=== PATIENT | male | born 1945 | race Caucasian/White ===

== ENCOUNTER 2016-10-22 21:17 | Inpatient (IN) ==
[2016-10-22 22:22] LABS: Hematocrit 29.3 % (37.5-50.1); Hemoglobin 9.3 g/dL (12.9-16.9); Mean Corpuscular HGB Conc 31.7 g/dL (31.6-35.5); Mean Corpuscular Hemoglobin 27.4 pg (28.0-33.3); Mean Corpuscular Volume 86.4 fL (83.0-100.0); Platelet Count 190 K/mcL (140-400); Red Blood Count 3.39 M/mcL (4.19-5.50); Red Cell Distribution Width 14.5 % (11.5-14.5)
[2016-10-22] MEDS: 0.9 % Sodium Chloride 1,000 ML IVC SCH ×2 (22:23→22:38)
[2016-10-22 22:37] LABS: Acetaminophen < 1.0 mcg/mL (10-30); Alanine Aminotransferase 8 Units/L (0-55); Albumin 3.4 g/dL (3.5-5.0); Albumin/Globulin Ratio 1.1 (1.1-2.2); Alkaline Phosphatase 59 Units/L (38-126); Aspartate Amino Transferase 17 Units/L (5-34); BUN/Creatinine Ratio 9 (6-26); Bilirubin,Direct 0.2 mg/dL (0.0-0.5); Bilirubin,Indirect 0.3 mg/dL (0.0-1.2); Bilirubin,Total 0.5 mg/dL (0.2-1.2); Blood Urea Nitrogen 45 mg/dL (8-26); Calcium 10.9 mg/dL (8.6-10.8); Carbon Dioxide 22 mEq/L (19-29); Chloride 103 mEq/L (98-109); Globulin 3.2 g/dL (2.4-3.5); Glucose 92 mg/dL (70-99); Osmolality,Calculated 289 (280-300); Potassium 4.2 mEq/L (3.5-4.5); Sodium 134 mEq/L (136-145); Total Protein 6.6 g/dL (6.0-8.3); eGFR For African Americans 14 (> 60); eGFR For Non-African Americans 11 (> 60)
[2016-10-22] MEDS ORDERED: Azithromycin 500 MG in D5% in Water 250 ML IVPB ONE (23:23)
[2016-10-22 23:24] LABS: Bilirubin,Urine Negative (Negative); Blood,Urine Small (Negative); Clarity,Urine Clear (Clear); Color,Urine Yellow (Yellow); Glucose,Urine (UA) Normal (Normal); Ketones,Urine Negative (Negative); Leukocyte Esterase,Urine Negative (Negative); Nitrite,Urine Negative (Negative); Protein,Urine >=300 mg/dL (Neg-Trace); Specific Gravity,Urine 1.017 (1.010-1.025); Urobilinogen,Urine Normal (Normal)
--- NOTE | 2016-10-22 23:26 | Emergency Department Note ---
Disposition Clinical Impression: Community acquired pneumonia Renal failure (ARF), acute on chronic Qualifiers: Acute renal failure type: unspecified Chronic kidney disease stage: unspecified stage Qualified Code(s): N17.9 - Acute kidney failure, unspecified Anemia Qualifiers: Anemia type: unspecified type Qualified Code(s): D64.9 - Anemia, unspecified Disposition: Admitted As Inpatient Condition: Fair Referrals: Fern Colon MD [Primary Care Provider] - Forms: Work/School Release, ED Satisfaction Letter General Adult HPI - General Chief complaint: ED General Medical Stated complaint: temp 101.6// N/V Time Seen by Provider: 10/22/16 21:27 Source: patient Limitations: no limitations Nursing Notes Reviewed: Yes Vital Signs Reviewed: Yes - History of Present Illness HPI Narrative: Presents with 1 week of cough which is intermittently productive of yellow sputum and he has had a fever which started today and was 101.6 degrees orally when measured at home shortly prior to arrival. Denies shortness of breath. No abdominal pain. No dysuria or urinary frequency, blood in the urine or stool. Patient does have chronic renal failure and is on immunosuppressive therapy. I did review the previous records. Social history: No smoking, occasional alcohol Pain Scale: 0 - Related Data Home Medications Medication Instructions Recorded Confirmed Allopurinol [Zyloprim 300 MG] 300 mg PO DAILY 08/31/16 10/22/16 Aspirin 81 mg PO DAILY 08/31/16 10/22/16 Diltiazem HCl [Cardizem LA] 120 mg PO DAILY 08/31/16 10/22/16 Glimepiride [Amaryl] 4 mg PO DAILY 08/31/16 10/22/16 Levothyroxine [Synthroid] 175 mcg PO DAILY 08/31/16 10/22/16 Losartan Potassium [Cozaar] 50 mg PO DAILY 08/31/16 10/22/16 Mycophenolate Mofetil [Cellcept] 500 mg PO BID 08/31/16 10/22/16 Ramipril [Altace] 10 mg PO BID 08/31/16 10/22/16 Rosuvastatin [Crestor] 40 mg PO HS 08/31/16 10/22/16 SitaGLIPtin [Januvia] 25 mg PO DAILY 08/31/16 10/22/16 Tamsulosin [Flomax] 0.4 mg PO DAILY 08/31/16 10/22/16 Tramadol HCl [Ultram] 100 mg PO BID PRN 08/31/16 10/22/16 Triamterene/HCTZ 37.5/25mg 0.5 tab PO DAILY 08/31/16 10/22/16 [Dyazide] Clotrimazole 1% CRM [Lotrimin 1%] 1 appl TP BID PRN 10/22/16 10/22/16 Omeprazole [PriLOSEC] 40 mg PO DAILY 10/22/16 10/22/16 Sulfamethoxazole/Trimeth DS 1 each PO MOWEFR 10/22/16 10/22/16 [Bactrim DS] Allergies Allergy/AdvReac Type Severity Reaction Status Date / Time prednisone AdvReac See Verified 09/09/16 08:00 Comments Review of Systems: Constitutional: No fever Vision: No new blurred vision ENT: No rhinorrhea Respiratory: + cough Allergic: No allergies : No blood in urine GI: No blood in stool Hematologic: No bruising Dermatologic: No skin rash Musculoskeletal: No pain in the extremities Neuro: No numbness of the extremities Past Medical History - Past Medical History Medical history: Reports: diabetes, hypertension, renal disease, thyroid disease Psychiatric history: Reports: no psych history - Social History Smoking Status: Never smoker Smokeless Tobacco Status: No Alcohol use: Reports: none Drug use: Reports: none Physical Exam CONSTITUTIONAL: Alert and oriented X3, well-nourished, well appearing, in no apparent distress but does have frequent dry cough HEAD: Normocephalic; atraumatic. EYES: PERRL, no scleral icterus. NOSE: The nose is normal in appearance without rhinorrhea RESP: Normal chest excursion with respiration; breath sounds with some mild crackles left lower lung field , no wheezing CARD: Regular rhythm, without murmurs, rub or gallop ABD: Non-distended; mild tenderness with deep palpation right lower quadrant and nontender elsewhere. The entire abdomen is normal in appearance and soft, without rigidity, rebound or guarding SKIN: Normal for age and race; warm and dry; no apparent lesions - General Limitations: no limitations General appearance: alert, in no apparent distress Course Vital Signs Temperature 100 F H 10/22/16 21:18 Pulse Rate 171 10/22/16 21:18 Respiratory Rate 18 10/22/16 21:18 Blood Pressure 102/62 10/22/16 21:18 O2 Sat by Pulse Oximetry 96 10/22/16 21:18 Temperature 100 F H 10/22/16 21:18 Pulse Rate 89 10/22/16 22:29 Respiratory Rate 16 10/22/16 22:29 Blood Pressure 118/75 10/22/16 22:29 O2 Sat by Pulse Oximetry 98 10/22/16 22:29 Oxygen Delivery Oxygen Delivery Room Air Medical Decision Making - MDM Narrative Medical decision making narrative: Patient clinically does have pneumonia with elevated fever, coughing and without other alternative explanation. Urine testing is pending. Abdominal CT does not show evidence of appendicitis or other surgical etiology. The patient will be admitted. He has not recently been hospitalized and I did start him on Rocephin 2 g and Zithromax 500 mg IV. Patient and family are comfortable with the admission physician. 2327 I did review the patient's EKG showing normal sinus rhythm with rate of 92 without acute ischemic change. 2339 I did review the previous EKG was does appear similar to the appearance of today 's EKG 2340 I did speak with the hospitalist who accepts for admission 2359 - Lab Data Result diagrams: 10/22/16 22:14 10/22/16 22:14 Lab Results 10/22/16 10/22/16 10/22/16 Range/Units 22:14 22:14 22:14 WBC 8.7 (4.3-11.1) K/mcL RBC 3.39 L (4.19-5.50) M/mcL Hgb 9.3 L (12.9-16.9) g/dL Hct 29.3 L (37.5-50.1) % MCV 86.4 (83.0-100.0) fL MCH 27.4 L (28.0-33.3) pg MCHC 31.7 (31.6-35.5) g/dL RDW 14.5 (11.5-14.5) % Plt Count 190 (140-400) K/mcL MPV 9.0 L (9.4-12.4) fL Sodium 134 L (136-145) mEq/L Potassium 4.2 (3.5-4.5) mEq/L Chloride 103 (98-109) mEq/L Carbon Dioxide 22 (19-29) mEq/L BUN 45 H (8-26) mg/dL Creatinine 5.06 H (0.72-1.25) mg/dL Est GFR ( Amer) 14 L (> 60) Est GFR (Non-Af Amer) 11 L (> 60) BUN/Creatinine Ratio 9 (6-26) Glucose 92 (70-99) mg/dL Calculated Osmolality 289 (280-300) Lactic Acid 0.8 (0.5-2.2) mmol/L Calcium 10.9 H (8.6-10.8) mg/dL Total Bilirubin 0.5 (0.2-1.2) mg/dL Direct Bilirubin 0.2 (0.0-0.5) mg/dL Indirect Bilirubin 0.3 (0.0-1.2) mg/dL AST 17 (5-34) Units/L ALT 8 (0-55) Units/L Alkaline Phosphatase 59 (38-126) Units/L Serum Total Protein 6.6 (6.0-8.3) g/dL Albumin 3.4 L (3.5-5.0) g/dL Globulin 3.2 (2.4-3.5) g/dL Albumin/Globulin Ratio 1.1 (1.1-2.2) Lipase (8-78) Units/L Urine Color (Yellow) Urine Clarity (Clear) Urine pH (5.0-8.0) pH Units Ur Specific Edison (1.010-1.025) Urine Protein (Neg-Trace) mg/dL Urine Glucose (UA) (Normal) mg/dL Urine Ketones (Negative) mg/dL Urine Blood (Negative) Urine Nitrite (Negative) Urine Bilirubin (Negative) Urine Urobilinogen (Normal) mg/dL Ur Leukocyte Esterase (Negative) Urine Microscopic RBC (0-3) per hpf Urine Microscopic WBC (0-3) per hpf Ur Squamous Epith Cells (None-Few) per lpf Urine Bacteria (None-Few) per hpf Hyaline Casts (None-Few) per lpf Acetaminophen < 1.0 L (10-30) mcg/mL 10/22/16 10/22/16 Range/Units 22:15 23:15 WBC (4.3-11.1) K/mcL RBC (4.19-5.50) M/mcL Hgb (12.9-16.9) g/dL Hct (37.5-50.1) % MCV (83.0-100.0) fL MCH (28.0-33.3) pg MCHC (31.6-35.5) g/dL RDW (11.5-14.5) % Plt Count (140-400) K/mcL MPV (9.4-12.4) fL Sodium (136-145) mEq/L Potassium (3.5-4.5) mEq/L Chloride (98-109) mEq/L Carbon Dioxide (19-29) mEq/L BUN (8-26) mg/dL Creatinine (0.72-1.25) mg/dL Est GFR ( Amer) (> 60) Est GFR (Non-Af Amer) (> 60) BUN/Creatinine Ratio (6-26) Glucose (70-99) mg/dL Calculated Osmolality (280-300) Lactic Acid (0.5-2.2) mmol/L Calcium (8.6-10.8) mg/dL Total Bilirubin (0.2-1.2) mg/dL Direct Bilirubin (0.0-0.5) mg/dL Indirect Bilirubin (0.0-1.2) mg/dL AST (5-34) Units/L ALT (0-55) Units/L Alkaline Phosphatase (38-126) Units/L Serum Total Protein (6.0-8.3) g/dL Albumin (3.5-5.0) g/dL Globulin (2.4-3.5) g/dL Albumin/Globulin Ratio (1.1-2.2) Lipase 23 (8-78) Units/L Urine Color Yellow (Yellow) Urine Clarity Clear (Clear) Urine pH 6.0 (5.0-8.0) pH Units Ur Specific Edison 1.017 (1.010-1.025) Urine Protein >=300 H (Neg-Trace) mg/dL Urine Glucose (UA) Normal (Normal) mg/dL Urine Ketones Negative (Negative) mg/dL Urine Blood Small H (Negative) Urine Nitrite Negative (Negative) Urine Bilirubin Negative (Negative) Urine Urobilinogen Normal (Normal) mg/dL Ur Leukocyte Esterase Negative (Negative) Urine Microscopic RBC 0-3 (0-3) per hpf Urine Microscopic WBC 0-3 (0-3) per hpf Ur Squamous Epith Cells Moderate H (None-Few) per lpf Urine Bacteria None Seen (None-Few) per hpf Hyaline Casts None Seen (None-Few) per lpf Acetaminophen (10-30) mcg/mL
[2016-10-22 23:28] LABS: Bacteria,Urine None Seen per hpf (None-Few); Hyaline Casts,Urine None Seen per lpf (None-Few); RBC,Urine 0-3 per hpf (0-3); Squamous Epithelial Cell,Urine Moderate per lpf (None-Few); WBC,Urine 0-3 per hpf (0-3)
--- NOTE | 2016-10-23 01:43 | Internal Med History&Physical ---
Date of Encounter: 10/23/16 Time of Encounter: 01:40 Assessment and Plan (1) Acute tracheobronchitis Current visit: Yes Status: Acute One week of productive cough of yellow sputum without shortness of breath or consolidation on CXR However cannot rule out community acquired pneumonia as he is immunocompromised and also dehydrated, which inhibits formation of consolidation Continue with Rocephin and Zithromax; await cultures prior to de-escalation Obtain CRP, sputum gram stain/culture to assist in diagnosis Support with breathing treatments and cough suppressants as needed (2) Acute worsening of stage 4 chronic kidney disease Current visit: Yes Status: Acute Likely pre-renal etiology in setting of dehydration from nausea/vomiting Will start maintenance IVF with NS @ 125 ml/hr Trend Cr and closely monitor electrolytes; avoid nephrotoxic agents (3) Nausea and vomiting Current visit: Yes Status: Acute Multifactorial at this point: cannot rule out infectious vs. medication side effect vs gastroparesis secondary to uncontrolled diabetes Support with IVF as above and anti-emetics Start with full liquids and advance as tolerated Qualifiers: Qualified Code(s): R11.2 - Nausea with vomiting, unspecified (4) Diabetes mellitus Current visit: Yes Status: Chronic Holding home anti-diabetic medications while on low dose SSI ACHS Accuchecks Last A1c checked was 6.6% in August Qualifiers: Qualified Code(s): E11.9 - Type 2 diabetes mellitus without complications (5) Hypertension Current visit: Yes Status: Chronic Blood pressure stable since admission Will hold ACEi and ARB in setting of KINZA on CKD; consider stopping one prior to D/C Add PRN Hydralazine if SBP > 170 Qualifiers: Qualified Code(s): I10 - Essential (primary) hypertension (6) Hypothyroidism Current visit: Yes Status: Chronic Continue home dose of Synthroid TSH checked 2 days ago was WNL Qualifiers: Qualified Code(s): E03.9 - Hypothyroidism, unspecified (7) DVT prophylaxis Current visit: Yes Status: Acute Heparin 5000 units BID Internal Medicine - H&P: HPI Chief complaint: cough, fever Admitted From: Home Plans for Post Hospital Care: Home History of present illness: Mr. Mckay is a 71 year old male who presented to the ED with cough of one-week duration. He states the cough has been productive and he has had yellow sputum during this time. He also had a fever and recorded his temperature at 101 earlier today. He also recently has some nausea and vomiting, claiming to have 5 episodes earlier today. He describes as nonbloody and occurred 24 hours after eating. He admits to being dehydrated and has had little oral intake due to nausea and vomiting over the past day. He also complains of dizziness which has been intermittent over the past 6 months and has caused him to have falls while at home. 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 Hayden. Patient denies any chest pain, shortness of breath, lightheadedness. He lives at home with his and his family is nearby and helps him often. Although he has been falling, he does not use a walker. Past Med Surg Social Fam HX - Past Medical History Medical history: arthritis, diabetes, hypertension, renal disease, thyroid disease Psychiatric history: no psych history - Social History Smoking Status: Never smoker Smokeless Tobacco Status: No Alcohol use: none Drug use: none - Family History Mother Hx Family Cardiac Disorders: Yes (valve replacement) Internal Medicine - H&P: Meds Allopurinol [Zyloprim 300 MG] 300 mg PO DAILY 08/31/16 [History] Aspirin 81 mg PO DAILY 08/31/16 [History] Diltiazem HCl [Cardizem LA] 120 mg PO DAILY 08/31/16 [History] Glimepiride [Amaryl] 4 mg PO DAILY 08/31/16 [History] Levothyroxine [Synthroid] 175 mcg PO DAILY 08/31/16 [History] Losartan Potassium [Cozaar] 50 mg PO DAILY 08/31/16 [History] Mycophenolate Mofetil [Cellcept] 500 mg PO BID 08/31/16 [History] Ramipril [Altace] 10 mg PO BID 08/31/16 [History] Rosuvastatin [Crestor] 40 mg PO HS 08/31/16 [History] SitaGLIPtin [Januvia] 25 mg PO DAILY 08/31/16 [History] Tamsulosin [Flomax] 0.4 mg PO DAILY 08/31/16 [History] Tramadol HCl [Ultram] 100 mg PO BID PRN 08/31/16 [History] Triamterene/HCTZ 37.5/25mg [Dyazide] 0.5 tab PO DAILY 08/31/16 [History] Clotrimazole 1% CRM [Lotrimin 1%] 1 appl TP BID PRN 10/22/16 [History] Omeprazole [PriLOSEC] 40 mg PO DAILY 10/22/16 [History] Sulfamethoxazole/Trimeth DS [Bactrim DS] 1 each PO MOWEFR 10/22/16 [History] Allergies prednisone Adverse Reaction (Verified 09/09/16 08:00) See Comments All Systems PM: A 10-system review of systems was performed and is negative for pertinent findings except as documented above in the HPI. - Constitutional Constitutional: fever(s), weakness, no chills, no night sweats - EENT Eyes: blurry vision (left), no discharge, no pain, no photophobia Ears: no ear discharge, no ear pain, no tinnitus Nose, mouth and throat: no dysphagia, no nasal discharge, no neck pain, no sore throat - Cardiovascular Cardiovascular ROS IM: no chest pain, no diaphoresis, no dyspnea, no lightheadedness, no palpitations, no syncope - Respiratory Respiratory: cough, excessive phlegm production, change in phlegm color, no dyspnea, no wheezing - Gastrointestinal Gastrointestinal: constipation, nausea, vomiting, no abdominal pain, no diarrhea , no hematemesis, no hematochezia, no melena - Musculoskeletal Musculoskeletal ROS IM: no numbness, no tingling - Integumentary Integumentary IM: no rash, no unusual bruising - Neurological Neurological ROS: no confusion, no convulsions, no focal weakness, no numbness, no tingling, no tremor(s) - Constitutional Vitals: Temp Pulse Resp BP Pulse Ox 99.6 F 91 18 142/74 96 10/23/16 01:01 10/23/16 01:01 10/23/16 01:01 10/23/16 01:01 10/23/16 01:01 General appearance: Present: cooperative, pleasant, no acute distress, answers questions appropriately - Head Head exam: Present: atraumatic, normocephalic - Eye Eye exam: Present: PERRL, conjuntiva pink, sclera anicteric - Neck Neck exam general surgery: Present: supple, trachea midline. Absent: lymphadenopathy - Respiratory Respiratory exam: Present: rales (right > left). Absent: accessory muscle use, rhonchi, wheezes - Cardiovascular Cardiovascular exam: Present: RRR, +S1, +S2. Absent: diastolic murmur, gallop, rubs, systolic murmur - GI/Abdominal GI/Abdominal exam: Present: normal bowel sounds, soft, no peritoneal signs. Absent: distended, tenderness - Extremities Exam Extremities exam: Present: warm, radial pulses palpable and symetrical. Absent : calf tenderness, cyanotic, pedal edema - Neurological Exam Neurological exam: Present: alert, oriented X3, no focal deficits. Absent: facial droop, speech deficit - Skin Skin exam: Present: dry, intact Internal Med - H&P Results - Labs CBC & Chem 7: 10/22/16 22:14 10/22/16 22:14
[2016-10-23] MEDS ORDERED: Dextrose Gel 15 GM PO PRN ×2 (02:40)
[2016-10-23] MEDS ORDERED: D5% in Water 1,000 ML IVC PRN (02:40)
[2016-10-23] MEDS ORDERED: *HR* Promethazine 25 MG/ML VIAL IVP PRN (02:40)
[2016-10-23] MEDS ORDERED: *HR* Dextrose 50 % in Water (Syg) 50 ML SYRINGE IVP PRN (02:40)
[2016-10-23] MEDS ORDERED: Naloxone 0.4 MG/ML INJ IVP PRN (02:40)
[2016-10-23] MEDS ORDERED: Ondansetron ODT 4 MG TAB.RAPDIS SL PRN (02:40)
[2016-10-23] MEDS ORDERED: Acetaminophen 325 MG TABLET PO PRN ×2 (02:40→20:02)
[2016-10-23] MEDS ORDERED: traMADol 50 MG TABLET PO PRN ×2 (02:45→08:06)
[2016-10-23] MEDS: 0.9 % Sodium Chloride 1,000 ML IVC SCH ×3 (03:31→21:55)
[2016-10-23] MEDS: Ipratropium/Albuterol Neb 3 ML IH SCH ×6 (04:26→23:00)
[2016-10-23] MEDS: *HR* Heparin 5,000 UNIT/ML VIAL SQ SCH ×2 (05:57→17:47)
[2016-10-23] MEDS ORDERED: Pantoprazole 40 MG VIAL IVP SCH (06:30)
[2016-10-23 06:47] LABS: Calcium 9.8 mg/dL (8.6-10.8); Potassium 3.7 mEq/L (3.5-4.5)
[2016-10-23 06:49] LABS: Basophils % 0.3 %; Eosinophils # 0.1 K/mcL (0.0-0.6); Eosinophils % 1.3 %; Hematocrit 26.2 % (37.5-50.1); Hemoglobin 8.3 g/dL (12.9-16.9); Immature Granulocytes % 0.2 % (0-4); Lymphocytes # 1.4 K/mcL (0.6-4.6); Mean Corpuscular HGB Conc 31.7 g/dL (31.6-35.5); Mean Corpuscular Hemoglobin 27.6 pg (28.0-33.3); Mean Platelet Volume 10.1 fL (9.4-12.4); Monocytes # 0.7 K/mcL (0.0-1.3); Monocytes % 11.9 %; Neutrophils # 3.8 K/mcL (1.6-8.9); Platelet Count 175 K/mcL (140-400); Red Blood Count 3.01 M/mcL (4.19-5.50); Red Cell Distribution Width 14.5 % (11.5-14.5); Segmented Neutrophils % 63.3 %
--- NOTE | 2016-10-23 07:10 | Nephrology Consult Note ---
Date of Encounter: 10/23/16 Time of Encounter: 08:55 Assessment and Plan (1) Acute worsening of stage 4 chronic kidney disease Current Visit: Yes Status: Acute 71-year-old male with stage IV chronic kidney disease, membranous glomerulonephritis on CellCept Worsening of renal function most likely prerenal as patient has multiple bouts of vomiting and decreased oral intake. He has received over 2 L of normal saline so far with improvement in his serum creatinine. History of diabetes with past hemoglobin A1c of 6.6. Significant proteinuria that is chronic. Plan: Continue IV fluids. Strict I's and O's. Renal protective/conservative therapy Avoid nephrotoxins including NSAIDs and contrast Continue Phenergan to control nausea plus vomiting symptoms. Low salt diet continue ramipril. Patient initially treated with jose roberto and arb to control protienuria but last march has worsening renal function and was started on steroid therapy and thereafter cellcept. Will d/c cellcept due to poor tolerance and start cyclosporine. (2) Membranous glomerulonephritis Current Visit: Yes Status: Acute (3) Diabetes mellitus Current Visit: Yes Status: Chronic Qualifiers: Diabetes mellitus type: type 2 Diabetes mellitus complication status: with kidney complications Diabetes mellitus complication detail: with microalbuminuria Diabetes mellitus buttermaker insulin use: without buttermaker use Qualified Code(s): E11.29 - Type 2 diabetes mellitus with other diabetic kidney complication; R80.9 - Proteinuria, unspecified History of Present Illness - Reason for Consult Consult date: 10/22/16 Acute Kidney Injury, Chronic Kidney Disease, glomerulonephritis - Chief Complaint Nausea vomiting - History of Present Illness [id number] male with history of diabetes mellitus, hypertension, BPH, CK 84 and membranous glomerulonephritis, on cellcept presents with chief complaint of coughing ellow sputum. He stated he had a temperature 101. Furthermore, complains of nausea vomiting that has been going on for over 3 months. Patient was unable to keep down fluids or food. He has noticed a decrease in his urine. Denies dysuria, hematuria, hemoptysis, melena, hematemesis. Patient says since she has been started on CellCept his nausea and vomiting have become unbearable. He stopped salsa for 3 days and noticed improvement in his nausea vomiting and thereafter restarted and noticed nausea vomiting become worse. Patient is worried that he is becoming dehydrated and presented to the emergency room. Patient's baseline serum creatinine is 3.5. On presentation serum creatinine 5.06 with the EGFR 11. Urinalysis shows significant proteinuria which has been seen previously. Nephrology was consulted due to worsening renal function. Patient was also diagnosed acute tracheobronchitis and started on Rocephin and Zithromax. CT of the sinuses shows acute sinusitis. Past Med Surg Social Fam HX - Past Medical History Medical history: arthritis, diabetes, hypertension, renal disease, thyroid disease Psychiatric history: no psych history - Social History Smoking Status: Never smoker Smokeless Tobacco Status: No Alcohol use: none Drug use: none - Family History Mother Hx Family Cardiac Disorders: Yes (valve replacement) Medications and Allergies Allopurinol [Zyloprim 300 MG] 300 mg PO DAILY 08/31/16 [History] Aspirin 81 mg PO DAILY 08/31/16 [History] Diltiazem HCl [Cardizem LA] 120 mg PO DAILY 08/31/16 [History] Glimepiride [Amaryl] 4 mg PO DAILY 08/31/16 [History] Levothyroxine [Synthroid] 175 mcg PO DAILY 08/31/16 [History] Losartan Potassium [Cozaar] 50 mg PO DAILY 08/31/16 [History] Mycophenolate Mofetil [Cellcept] 500 mg PO BID 08/31/16 [History] Ramipril [Altace] 10 mg PO BID 08/31/16 [History] Rosuvastatin [Crestor] 40 mg PO HS 08/31/16 [History] SitaGLIPtin [Januvia] 25 mg PO DAILY 08/31/16 [History] Tamsulosin [Flomax] 0.4 mg PO DAILY 08/31/16 [History] Tramadol HCl [Ultram] 100 mg PO BID PRN 08/31/16 [History] Triamterene/HCTZ 37.5/25mg [Dyazide] 0.5 tab PO DAILY 08/31/16 [History] Clotrimazole 1% CRM [Lotrimin 1%] 1 appl TP BID PRN 10/22/16 [History] Omeprazole [PriLOSEC] 40 mg PO DAILY 10/22/16 [History] Sulfamethoxazole/Trimeth DS [Bactrim DS] 1 each PO MOWEFR 10/22/16 [History] Allergies prednisone Adverse Reaction (Verified 09/09/16 08:00) See Comments Review of Systems All Systems review (narrative): Constitutional: Denies fever, chills HEENT: Denies headache, vision changes, neck pain, sore throat, rhinorrhea Heart: Denies chest pain palpitations Lungs: Denies shortness of breath cough Abdomen: Reports abdominal pain, nausea, vomiting. Denies diarrhea Back: Denies back pain Kidney: Denies dysuria, hematuria. Reports decreased in urine production Extremities: Denies swelling, pain Neuro: Denies numbness, and tingling Exam - Vital Signs Vital signs: Initial Vital Signs Temp Pulse Resp BP Pulse Ox 100 F H 171 18 102/62 96 10/22/16 21:18 10/22/16 21:18 10/22/16 21:18 10/22/16 21:18 10/22/16 21:18 Intake and Output 10/22/16 10/22/16 10/23/16 15:59 23:59 07:59 Output Total 300 / 400 Balance -300 / -50 Output: Urine 300 / 400 - General Appearance General appearance: appears started age, frail EENT: PERRL, mucous membranes dry Neck: no JVD Respiratory: clear Cardiology: rapid rhythm (Sinus tachycardia), normal S1, normal S2 Gastrointestinal: normoactive bowel sounds, no tenderness, no guarding Integumentary: no rash, warm and dry Neurologic: no focal deficit, no asterixis, alert and oriented x3 Musculoskeletal: no deformities, no erythema, no cyanosis, no clubbing Psychiatric: mood/affect appropriate, cooperative Results - Lab Results 10/23/16 06:15 10/23/16 06:15 Most recent lab results Calcium 9.8 mg/dL (8.6-10.8) 10/23/16 06:15 Consult Discharge Plan - Plan Referrals: Fern Colon MD [Primary Care Provider] -
[2016-10-23] MEDS ORDERED: NON-FORMULARY MEDICATION 1 EACH EACH (Losartan Potassium [Cozaar] 50 MG) PO SCH (09:00)
[2016-10-23] MEDS ORDERED: RAMIPRIL 10 MG PO SCH (09:00)
[2016-10-23] MEDS: Insulin LISPRO 300 UNITS/3 ML VIAL SQ SCH ×4 (10:12→21:04)
[2016-10-23] MEDS: Aspirin 81 MG TAB.CHEW PO SCH (10:19)
[2016-10-23] MEDS: Diltiazem CD (24hr) 120 MG CAPSULE PO SCH (10:19)
--- NOTE | 2016-10-23 15:11 | Internal Med Progress Note ---
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 - Nephrology has been consulted and is following, appreciate recommendations - Patient was also evaluated by OT/PT and is recommended home health upon discharge (2) Acute tracheobronchitis Current Visit: Yes Status: Acute Assessment and plan: - Chest x-ray in emergency department revealed no acute disease, however pneumonia cannot be ruled out due to patient's dehydration status - Patient was placed on Rocephin and azithromycin for treatment of tracheobronchitis - Sinus CT also revealed acute sinusitis, physical exam confirmed sinus palpation tenderness. Patient will be continued on Rocephin and azithromycin for treatment -We will repeat chest x-ray tomorrow to rule out pneumonia given increased fluid status (3) Nausea and vomiting Current Visit: Yes Status: Acute Assessment and plan: - Patient states that last vomiting was yesterday. With no episodes this morning - Etiologies include medication intolerance, infectious causes, gastroparesis from poorly controlled diabetes - Does admit to one episode of dry heaving this morning after consuming ice chips - Patient states that he is clinically improving and was able to tolerate a small amount of breakfast and more lunch - Patient is currently receiving Zofran and omeprazole, we will continue to treat as needed for nausea and vomiting Qualifiers: Qualified Code(s): R11.2 - Nausea with vomiting, unspecified (4) Diabetes mellitus Current Visit: Yes Status: Chronic Assessment and plan: - Most recent A1c was 6.6 in August 2016 - Most recent blood glucose was 105 - Currently well controlled, will continue sliding scale insulin Qualifiers: Diabetes mellitus type: type 2 Diabetes mellitus complication status: with kidney complications Diabetes mellitus complication detail: with microalbuminuria Diabetes mellitus superintendent terminal insulin use: without senior living use Qualified Code(s): E11.29 - Type 2 diabetes mellitus with other diabetic kidney complication; R80.9 - Proteinuria, unspecified (5) Hypertension Current Visit: Yes Status: Chronic Assessment and plan: - Blood pressure this morning was 106/56 - Patient's diuretics were held [place] department secondary to acute kidney injury - Nephrology is following, restarted lisinopril 10 mg - Hydralazine and diltiazem have been discontinued. - Patient's home medication of triamterene/HCTZ is not available at Hospital pharmacy, patient was requested that home medication be brought from home if the patient becomes hypertensive Qualifiers: Qualified Code(s): I10 - Essential (primary) hypertension (6) DVT prophylaxis Current Visit: Yes Status: Acute Assessment and plan: - Heparin 5000 units subcutaneously daily. - Time Spent With Patient 25 - 35 minutes - Subjective Interval history: This note is not for billing purposes. Patient was seen and examined morning at bedside. He states he is currently feeling much better than when he was admitted. He did have one episode of dry heaving early in the morning after trying to consume ice chips, however at breakfast he states that he was able to eat small amounts without nausea. He still does complain of a cough with productive yellow sputum, however he states that it is improved. He remains febrile on however denies any symptoms of chest pain, shortness of breath, dizziness, lightheadedness, vomiting. - Constitutional Vitals: Temp Pulse Resp BP Pulse Ox 99.5 F 99 16 101/59 98 10/23/16 11:07 10/23/16 11:07 10/23/16 11:10 10/23/16 11:07 10/23/16 11:10 General appearance: Present: cooperative, pleasant, no acute distress, answers questions appropriately Exam: Gen.: Vitals noted. No acute distress. AAOx3 HEENT: Mildly dry mucous membranes, PERRL/EOMI, oropharynx clear, Normocephalic , atraumatic Neck: Supple. No adenopathy. Cardiac: RRR, no murmur, +S1/S2 Pulmonary: Diffuse wheezing, with mild rails in the middle laterally. equal chest expansion Abdomen: soft, nontender, BS noted, no guarding Back: Nontender throughout. MSK: ROM intact, no joint swelling noted Extremities: no BLE edema, nontender calf, no cyanosis or clubbing Neuro: A&Ox3, moves all extremities, no focal deficits Psych: Appropriate mood and behavior Internal Medicine: Result - Labs CBC & Chem 7: 10/23/16 06:15 10/23/16 06:15 Labs: Short CBC 10/23/16 Range/Units 06:15 WBC 6.0 (4.3-11.1) K/mcL Hgb 8.3 L (12.9-16.9) g/dL Hct 26.2 L (37.5-50.1) % Plt Count 175 (140-400) K/mcL Neutrophils # 3.8 (1.6-8.9) K/mcL BMP 10/23/16 06:15 Sodium 137 Potassium 3.7 Chloride 108 Carbon Dioxide 19 BUN 43 H Creatinine 4.65 H Glucose 105 H Calcium 9.8 Consult Discharge Plan - Plan Referrals: Fern Colon MD [Primary Care Provider] - 10/29/16 1:30 pm (Please follow up as schedule...) <Micah Dutton T - Last Filed: 10/23/16 17:36> Date of Encounter: 10/23/16 - Constitutional Vitals: Temp Pulse Resp BP Pulse Ox 98.8 F 88 16 120/63 98 10/23/16 17:15 10/23/16 17:15 10/23/16 17:15 10/23/16 17:15 10/23/16 17:15 Internal Medicine: Result - Labs CBC & Chem 7: 10/23/16 06:15 10/23/16 06:15 Labs: Short CBC 10/23/16 Range/Units 06:15 WBC 6.0 (4.3-11.1) K/mcL Hgb 8.3 L (12.9-16.9) g/dL Hct 26.2 L (37.5-50.1) % Plt Count 175 (140-400) K/mcL Neutrophils # 3.8 (1.6-8.9) K/mcL BMP 10/23/16 06:15 Sodium 137 Potassium 3.7 Chloride 108 Carbon Dioxide 19 BUN 43 H Creatinine 4.65 H Glucose 105 H Calcium 9.8 - Attending Attestation I examined this patient and my medical decision-making was reviewed with the Resident Physician on 7/14/17. I agree with the documented findings, disposition and treatment plan as described except to the extent set forth below. 71 M with CKD IV , membranous GN on cellcept, HTN, admitted for management of acute sinusitis, bronchitis , suspected pneumonia, KINZA on CKD secondary to dehydration from recurrent nausea and vomiting. Seen and evaluated at bedside, reports he was able to take a few spoons of diet this a.m., nausea and vomiting, improving, no neurologic symptoms at time of review Physical exam: VSS, not in distress, chronically ill-looking, speaks full sentences, neck is supple, no meningeal signs , chest exam with R transmitted sounds, abdomen is benign, extremities no edema Lab and imaging reviewed: KINZA on CKD, Chronic Iron deficiency anemia, HB at baseline, LFT, amylase, lipase unremarkable, CXR is clear, Abd CT with diverticulosis and cholelithiasis, no active inflammation or infection KINZA on CKD secondary to dehydration, continue IVF hydration, avoid nephrotoxins , hold home diuretics and BP medications, renal input appreciated. Sinusitis/ bronchitis/Suspected pneumonia, continue antibiotics, repeat CXR tmrw a.m., no clinical evidence of meningitis, low threshold for LP should patient develop any signs. Continue antiemetics, monitor Chem Rest of details as in resident physicians documentation
[2016-10-24] MEDS ORDERED: Azithromycin 500 MG in D5% in Water 250 ML IVPB SCH
[2016-10-24] MEDS: Ipratropium/Albuterol Neb 3 ML IH SCH ×6 (03:17→23:23)
[2016-10-24] MEDS: *HR* Heparin 5,000 UNIT/ML VIAL SQ SCH ×2 (05:32→17:08)
[2016-10-24] MEDS: Benzonatate 100 MG CAPSULE PO PRN ×2 (05:32→21:03)
[2016-10-24 07:00] LABS: Hematocrit 24.7 % (37.5-50.1); Hemoglobin 7.8 g/dL (12.9-16.9); Mean Corpuscular HGB Conc 31.6 g/dL (31.6-35.5); Mean Corpuscular Hemoglobin 27.5 pg (28.0-33.3); Mean Platelet Volume 9.8 fL (9.4-12.4); Platelet Count 168 K/mcL (140-400); Red Blood Count 2.84 M/mcL (4.19-5.50); Red Cell Distribution Width 14.6 % (11.5-14.5)
[2016-10-24 07:04] LABS: Calcium 9.3 mg/dL (8.6-10.8); Potassium 3.6 mEq/L (3.5-4.5)
--- NOTE | 2016-10-24 07:08 | Electrocardiograph Report ---
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
[2016-10-24] MEDS: Diltiazem CD (24hr) 120 MG CAPSULE PO SCH (08:25)
[2016-10-24] MEDS: Aspirin 81 MG TAB.CHEW PO SCH (08:25)
[2016-10-24] MEDS: Insulin LISPRO 300 UNITS/3 ML VIAL SQ SCH ×4 (08:26→21:09)
[2016-10-24] MEDS: 0.9 % Sodium Chloride 1,000 ML IVC SCH (08:29)
--- NOTE | 2016-10-24 09:56 | Nephrology Progress Note ---
Date of Encounter: 10/24/16 Time of Encounter: 09:54 - Assessment and Plan (1) Acute tracheobronchitis Current Visit: Yes Status: Acute On antibiotics. Improving. (2) Anemia Current Visit: Yes Status: Acute Monitor hemoglobin. Transfuse as needed. Qualifiers: Anemia type: unspecified type Qualified Code(s): D64.9 - Anemia, unspecified (3) Membranous glomerulonephritis Current Visit: Yes Status: Acute Holding cellcept. Will decide if other treatment is needed once acute symptoms resolve. (4) Nausea and vomiting Current Visit: Yes Status: Acute Likely secondary to mycophenolate which has been discontinued. Symptoms are improving. Ok to advance diet. Qualifiers: Qualified Code(s): R11.2 - Nausea with vomiting, unspecified (5) Renal failure (ARF), acute on chronic Current Visit: Yes Status: Acute Improving with hydration. If he tolerates his diet can discontinue MIV later today. Qualifiers: Acute renal failure type: unspecified Chronic kidney disease stage: unspecified stage Qualified Code(s): N17.9 - Acute kidney failure, unspecified ; N18.9 - Chronic kidney disease, unspecified (6) Diabetes mellitus Current Visit: Yes Status: Chronic Per primary team. Qualifiers: Diabetes mellitus type: type 2 Diabetes mellitus complication status: with kidney complications Diabetes mellitus complication detail: with microalbuminuria Diabetes mellitus correction insulin use: without buttermilk drier operator use Qualified Code(s): E11.29 - Type 2 diabetes mellitus with other diabetic kidney complication; R80.9 - Proteinuria, unspecified (7) Hypertension Current Visit: Yes Status: Chronic Controlled. Qualifiers: Qualified Code(s): I10 - Essential (primary) hypertension Subjective Principal diagnosis: KINZA/CKD Interval history: Patient seen and evaluated. Patient feels better with less nausea. ROS otherwise stable. Objective - Vital Signs Vital signs: Vital Signs Temp Pulse Resp BP Pulse Ox 10/24/16 07:52 98.6 F 85 17 135/71 96 10/24/16 03:31 99.5 F 91 20 120/68 96 10/23/16 23:00 16 93 10/23/16 22:53 99.6 F 99 18 105/49 94 10/23/16 19:42 17 94 10/23/16 19:41 100.2 F H 88 18 114/53 98 10/23/16 17:15 98.8 F 88 16 120/63 98 10/23/16 15:48 18 96 10/23/16 11:10 16 98 10/23/16 11:07 99.5 F 99 16 101/59 95 Intake and Output 10/23/16 10/24/16 10/24/16 23:59 07:59 15:59 Intake Total 1979 / 1979 1000 / 1000 60 / 60 Output Total 300 / 300 1295 / 1295 Balance 1680 / 1680 -295 / -295 60 / 60 Intake: IV Fluids 1000 / 1000 1000 / 1000 0.9 % Sodium Chloride 1, 1000 / 1000 1000 / 1000 000 ML @ 125 mls/hr IVC . Q8H JONNIE Rx#:[id number] Oral 980 / 980 0 / 0 60 / 60 Output: Urine 300 / 300 1295 / 1295 Other: Weight 103.873 kg Blood Glucose* 138 110 Patient Weight 10/24/16 23:59 Weight 103.873 kg - General Appearance General appearance: Present: well-developed, well-nourished EENT: Present: ATNC Neck: Present: supple Additional Comments: respirations are unlabored. Cardiology: Present: regular rate Neurologic: Present: alert and oriented x3 Psychiatric: Present: mood/affect appropriate - Lab 10/24/16 06:12 10/24/16 06:12 Most recent lab results Calcium 9.3 mg/dL (8.6-10.8) 10/24/16 06:12 Consult Discharge Plan - Plan Referrals: Fern Colon MD [Primary Care Provider] - 10/29/16 1:30 pm (Please follow up as schedule...)
--- NOTE | 2016-10-24 10:02 | Internal Med Progress Note ---
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, diabetes, hypertension - Acute worsening likely secondary to dehydration, vomiting, decreased fluid intake - BUNs/creatinine upon admission was 45/5.06, today has improved to 43/4.65 with IV hydration, continue fluids at 125 mL per hour - Per chart review, baseline creatinine is somewhere in the 3-4 range - Nephrology has been consulted and is following, appreciate recommendations - Patient was also evaluated by OT/PT and is recommended home health upon discharge (2) Acute tracheobronchitis Current Visit: Yes Status: Acute Assessment and plan: - Chest x-ray in emergency department revealed no acute disease, repeat chest x- ray this morning after hydration continued to show no evidence of consolidation , pneumonia. Likely diagnosis of COPD and bronchitis - Sinus CT also revealed acute sinusitis, physical exam confirmed sinus palpation tenderness. - Continue treatment with azithromycin, and transition to oral. We will discontinue Rocephin and replaced with Augmentin by mouth. (3) Nausea and vomiting Current Visit: Yes Status: Acute Assessment and plan: - Patient states that last vomiting was morning after admission. With no episodes this morning - Etiologies include medication intolerance, infectious causes, gastroparesis from poorly controlled diabetes - Patient tolerated breakfast well without complaints of nausea - Patient is currently receiving Zofran and omeprazole, we will continue to treat as needed for nausea and vomiting Qualifiers: Vomiting type: unspecified Vomiting Intractability: unspecified Qualified Code(s): R11.2 - Nausea with vomiting, unspecified (4) Diabetes mellitus Current Visit: Yes Status: Chronic Assessment and plan: - Most recent A1c was 6.6 in August 2016 - Most recent blood glucose was 105 - Currently well controlled, will continue sliding scale insulin Qualifiers: Diabetes mellitus type: type 2 Diabetes mellitus complication status: with kidney complications Diabetes mellitus complication detail: with microalbuminuria Diabetes mellitus residential insulin use: without residential use Qualified Code(s): E11.29 - Type 2 diabetes mellitus with other diabetic kidney complication; R80.9 - Proteinuria, unspecified (5) Hypertension Current Visit: Yes Status: Chronic Assessment and plan: - Blood pressure this morning was 120/68 - Patient's diuretics were held [place] department secondary to acute kidney injury - Nephrology is following, restarted lisinopril 10 mg - Patient's home medication of triamterene/HCTZ is not available at Hospital pharmacy, patient was requested that home medication be brought from home if the patient becomes hypertensive. Patient's has not yet arrived today, as such we have not received this medication as of yet Qualifiers: Hypertension type: essential hypertension Qualified Code(s): I10 - Essential (primary) hypertension (6) DVT prophylaxis Current Visit: Yes Status: Acute Assessment and plan: - Heparin 5000 units subcutaneously daily. - Time Spent With Patient 25 - 35 minutes - Subjective Interval history: Patient was seen and examined at bedside this morning. States that is his cough continues to improve each day. He does admit to some chest tenderness she believes is due to coughing. He also states that last evening, he experienced a temperature of 100.2. He has a complaint this morning of dysuria and frequency, but denies hematuria. He does state that he has been told he has prostate problems in the past and takes a home medication of Flomax. He also states that his nausea and vomiting has not returned since being admitted, and he was able to tolerate breakfast this morning without complaints. - Constitutional Vitals: Temp Pulse Resp BP Pulse Ox 98.6 F 85 17 135/71 96 10/24/16 07:52 10/24/16 07:52 10/24/16 07:52 10/24/16 07:52 10/24/16 07:52 General appearance: Present: cooperative, pleasant, no acute distress, answers questions appropriately Exam: Gen.: Vitals noted. No acute distress. AAOx3, moderately warm to touch HEENT: PERRL/EOMI, oropharynx clear, Normocephalic, atraumatic Neck: Supple. No adenopathy. Cardiac: RRR, no murmur, +S1/S2 Pulmonary: Mild bilateral wheezing .no rales or rhonchi, equal chest expansion Abdomen: soft, nontender, BS noted, no guarding Back: Nontender throughout. MSK: ROM intact, no joint swelling noted Extremities: no BLE edema, nontender calf, no cyanosis or clubbing Neuro: A&Ox3, moves all extremities, no focal deficits Psych: Appropriate mood and behavior Internal Medicine: Result - Labs CBC & Chem 7: 10/24/16 06:12 10/24/16 06:12 Labs: Short CBC 10/24/16 Range/Units 06:12 WBC 5.1 (4.3-11.1) K/mcL Hgb 7.8 L (12.9-16.9) g/dL Hct 24.7 L (37.5-50.1) % Plt Count 168 (140-400) K/mcL BMP 10/24/16 06:12 Sodium 134 L Potassium 3.6 Chloride 107 Carbon Dioxide 20 BUN 35 H Creatinine 3.85 H Glucose 113 H Calcium 9.3 - Impressions Impressions Chest X-Ray 10/24/16 07:01 IMPRESSION: Stable examination without acute focal process. Findings suggesting COPD. D/ / Óscar Nguyen MD / Óscar Nguyen MD Interpreting Provider: Óscar Nguyen MD Consult Discharge Plan - Plan Referrals: Fern Colon MD [Primary Care Provider] - 10/29/16 1:30 pm (Please follow up as schedule...) <Micah Dutton T - Last Filed: 10/24/16 13:41> Date of Encounter: 10/24/16 - Constitutional Vitals: Temp Pulse Resp BP Pulse Ox 98 F 72 17 144/70 97 10/24/16 11:29 10/24/16 11:29 10/24/16 11:29 10/24/16 11:29 10/24/16 11:29 Internal Medicine: Result - Labs CBC & Chem 7: 10/24/16 06:12 10/24/16 06:12 Labs: Short CBC 10/24/16 Range/Units 06:12 WBC 5.1 (4.3-11.1) K/mcL Hgb 7.8 L (12.9-16.9) g/dL Hct 24.7 L (37.5-50.1) % Plt Count 168 (140-400) K/mcL BMP 10/24/16 06:12 Sodium 134 L Potassium 3.6 Chloride 107 Carbon Dioxide 20 BUN 35 H Creatinine 3.85 H Glucose 113 H Calcium 9.3 - Impressions Impressions Chest X-Ray 10/24/16 07:01 IMPRESSION: Stable examination without acute focal process. Findings suggesting COPD. D/ / Óscar Nguyen MD / Óscar Nguyen MD Interpreting Provider: Óscar Nguyen MD - Attending Attestation I examined this patient and my medical decision-making was reviewed with the Resident Physician on 10/24/16. I agree with the documented findings, disposition and treatment plan as described except to the extent set forth below. 71 M with CKD IV , membranous GN on cellcept, HTN, admitted for management of acute sinusitis, bronchitis , suspected pneumonia, KINZA on CKD secondary to dehydration from recurrent nausea and vomiting. Seen and evaluated at bedside, his n/v/headache has resolved he feels much more improved he had a low grade fever of 100.2 last night, no tachycardia, no leukocytosis Physical exam: VSS, not in distress, chronically ill-looking, speaks full sentences, neck is supple, no meningeal signs , chest exam with R transmitted sounds, abdomen is benign, extremities no edema Lab and imaging reviewed: renal function improved with Cr back to baseline, Chronic Iron deficiency anemia, HB slighlty decreased, possibly dilutional. A/P- -KINZA on CKD secondary to dehydration, Improved. D/C IVF, encourage libral fluid intake. avoid nephrotoxins, hold home diuretics. renal input appreciated. -Sinusitis/bronchitis/=: Repeat CXR with no infltirates, D/C ceftraixone, change to augmentin for sinusitis renal doses, continue Azithromycin po for bronchitis -Anemia: Dilutional, no source of bleeding, continue to monitor -HTN: Blood pressure improved now, resume and continue home meds-Diltiazem and Lisinopril, may titrate up prn -Membranous GN: Per renal Rest of details as in resident physicians documentation
[2016-10-24] MEDS: Azithromycin 250 MG TABLET PO SCH (10:34)
[2016-10-24] MEDS: Amoxicillin/Clavulanate 500 MG TABLET PO SCH (17:08)
[2016-10-25] MEDS: Ipratropium/Albuterol Neb 3 ML IH SCH ×2 (03:44→07:51)
[2016-10-25] MEDS: Benzonatate 100 MG CAPSULE PO PRN (04:33)
[2016-10-25 04:43] LABS: Hematocrit 26.5 % (37.5-50.1); Hemoglobin 8.6 g/dL (12.9-16.9); Mean Corpuscular HGB Conc 32.5 g/dL (31.6-35.5); Mean Corpuscular Volume 86.3 fL (83.0-100.0); Mean Platelet Volume 10.2 fL (9.4-12.4); Platelet Count 188 K/mcL (140-400); Red Blood Count 3.07 M/mcL (4.19-5.50); Red Cell Distribution Width 14.5 % (11.5-14.5)
[2016-10-25 04:59] LABS: Calcium 10.3 mg/dL (8.6-10.8); Potassium 3.5 mEq/L (3.5-4.5)
[2016-10-25] MEDS: *HR* Heparin 5,000 UNIT/ML VIAL SQ SCH (06:08)
[2016-10-25] MEDS: Insulin LISPRO 300 UNITS/3 ML VIAL SQ SCH (07:42)
[2016-10-25 07:54] VITALS: BP 138/76
[2016-10-25] MEDS: Amoxicillin/Clavulanate 500 MG TABLET PO SCH (08:33)
[2016-10-25] MEDS: Diltiazem CD (24hr) 120 MG CAPSULE PO SCH (08:33)
[2016-10-25] MEDS: Aspirin 81 MG TAB.CHEW PO SCH (08:33)
[2016-10-25] MEDS: Azithromycin 250 MG TABLET PO SCH (08:33)
--- NOTE | 2016-10-25 09:13 | Discharge Summary ---
<Jose J Kennedy - Last Filed: 10/25/16 10:55> Date of Encounter: 10/25/16 Time of Encounter: 09:03 - Discharge Diagnosis (1) Acute worsening of stage 4 chronic kidney disease Priority: Primary Status: Acute (2) Acute tracheobronchitis Priority: Primary Status: Acute (3) Diabetes mellitus Priority: Primary Status: Chronic Qualifiers: Diabetes mellitus type: type 2 Diabetes mellitus complication status: with kidney complications Diabetes mellitus complication detail: with microalbuminuria Diabetes mellitus jail insulin use: without jail use Qualified Code(s): E11.29 - Type 2 diabetes mellitus with other diabetic kidney complication; R80.9 - Proteinuria, unspecified (4) Hypertension Priority: Secondary Status: Chronic Qualifiers: Hypertension type: essential hypertension Qualified Code(s): I10 - Essential (primary) hypertension (5) DVT prophylaxis Priority: Primary Status: Acute (6) Sinusitis Priority: Primary Status: Acute Qualifiers: Sinusitis location: unspecified location Chronicity: acute Recurrence: not specified as recurrent Qualified Code(s): J01.90 - Acute sinusitis, unspecified - Discharge Medications Prescriptions: Amoxicillin/Clavulanate [Augmentin] 500 mg PO BIDWM #8 tab Azithromycin [Zithromax] 500 mg PO DAILY #3 tab Home Medications: Allopurinol [Zyloprim 300 MG] 300 mg PO DAILY 08/31/16 [History] Aspirin 81 mg PO DAILY 08/31/16 [History] Diltiazem HCl [Cardizem LA] 120 mg PO DAILY 08/31/16 [History] Glimepiride [Amaryl] 4 mg PO DAILY 08/31/16 [History] Levothyroxine [Synthroid] 175 mcg PO DAILY 08/31/16 [History] Losartan Potassium [Cozaar] 50 mg PO DAILY 08/31/16 [History] Ramipril [Altace] 10 mg PO BID 08/31/16 [History] Rosuvastatin [Crestor] 40 mg PO HS 08/31/16 [History] SitaGLIPtin [Januvia] 25 mg PO DAILY 08/31/16 [History] Tamsulosin [Flomax] 0.4 mg PO DAILY 08/31/16 [History] Tramadol HCl [Ultram] 100 mg PO BID PRN 08/31/16 [History] Triamterene/HCTZ 37.5/25mg [Dyazide] 0.5 tab PO DAILY 08/31/16 [History] Clotrimazole 1% CRM [Lotrimin 1%] 1 appl TP BID PRN 10/22/16 [History] Omeprazole [PriLOSEC] 40 mg PO DAILY 10/22/16 [History] Sulfamethoxazole/Trimeth DS [Bactrim Ds] 1 each PO MOWEFR 10/22/16 [History] Amoxicillin/Clavulanate [Augmentin] 500 mg PO BIDWM #8 tab 10/25/16 [Rx] Azithromycin [Zithromax] 500 mg PO DAILY #3 tab 10/25/16 [Rx] Allergies/Adverse Reactions: Allergies prednisone Adverse Reaction (Verified 09/09/16 08:00) See Comments Procedures/tests Complete & Pending: Procedures Performed prior 72 hours Category Date Time Status ECG 12 lead ECG [ECG] Routine Y 10/22/16 21:30 Completed Date of admission: 10/23/16 05:19 Primary care physician: Fern Colon, Consults: 10/23/16 06:28 Consult to Nephrology [CONS] Routine Consulting Provider: Jaky Aden/PRAVEEN/REYNA Reason for Consult: Acute on chronic renal failure Call Completed: No Discharging clinician: Jose J Kennedy Anticipated date of discharge: 10/25/16 - Patient Status Disposition: Home, Self-Care Condition: Good Functional capacity at discharge: independent ambulation Overall status at discharge: patient is progressing back to baseline - Discharge Instructions Instructions: Diabetes Mellitus Type 2 in Adults (DC) Follow Up With: Jaky Aden/RUPESH [Provider Group] (Please call wednesday morning and make a follow up appointment with Dr. Goyal in 1-2 weeks) Fern Colon MD [Primary Care Provider] - 10/29/16 1:30 pm (Please follow up as schedule...) Additional Instructions: Please follow up with her senior java web application developer, primary care physician regarding future treatment goals for glomerulonephritis, hypertension. Complete five-day course of antibiotics per prescription. - Diet and Activity Activity: increase activity as tolerated, resume usual activities as tolerated Diet: advance to your usual diet Hospital course: Mr. Mckay is a 71 year old male presented to [facility] emerged primarily with cough of one week duration. He also states that the cough has been productive with yellow sputum and a recorded temperature of 100 degrees earlier that evening. He also admits to nausea and vomiting with 5 episodes of emesis earlier that day. He also states that he has been dizzy for the past 6 months which have caused him to fall while at home. 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 She denies symptoms chest pain, shortness of breath, lightheadedness, diarrhea. Emerged Wright, vital signs were noted and were within normal limits. Lab results were significant for anemia with H/H of 9.3/ 29.3, hyponatremia of 134, BUN/creatinine of 45/5.06, which is elevated from his baseline of CKD stage IV. She was noted to have rails of the right greater than left side. Remainder physical exam was within normal limits. Chest x-ray reported no acute disease, CT abdomen reported no acute process. UA was negative for UTI. EKG revealed normal sinus rhythm with IVCD, ST depression/T- wave inversion in leads 1 and aVL. She was admitted to medicine service with acute on chronic renal failure possibly secondary to volume depletion and suspected bronchitis. Patient was started on IV fluids, Zithromax and ceftriaxone. During hospital stay, his renal function gradually improved to baseline status chronic kidney disease stage IV. During the stay his CellCept was held and will be discontinued until he follows up with his senior java web application developer. His losartan and lisinopril will be continued upon discharge, per nephrology consultation. Repeat chest x-ray after rehydration remained negative for pneumonia, fluid consolidation indicating likely diagnosis of COPD and bronchitis. Sinus CT was also ordered and revealed acute sinusitis. Patient's antibiotic regimen was changed to azithromycin and Augmentin and he will be discharged home to complete a 5 day course. Patient's nausea and vomiting resolved after first day of admission. Patient was able to tolerate meals. Patient was instructed to follow-up with his permanent care physician, senior java web application developer for follow-up of his chronic medical conditions and to complete his 5 day course of antibiotics. - Time Spent with Patient Total time spent providing and/or coordinating discharge services: - Constitutional Vitals: Temp Pulse Resp BP Pulse Ox 98.5 F 82 16 138/76 97 10/25/16 07:52 10/25/16 07:52 10/25/16 07:52 10/25/16 07:52 10/25/16 07:52 General appearance: Present: cooperative, pleasant, no acute distress, answers questions appropriately Exam: Gen.: Vitals noted. No acute distress. AAOx3. Sitting comfortably in bed, empty breakfast tray at bedside. HEENT: PERRL/EOMI, oropharynx clear, Normocephalic, atraumatic. Improved sinus tenderness from previous Neck: Supple. No adenopathy. Cardiac: RRR, mild systolic murmur, +S1/S2 Pulmonary: CTA bilaterally, no wheezes, rales or rhonchi, equal chest expansion Abdomen: soft, nontender, BS noted, no guarding Back: Nontender throughout. MSK: ROM intact, no joint swelling noted Extremities: no BLE edema, nontender calf, no cyanosis or clubbing Neuro: A&Ox3, moves all extremities, no focal deficits Psych: Appropriate mood and behavior <Micah Dutton - Last Filed: 10/25/16 12:37> Date of Encounter: 10/25/16 Procedures/tests Complete & Pending: Procedures Performed prior 72 hours Category Date Time Status ECG 12 lead ECG [ECG] Routine Y 10/22/16 21:30 Completed Date of admission: 10/23/16 05:19 Primary care physician: Fern Colon, Consults: 10/23/16 06:28 Consult to Nephrology [CONS] Routine Consulting Provider: [facility] Keiko/MAYI/RANDAL/REYNA Reason for Consult: Acute on chronic renal failure Call Completed: No Hospital course: Mr. Mckay is a 71 year old male - Time Spent with Patient Total time spent providing and/or coordinating discharge services: - Constitutional Vitals: Temp Pulse Resp BP Pulse Ox 98.5 F 82 16 138/76 97 10/25/16 07:52 10/25/16 07:52 10/25/16 07:52 10/25/16 07:52 10/25/16 07:52 - Attending Attestation I examined this patient and my medical decision-making was reviewed with the Resident Physician on 10/25/16. I agree with the documented findings, disposition and treatment plan as described except to the extent set forth below. 71 M with CKD IV , membranous GN on cellcept, HTN, admitted for management of acute sinusitis, bronchitis , suspected pneumonia, KINZA on CKD secondary to dehydration from recurrent nausea and vomiting. He is seen sitting out of bed and reading he has made significant improvement His systemic exam is unremarkable and his vital signs are stable Lab and imaging reviewed: Hb and Cr back to baseline A/P- Agree with discharge , to complete 5 day of azithromycin/augmentin. Continue other home meds Follow up with renal as out-patient Rest of details as in resident physicians documentation
--- NOTE | 2016-10-25 10:12 | Nephrology Progress Note ---
Date of Encounter: 10/25/16 Time of Encounter: 10:08 - Assessment and Plan (1) Acute tracheobronchitis Current Visit: Yes Status: Acute On antibiotics. Improving. (2) Anemia Current Visit: Yes Status: Acute Monitor hemoglobin. Transfuse as needed. Qualifiers: Anemia type: unspecified type Qualified Code(s): D64.9 - Anemia, unspecified (3) Membranous glomerulonephritis Current Visit: Yes Status: Acute Holding cellcept. Will decide if other treatment is needed once acute symptoms resolve on an outpatient basis. Ok to resume home YANE-I/ARB with labs drawn on . Spoke with primary team. (4) Nausea and vomiting Current Visit: Yes Status: Resolved Likely secondary to mycophenolate which has been discontinued. Resolved off cellcept. Qualifiers: Vomiting type: unspecified Vomiting Intractability: unspecified Qualified Code(s): R11.2 - Nausea with vomiting, unspecified (5) Renal failure (ARF), acute on chronic Current Visit: Yes Status: Acute Improved with hydration and resolution of his N/V. Qualifiers: Acute renal failure type: unspecified Chronic kidney disease stage: unspecified stage Qualified Code(s): N17.9 - Acute kidney failure, unspecified ; N18.9 - Chronic kidney disease, unspecified (6) Diabetes mellitus Current Visit: Yes Status: Chronic Per primary team. Qualifiers: Diabetes mellitus type: type 2 Diabetes mellitus complication status: with kidney complications Diabetes mellitus complication detail: with microalbuminuria Diabetes mellitus retirement insulin use: without retirement use Qualified Code(s): E11.29 - Type 2 diabetes mellitus with other diabetic kidney complication; R80.9 - Proteinuria, unspecified (7) Hypertension Current Visit: Yes Status: Chronic Controlled. Ok to resume home YANE-I/ARB. Qualifiers: Hypertension type: essential hypertension Qualified Code(s): I10 - Essential (primary) hypertension Subjective Principal diagnosis: KINZA/CKD Interval history: Patient seen and evaluated. Patient feels much better. He is tolerating his diet. ROS otherwise stable. Objective - Vital Signs Vital signs: Vital Signs Temp Pulse Resp BP Pulse Ox 10/25/16 07:52 98.5 F 82 16 138/76 97 10/25/16 07:51 18 99 10/25/16 04:27 98.2 F 79 18 138/80 97 10/24/16 23:30 98.7 F 86 20 143/69 93 10/24/16 20:07 17 98 10/24/16 19:38 98.2 F 83 18 154/78 95 10/24/16 15:56 20 97 10/24/16 15:16 98.4 F 70 14 129/74 98 10/24/16 11:29 98 F 72 17 144/70 97 Intake and Output 10/24/16 10/25/16 10/25/16 23:59 07:59 15:59 Intake Total 800 / 800 770 / 770 420 / 420 Output Total 1650 / 1650 Balance 800 / 800 -880 / -880 420 / 420 Intake: Oral 800 / 800 770 / 770 420 / 420 Output: Urine 1650 / 1650 Other: Meal Breakfast Percent of Meal Consumed 100% Weight 104.2 kg Blood Glucose* 128 94 Patient Weight 10/25/16 23:59 Weight 104.2 kg - General Appearance General appearance: Present: well-developed, well-nourished Neck: Present: supple Additional Comments: respirations are unlabored. Cardiology: Present: regular rate Neurologic: Present: alert and oriented x3 Psychiatric: Present: mood/affect appropriate - Lab 10/25/16 04:18 10/25/16 04:18 Most recent lab results Calcium 10.3 mg/dL (8.6-10.8) 10/25/16 04:18 Consult Discharge Plan - Plan Instructions: Diabetes Mellitus Type 2 in Adults (DC) Referrals: [facility]/MAYI/RANDAL/REYNA [Provider Group] (Please call wednesday morning and make a follow up appointment with Dr. Goyal in 1-2 weeks) Fern Colon MD [Primary Care Provider] - 10/29/16 1:30 pm (Please follow up as schedule...) Prescriptions: Amoxicillin/Clavulanate [Augmentin] 500 mg PO BIDWM #8 tab Azithromycin [Zithromax] 500 mg PO DAILY #3 tab
[2016-10-26] MEDS ORDERED: Lisinopril 20 MG TABLET PO SCH (09:00)
== END 2016-10-25 10:29 | disposition home or self-care (01) | DRG 683 ==
LOC: 2ANU 21:17 → EMEROO 21:17 → 2ANU 10-23 00:24
PROVIDERS: ADMIT Pediatrics; ATTEND Internal Medicine

== ENCOUNTER 2016-11-05 06:47 | Inpatient (IN) ==
[2016-11-05] MEDS ORDERED: *HR* Morphine 2 MG/ML SYRINGE IVP ONE ×5 (07:18→11:29)
[2016-11-05] MEDS ORDERED: Ondansetron 4 MG/2 ML VIAL IVP ONE ×2 (07:18→12:07)
--- NOTE | 2016-11-05 07:45 | Emergency Department Note ---
Disposition Clinical Impression: Atypical chest pain, Acute worsening of stage 4 chronic kidney disease Chest pain Qualifiers: Chest pain type: unspecified Qualified Code(s): R07.9 - Chest pain, unspecified Disposition: Admitted As Inpatient Condition: Fair General Adult HPI - General Chief complaint: ED Chest Pain Stated complaint: CP/SOB Time Seen by Provider: 11/05/16 07:31 Source: patient Nursing Notes Reviewed: Yes Vital Signs Reviewed: Yes - History of Present Illness Pain Scale: 10 - Related Data Home Medications Medication Instructions Recorded Confirmed Allopurinol [Zyloprim 300 MG] 300 mg PO DAILY 08/31/16 11/05/16 Diltiazem HCl [Cardizem LA] 120 mg PO DAILY 08/31/16 11/05/16 Glimepiride [Amaryl] 4 mg PO DAILY 08/31/16 11/05/16 Levothyroxine [Synthroid] 175 mcg PO DAILY 08/31/16 11/05/16 Ramipril [Altace] 10 mg PO BID 08/31/16 11/05/16 Rosuvastatin [Crestor] 40 mg PO HS 08/31/16 11/05/16 SitaGLIPtin [Januvia] 25 mg PO DAILY 08/31/16 11/05/16 Tamsulosin [Flomax] 0.4 mg PO DAILY 08/31/16 11/05/16 Tramadol HCl [Ultram] 100 mg PO BID PRN 08/31/16 11/05/16 Triamterene/HCTZ 37.5/25mg 0.5 tab PO DAILY 08/31/16 11/05/16 [Dyazide] Omeprazole [PriLOSEC] 40 mg PO DAILY 10/22/16 11/05/16 Amoxicillin/Clavulanate [Augmentin] 875 mg PO BIDWM 11/05/16 11/05/16 Allergies Allergy/AdvReac Type Severity Reaction Status Date / Time prednisone AdvReac See Verified 11/05/16 07:00 Comments Past Medical History - Past Medical History Medical history: Reports: arthritis, diabetes, hypertension, renal disease, thyroid disease Psychiatric history: Reports: no psych history - Social History Smoking Status: Never smoker Smokeless Tobacco Status: No Alcohol use: Reports: none Drug use: Reports: none Physical Exam - General General appearance: alert Course Vital Signs Temperature 98.4 F 11/05/16 06:53 Pulse Rate 87 07/27/17 06:53 Respiratory Rate 22 11/05/16 06:53 Blood Pressure 144/77 11/05/16 06:53 O2 Sat by Pulse Oximetry 100 11/05/16 06:53 Temperature 98.4 F 11/05/16 06:53 Pulse Rate 76 11/05/16 12:00 Respiratory Rate 16 11/05/16 12:00 Blood Pressure 123/65 11/05/16 12:00 O2 Sat by Pulse Oximetry 95 11/05/16 12:00 Oxygen Delivery Oxygen Delivery Room Air Medical Decision Making - MDM Narrative Medical decision making narrative: I examined this patient and my medical decision-making was reviewed with the Resident Physician. I agree with the documented findings, disposition and treatment plan as described except to the extent set forth below. Patient was seen and evaluated on arrival by Dr. Siu and myself, I agree with his evaluation and management plan, supervise care the patient's stay. Patient's been getting reproducible chest pain across the anterior wall of his chest for the last couple days this seems to be after being hospitalized for BRONCHITIS and states it was not pneumonia. He thinks this is more musculoskeletal next to her chest wall and deep inside. He denies any jaw pain or arm pain abdominal pain and leg pain. No history DVT or PE in the past. Return to try to make him more comfortable doing chest x-ray lab work and EKG and reassess. He is in agreement this plan. Chest X-Ray 11/05/16 07:39 IMPRESSION: Question of small left pleural effusion. Otherwise no acute cardiopulmonary disease. D/ / Christopher Fong MD / Christopher Fong MD Interpreting Provider: Christopher Fong MD Chest X-Ray 11/05/16 07:39 IMPRESSION: Question of small left pleural effusion. Otherwise no acute cardiopulmonary disease. D/ / Christopher Fong MD / Christopher Fong MD Interpreting Provider: Christopher Fong MD Chest CT 11/05/16 09:06 IMPRESSION: 1. New right lower lobe noncalcified lung nodule measuring 1.6 x 3 cm with central cavitation. Follow-up imaging and management per criteria listed below is recommended. 2. Small bilateral pleural effusions and bibasilar atelectasis. 3. Mild atherosclerotic disease and coronary artery disease. The findings were sent to the Radiology Results Communication [facility] at 9:56 am on 11/05/2016to be communicated to a licensed caregiver. RECOMMENDATIONS: Fleischner Society guidelines for follow-up and management of incidentally detected pulmonary nodules: Single Solid Nodule: Nodule size greater than 8 mm In a low-risk patient, consider CT, PET/CT, or tissue sampling at 3 months. In a high-risk patient, consider CT, PET/CT, or tissue sampling at 3 months. - Low risk patients include individuals with minimal or absent history of smoking and other known risk factors. - High risk patients include individuals with a history or smoking or known risk factors. Radiology 2017 http://pubs.[facility]na.org/doi/full/10.1148/radiol.[email or web address] D/ / 11/05/2016 10:05:46 Jossy Mariano MD / Rina Knott Interpreting Provider: Jossy Mariano MD 1012 hrs.: Patient has on a CTA nodule with some cavitation. I am not certain if this is causing his pain or not. 1 dose of nitroglycerin to see if that changes anything I do not suspect it well. His EKG shows no ischemic changes his troponins negative. He is in agreement with this plan. 1030 hrs: Patient's Wells criteria was negative for PE. Were getting in touch with his primary care physician also for follow-up. I have discussed bringing him into the hospital as I am still not certain I have a good reason for his pain. He really does not want to do that. We thought about a CTA though his risk of PE is low. She has renal insufficiency so we cannot do a CTA, his chest x-ray is abnormal sign not sure VQ will be optimal study. Were done and do a d-dimer which may be elevated due to his renal insufficiency and see with the results of that and then determine better dispositions once we have that back. He is in agreement with that plan. 1307 hrs.: Spoke with the hospitalist agreed to admit him we are going to do the V/Q they will follow up with that, internal medicine Dr. Givens has come down to see the patient and admit him to the hospital. Patient's critical care time x-ray separate billable procedures is 45 minutes. - Lab Data Result diagrams: 11/05/16 07:37 11/05/16 07:37 Lab Results 11/05/16 11/05/16 11/05/16 Range/Units 07:37 07:37 07:37 WBC 16.1 H (4.3-11.1) K/mcL RBC 3.17 L (4.19-5.50) M/mcL Hgb 8.5 L (12.9-16.9) g/dL Hct 27.4 L (37.5-50.1) % MCV 86.4 (83.0-100.0) fL MCH 26.8 L (28.0-33.3) pg MCHC 31.0 L (31.6-35.5) g/dL RDW 14.5 (11.5-14.5) % Plt Count 294 (140-400) K/mcL MPV 9.1 L (9.4-12.4) fL Immature Gran % 0.3 (0-4) % Seg Neutrophils % 80.1 % Lymphocytes % 10.4 % Monocytes % 7.6 % Eosinophils % 1.2 % Basophils % 0.4 % Neutrophils # 12.9 H (1.6-8.9) K/mcL Lymphocytes # 1.7 (0.6-4.6) K/mcL Monocytes # 1.2 (0.0-1.3) K/mcL Eosinophils # 0.2 (0.0-0.6) K/mcL Basophils # 0.1 (0.0-0.2) K/mcL D-Dimer (0-500) ng/mLFEU Sodium 138 (136-145) mEq/L Potassium 3.7 (3.5-4.5) mEq/L Chloride 107 (98-109) mEq/L Carbon Dioxide 20 (19-29) mEq/L BUN 27 H (8-26) mg/dL Creatinine 3.10 H (0.72-1.25) mg/dL Est GFR ( Amer) 24 L (> 60) Est GFR (Non-Af Amer) 20 L (> 60) BUN/Creatinine Ratio 9 (6-26) Glucose 100 H (70-99) mg/dL Calculated Osmolality 291 (280-300) Calcium 10.4 (8.6-10.8) mg/dL Troponin I 0.00 (0-0.03) ng/mL 11/05/16 Range/Units 11:39 WBC (4.3-11.1) K/mcL RBC (4.19-5.50) M/mcL Hgb (12.9-16.9) g/dL Hct (37.5-50.1) % MCV (83.0-100.0) fL MCH (28.0-33.3) pg MCHC (31.6-35.5) g/dL RDW (11.5-14.5) % Plt Count (140-400) K/mcL MPV (9.4-12.4) fL Immature Gran % (0-4) % Seg Neutrophils % % Lymphocytes % % Monocytes % % Eosinophils % % Basophils % % Neutrophils # (1.6-8.9) K/mcL Lymphocytes # (0.6-4.6) K/mcL Monocytes # (0.0-1.3) K/mcL Eosinophils # (0.0-0.6) K/mcL Basophils # (0.0-0.2) K/mcL D-Dimer 2704 H (0-500) ng/mLFEU Sodium (136-145) mEq/L Potassium (3.5-4.5) mEq/L Chloride (98-109) mEq/L Carbon Dioxide (19-29) mEq/L BUN (8-26) mg/dL Creatinine (0.72-1.25) mg/dL Est GFR ( Amer) (> 60) Est GFR (Non-Af Amer) (> 60) BUN/Creatinine Ratio (6-26) Glucose (70-99) mg/dL Calculated Osmolality (280-300) Calcium (8.6-10.8) mg/dL Troponin I (0-0.03) ng/mL
--- NOTE | 2016-11-05 07:46 | Emergency Department Note ---
Disposition Clinical Impression: Atypical chest pain, Acute worsening of stage 4 chronic kidney disease Chest pain Qualifiers: Chest pain type: chest pain on breathing Qualified Code(s): R07.1 - Chest pain on breathing Disposition: Admitted As Inpatient Condition: Fair Time of Disposition: 11:00 General Adult HPI - General Chief complaint: ED Chest Pain Stated complaint: CP/SOB Time Seen by Provider: 11/05/16 07:31 Source: patient Nursing Notes Reviewed: Yes Vital Signs Reviewed: Yes - History of Present Illness HPI Narrative: This is a 71-year-old male with a past medical history of diabetes, hypertension , hyperlipidemia, anemia, and a recent hospitalization 2 weeks ago for bronchitis and sinusitis. He presents to the emergency department with sharp pleuritic chest pain. He states that over the last couple weeks he has been coughing nonstop. He denies pain anywhere else. Pain Scale: 10 - Related Data Home Medications Medication Instructions Recorded Confirmed Allopurinol [Zyloprim 300 MG] 300 mg PO DAILY 08/31/16 11/05/16 Diltiazem HCl [Cardizem LA] 120 mg PO DAILY 08/31/16 11/05/16 Glimepiride [Amaryl] 4 mg PO DAILY 08/31/16 11/05/16 Levothyroxine [Synthroid] 175 mcg PO DAILY 08/31/16 11/05/16 Ramipril [Altace] 10 mg PO BID 08/31/16 11/05/16 Rosuvastatin [Crestor] 40 mg PO HS 08/31/16 11/05/16 SitaGLIPtin [Januvia] 25 mg PO DAILY 08/31/16 11/05/16 Tamsulosin [Flomax] 0.4 mg PO DAILY 08/31/16 11/05/16 Tramadol HCl [Ultram] 100 mg PO BID PRN 08/31/16 11/05/16 Triamterene/HCTZ 37.5/25mg 0.5 tab PO DAILY 08/31/16 11/05/16 [Dyazide] Omeprazole [PriLOSEC] 40 mg PO DAILY 10/22/16 11/05/16 Amoxicillin/Clavulanate [Augmentin] 875 mg PO BIDWM 11/05/16 11/05/16 Allergies Allergy/AdvReac Type Severity Reaction Status Date / Time prednisone AdvReac See Verified 11/05/16 07:00 Comments All systems ED: reviewed and negative except as stated. Constitutional: Denies: fever, chills Eyes: Denies: eye pain, eye discharge ENT ED: Denies: ear pain, throat pain Cardiovascular: Reports: chest pain. Denies: palpitations, dyspnea on exertion , edema, syncope Respiratory: Reports: cough, sputum production (Unchanged from his hospitalization.). Denies: hemoptysis Gastrointestinal: Reports: abdominal pain. Denies: nausea, vomiting Genitourinary: Denies: urgency, dysuria, frequency Endocrine: Denies: fatigue, heat or cold intolerance Past Medical History - Past Medical History Medical history: Reports: arthritis, diabetes, hypertension, renal disease, thyroid disease Psychiatric history: Reports: no psych history - Social History Smoking Status: Never smoker Smokeless Tobacco Status: No Alcohol use: Reports: none Drug use: Reports: none Physical Exam This is a pleasant 71-year-old male who appears as if he is in a lot of pain and uncomfortable in the bed. Every time he coughs or takes a deep breath he winces. - General General appearance: alert - Head Head exam: atraumatic, normocephalic - Eye Eye exam: Present: EOMI. Absent: scleral icterus, conjunctival injection, periorbital swelling - ENT ENT exam: normal oropharynx, mucous membranes moist - Neck Neck exam: Present: trachea midline. Absent: tenderness, meningismus - Chest Chest inspection: Present: symmetric chest wall rise. Absent: tenderness (None on palpation) - Respiratory Respiratory exam: Present: normal lung sounds bilaterally. Absent: respiratory distress, wheezes, stridor, accessory muscle use - Cardiovascular Cardiovascular exam: Present: regular rate, normal rhythm, normal heart sounds - Abdominal Exam Abdominal exam: Present: tenderness. Absent: guarding, rebound, rigidity Abdominal tenderness: Present: epigastrium - Extremities Exam Extremities exam: Absent: pedal edema, calf tenderness - Neurological Exam Neurological exam: Present: alert, oriented X3 - Psychiatric Psychiatric exam: Present: normal affect, normal mood - Skin Skin exam: Present: warm, dry, intact Course Course Narrative: This is a 71-year-old male who presents to the emergency department with sharp, pleuritic chest pain after a two-week history of bronchitis and sinusitis. My main concern with this gentleman is ACS, pulmonary embolism, pneumothorax. He is hemodynamically stable, not diaphoretic or nauseous. His chest pain is atypical. We will perform an EKG, 2 view chest x-ray, and provide him with morphine for pain. His Wells criteria are negative so pulmonary embolism is highly unlikely. - Reevaluation(s) Reevaluation #1: After receiving 8 mg of morphine, this patient stated that his chest pain went down from a 10 out of 10 to a 5 out of 10. Chest x-ray showed a new small, left pleural effusion. I am going to perform a CT scan at this time for further investigation of a possible acute process within his chest. Time: 10:05 Reevaluation #2: CT of the chest showed a new nodule with cavitation. I contacted the generating plant superintendent staff command and control officer and spoke with him on the phone. He states that he does not feel like this patient should be admitted for this. He said he would allow him to follow-up in his office regarding this new nodule. CBC showed a mild increase in his previous leukocytosis. His electrolytes were fine, and his renal function has not decreased from his baseline. History of pollen came back negative, and his EKG did not show any acute changes. He was given nitroglycerin, and this did not help out his symptoms. I did reorder him another 8 mg of morphine as this helped out with this pain before. Time: 11:26 - Consultations Consultation #1: I contacted the generating plant superintendent staff command and control officer. He states that he is to follow-up outpatient for his new pulmonary nodule. Time: 10:38 Consultation #2: I contacted his primary care provider. He has an appointment scheduled with his primary care provider on Wednesday at 8:00 AM. Vital Signs Temperature 98.4 F 11/05/16 06:53 Pulse Rate 87 11/05/16 06:53 Respiratory Rate 22 11/05/16 06:53 Blood Pressure 144/77 11/05/16 06:53 O2 Sat by Pulse Oximetry 100 11/05/16 06:53 Temperature 99.0 F 11/07/16 06:59 Pulse Rate 70 11/07/16 06:59 Respiratory Rate 16 11/07/16 06:59 Blood Pressure 124/54 11/07/16 06:59 O2 Sat by Pulse Oximetry 95 11/07/16 06:59 Oxygen Delivery Oxygen Delivery Nasal Cannula Medical Decision Making - [facility] Narrative Medical decision making narrative: Chest X-Ray 11/05/16 07:39 IMPRESSION: Question of small left pleural effusion. Otherwise no acute cardiopulmonary disease. D/ / Christopher Fong MD / Christopher Fong MD Interpreting Provider: Christopher Fong MD Chest CT 11/05/16 09:06 IMPRESSION: 1. New right lower lobe noncalcified lung nodule measuring 1.6 x 3 cm with central cavitation. Follow-up imaging and management per criteria listed below is recommended. 2. Small bilateral pleural effusions and bibasilar atelectasis. 3. Mild atherosclerotic disease and coronary artery disease. The findings were sent to the Radiology Results Communication Center at 9:56 am on 11/05/2016to be communicated to a licensed caregiver. RECOMMENDATIONS: Fleischner Society guidelines for follow-up and management of incidentally detected pulmonary nodules: Single Solid Nodule: Nodule size greater than 8 mm In a low-risk patient, consider CT, PET/CT, or tissue sampling at 3 months. In a high-risk patient, consider CT, PET/CT, or tissue sampling at 3 months. - Low risk patients include individuals with minimal or absent history of smoking and other known risk factors. - High risk patients include individuals with a history or smoking or known risk factors. Radiology 2017 http://pubs.rsna.org/doi/full/10.1148/radiol.3092851223 D/ / 11/05/2016 10:05:46 Jossy Mariano MD / Rina Knott Interpreting Provider: Jossy Mariano MD Vital Signs Temperature 98.4 F 11/05/16 06:53 Pulse Rate 87 11/05/16 06:53 Respiratory Rate 22 11/05/16 06:53 Blood Pressure 144/77 11/05/16 06:53 O2 Sat by Pulse Oximetry 100 11/05/16 06:53 Temperature 98.4 F 11/05/16 06:53 Pulse Rate 84 11/05/16 10:30 Respiratory Rate 18 11/05/16 10:30 Blood Pressure 167/96 11/05/16 10:30 O2 Sat by Pulse Oximetry 95 11/05/16 10:30 Oxygen Delivery Oxygen Delivery Room Air - Lab Data Result diagrams: 11/07/16 04:46 11/07/16 04:46 Lab Results 11/05/16 11/05/16 11/05/16 Range/Units 07:37 07:37 07:37 WBC 16.1 H (4.3-11.1) K/mcL RBC 3.17 L (4.19-5.50) M/mcL Hgb 8.5 L (12.9-16.9) g/dL Hct 27.4 L (37.5-50.1) % MCV 86.4 (83.0-100.0) fL MCH 26.8 L (28.0-33.3) pg MCHC 31.0 L (31.6-35.5) g/dL RDW 14.5 (11.5-14.5) % Plt Count 294 (140-400) K/mcL MPV 9.1 L (9.4-12.4) fL Immature Gran % 0.3 (0-4) % Seg Neutrophils % 80.1 % Lymphocytes % 10.4 % Monocytes % 7.6 % Eosinophils % 1.2 % Basophils % 0.4 % Neutrophils # 12.9 H (1.6-8.9) K/mcL Lymphocytes # 1.7 (0.6-4.6) K/mcL Monocytes # 1.2 (0.0-1.3) K/mcL Eosinophils # 0.2 (0.0-0.6) K/mcL Basophils # 0.1 (0.0-0.2) K/mcL D-Dimer (0-500) ng/mLFEU Sodium 138 (136-145) mEq/L Potassium 3.7 (3.5-4.5) mEq/L Chloride 107 (98-109) mEq/L Carbon Dioxide 20 (19-29) mEq/L BUN 27 H (8-26) mg/dL Creatinine 3.10 H (0.72-1.25) mg/dL Est GFR ( Amer) 24 L (> 60) Est GFR (Non-Af Amer) 20 L (> 60) BUN/Creatinine Ratio 9 (6-26) Glucose 100 H (70-99) mg/dL POC Glucose (58-89) Calculated Osmolality 291 (280-300) Calcium 10.4 (8.6-10.8) mg/dL Troponin I 0.00 (0-0.03) ng/mL 11/05/16 11/05/16 Range/Units 11:39 11:49 WBC (4.3-11.1) K/mcL RBC (4.19-5.50) M/mcL Hgb (12.9-16.9) g/dL Hct (37.5-50.1) % MCV (83.0-100.0) fL MCH (28.0-33.3) pg MCHC (31.6-35.5) g/dL RDW (11.5-14.5) % Plt Count (140-400) K/mcL MPV (9.4-12.4) fL Immature Gran % (0-4) % Seg Neutrophils % % Lymphocytes % % Monocytes % % Eosinophils % % Basophils % % Neutrophils # (1.6-8.9) K/mcL Lymphocytes # (0.6-4.6) K/mcL Monocytes # (0.0-1.3) K/mcL Eosinophils # (0.0-0.6) K/mcL Basophils # (0.0-0.2) K/mcL D-Dimer 2704 H (0-500) ng/mLFEU Sodium (136-145) mEq/L Potassium (3.5-4.5) mEq/L Chloride (98-109) mEq/L Carbon Dioxide (19-29) mEq/L BUN (8-26) mg/dL Creatinine (0.72-1.25) mg/dL Est GFR ( Amer) (> 60) Est GFR (Non-Af Amer) (> 60) BUN/Creatinine Ratio (6-26) Glucose (70-99) mg/dL POC Glucose 92 H (58-89) Calculated Osmolality (280-300) Calcium (8.6-10.8) mg/dL Troponin I (0-0.03) ng/mL - Radiology Data Radiology results reviewed: Yes I reviewed the patient's radiology results. - EKG Data EKG #1 EKG attestation: Yes I reviewed and interpreted this EKG. EKG results narrative: 11/05/2016 06:57 Ventricular rate 77 beats per minute, HI interval 144 ms, QRS duration 134 ms, QT 410, QTc 442 ms, left axis deviation. Sinus rhythm with a widened QRS of 134 ms. There are no new ST elevations or depressions. This EKG is very similar to the one taken on October 222016 at 21 :30 EKG #2 EKG attestation: Yes I reviewed and interpreted this EKG. EKG results narrative: 11/05/2016 T12: 01 Ventricular rate 97 bpm, HI interval 147 ms, QRS duration 120 ms, QT 365 ms, QTC 420 ms, left axis deviation. Normal sinus rhythm with a ventricular rate of 97 bpm this is unchanged from his EKG performed on November 05 at 06:57.
[2016-11-05 07:52] LABS: Basophils # 0.1 K/mcL (0.0-0.2); Basophils % 0.4 %; Eosinophils # 0.2 K/mcL (0.0-0.6); Eosinophils % 1.2 %; Hematocrit 27.4 % (37.5-50.1); Hemoglobin 8.5 g/dL (12.9-16.9); Immature Granulocytes % 0.3 % (0-4); Lymphocytes # 1.7 K/mcL (0.6-4.6); Lymphocytes % 10.4 %; Mean Corpuscular Hemoglobin 26.8 pg (28.0-33.3); Mean Corpuscular Volume 86.4 fL (83.0-100.0); Mean Platelet Volume 9.1 fL (9.4-12.4); Monocytes # 1.2 K/mcL (0.0-1.3); Monocytes % 7.6 %; Neutrophils # 12.9 K/mcL (1.6-8.9); Platelet Count 294 K/mcL (140-400); Red Blood Count 3.17 M/mcL (4.19-5.50); Red Cell Distribution Width 14.5 % (11.5-14.5); Segmented Neutrophils % 80.1 %
[2016-11-05 07:59] LABS: Calcium 10.4 mg/dL (8.6-10.8); Potassium 3.7 mEq/L (3.5-4.5)
[2016-11-05] MEDS ORDERED: Nitroglycerin 0.4 MG TAB.SUBL SL ONE (10:12)
[2016-11-05] MEDS ORDERED: *HR* OxyCODONE/APAP 10/325 TABLET PO ONE (11:24)
[2016-11-05] MEDS ORDERED: Naloxone 0.4 MG/ML INJ IVP PRN (15:19)
[2016-11-05] MEDS ORDERED: Ondansetron 4 MG/2 ML VIAL IVP PRN (15:19)
[2016-11-05] MEDS ORDERED: D5% in Water 1,000 ML IVC PRN (15:24)
[2016-11-05] MEDS ORDERED: Dextrose Gel 15 GM PO PRN ×2 (15:24)
[2016-11-05] MEDS ORDERED: *HR* Dextrose 50 % in Water (Syg) 50 ML SYRINGE IVP PRN (15:24)
[2016-11-05] MEDS ORDERED: Sennosides/Docusate Sodium TABLET PO PRN (15:27)
[2016-11-05] MEDS ORDERED: GuaiFENesin/Codeine Oral Soln 5 ML UDC PO PRN (15:28)
--- NOTE | 2016-11-05 15:48 | Internal Med History&Physical ---
<Cortes Cortes - Last Filed: 11/05/16 17:52> Date of Encounter: 11/05/16 Time of Encounter: 14:00 Assessment and Plan (1) Chest pain Current visit: Yes Status: Acute Patient presents with severe substernal chest pain, described as sharp, worsened with breathing and movement, improved with not moving, no radiation of pain, denies shortness of breath or associated symptoms. Reports minor fever recently, though states is resolved 1 week ago. Reports continued cough, though improving from bronchitis one week ago. Initial troponin is negative, EKG and concerning for ischemic findings, no improvement with nitroglycerin. ANAYELI = 2 Patient reports chest pain worsened with breathing, sharp in character. VQ scan performed showed low probability of PE. PESI = 81 Cavitary pulmonary lesion identified on CT examination patient chest. According to the ED note the manager wound care spoken to who feels this can be followed as outpatient. Possible causes include posttussive chest pain, infection, esophagitis (jai or otherwise), herpetic neuralgia, anshul-tran, GERD. Pain control with acetaminophen, norco, and dilaudid prn Cough suppression with guafinescin/codeine and tessalon No antibiotics currently, leukocytosis likely a result of current stress and pain will obtain CBC in AM Qualifiers: Chest pain type: chest pain on breathing Qualified Code(s): R07.1 - Chest pain on breathing (2) Diabetes mellitus Current visit: No Status: Chronic Patient has history of diabetes mellitus, blood sugar currently controlled on glimepiride. Though Januvia is listed as home medications, this was to be stopped by his livestock agent on 10/27/69. 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 Current GFR is 20 and kidneys appear improved from recent hospitalization. Kidney function currently at baseline. 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 He saw his livestock agent, Dr. Hayden, after his last hospitalization one week ago and had try to change his CellCept to Myfortic after he had full resolution of his GI symptoms. I spoke with Dr. Hayden who did not feel that she had anything to add to his care at this time, but would be more than happy to see him if the need arose. We will continue current antihypertensive agents Avoid potentially nephrotoxic agents Continue to monitor renal function with daily chemistry (4) Anemia Current visit: No Status: Chronic Patient anemia likely due to chronic kidney disease and iron deficiency. He does require periodic blood transfusions. He states his last blood transfusion was 2 days ago. Currently hemoglobin is at 8.5, this appears relatively stable looking at his plastron of recent hemoglobins. We will continue to monitor with daily CBC We will obtain iron profile We will obtain type and cross Transfuse if hemoglobin drops below 7 Qualifiers: Anemia type: due to chronic kidney disease Chronic kidney disease stage: stage 4 (severe) Qualified Code(s): N18.4 - Chronic kidney disease, stage 4 ( severe); D63.1 - Anemia in chronic kidney disease (5) Hypothyroidism Current visit: No Status: Chronic Continue home dose levothyroxine Qualifiers: Hypothyroidism type: unspecified Qualified Code(s): E03.9 - Hypothyroidism , unspecified (6) Hypertension Current visit: No Status: Chronic Currently stable. We will continue patient's home blood pressure medications Continue triamterene/HCTZ, Ramilpril and diltiazem Qualifiers: Hypertension type: essential hypertension Qualified Code(s): I10 - Essential (primary) hypertension (7) DVT prophylaxis Current visit: No Status: Acute Heparin subcutaneous twice a day Internal Medicine - H&P: HPI Chief complaint: Chest Pain Admitted From: Home Plans for Post Hospital Care: Home History of present illness: PCP: Dr. Colon Flat Screen Worker: Dr. Hayden Mr. Mckay is a 71 year old male with prior medical history of diabetes, arthritis, hypertension, CKG stage IV, hypothyroidism, chronic anemia, and membranous glomerulonephritis who presented to [facility] today after worsening of chest pain. He reports the chest pain is located in the center of his chest, and some his shoulders, he describes it as sharp in character and worsened with movement and breathing. It does not radiate anywhere nor does he report any shortness of breath. He reports the pain is made better with not moving, he had received nitroglycerin in the emergency department from which she felt no benefit. He had been hospitalized one week ago and treated for bronchitis for which she feels improved in general. He does state that he has had continuation of his cough, though is improving, and that it is productive of yellow sputum but otherwise unchanged from prior. He denies hemoptysis. He has been under treatment for membranous glomerulonephritis for the past 6 months, originally starting on prednisone but was having difficulty tolerating this medication due to nausea and vomiting. His livestock agent, Dr. Hayden, start him on CellCept about 2-3 months ago but is having difficulty tolerating this medication as well, and was causing him significant nausea/vomiting. He said that the nausea and vomiting persisted up until about 3 weeks ago when the medication was stopped and has been improving slowly since. He denies having any recent nausea or vomiting currently. Past Med Surg Social Fam HX - Past Medical History Medical history: arthritis, diabetes, hypertension, renal disease, thyroid disease Psychiatric history: no psych history - Social History Smoking Status: Never smoker Smokeless Tobacco Status: No Alcohol use: none Drug use: none - Family History Mother Hx Family Cardiac Disorders: Yes (valve replacement) Internal Medicine - H&P: Meds Allopurinol [Zyloprim 300 MG] 300 mg PO DAILY 08/31/16 [History] Diltiazem HCl [Cardizem LA] 120 mg PO DAILY 08/31/16 [History] Glimepiride [Amaryl] 4 mg PO DAILY 08/31/16 [History] Levothyroxine [Synthroid] 175 mcg PO DAILY 08/31/16 [History] Ramipril [Altace] 10 mg PO BID 08/31/16 [History] Rosuvastatin [Crestor] 40 mg PO HS 08/31/16 [History] SitaGLIPtin [Januvia] 25 mg PO DAILY 08/31/16 [History] Tamsulosin [Flomax] 0.4 mg PO DAILY 08/31/16 [History] Tramadol HCl [Ultram] 100 mg PO BID PRN 08/31/16 [History] Triamterene/HCTZ 37.5/25mg [Dyazide] 0.5 tab PO DAILY 08/31/16 [History] Omeprazole [PriLOSEC] 40 mg PO DAILY 10/22/16 [History] Amoxicillin/Clavulanate [Augmentin] 875 mg PO BIDWM 11/05/16 [History] Allergies prednisone Adverse Reaction (Verified 11/05/16 07:00) See Comments All Systems PM: A 10-system review of systems was performed and is negative for pertinent findings except as documented above in the HPI. - Constitutional Constitutional: chills, no fever(s) - EENT Nose, mouth and throat: no sore throat - Cardiovascular Cardiovascular ROS IM: as per HPI, chest pain, no diaphoresis, no dyspnea, no dyspnea on exertion, no edema, no lightheadedness, no orthopnea, no palpitations - Respiratory Respiratory: cough, pain on inspiration, pain with cough, no dyspnea, no hemoptysis, no chest congestion, no change in phlegm color (Same since recent treatment for bronchitis) - Gastrointestinal Gastrointestinal: as per HPI, diarrhea, nausea, vomiting (After pain meds this morning), no abdominal pain, no coffee ground emesis, no constipation - Genitourinary Genitourinary ROS male: dysuria (Minor), no hematuria - Neurological Neurological ROS: no confusion, no convulsions, no focal weakness, no numbness, no tingling, no tremor(s) - Constitutional Vitals: Temp Pulse Resp BP Pulse Ox 99.1 F 76 17 137/80 100 11/05/16 14:53 11/05/16 14:53 11/05/16 14:53 11/05/16 14:53 11/05/16 14:53 Exam: General: Cooperative, pleasant, patient sitting upright, appears in slight distress, alert and oriented 3, answers questions appropriately HEENT: Normocephalic, atraumatic, neck supple, trachea midline, Conjunctiva pink , oral mucosa moist, no orophargeal erythema or exudates Respiratory: No accessory muscle usage, Rales auscultated a left lower lobe Cardiovascular: Regular rate and rhythm, S1 and S2 present, no murmurs/rubs/ gallops/clicks appreciated GI/abdominal: Nondistended, nontender, soft, normal bowel sounds, no peritoneal signs Extremities: No calf tenderness, no pedal edema appreciated, warm, lower extremity pulses palpable and symmetrical Neurological: Alert and oriented 3, no facial droop, no focal deficits Skin: Dry, intact, normal color Internal Med - H&P Results - Labs CBC & Chem 7: 11/05/16 07:37 11/05/16 07:37 <Filipe Leonard P - Last Filed: 11/05/16 19:24> Date of Encounter: 11/05/16 Internal Medicine - H&P: HPI History of present illness: Mr. Mckay is a 71 year old male All Systems PM: A 10-system review of systems was performed and is negative for pertinent findings except as documented above in the HPI. - Constitutional Vitals: Temp Pulse Resp BP Pulse Ox 99.3 F 89 16 148/80 95 11/05/16 19:16 11/05/16 19:16 11/05/16 19:16 11/05/16 19:16 11/05/16 19:16 Internal Med - H&P Results - Labs CBC & Chem 7: 11/05/16 07:37 11/05/16 07:37 - Attending Attestation I examined this patient and my medical decision-making was reviewed with the Resident Physician. I agree with the documented findings, disposition and treatment plan as described except to the extent set forth below.
[2016-11-05] MEDS: *HR* HYDROmorphone (PF) 1 MG/ML SYRINGE IVP PRN ×3 (16:00→20:11)
[2016-11-05] MEDS: Insulin LISPRO 300 UNITS/3 ML VIAL SQ SCH (16:36)
[2016-11-05] MEDS: *HR* HYDROcodone/Acet 5/325 mg TABLET PO PRN (17:19)
[2016-11-05] MEDS: *HR* Heparin 5,000 UNIT/ML VIAL SQ SCH (17:20)
[2016-11-05 19:40] LABS: Bilirubin,Urine Negative (Negative); Blood,Urine Small (Negative); Clarity,Urine Clear (Clear); Color,Urine Yellow (Yellow); Glucose,Urine (UA) Normal (Normal); Ketones,Urine Negative (Negative); Leukocyte Esterase,Urine Negative (Negative); Nitrite,Urine Negative (Negative); Protein,Urine >=300 mg/dL (Neg-Trace); Specific Gravity,Urine 1.018 (1.010-1.025); Urobilinogen,Urine Normal (Normal)
[2016-11-05 19:41] LABS: Bacteria,Urine None Seen per hpf (None-Few); Hyaline Casts,Urine None Seen per lpf (None-Few); RBC,Urine 0-3 per hpf (0-3); Squamous Epithelial Cell,Urine Many per lpf (None-Few); WBC,Urine 0-3 per hpf (0-3)
[2016-11-06] MEDS: *HR* HYDROmorphone (PF) 1 MG/ML SYRINGE IVP PRN ×4 (00:13→13:55)
[2016-11-06] MEDS: Insulin LISPRO 300 UNITS/3 ML VIAL SQ SCH ×5 (00:13→21:34)
[2016-11-06 04:36] LABS: Basophils # 0.1 K/mcL (0.0-0.2); Basophils % 0.4 %; Eosinophils # 0.1 K/mcL (0.0-0.6); Eosinophils % 0.9 %; Hematocrit 23.9 % (37.5-50.1); Hemoglobin 7.4 g/dL (12.9-16.9); Immature Granulocytes % 0.4 % (0-4); Lymphocytes # 2.5 K/mcL (0.6-4.6); Lymphocytes % 17.8 %; Mean Corpuscular Hemoglobin 27.6 pg (28.0-33.3); Mean Corpuscular Volume 89.2 fL (83.0-100.0); Mean Platelet Volume 9.9 fL (9.4-12.4); Monocytes # 1.4 K/mcL (0.0-1.3); Neutrophils # 9.8 K/mcL (1.6-8.9); Platelet Count 292 K/mcL (140-400); Red Blood Count 2.68 M/mcL (4.19-5.50); Red Cell Distribution Width 14.7 % (11.5-14.5); Segmented Neutrophils % 70.5 %
[2016-11-06 04:50] LABS: Calcium 9.8 mg/dL (8.6-10.8); Potassium 4.1 mEq/L (3.5-4.5)
[2016-11-06 04:59] LABS: % Iron Saturation 6 % (20-55); Iron 9 mcg/dL (65-175); Transferrin 108 mg/dL (174-364)
[2016-11-06] MEDS: *HR* Heparin 5,000 UNIT/ML VIAL SQ SCH ×2 (05:52→18:19)
--- NOTE | 2016-11-06 06:12 | Electrocardiograph Report ---
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
--- NOTE | 2016-11-06 06:18 | Electrocardiograph Report ---
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
[2016-11-06 08:28] LABS: INR 1.2; Prothrombin Time 12.9 Seconds (9.4-12.1)
[2016-11-06] MEDS: Diltiazem CD (24hr) 120 MG CAPSULE PO SCH (08:54)
[2016-11-06] MEDS: Acetaminophen 325 MG TABLET PO PRN (13:55)
--- NOTE | 2016-11-06 15:32 | Internal Med Progress Note ---
<Ghada Kaminski - Last Filed: 11/06/16 15:29> Date of Encounter: 11/06/16 Time of Encounter: 15:30 - Assessment and plan (1) Atypical chest pain Current Visit: Yes Status: Acute Assessment and plan: -Patient states that he is retro sternal chest pain that is not radiating. He states that is sharp. Is worse with deep breathing and movement. It is non- reproducible by palpation. -He states that pain medication helps to relieve the pain -currently has leukocytosis 13.9 but has decreased from admission -Chest CT demonstrated Cavitary pulmonary lesion -VQ scan performed showed low probability of PE -chest CT- small pleural effusion, no acute cardiopulmonary process -Consider lung cancer, posttussive of chest pain Plan Biopsy by IR on Wednesday pain control with acetaminophen, [place], delighted PRN cough suppressant continue to monitor for acute changes in chest pain (2) Diabetes mellitus Current Visit: No Status: Chronic Assessment and plan: Patient has a history of diabetes mellitus glucose is currently 93 plan we will continue to monitor his glucose we will continue medium dose insulin sliding scale hold oral diabetic medications diabetic diet Qualifiers: Diabetes mellitus type: type 2 Diabetes mellitus complication status: with kidney complications Diabetes mellitus complication detail: with microalbuminuria Diabetes mellitus senior care insulin use: without registered vascular technologist (rvt) use Qualified Code(s): E11.29 - Type 2 diabetes mellitus with other diabetic kidney complication; R80.9 - Proteinuria, unspecified (3) Membranous glomerulonephritis Current Visit: No Status: Chronic Assessment and plan: 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 Hayden Plan we will continue to monitor his creatinine and GFR will avoid nephrotoxic agents (4) Anemia Current Visit: No Status: Chronic Assessment and plan: Patient has chronic anemia is likely due to chronic kidney disease stage IV and iron deficiency. Current hemoglobin is 7.4. He requires periodic blood transfusions and his last was 2 days ago there is no active bleeding plan We will continue to monitor H&H transfusions of hemoglobin drops below 7 we will give ferrous sulfate supplements Qualifiers: Anemia type: due to chronic kidney disease Chronic kidney disease stage: stage 4 (severe) Qualified Code(s): N18.4 - Chronic kidney disease, stage 4 ( severe); D63.1 - Anemia in chronic kidney disease (5) Hypothyroidism Current Visit: No Status: Chronic Assessment and plan: Hypothyroidism continue home medications of levothyroxine Qualifiers: Hypothyroidism type: unspecified Qualified Code(s): E03.9 - Hypothyroidism , unspecified (6) Hypertension Current Visit: No Status: Chronic Assessment and plan: Chronic hypertension, currently stable will continue home medications diltiazem, triamterene, ramipril Qualifiers: Hypertension type: essential hypertension Qualified Code(s): I10 - Essential (primary) hypertension (7) DVT prophylaxis Current Visit: No Status: Acute Assessment and plan: Subcutaneous heparin - Subjective Interval history: Laying in bed comfortably talking with his and watching television he states his chest still has a little bit discomfort but is improved from admission he states the pain medication helps he denies dyspnea, headache, nausea, vomiting, abdominal pain, edema - Constitutional Vitals: Temp Pulse Resp BP Pulse Ox 99.9 F H 77 16 129/63 94 11/06/16 11:24 11/06/16 11:24 11/06/16 11:24 11/06/16 11:24 11/06/16 11:24 Exam: Gen.: Vitals noted. No acute distress. AAOx3 HEENT: PERRL oropharynx clear, Normocephalic, atraumatic Neck: Supple. Trachea midline Cardiac: RRR, no murmur, +S1/S2 Pulmonary: CTA bilaterally, no wheezes, rales or rhonchi, equal chest expansion Abdomen: soft, nontender, Bowel sounds noted, no guarding MSK: ROM intact, no joint swelling noted Extremities: no BLE edema, nontender calf, no cyanosis or clubbing Neuro: A&Ox3, moves all extremities, no focal deficits Psych: Appropriate mood and behavior Internal Medicine: Result - Labs CBC & Chem 7: 11/06/16 03:33 11/06/16 03:33 Labs: Short CBC 11/06/16 Range/Units 03:33 WBC 13.9 H (4.3-11.1) K/mcL Hgb 7.4 L (12.9-16.9) g/dL Hct 23.9 L (37.5-50.1) % Plt Count 292 (140-400) K/mcL Neutrophils # 9.8 H (1.6-8.9) K/mcL BMP 11/06/16 03:33 Sodium 136 Potassium 4.1 Chloride 103 Carbon Dioxide 25 BUN 27 H Creatinine 3.12 H Glucose 93 Calcium 9.8 Urine 11/05/16 Range/Units 19:28 Urine Color Yellow (Yellow) Urine Clarity Clear (Clear) Urine pH 6.0 (5.0-8.0) pH Units Ur Specific [place] 1.018 (1.010-1.025) Urine Protein >=300 H (Neg-Trace) mg/dL Urine Glucose (UA) Normal (Normal) mg/dL - ABG Interpretation ABG results: PT/INR, D-dimer PT 12.9 Seconds (9.4-12.1) H 11/06/16 08:10 D-Dimer 2704 ng/mLFEU (0-500) H 11/05/16 11:39 Consult Discharge Plan - Plan Referrals: Suha Zamora MD [Partnered Physician] - 11/09/16 8:00 am <Filipe Leonard - Last Filed: 11/06/16 17:54> Date of Encounter: 11/06/16 - Constitutional Vitals: Temp Pulse Resp BP Pulse Ox 99.6 F 63 18 116/51 92 11/06/16 15:30 11/06/16 15:30 11/06/16 15:30 11/06/16 15:30 11/06/16 15:30 Internal Medicine: Result - Labs CBC & Chem 7: 11/06/16 03:33 11/06/16 03:33 Labs: Short CBC 11/06/16 Range/Units 03:33 WBC 13.9 H (4.3-11.1) K/mcL Hgb 7.4 L (12.9-16.9) g/dL Hct 23.9 L (37.5-50.1) % Plt Count 292 (140-400) K/mcL Neutrophils # 9.8 H (1.6-8.9) K/mcL BMP 11/06/16 03:33 Sodium 136 Potassium 4.1 Chloride 103 Carbon Dioxide 25 BUN 27 H Creatinine 3.12 H Glucose 93 Calcium 9.8 Urine 11/05/16 Range/Units 19:28 Urine Color Yellow (Yellow) Urine Clarity Clear (Clear) Urine pH 6.0 (5.0-8.0) pH Units Ur Specific [place] 1.018 (1.010-1.025) Urine Protein >=300 H (Neg-Trace) mg/dL Urine Glucose (UA) Normal (Normal) mg/dL - ABG Interpretation ABG results: PT/INR, D-dimer PT 12.9 Seconds (9.4-12.1) H 11/06/16 08:10 D-Dimer 2704 ng/mLFEU (0-500) H 11/05/16 11:39 - Attending Attestation I examined this patient and my medical decision-making was reviewed with the Resident Physician. I agree with the documented findings, disposition and treatment plan as described except to the extent set forth below.
[2016-11-06] MEDS: *HR* HYDROcodone/Acet 5/325 mg TABLET PO PRN (18:19)
[2016-11-06] MEDS: Benzonatate 100 MG CAPSULE PO PRN (18:25)
[2016-11-07] MEDS: Benzonatate 100 MG CAPSULE PO PRN ×2 (02:16→19:59)
[2016-11-07] MEDS: *HR* HYDROcodone/Acet 5/325 mg TABLET PO PRN ×3 (02:16→19:59)
[2016-11-07] MEDS: *HR* HYDROmorphone (PF) 1 MG/ML SYRINGE IVP PRN ×2 (04:32→12:31)
[2016-11-07 05:20] LABS: Basophils # 0.1 K/mcL (0.0-0.2); Basophils % 0.6 %; Eosinophils # 0.4 K/mcL (0.0-0.6); Eosinophils % 4.3 %; Hematocrit 23.3 % (37.5-50.1); Hemoglobin 7.2 g/dL (12.9-16.9); Immature Granulocytes % 0.3 % (0-4); Lymphocytes # 2.1 K/mcL (0.6-4.6); Lymphocytes % 23.6 %; Mean Corpuscular HGB Conc 30.9 g/dL (31.6-35.5); Mean Corpuscular Hemoglobin 27.4 pg (28.0-33.3); Mean Corpuscular Volume 88.6 fL (83.0-100.0); Mean Platelet Volume 9.7 fL (9.4-12.4); Monocytes # 0.8 K/mcL (0.0-1.3); Monocytes % 8.6 %; Neutrophils # 5.6 K/mcL (1.6-8.9); Platelet Count 289 K/mcL (140-400); Red Blood Count 2.63 M/mcL (4.19-5.50); Red Cell Distribution Width 14.6 % (11.5-14.5); Segmented Neutrophils % 62.6 %
[2016-11-07 05:39] LABS: Calcium 9.9 mg/dL (8.6-10.8)
[2016-11-07] MEDS: *HR* Heparin 5,000 UNIT/ML VIAL SQ SCH ×2 (06:21→17:56)
[2016-11-07] MEDS: Insulin LISPRO 300 UNITS/3 ML VIAL SQ SCH ×4 (08:27→21:35)
[2016-11-07] MEDS: Diltiazem CD (24hr) 120 MG CAPSULE PO SCH (08:42)
--- NOTE | 2016-11-07 14:43 | Internal Med Progress Note ---
Date of Encounter: 11/08/16 Time of Encounter: 14:42 - Assessment and plan (1) Atypical chest pain Current Visit: Yes Status: Acute Assessment and plan: -Patient states that he is retro sternal chest pain that is not radiating. He states that is sharp. Is worse with deep breathing and movement. It is non- reproducible by palpation. -He states that pain medication helps to relieve the pain -currently has leukocytosis 13.9 but has decreased from admission -Chest CT demonstrated Cavitary pulmonary lesion -VQ scan performed showed low probability of PE -chest CT- small pleural effusion, no acute cardiopulmonary process -Consider lung cancer, posttussive of chest pain Plan Biopsy by IR on Wednesday pain control with acetaminophen, [place], delighted PRN cough suppressant continue to monitor for acute changes in chest pain 11/07/2016. Patient denies any chest pain. Patient comfortably lying in the bed. Patient is aware of the plan regarding biopsy. We will continue to monitor him closely. (2) Diabetes mellitus Current Visit: No Status: Chronic Assessment and plan: Patient has a history of diabetes mellitus glucose is currently 93 plan we will continue to monitor his glucose we will continue medium dose insulin sliding scale hold oral diabetic medications diabetic diet Qualifiers: Diabetes mellitus type: type 2 Diabetes mellitus complication status: with kidney complications Diabetes mellitus complication detail: with microalbuminuria Diabetes mellitus senior living insulin use: without technician terminal and repeater use Qualified Code(s): E11.29 - Type 2 diabetes mellitus with other diabetic kidney complication; R80.9 - Proteinuria, unspecified (3) Hypertension Current Visit: No Status: Chronic Assessment and plan: Chronic hypertension, currently stable will continue home medications diltiazem, triamterene, ramipril Qualifiers: Hypertension type: essential hypertension Qualified Code(s): I10 - Essential (primary) hypertension (4) Membranous glomerulonephritis Current Visit: No Status: Chronic Assessment and plan: 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 Hayden Plan we will continue to monitor his creatinine and GFR will avoid nephrotoxic agents (5) Hypothyroidism Current Visit: No Status: Chronic Assessment and plan: Hypothyroidism continue home medications of levothyroxine Qualifiers: Hypothyroidism type: unspecified Qualified Code(s): E03.9 - Hypothyroidism , unspecified - Subjective Interval history: Patient seen and examined. Next well-child visit. Patient is comfortably lying in the bed. Patient denies chest pain, shortness of breath, abdominal pain, nausea, vomiting , diarrhea and dizziness - Constitutional Vitals: Temp Pulse Resp BP Pulse Ox 98.7 F 78 16 138/70 95 11/07/16 11:23 11/07/16 11:23 11/07/16 11:23 11/07/16 11:23 11/07/16 11:23 General appearance: Present: A&O X 3, pleasant, no acute distress, answers questions appropriately - Head Head exam: Present: atraumatic, normocephalic - Eye Eye exam: Present: PERRL, conjuntiva pink, sclera anicteric Pupils: Present: PERRL - Neck Neck exam general surgery: Present: supple, trachea midline. Absent: lymphadenopathy - Respiratory Respiratory exam: Present: CTAB. Absent: accessory muscle use, rales, rhonchi, wheezes - Cardiovascular Cardiovascular exam: Present: RRR, +S1, +S2. Absent: diastolic murmur, gallop, rubs, systolic murmur - GI/Abdominal GI/Abdominal exam: Present: normal bowel sounds, soft, no peritoneal signs. Absent: distended, tenderness - Extremities Exam Extremities exam: Present: warm, radial pulses palpable and symetrical. Absent : calf tenderness, cyanotic, pedal edema - Neurological Exam Neurological exam: Present: CN II-XII intact, oriented X3, no focal deficits. Absent: pronater drift, facial droop, speech deficit - Skin Skin exam: Present: dry, intact Internal Medicine: Result - Labs CBC & Chem 7: 11/07/16 04:46 11/07/16 04:46 Labs: Short CBC 11/07/16 Range/Units 04:46 WBC 9.0 (4.3-11.1) K/mcL Hgb 7.2 L (12.9-16.9) g/dL Hct 23.3 L (37.5-50.1) % Plt Count 289 (140-400) K/mcL Neutrophils # 5.6 (1.6-8.9) K/mcL BMP 11/07/16 04:46 Sodium 134 L Potassium 4.0 Chloride 103 Carbon Dioxide 24 BUN 33 H Creatinine 3.41 H Glucose 105 H Calcium 9.9 - ABG Interpretation ABG results: PT/INR, D-dimer PT 12.9 Seconds (9.4-12.1) H 11/06/16 08:10 D-Dimer 2704 ng/mLFEU (0-500) H 11/05/16 11:39 Consult Discharge Plan - Plan Referrals: Suha Zamora MD [Partnered Physician] - 11/09/16 8:00 am
[2016-11-08] MEDS: *HR* HYDROcodone/Acet 5/325 mg TABLET PO PRN ×2 (03:51→12:03)
[2016-11-08] MEDS: *HR* Heparin 5,000 UNIT/ML VIAL SQ SCH ×2 (06:09→17:15)
[2016-11-08] MEDS: Insulin LISPRO 300 UNITS/3 ML VIAL SQ SCH ×4 (08:20→19:50)
[2016-11-08] MEDS: Diltiazem CD (24hr) 120 MG CAPSULE PO SCH (10:07)
[2016-11-08] MEDS ORDERED: Furosemide 20 MG/2 ML VIAL IVP ONE (15:15)
[2016-11-08] MEDS: Pantoprazole 40 MG VIAL IVP SCH (17:15)
[2016-11-08] MEDS ORDERED: 0.9 % Sodium Chloride 250 ML ONE ×2 (17:26→20:41)
--- NOTE | 2016-11-08 17:36 | Internal Med Progress Note ---
Date of Encounter: 11/08/16 Time of Encounter: 17:34 - Assessment and plan (1) Anemia Current Visit: No Status: Chronic Assessment and plan: Patient has chronic anemia is likely due to chronic kidney disease stage IV and iron deficiency. Current hemoglobin is 7.4. He requires periodic blood transfusions and his last was 2 days ago there is no active bleeding plan We will continue to monitor H&H transfusions of hemoglobin drops below 7 we will give ferrous sulfate supplements 11/08/2016. Noted that there is a gradual drop of hemoglobin and hematocrit. Patient does not have any active or occult bleeding. Plan: We will get stool for occult blood. We will start intravenous PPI every 12 hourly. We will transfuse 2 units of blood. Stool occult blood is positive then probably tomorrow patient will go for a EGD / colonoscopy. Qualifiers: Anemia type: due to chronic kidney disease Chronic kidney disease stage: stage 4 (severe) Qualified Code(s): N18.4 - Chronic kidney disease, stage 4 ( severe); D63.1 - Anemia in chronic kidney disease (2) Atypical chest pain Current Visit: Yes Status: Acute Assessment and plan: -Patient states that he is retro sternal chest pain that is not radiating. He states that is sharp. Is worse with deep breathing and movement. It is non- reproducible by palpation. -He states that pain medication helps to relieve the pain -currently has leukocytosis 13.9 but has decreased from admission -Chest CT demonstrated Cavitary pulmonary lesion -VQ scan performed showed low probability of PE -chest CT- small pleural effusion, no acute cardiopulmonary process -Consider lung cancer, posttussive of chest pain Plan Biopsy by IR on Wednesday pain control with acetaminophen, [place], delighted PRN cough suppressant continue to monitor for acute changes in chest pain 11/07/2016. Patient denies any chest pain. Patient comfortably lying in the bed. Patient is aware of the plan regarding biopsy. We will continue to monitor him closely. (3) Diabetes mellitus Current Visit: No Status: Chronic Assessment and plan: Patient has a history of diabetes mellitus glucose is currently 93 plan we will continue to monitor his glucose we will continue medium dose insulin sliding scale hold oral diabetic medications diabetic diet Qualifiers: Diabetes mellitus type: type 2 Diabetes mellitus complication status: with kidney complications Diabetes mellitus complication detail: with microalbuminuria Diabetes mellitus exterminator termite insulin use: without [facility] use Qualified Code(s): E11.29 - Type 2 diabetes mellitus with other diabetic kidney complication; R80.9 - Proteinuria, unspecified (4) Hypertension Current Visit: No Status: Chronic Assessment and plan: Chronic hypertension, currently stable will continue home medications diltiazem, triamterene, ramipril Qualifiers: Hypertension type: essential hypertension Qualified Code(s): I10 - Essential (primary) hypertension (5) Membranous glomerulonephritis Current Visit: No Status: Chronic Assessment and plan: 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 Jackelyn Medrano we will continue to monitor his creatinine and GFR will avoid nephrotoxic agents (6) Hypothyroidism Current Visit: No Status: Chronic Assessment and plan: Hypothyroidism continue home medications of levothyroxine Qualifiers: Hypothyroidism type: unspecified Qualified Code(s): E03.9 - Hypothyroidism , unspecified - Subjective Interval history: Patient seen and examined. Patient is comfortably lying in the bed. Patient denies chest pain, shortness of breath, abdominal pain, nausea, vomiting , diarrhea and dizziness 11/08/2016. Seen and examined. Chart reviewed. Patient is comfortably lying in the bed. Patient denies chest pain, shortness of breath, nausea, vomiting, diarrhea and dizziness - Constitutional Vitals: Temp Pulse Resp BP Pulse Ox 97.4 F L 57 20 138/68 96 11/08/16 15:23 11/08/16 15:23 11/08/16 15:23 11/08/16 15:23 11/08/16 15:23 General appearance: Present: A&O X 3, pleasant, no acute distress, answers questions appropriately - Head Head exam: Present: atraumatic, normocephalic - Eye Eye exam: Present: PERRL, conjuntiva pink, sclera anicteric Pupils: Present: PERRL - Neck Neck exam general surgery: Present: supple, trachea midline. Absent: lymphadenopathy - Respiratory Respiratory exam: Present: CTAB. Absent: accessory muscle use, rales, rhonchi, wheezes - Cardiovascular Cardiovascular exam: Present: RRR, +S1, +S2. Absent: diastolic murmur, gallop, rubs, systolic murmur - GI/Abdominal GI/Abdominal exam: Present: normal bowel sounds, soft, no peritoneal signs. Absent: distended, tenderness - Extremities Exam Extremities exam: Present: warm, radial pulses palpable and symetrical. Absent : calf tenderness, cyanotic, pedal edema - Neurological Exam Neurological exam: Present: CN II-XII intact, oriented X3, no focal deficits. Absent: pronater drift, facial droop, speech deficit - Skin Skin exam: Present: dry, intact Internal Medicine: Result - Labs CBC & Chem 7: 11/07/16 04:46 11/07/16 04:46 - ABG Interpretation ABG results: PT/INR, D-dimer PT 12.9 Seconds (9.4-12.1) H 11/06/16 08:10 D-Dimer 2704 ng/mLFEU (0-500) H 11/05/16 11:39 Consult Discharge Plan - Plan Referrals: Suha Zamora MD [Partnered Physician] - 11/09/16 8:00 am
[2016-11-09 04:57] LABS: Basophils # 0.1 K/mcL (0.0-0.2); Basophils % 0.8 %; Eosinophils # 0.4 K/mcL (0.0-0.6); Hematocrit 27.5 % (37.5-50.1); Hemoglobin 8.7 g/dL (12.9-16.9); Immature Granulocytes % 0.6 % (0-4); Lymphocytes # 2.6 K/mcL (0.6-4.6); Lymphocytes % 32.2 %; Mean Corpuscular HGB Conc 31.6 g/dL (31.6-35.5); Mean Corpuscular Hemoglobin 27.1 pg (28.0-33.3); Mean Corpuscular Volume 85.7 fL (83.0-100.0); Mean Platelet Volume 8.9 fL (9.4-12.4); Monocytes # 0.7 K/mcL (0.0-1.3); Monocytes % 8.1 %; Neutrophils # 4.3 K/mcL (1.6-8.9); Platelet Count 340 K/mcL (140-400); Red Blood Count 3.21 M/mcL (4.19-5.50); Red Cell Distribution Width 14.6 % (11.5-14.5); Segmented Neutrophils % 53.3 %
[2016-11-09 04:58] LABS: INR 1.1
[2016-11-09 05:10] LABS: Albumin 2.7 g/dL (3.5-5.0); Albumin/Globulin Ratio 0.7 (1.1-2.2); Bilirubin,Total 0.4 mg/dL (0.2-1.2); Calcium 10.6 mg/dL (8.6-10.8); Globulin 3.8 g/dL (2.4-3.5); Potassium 3.7 mEq/L (3.5-4.5); Total Protein 6.5 g/dL (6.0-8.3)
[2016-11-09] MEDS: *HR* Heparin 5,000 UNIT/ML VIAL SQ SCH ×2 (05:46→16:54)
[2016-11-09] MEDS: Pantoprazole 40 MG VIAL IVP SCH ×2 (05:46→16:54)
[2016-11-09] MEDS: Insulin LISPRO 300 UNITS/3 ML VIAL SQ SCH ×4 (08:23→21:49)
[2016-11-09] MEDS: Diltiazem CD (24hr) 120 MG CAPSULE PO SCH (08:47)
[2016-11-09] MEDS ORDERED: 0.9 % Sodium Chloride 500 ML ONE (11:21)
--- NOTE | 2016-11-09 15:36 | Internal Med Progress Note ---
Date of Encounter: 11/09/16 Time of Encounter: 15:35 - Assessment and plan (1) Anemia Current Visit: No Status: Chronic Assessment and plan: Patient has chronic anemia is likely due to chronic kidney disease stage IV and iron deficiency. Current hemoglobin is 7.4. He requires periodic blood transfusions and his last was 2 days ago there is no active bleeding plan We will continue to monitor H&H transfusions of hemoglobin drops below 7 we will give ferrous sulfate supplements 11/08/2016. Noted that there is a gradual drop of hemoglobin and hematocrit. Patient does not have any active or occult bleeding. Plan: We will get stool for occult blood. We will start intravenous PPI every 12 hourly. We will transfuse 2 units of blood. Stool occult blood is positive then probably tomorrow patient will go for a EGD / colonoscopy. 11/09/2016 no dark stool, diarrhea or constipation. received 2 PRBC Hb 8.7 stool OB negative plan will continue to observe if Hb drop tomorrow then will consider GI evaluation. patient is scheduled for CT guided lung biopsy I updated patient's manager medicare marketing and updated development. Qualifiers: Anemia type: due to chronic kidney disease Chronic kidney disease stage: stage 4 (severe) Qualified Code(s): N18.4 - Chronic kidney disease, stage 4 ( severe); D63.1 - Anemia in chronic kidney disease (2) Atypical chest pain Current Visit: Yes Status: Acute Assessment and plan: -Patient states that he is retro sternal chest pain that is not radiating. He states that is sharp. Is worse with deep breathing and movement. It is non- reproducible by palpation. -He states that pain medication helps to relieve the pain -currently has leukocytosis 13.9 but has decreased from admission -Chest CT demonstrated Cavitary pulmonary lesion -VQ scan performed showed low probability of PE -chest CT- small pleural effusion, no acute cardiopulmonary process -Consider lung cancer, posttussive of chest pain Plan Biopsy by IR on Wednesday pain control with acetaminophen, [place], delighted PRN cough suppressant continue to monitor for acute changes in chest pain 11/07/2016. Patient denies any chest pain. Patient comfortably lying in the bed. Patient is aware of the plan regarding biopsy. We will continue to monitor him closely. (3) Diabetes mellitus Current Visit: No Status: Chronic Assessment and plan: Patient has a history of diabetes mellitus glucose is currently 93 plan we will continue to monitor his glucose we will continue medium dose insulin sliding scale hold oral diabetic medications diabetic diet Qualifiers: Diabetes mellitus type: type 2 Diabetes mellitus complication status: with kidney complications Diabetes mellitus complication detail: with microalbuminuria Diabetes mellitus mcfp insulin use: without mcfp use Qualified Code(s): E11.29 - Type 2 diabetes mellitus with other diabetic kidney complication; R80.9 - Proteinuria, unspecified (4) Hypertension Current Visit: No Status: Chronic Assessment and plan: Chronic hypertension, currently stable will continue home medications diltiazem, triamterene, ramipril Qualifiers: Hypertension type: essential hypertension Qualified Code(s): I10 - Essential (primary) hypertension (5) Membranous glomerulonephritis Current Visit: No Status: Chronic Assessment and plan: 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 Hayden Plan we will continue to monitor his creatinine and GFR will avoid nephrotoxic agents (6) Hypothyroidism Current Visit: No Status: Chronic Assessment and plan: Hypothyroidism continue home medications of levothyroxine Qualifiers: Hypothyroidism type: unspecified Qualified Code(s): E03.9 - Hypothyroidism , unspecified - Subjective Interval history: Patient seen and examined. Patient is comfortably lying in the bed. Patient denies chest pain, shortness of breath, abdominal pain, nausea, vomiting , diarrhea and dizziness 11/08/2016. Seen and examined. Chart reviewed. Patient is comfortably lying in the bed. Patient denies chest pain, shortness of breath, nausea, vomiting, diarrhea and dizziness 11/09/2016 seen and examined. patient is comfortably lying in bed. no dark stool or diarrhea. scheduled for biopsy today. - Constitutional Vitals: Temp Pulse Resp BP Pulse Ox 98.3 F 58 16 146/70 96 11/09/16 12:30 11/09/16 14:11 11/09/16 14:11 11/09/16 14:11 11/09/16 14:11 General appearance: Present: A&O X 3, pleasant, no acute distress, answers questions appropriately - Head Head exam: Present: atraumatic, normocephalic - Eye Eye exam: Present: PERRL, conjuntiva pink, sclera anicteric Pupils: Present: PERRL - Neck Neck exam general surgery: Present: supple, trachea midline. Absent: lymphadenopathy - Respiratory Respiratory exam: Present: CTAB. Absent: accessory muscle use, rales, rhonchi, wheezes - Cardiovascular Cardiovascular exam: Present: RRR, +S1, +S2. Absent: diastolic murmur, gallop, rubs, systolic murmur - GI/Abdominal GI/Abdominal exam: Present: normal bowel sounds, soft, no peritoneal signs. Absent: distended, tenderness - Extremities Exam Extremities exam: Present: warm, radial pulses palpable and symetrical. Absent : calf tenderness, cyanotic, pedal edema - Neurological Exam Neurological exam: Present: CN II-XII intact, oriented X3, no focal deficits. Absent: pronater drift, facial droop, speech deficit - Skin Skin exam: Present: dry, intact Internal Medicine: Result - Labs CBC & Chem 7: 11/09/16 04:42 11/09/16 04:42 Labs: Short CBC 11/09/16 Range/Units 04:42 WBC 8.0 (4.3-11.1) K/mcL Hgb 8.7 L D (12.9-16.9) g/dL Hct 27.5 L (37.5-50.1) % Plt Count 340 (140-400) K/mcL Neutrophils # 4.3 (1.6-8.9) K/mcL BMP 11/09/16 04:42 Sodium 139 Potassium 3.7 Chloride 107 Carbon Dioxide 26 BUN 38 H Creatinine 3.60 H Glucose 106 H Calcium 10.6 Liver Function 11/09/16 Range/Units 04:42 Total Bilirubin 0.4 (0.2-1.2) mg/dL AST 18 (5-34) Units/L ALT 10 (0-55) Units/L Alkaline Phosphatase 46 (38-126) Units/L Albumin 2.7 L (3.5-5.0) g/dL - ABG Interpretation ABG results: PT/INR, D-dimer PT 12.0 Seconds (9.4-12.1) 11/09/16 04:42 D-Dimer 2704 ng/mLFEU (0-500) H 11/05/16 11:39 - Impressions Impressions Lung Biopsy CT 11/09/16 00:00 IMPRESSION: Successful CT guided core biopsy right lung mass. D/ / Vlad Wang MD / Vlad Wang MD Interpreting Provider: Vlad Wang MD Chest X-Ray 11/09/16 12:04 IMPRESSION: No pneumothorax D/ / Matthew Disla MD / Matthew Disla MD Interpreting Provider: Matthew Disla MD Consult Discharge Plan - Plan Referrals: Suha Zamora MD [Partnered Physician] - 11/09/16 8:00 am
[2016-11-10 04:26] LABS: Basophils # 0.1 K/mcL (0.0-0.2); Basophils % 0.9 %; Eosinophils # 0.4 K/mcL (0.0-0.6); Eosinophils % 4.1 %; Hematocrit 29.2 % (37.5-50.1); Hemoglobin 9.1 g/dL (12.9-16.9); Immature Granulocytes % 1.3 % (0-4); Lymphocytes # 2.6 K/mcL (0.6-4.6); Lymphocytes % 29.3 %; Mean Corpuscular HGB Conc 31.2 g/dL (31.6-35.5); Mean Corpuscular Hemoglobin 26.8 pg (28.0-33.3); Mean Corpuscular Volume 85.9 fL (83.0-100.0); Mean Platelet Volume 8.8 fL (9.4-12.4); Monocytes # 0.8 K/mcL (0.0-1.3); Monocytes % 8.6 %; Neutrophils # 4.9 K/mcL (1.6-8.9); Nucleated Red Blood Cells 0.2 /100 WBC (0); Platelet Count 397 K/mcL (140-400); Red Cell Distribution Width 14.8 % (11.5-14.5); Segmented Neutrophils % 55.8 %
[2016-11-10] MEDS: *HR* Heparin 5,000 UNIT/ML VIAL SQ SCH ×2 (06:24→18:12)
[2016-11-10] MEDS: Pantoprazole 40 MG VIAL IVP SCH ×2 (06:24→18:12)
[2016-11-10] MEDS: Insulin LISPRO 300 UNITS/3 ML VIAL SQ SCH ×4 (07:57→21:19)
[2016-11-10] MEDS: Diltiazem CD (24hr) 120 MG CAPSULE PO SCH (09:46)
--- NOTE | 2016-11-10 14:29 | Internal Med Progress Note ---
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 Hayden will avoid nephrotoxic agents d/c HCTZ / Triamterene since his Cr trending up (3) Anemia Current Visit: No Status: Chronic Assessment and plan: Patient has chronic anemia is likely due to chronic kidney disease stage IV and iron deficiency. Severe Iron def noticed inc FeSo4 to BID s/p 2 U PRBC - Hb improved to 9.1 Qualifiers: Qualified Code(s): N18.4 - Chronic kidney disease, stage 4 (severe); D63.1 - Anemia in chronic kidney disease (4) Diabetes mellitus Current Visit: No Status: Chronic Assessment and plan: we will continue medium dose insulin sliding scale resume home PO diabetic medications too diabetic diet Qualifiers: Qualified Code(s): E11.29 - Type 2 diabetes mellitus with other diabetic kidney complication; R80.9 - Proteinuria, unspecified (5) Hypertension Current Visit: No Status: Chronic Assessment and plan: Chronic hypertension, currently stable continue home medications diltiazem, ramipril d/c Triamterene / HCTZ due to worsening Cr Qualifiers: Qualified Code(s): I10 - Essential (primary) hypertension (6) Hypothyroidism Current Visit: No Status: Chronic Assessment and plan: Hypothyroidism continue home medications of levothyroxine Qualifiers: Qualified Code(s): E03.9 - Hypothyroidism, unspecified (7) DVT prophylaxis Current Visit: No Status: Acute Assessment and plan: Subcutaneous heparin - Subjective Interval history: Mr. Mckay is a 71 year old male with prior medical history of diabetes, arthritis, hypertension, CKG stage IV, hypothyroidism, chronic anemia, and membranous glomerulonephritis who presented to [place] on 11/05/16 with worsening chest pain. He reported the chest pain is located in the center of his chest, and some his shoulders, he describes it as sharp in character and worsened with movement and breathing. Pt had 1.6 x 2 CM size Rt LL cavitary lesion for with he went for CT guided biopsy y/d. Today he states he is feeling better, no more CP , still has some SOB and TATE. - Constitutional Vitals: Temp Pulse Resp BP Pulse Ox 98.6 F 63 16 138/82 93 11/10/16 11:22 11/10/16 11:22 11/10/16 11:22 11/10/16 11:22 11/10/16 11:22 General appearance: Present: A&O X 3, pleasant, no acute distress, answers questions appropriately - Head Head exam: Present: atraumatic, normal inspection - Neck Neck exam general surgery: Present: supple. Absent: lymphadenopathy, tenderness - Respiratory Respiratory exam: Present: decreased breath sounds, wheezes. Absent: rales, respiratory distress, rhonchi - Cardiovascular Cardiovascular exam: Present: RRR, +S1, +S2. Absent: diastolic murmur, gallop, rubs, systolic murmur - GI/Abdominal GI/Abdominal exam: Present: soft. Absent: rebound, rigid, tenderness - Extremities Exam Extremities exam: Absent: calf tenderness, pedal edema, tenderness - Neurological Exam Neurological exam: Present: alert, oriented X3 Internal Medicine: Result - Labs CBC & Chem 7: 11/10/16 03:41 11/09/16 04:42 Labs: Short CBC 11/10/16 Range/Units 03:41 WBC 8.7 (4.3-11.1) K/mcL Hgb 9.1 L (12.9-16.9) g/dL Hct 29.2 L (37.5-50.1) % Plt Count 397 (140-400) K/mcL Neutrophils # 4.9 (1.6-8.9) K/mcL - ABG Interpretation ABG results: PT/INR, D-dimer PT 12.0 Seconds (9.4-12.1) 11/09/16 04:42 D-Dimer 2704 ng/mLFEU (0-500) H 11/05/16 11:39 - Impressions Impressions Chest X-Ray 11/10/16 09:57 IMPRESSION: Stable exam without evidence for acute cardiopulmonary process. D/ / Juan F Lopez MD / Juan F Lopez MD Interpreting Provider: Juan F Lopez MD Consult Discharge Plan - Plan Referrals: Suha Zamora MD [Partnered Physician] - 11/09/16 8:00 am
--- NOTE | 2016-11-10 16:38 | Infectious Disease Consult ---
Date of Encounter: 11/10/16 Time of Encounter: 16:36 Assessment and Plan (1) Sepsis Status: Acute Assessment and plan: The patient had leukocytosis and tachypnea on admission. Likely secondary to cavitary lung lesion. Improved. Leukocytosis and tachypnea have resolved. No blood cultures were drawn on admission. Qualifiers: Sepsis type: sepsis due to unspecified organism Qualified Code(s): A41.9 - Sepsis, unspecified organism (2) Cavitary lesion of lung Status: Acute Assessment and plan: Etiology unclear: infection vs.autoimmune vs. other. CT showed new right lower lobe non-calcified lung nodule with central cavitation. Status post CT-guided biopsy per IR. Gram stain negative. Culture pending. AFB negative. Consult pulmonology. The patient would likely benefit from bronchoscopy. Send BAL for aerobic and anaerobic culture, gram stain, GMS, and AFB. Check fungal serologies: Histo, Blasto, Crypto, Asperigillus, Fungitell, and Histo Urine antigen. Check Quantiferon. Place PPD. Check HIV status. Continue to hold antibiotics at this time. (3) Membranous glomerulonephritis Status: Chronic Assessment and plan: Treated previously with CellCept 500mg PO BID, but was unable to tolerate medication. Further treatment currently on hold per nephrology's recommendations. Etiology of the membranouse glomerulonephritis unclear. Attempted to discuss with Dr. Hayden, but she is not real estate operations manager and Dr. Goyal is not familiar with the patient so we will discuss with Dr. Hayden tomorrow. (4) Atypical chest pain Status: Acute Assessment and plan: Etiology unclear, but improved. Troponin negative. Low likelihood ACS. CT scan negative for PE. Pain management per the primary team. (5) Hypothyroidism Status: Chronic Qualifiers: Hypothyroidism type: unspecified Qualified Code(s): E03.9 - Hypothyroidism , unspecified Infectious Disease HPI - Data of Consult Patient: new to practice Consult date: 11/10/16 Requesting Physician: Diana Meza Primary Care Provider: Fern Colon, - Consult Narrative Reason for consult: Cavitary lung lesion History of present illness: Mr. Mckay is a 71 year old male with a past medical history of diabetes, hypertension, CAD, membranous glomerulonephritis previously on CellCept, and hypothyroidism. The patient was admitted to the hospital November 05 for chest pain and cavitary lung lesion. We are consulted November 10 for further evaluation and treatment recommendations regarding cavitary lung lesion. 31-year-old male with past medical history as stated above. The patient was previously hospitalized about 2 weeks ago for bronchitis and sinusitis. Prior to that hospitalization, the patient had developed a dry cough, and intermittent fevers, chills, and rigors ongoing for the past couple of months. Additionally, the patient was having nausea and vomiting and dehydration secondary to the CellCept medication that he had been placed on for his membranous glomerulonephritis. The patient's status improved and he was discharged home. He continued to have a dry cough. On the day of admission, he developed reproducible chest pain and presented to the emergency department. Upon arrival, the patient was tachypneic and had leukocytosis. Chest x-ray showed a small left pleural effusion. A CT of the chest was completed that showed a right lower lobe noncalcified lung nodule with cavitation as well as a small bilateral pleural effusions. In order to completely rule out a pulmonary embolism, VQ scan was completed that showed low probability of pulmonary embolism. The patient was subsequently admitted to the hospital for further evaluation. He has not been on any antibiotics since admission. We have been asked to evaluate and make further recommendations. Since admission, the patient's white blood cell count has normalized. He is no longer tachypneic. He has had a couple episodes of low-grade fevers. Patient underwent a CT-guided biopsy of the lung lesion. Preliminary culture and AFB stains are negative. During my exam today, the patient states that overall he feels well. He states he feels better than when he came in. He does endorse history of intermittent fevers and chills and rigors that occur about 2 times a week and has been like that for the past couple of months. He also reports that he lost about 25 pounds in the past 30 days. He reports the cough is mostly dry with occasional clear sputum, but denies any hemoptysis except for yesterday after he had the biopsy which has resolved. He states his chest pain was nonradiating and was in the middle of his chest and was reproducible and worse with cough or deep inspiration. He states the chest pain is currently resolved. He denies any shortness of breath. He denies any nausea, vomiting, diarrhea, or constipation. He denies any abdominal pain and states his appetite is okay. He denies any pain in any of his extremities or joints or back. He denies any oral thrush or any skin lesions. The patient lives at home with his . He is retired. He was previously in the [employer] and in the [employer] [place]. He denies ever being incarcerated. He denies any tobacco, illicit drug, or alcohol use. CC: Diana Meza Past Med Surg Social Fam HX - Past Medical History Attestation: Yes The following information was validated with the patient. Source: patient, old records reviewed, nursing notes reviewed Medical history: arthritis, diabetes, hypertension, renal disease, thyroid disease, other (membranous glomerulonephritis) Psychiatric history: no psych history - Past Surgical History Surgical History: orthopedic, other (right total knee replacement.) - Social History Smoking Status: Never smoker Smokeless Tobacco Status: No Alcohol use: none Drug use: none Occupational status: retired Current living situation: Home - Independent Activity Level: Independent ambulation Recent Out of Country Travel Within the Last 8 Weeks: No Exposure or Possible Exposure to Illness During Travel: No - Family History Mother Living Status: Hx Family Cardiac Disorders: Yes (valve replacement) Infectious Disease-CN:Meds Allopurinol [Zyloprim 300 MG] 300 mg PO DAILY 08/31/16 [History] Diltiazem HCl [Cardizem LA] 120 mg PO DAILY 08/31/16 [History] Glimepiride [Amaryl] 4 mg PO DAILY 08/31/16 [History] Levothyroxine [Synthroid] 175 mcg PO DAILY 08/31/16 [History] Ramipril [Altace] 10 mg PO BID 08/31/16 [History] Rosuvastatin [Crestor] 40 mg PO HS 08/31/16 [History] SitaGLIPtin [Januvia] 25 mg PO DAILY 08/31/16 [History] Tamsulosin [Flomax] 0.4 mg PO DAILY 08/31/16 [History] Tramadol HCl [Ultram] 100 mg PO BID PRN 08/31/16 [History] Triamterene/HCTZ 37.5/25mg [Dyazide] 0.5 tab PO DAILY 08/31/16 [History] Omeprazole [PriLOSEC] 40 mg PO DAILY 10/22/16 [History] Amoxicillin/Clavulanate [Augmentin] 875 mg PO BIDWM 11/05/16 [History] Allergies prednisone Adverse Reaction (Verified 11/05/16 07:00) See Comments All systems: reviewed and no additional remarkable complaints except as stated Exam - Constitutional Vitals: Temp Pulse Resp BP Pulse Ox 98.4 F 57 16 145/79 97 11/10/16 15:49 11/10/16 15:49 11/10/16 15:49 11/10/16 15:49 11/10/16 15:49 General appearance: average body habitus, cooperative, no acute distress - Head Head exam: Present: atraumatic, normal inspection, normocephalic - Eye Eye exam: Present: EOMI, normal appearance, PERRL Pupils: Present: normal accommodation - ENT ENT exam: Present: mucous membranes moist - Neck Neck exam: Present: normal inspection. Absent: lymphadenopathy - Respiratory Respiratory exam: Present: CTAB. Absent: rales, respiratory distress, rhonchi, wheezes - Cardiovascular Cardiovascular exam: Present: RRR, +S1, +S2 - GI/Abdominal GI/Abdominal exam: Present: normal bowel sounds, soft. Absent: distended, tenderness - Extremities Exam Extremities exam: Present: normal inspection. Absent: joint swelling, pedal edema, tenderness - Back Exam Back exam: Present: normal inspection. Absent: paraspinal tenderness, vertebral tenderness - Neurological Exam Neurological exam: Present: alert, oriented X3, no focal deficits - Psychiatric Psychiatric exam: Present: normal affect, normal mood - Skin Skin exam: Present: dry, intact, normal color, warm Infectious Disease CN: Results - Labs CBC & Chem 7: 11/10/16 03:41 11/09/16 04:42 Cultures: Cultures 11/09/16 11:45 Acid Fast Stain - Final Lung - Right 11/09/16 11:45 Surgical Biopsy Culture - Preliminary Lung - Right 11/09/16 11:45 Body Fluid Culture - Preliminary Pleural Fluid Serology: Serology 11/08/16 11/05/16 Range/Units 07:55 19:28 Urine Color Yellow (Yellow) Urine Clarity Clear (Clear) Urine pH 6.0 (5.0-8.0) pH Units Ur Specific [place] 1.018 (1.010-1.025) Urine Protein >=300 H (Neg-Trace) mg/dL Urine Glucose (UA) Normal (Normal) mg/dL Urine Ketones Negative (Negative) mg/dL Urine Blood Small H (Negative) Urine Nitrite Negative (Negative) Urine Bilirubin Negative (Negative) Urine Urobilinogen Normal (Normal) mg/dL Ur Leukocyte Esterase Negative (Negative) Urine Microscopic RBC 0-3 (0-3) per hpf Urine Microscopic WBC 0-3 (0-3) per hpf Ur Squamous Epith Cells Many H (None-Few) per lpf Urine Bacteria None Seen (None-Few) per hpf Hyaline Casts None Seen (None-Few) per lpf Ur Culture Indicated? NO (NO) Stool Occult Blood Negative (Negative) Consult Discharge Plan - Plan Referrals: Suha Zamora MD [Partnered Physician] - 11/09/16 8:00 am - Attending Attestation I examined this patient and my medical decision-making was reviewed with the Resident Physician. I agree with the documented findings, disposition and treatment plan as described except to the extent set forth below. This is an addendum to original report dictated by Lorena Raymond CNP. Please refer to Lorena's note for full details Patient is a very interesting 71-year-old gentleman with extensive past medical history mentioned below who also has membranous glomerulonephritis on CellCept 500 twice a day was stopped by nephrology because the patient was not tolerating it well. I'm not quite sure what the etiology of the membranous glomerular nephritis is. I contacted nephrology after reviewing the chart to get some more information about Dr. Evangelina Onofre was on-call and he is not very familiar with the patient. We will attempt to contact Dr. Hayden tomorrow. Patient also had pleuritic chest pain when he came in and imaging shows a small lesion in the lung that is cavitary. I reviewed the CAT scan myself and the cavitation is minimal. Patient denies any thick sputum production or hemoptysis. On further questioning patient tells me that he was being tested for TB yearly until 2004 2005. Hasn't been tested since then but patient denies any travel outside of the [place] since then either other than one trip to [place]. Patient denies any fevers or chills or night sweats. Patient denies any weight loss. At this point I recommend pulmonary evaluation and possible bronchoscopy. We'll also get fungal serologies for histoplasma, Blastomyces, cryptococcal, and aspergillosis. Patient has not traveled to [place] so I will not check coccidiomycosis. Patient might need Anka and anti-basement membrane antibody if it hasn't been done. My index of suspicion for TB is very low so I will not put the patient and negative pressure room. We will check HIV and QuantiFERON just for completion purposes.
[2016-11-10] MEDS ORDERED: Tuberculin Skin Test (PPD) 5 TUB/0.1 ML VIAL ID ONE (17:22)
[2016-11-11] MEDS: Acetaminophen 325 MG TABLET PO PRN (05:56)
[2016-11-11] MEDS: *HR* Heparin 5,000 UNIT/ML VIAL SQ SCH (05:57)
[2016-11-11] MEDS: Pantoprazole 40 MG VIAL IVP SCH (05:57)
[2016-11-11] MEDS: Insulin LISPRO 300 UNITS/3 ML VIAL SQ SCH ×2 (07:50→11:51)
[2016-11-11] MEDS: Diltiazem CD (24hr) 120 MG CAPSULE PO SCH (07:51)
--- NOTE | 2016-11-11 11:24 | Infectious Disease Progress No ---
Date of Encounter: 11/11/16 Time of Encounter: 11:22 - Assessment and Plan (1) Sepsis Status: Acute The patient had leukocytosis and tachypnea on admission. Likely secondary to cavitary lung lesion. Improved. Leukocytosis and tachypnea have resolved. No blood cultures were drawn on admission. Qualifiers: Sepsis type: sepsis due to unspecified organism Qualified Code(s): A41.9 - Sepsis, unspecified organism (2) Cavitary lesion of lung Status: Acute Etiology not clear, but likely fungal. CT showed new right lower lobe non-calcified lung nodule with central cavitation. Status post CT-guided biopsy per IR. Gram stain negative. Culture pending. AFB negative. Pleural fluid culture showed fungal elements and was sent to reference lab. Pathology pending. Consult pulmonology. The patient would likely benefit from bronchoscopy. Send BAL for aerobic and anaerobic culture, gram stain, GMS, and AFB. Check fungal serologies: Histo, Blasto, Crypto, Asperigillus, Fungitell, and Histo Urine antigen.--> pending. Check Quantiferon. --> pending. Place PPD.--> completed 11/10/16 at 1820. Read 11/12/16 at 1820. Low index of suspicion for TB. Check HIV status.--> pending. Continue to hold antibiotics at this time. Have patient come to the ID office Wednesday morning for nurse visit to have PPD read. Will call the patient to schedule a time for him to come in. Patient should follow up with ID in two weeks to discuss additional testing and further treatment regarding the cavitary lung lesion. Patient should also be seen by pulmonology for bronchoscopy. (3) Membranous glomerulonephritis Status: Chronic Treated previously with CellCept 500mg PO BID, but was unable to tolerate medication. Further treatment currently on hold per nephrology's recommendations. Etiology of the membranouse glomerulonephritis unclear. Will discuss with Dr. Hayden. (4) Atypical chest pain Status: Resolved Etiology unclear, but improved. Troponin negative. Low likelihood ACS. CT scan negative for PE. Pain management per the primary team. (5) Hypothyroidism Status: Chronic Qualifiers: Hypothyroidism type: unspecified Qualified Code(s): E03.9 - Hypothyroidism , unspecified - Subjective Interval history: Patient seen and examined. No acute events noted overnight. Patient sitting up on the side of the bed with his at the bedside. States that overall he feels well. States his cough is better, but he is still coughing up a small a mount of white sputum. Denies chest pain or shortness of breath. Denies fevers or chills, but states he did have some night sweats last night. Denies nausea, vomiting, diarrhea, or constipation. Denies abdominal pain and states his appetite is okay. Denies urinary complaints. Denies oral thrush or new skin lesions. Infect Dis PN-Objective Data - Labs CBC & Chem 7: 11/10/16 03:41 11/09/16 04:42 Labs: Laboratory Results - last 24 hr 11/10/16 11/10/16 11/10/16 07:17 11:25 15:47 POC Glucose 99 H 139 H 108 H 11/10/16 20:54 POC Glucose 142 H Cultures: Cultures 11/09/16 11:45 Body Fluid Culture - Preliminary Pleural Fluid Fungal Elements 11/09/16 11:45 Surgical Biopsy Culture - Preliminary Lung - Right 11/09/16 11:45 Acid Fast Stain - Final Lung - Right Serology 11/08/16 11/05/16 Range/Units 07:55 19:28 Urine Color Yellow (Yellow) Urine Clarity Clear (Clear) Urine pH 6.0 (5.0-8.0) pH Units Ur Specific [place] 1.018 (1.010-1.025) Urine Protein >=300 H (Neg-Trace) mg/dL Urine Glucose (UA) Normal (Normal) mg/dL Urine Ketones Negative (Negative) mg/dL Urine Blood Small H (Negative) Urine Nitrite Negative (Negative) Urine Bilirubin Negative (Negative) Urine Urobilinogen Normal (Normal) mg/dL Ur Leukocyte Esterase Negative (Negative) Urine Microscopic RBC 0-3 (0-3) per hpf Urine Microscopic WBC 0-3 (0-3) per hpf Ur Squamous Epith Cells Many H (None-Few) per lpf Urine Bacteria None Seen (None-Few) per hpf Hyaline Casts None Seen (None-Few) per lpf Ur Culture Indicated? NO (NO) Stool Occult Blood Negative (Negative) - Impressions Impressions Chest X-Ray 11/10/16 09:57 IMPRESSION: Stable exam without evidence for acute cardiopulmonary process. D/ / 11/10/2016 14:55:22 Juan F Lopez MD / mery Interpreting Provider: Juan F Lopez MD Exam - Constitutional Vitals: Temp Pulse Resp BP Pulse Ox 98.2 F 59 14 154/80 96 11/11/16 07:48 11/11/16 07:48 11/11/16 07:48 11/11/16 07:48 11/11/16 07:52 General appearance: average body habitus, cooperative, no acute distress - Head Head exam: Present: atraumatic, normal inspection, normocephalic - Eye Eye exam: Present: EOMI, normal appearance, PERRL Pupils: Present: normal accommodation - ENT ENT exam: Present: mucous membranes moist - Neck Neck exam: Present: normal inspection - Respiratory Respiratory exam: Present: CTAB. Absent: rales, respiratory distress, rhonchi, wheezes - Cardiovascular Cardiovascular exam: Present: RRR, +S1, +S2 - GI/Abdominal GI/Abdominal exam: Present: normal bowel sounds, soft. Absent: distended, tenderness - Extremities Exam Extremities exam: Present: normal inspection. Absent: joint swelling, pedal edema, tenderness - Back Exam Additional comments: Lung biopsy site to the right upper back noted with superficial scratches surrounding the puncture site secondary to the patient scratching the area with a butter knife. No bleeding or drainage noted. - Neurological Exam Neurological exam: Present: alert, oriented X3, no focal deficits - Psychiatric Psychiatric exam: Present: normal affect, normal mood - Skin Skin exam: Present: dry, intact, normal color, warm Consult Discharge Plan - Plan Instructions: Chest Pain (DC), Chronic Kidney Disease (DC) Additional Instructions: need to f/u with Delivery Room Clerk in 1 week Follow-up appointments: If there is not an appointment listed below, please call your physician and schedule a follow-up appointment. If you have congestive heart failure and your symptoms return, make an appointment with your physician. Medication List: Carry an up to date list of medications you are taking at all time. We have given you an updated medication list including any new medications that you have been prescribed. Please provide that list to your primary provider Symptoms: If your condition changes or you experience any of the following symptoms, notify your physician immediately: Unusual or worsening pain, fever, persistent nausea and vomiting, bleeding, increase in swelling (especially in your legs), sudden weight gain, extreme dizziness, chest pain, increased drainage or redness from a wound or incision. Go to the emergency department if you experience a problem with breathing. Weights: If you have a history of swelling or shortness of breath, weigh yourself daily and notify your physician if you have a weight gain of two or more pounds in one day or 5 or more pounds in a week. If you experience any of the warning signs for stroke: Sudden numbness or weakness of the face, arm or leg; especially on one side of the body, sudden confusion, trouble speaking or understanding, sudden trouble seeing in one or both eyes, sudden trouble walking, dizziness, loss of balance or coordination, sudden sever headache with no cause; Call 911 or go to the emergency room. Stroke is a medical emergency. Some risk factors for stroke: Age, cigarette smoking, diabetes, excessive alcohol consumption, family history , high blood pressure, overweight, physical inactivity, prior stroke, heart attack, diagnosis of carotid artery stenosis or other artery disease. If you smoke, STOP: Smoking or tobacco use significantly increases your risk of heart and lung disease. Your chance of disease greatly increases if you continue to smoke. For more information, call the [place] tobacco quit line for smoking cessation 0-424 QUIT-NOW ( ) Referrals: Froilan Vicente MD [Partnered Physician] - (We have requested a follow up appointment with Dr Vicente. The office will call you at home with an appointment date and time.) Lorena Raymond CNP [Advanced Practice Nurse] - 11/13/16 10:00 am (This appointment is with the nurse to check your PPD test) Sylvia Roberto CNP [Advanced Practice Nurse] - 11/16/16 9:00 am Julianne Mendoza MD [Partnered Physician] - 11/26/16 2:00 pm Prescriptions: Ferrous Sulfate 325 mg PO BID #60 tab - Attending Attestation I examined this patient and my medical decision-making was reviewed with the Resident Physician. I agree with the documented findings, disposition and treatment plan as described except to the extent set forth below.
[2016-11-11 15:29] VITALS: BP 157/82
--- NOTE | 2016-11-11 15:58 | Discharge Summary ---
Date of Encounter: 11/11/16 Time of Encounter: 15:52 - Discharge Diagnosis (1) Cavitary lesion of lung Priority: Primary Status: Acute (2) Atypical chest pain Priority: Primary Status: Resolved (3) Membranous glomerulonephritis Priority: Secondary Status: Chronic (4) Anemia Priority: Secondary Status: Chronic Qualifiers: Anemia type: due to chronic kidney disease Chronic kidney disease stage: stage 4 (severe) Qualified Code(s): N18.4 - Chronic kidney disease, stage 4 ( severe); D63.1 - Anemia in chronic kidney disease (5) Diabetes mellitus Priority: Secondary Status: Chronic Qualifiers: Diabetes mellitus type: type 2 Diabetes mellitus complication status: with kidney complications Diabetes mellitus complication detail: with microalbuminuria Diabetes mellitus school of nursing director insulin use: without penitentiary use Qualified Code(s): E11.29 - Type 2 diabetes mellitus with other diabetic kidney complication; R80.9 - Proteinuria, unspecified (6) Hypertension Priority: Secondary Status: Chronic Qualifiers: Hypertension type: essential hypertension Qualified Code(s): I10 - Essential (primary) hypertension (7) Hypothyroidism Priority: Secondary Status: Chronic Qualifiers: Hypothyroidism type: unspecified Qualified Code(s): E03.9 - Hypothyroidism , unspecified - Discharge Medications Prescriptions: Ferrous Sulfate 325 mg PO BID #60 tab Home Medications: Allopurinol [Zyloprim 300 MG] 300 mg PO DAILY 08/31/16 [History] Diltiazem HCl [Cardizem LA] 120 mg PO DAILY 08/31/16 [History] Glimepiride [Amaryl] 4 mg PO DAILY 08/31/16 [History] Levothyroxine [Synthroid] 175 mcg PO DAILY 08/31/16 [History] Ramipril [Altace] 10 mg PO BID 08/31/16 [History] Rosuvastatin [Crestor] 40 mg PO HS 08/31/16 [History] SitaGLIPtin [Januvia] 25 mg PO DAILY 08/31/16 [History] Tamsulosin [Flomax] 0.4 mg PO DAILY 08/31/16 [History] Tramadol HCl [Ultram] 100 mg PO BID PRN 08/31/16 [History] Omeprazole [PriLOSEC] 40 mg PO DAILY 10/22/16 [History] Ferrous Sulfate 325 mg PO BID #60 tab 11/11/16 [Rx] Allergies/Adverse Reactions: Allergies prednisone Adverse Reaction (Verified 11/05/16 07:00) See Comments Date of admission: 11/11/16 13:42 Primary care physician: Fern Colon, Consults: Infectious disease - Patient Status Disposition: Home, Self-Care Condition: Good Overall status at discharge: patient is back to baseline - Discharge Instructions Follow Up With: Lorena Raymond CNP [Advanced Practice Nurse] - 11/13/16 10:00 am (This appointment is with the nurse to check your PPD test) Fern Colon MD [Primary Care Provider] - Julianne Mendoza MD [Partnered Physician] - 11/26/16 2:00 pm Additional Instructions: need to f/u with Cork Insulator Helper in 1 week Hospital course: Mr. Mckay is a 71 year old male with prior medical history of diabetes, arthritis, hypertension, CKG stage IV, hypothyroidism, chronic anemia, and membranous glomerulonephritis who presented to [facility] on 11/05/16 with worsening chest pain. He reported the chest pain is located in the center of his chest, and his shoulders, he describes it as sharp in character and worsened with movement and breathing. Pt had 1.6 x 2 CM size Rt LL cavitary lesion for with he went for CT guided biopsy on 11/09/2016. His pathology report came back fungal cavitary lesion. So I consulted ID for further management. ID started an extensive workup -fungal serologies: Histo, Blasto, Crypto, Asperigillus, Fungitell, and Histo Urine antigen. Quantiferon and Skin PPD-completed 11/10/16 at 1820. Low index of suspicion for TB. HIV status ordered - P. Recommend do not start any anti fungal treatment empirically since his symptoms improved now and also pt's work up is still pending. Recommend to hold antibiotics at this time. Today he states he is feeling better, no more CP , still has some SOB and TATE. Will d/c him home in stable condition today. Recommend to f/u with ID on Wednesday morning to read his skin PPD and to discuss about further care plan. Also ID requested to f/u with Pulmonary for possible bronchoscopic evaluation of cavitary lesion. He does have CKD stage 4 and his Cr slightly elevated than baseline @ 3.60, so d /c his Triamterene / HCTZ, I do not think he is getting any effect through that medication. He also had acute anemia due to CKD / Chronic disease as well severe Iron deficiency anemia. He received 2 U of PRBC here and placed him on FeSo4 325 mg BID - Time Spent with Patient Total time spent providing and/or coordinating discharge services: - Constitutional Vitals: Temp Pulse Resp BP Pulse Ox 98.2 F 56 17 157/82 98 11/11/16 15:28 11/11/16 15:28 11/11/16 15:28 11/11/16 15:28 11/11/16 15:28 General appearance: Present: A&O X 3, pleasant, no acute distress, answers questions appropriately - Head Head exam: Present: atraumatic, normal inspection - Respiratory Respiratory exam: Present: decreased breath sounds. Absent: respiratory distress, rhonchi, wheezes, tachypnea - Cardiovascular Cardiovascular exam: Present: RRR, +S1, +S2. Absent: diastolic murmur, gallop, rubs, systolic murmur - GI/Abdominal GI/Abdominal exam: Present: soft, no peritoneal signs. Absent: distended, tenderness - Neurological Exam Neurological exam: Present: alert, oriented X3 - Psychiatric Psychiatric exam: Present: normal affect, normal mood
[2016-11-13 01:48] LABS: A.galactomannan Ag Index 0.03
[2016-11-14 02:29] LABS: QuantiFERON Mitogen minus NIL >10.00 IU/mL; QuantiFERON-TB minus NIL 0.01 IU/mL (0.00-0.34)
[2016-11-14 11:12] LABS: QuantiFERON NIL 0.04 IU/mL; QuantiFERON-TB Gold In-Tube NEGATIVE (Negative)
== END 2016-11-11 16:50 | disposition home or self-care (01) | DRG 872 ==
LOC: EMEROO 06:47 → 3BNU 06:47
PROVIDERS: ADMIT Internal Medicine; ATTEND Nurse Practitioner Family

== ENCOUNTER 2017-08-10 09:55 | Inpatient (IN) ==
--- NOTE | 2017-08-10 10:21 | Emergency Department Note ---
Disposition Clinical Impression: Acute renal insufficiency Anemia Qualifiers: Anemia type: unspecified type Qualified Code(s): D64.9 - Anemia, unspecified Disposition: Admitted As Inpatient Condition: Fair Referrals: Fern Colon MD [Primary Care Provider] - Forms: ED Satisfaction Letter, Work/School Release Time of Disposition: 12:02 General Adult HPI - General Chief complaint: ED Abdominal Pain Stated complaint: Kidney Failure Time Seen by Provider: 08/10/17 10:08 Source: patient Mode of arrival: ambulatory Limitations: no limitations Nursing Notes Reviewed: Yes Vital Signs Reviewed: Yes - History of Present Illness HPI Narrative: 72-year-old male who comes in stating that he had blood work done a week ago and he was sent here due to worsening renal failure. Patient has some mild right flank into the right lower abdominal pain he says it is more of an annoyance than pain. 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 Location: abdomen Radiation: flank Pain Scale: 3 Quality: aching Consistency: constant Improves with: nothing Worsens with: nothing Associated symptoms: Denies: fever/chills Treatments Prior to Arrival: none - Related Data Home Medications Medication Instructions Recorded Confirmed Allopurinol [Zyloprim 300 MG] 300 mg PO DAILY 08/31/16 11/05/16 Diltiazem HCl [Cardizem LA] 120 mg PO DAILY 08/31/16 11/05/16 Glimepiride [Amaryl] 4 mg PO DAILY 08/31/16 11/05/16 Levothyroxine [Synthroid] 175 mcg PO DAILY 08/31/16 11/05/16 Ramipril [Altace] 10 mg PO BID 08/31/16 11/05/16 Rosuvastatin [Crestor] 40 mg PO HS 08/31/16 11/05/16 SitaGLIPtin [Januvia] 25 mg PO DAILY 08/31/16 11/05/16 Tamsulosin [Flomax] 0.4 mg PO DAILY 08/31/16 11/05/16 Tramadol HCl [Ultram] 100 mg PO BID PRN 08/31/16 11/05/16 Omeprazole [PriLOSEC] 40 mg PO DAILY 10/22/16 11/05/16 Previous Rx's Medication Instructions Recorded Ferrous Sulfate 325 mg PO BID #60 tab 11/11/16 Amoxicillin/Clavulanate [Augmentin] 875 mg PO BIDWM #20 tablet 07/11/17 Ondansetron ODT [Zofran ODT] 4 mg SL Q6HR PRN #30 tab.rapdis 07/11/17 Ondansetron ODT [Zofran ODT] 4 mg SL Q4HR PRN #6 tab.rapdis 07/20/17 Allergies Allergy/AdvReac Type Severity Reaction Status Date / Time mycophenolate mofetil Allergy Nausea Verified 08/10/17 09:57 [From CellCept] prednisone AdvReac See Verified 08/10/17 09:57 Comments Constitutional: Denies: fever, chills, weakness, weight change Eyes: Denies: eye pain, eye discharge, vision change ENT ED: Denies: ear pain, throat pain, dental pain, hearing loss, epistaxis, congestion, dysphagia Cardiovascular: Denies: chest pain, palpitations, dyspnea on exertion, edema, syncope Respiratory: Denies: cough, dyspnea, wheezes, hemoptysis, stridor Gastrointestinal: Reports: abdominal pain. Denies: nausea, vomiting, diarrhea, constipation, hematemesis, melena, hematochezia Genitourinary: Denies: urgency, dysuria, frequency, hematuria Musculoskeletal: Denies: back pain, neck pain, arthralgia, myalgia Integumentary: Denies: rash, abrasion, lesions Neurological: Denies: headache, weakness, numbness, paresthesias, confusion, abnormal gait, vertigo Psychiatric: Denies: anxiety, depression, suicidal thoughts, homicidal thoughts , auditory hallucinations, visual hallucinations Endocrine: Denies: fatigue Hematological/Lymphatic: Denies: easy bleeding, easy bruising Allergic/Immunologic: Denies: facial swelling, urticaria Past Medical History - Past Medical History Medical history: Reports: arthritis, diabetes, hypertension, renal disease, thyroid disease, other Surgical history: Reports: orthopedic, other Psychiatric history: Reports: no psych history - Social History Smoking Status: Never smoker Smokeless Tobacco Status: No Alcohol use: Reports: none Drug use: Reports: none Physical Exam - General Limitations: no limitations General appearance: alert - Head Head exam: atraumatic, normocephalic, normal inspection - Eye Eye exam: Present: normal appearance, PERRL, EOMI - ENT ENT exam: normal exam, normal oropharynx, mucous membranes moist - Neck Neck exam: Present: normal inspection, full ROM, trachea midline - Chest Chest inspection: Present: normal inspection, symmetric chest wall rise - Respiratory Respiratory exam: Present: normal lung sounds bilaterally - Cardiovascular Cardiovascular exam: Present: regular rate, normal rhythm, normal heart sounds - Abdominal Exam Abdominal exam: Present: soft, Non-Tender. Absent: tenderness, distention, guarding, rebound, rigidity - Extremities Exam Extremities exam: Present: normal inspection, full ROM. Absent: tenderness, pedal edema - Expanded Lower Extremity Exam Neurovascular/Tendon exam: Absent: motor deficit, sensory deficit, tendon deficit Gait: observed and normal - Back Exam Back exam: Present: normal inspection, full ROM. Absent: tenderness - Neurological Exam Neurological exam: Present: alert, oriented X3 - Psychiatric Psychiatric exam: Present: normal affect, normal mood - Skin Skin exam: Present: warm, dry, intact, normal color Course - Reevaluation(s) Reevaluation #1: 72-year-old gentleman who comes in complaining of worsening renal failure. Saw nephrology wants him admitted he may have to have dialysis. The patient's hemoglobin was 8.5 but it appears to be a chronic problem for him. This is likely related to his chronic renal failure. Time: 12:02 - Consultations Consultation #1: Discussed with Dr. Bains, will see the patient in consultation. Time: 12:01 Consultation #2: Discussed with , he will admit the patient Time: 12:01 Vital Signs Temperature 98.5 F 08/10/17 09:57 Pulse Rate 77 08/10/17 09:57 Respiratory Rate 20 08/10/17 09:57 Blood Pressure 199/98 08/10/17 09:57 O2 Sat by Pulse Oximetry 99 08/10/17 09:57 Temperature 98.5 F 08/10/17 09:57 Pulse Rate 77 08/10/17 09:57 Respiratory Rate 20 08/10/17 09:57 Blood Pressure 199/98 08/10/17 09:57 O2 Sat by Pulse Oximetry 99 08/10/17 09:57 Oxygen Delivery Oxygen Delivery Room Air Medical Decision Making - Lab Data Lab results reviewed: Yes I reviewed the patient's lab results. Result diagrams: 08/10/17 10:20 08/10/17 10:20 Lab Results 08/10/17 08/10/1708/10/18 Range/Units 10:20 10:20 11:25 WBC 11.3 H (4.3-11.1) K/mcL RBC 2.71 L (4.19-5.50) M/mcL Hgb 8.5 L (12.9-16.9) g/dL Hct 26.5 L (37.5-50.1) % MCV 97.8 (83.0-100.0) fL MCH 31.4 (28.0-33.3) pg MCHC 32.1 (31.6-35.5) g/dL RDW 16.6 H (11.5-14.5) % Plt Count 210 (140-400) K/mcL MPV 9.1 L (9.4-12.4) fL Immature Gran % 1.1 (0-4) % Seg Neutrophils % 66.3 % Lymphocytes % 22.6 % Monocytes % 7.2 % Eosinophils % 2.4 % Basophils % 0.4 % Neutrophils # 7.5 (1.6-8.9) K/mcL Lymphocytes # 2.6 (0.6-4.6) K/mcL Monocytes # 0.8 (0.0-1.3) K/mcL Eosinophils # 0.3 (0.0-0.6) K/mcL Basophils # 0.1 (0.0-0.2) K/mcL Sodium 137 (136-145) mEq/L Potassium 4.2 (3.5-5.1) mEq/L Chloride 105 (98-107) mEq/L Carbon Dioxide 20 L (23-29) mEq/L BUN 84 H (8-23) mg/dL Creatinine 6.02 H (0.70-1.30) mg/dL Est GFR ( Amer) 11 L (> 60) Est GFR (Non-Af Amer) 9 L (> 60) BUN/Creatinine Ratio 14 (6-26) Glucose 162 H (70-105) mg/dL Calculated Osmolality 313 H (280-300) Calcium 9.2 (8.6-10.3) mg/dL Total Bilirubin 0.3 (0.3-1.0) mg/dL Direct Bilirubin 0.1 (0.0-0.2) mg/dL Indirect Bilirubin 0.2 (0.0-1.2) mg/dL AST 18 (13-39) Units/L ALT 11 (7-52) Units/L Alkaline Phosphatase 51 (34-104) Units/L Serum Total Protein 6.3 L (6.4-8.9) g/dL Albumin 3.5 (3.5-5.7) g/dL Globulin 2.8 (2.4-3.5) g/dL Albumin/Globulin Ratio 1.3 (1.1-2.2) Amylase 29 (29-103) Units/L Lipase 27 (11-82) Units/L Urine Color Yellow (Yellow) Urine Clarity Clear (Clear) Urine pH 6.5 (5.0-8.0) pH Units Ur Specific [place] 1.016 (1.010-1.025) Urine Protein >=300 H (Neg-Trace) mg/dL Urine Glucose (UA) 250 H (Normal) mg/dL Urine Ketones Negative (Negative) mg/dL Urine Blood Small H (Negative) Urine Nitrite Negative (Negative) Urine Bilirubin Negative (Negative) Urine Urobilinogen Normal (Normal) mg/dL Ur Leukocyte Esterase Negative (Negative) Urine Microscopic RBC 0-3 (0-3) per hpf Urine Microscopic WBC 0-3 (0-3) per hpf Ur Squamous Epith Cells Many H (None-Few) per lpf Urine Bacteria None Seen (None-Few) per hpf Hyaline Casts None Seen (None-Few) per lpf Ur Culture Indicated? NO (NO)
[2017-08-10 10:35] LABS: Basophils # 0.1 K/mcL (0.0-0.2); Basophils % 0.4 %; Eosinophils # 0.3 K/mcL (0.0-0.6); Eosinophils % 2.4 %; Hematocrit 26.5 % (37.5-50.1); Hemoglobin 8.5 g/dL (12.9-16.9); Immature Granulocytes % 1.1 % (0-4); Lymphocytes # 2.6 K/mcL (0.6-4.6); Lymphocytes % 22.6 %; Mean Corpuscular HGB Conc 32.1 g/dL (31.6-35.5); Mean Corpuscular Hemoglobin 31.4 pg (28.0-33.3); Mean Corpuscular Volume 97.8 fL (83.0-100.0); Mean Platelet Volume 9.1 fL (9.4-12.4); Monocytes # 0.8 K/mcL (0.0-1.3); Monocytes % 7.2 %; Neutrophils # 7.5 K/mcL (1.6-8.9); Platelet Count 210 K/mcL (140-400); Red Blood Count 2.71 M/mcL (4.19-5.50); Red Cell Distribution Width 16.6 % (11.5-14.5); Segmented Neutrophils % 66.3 %
[2017-08-10 10:59] LABS: Albumin 3.5 g/dL (3.5-5.7); Albumin/Globulin Ratio 1.3 (1.1-2.2); Bilirubin,Direct 0.1 mg/dL (0.0-0.2); Bilirubin,Indirect 0.2 mg/dL (0.0-1.2); Bilirubin,Total 0.3 mg/dL (0.3-1.0); Calcium 9.2 mg/dL (8.6-10.3); Globulin 2.8 g/dL (2.4-3.5); Potassium 4.2 mEq/L (3.5-5.1); Total Protein 6.3 g/dL (6.4-8.9)
[2017-08-10 11:45] LABS: Bilirubin,Urine Negative (Negative); Blood,Urine Small (Negative); Clarity,Urine Clear (Clear); Color,Urine Yellow (Yellow); Glucose,Urine (UA) 250 mg/dL (Normal); Ketones,Urine Negative (Negative); Leukocyte Esterase,Urine Negative (Negative); Nitrite,Urine Negative (Negative); PH,Urine 6.5 pH Units (5.0-8.0); Protein,Urine >=300 mg/dL (Neg-Trace); Specific Gravity,Urine 1.016 (1.010-1.025); Urobilinogen,Urine Normal (Normal)
[2017-08-10 11:49] LABS: Bacteria,Urine None Seen per hpf (None-Few); Hyaline Casts,Urine None Seen per lpf (None-Few); RBC,Urine 0-3 per hpf (0-3); Squamous Epithelial Cell,Urine Many per lpf (None-Few); WBC,Urine 0-3 per hpf (0-3)
[2017-08-10] MEDS ORDERED: Naloxone 0.4 MG/ML INJ IVP PRN (12:42)
--- NOTE | 2017-08-10 12:52 | Internal Med History&Physical ---
Date of Encounter: 08/10/17 Time of Encounter: 12:47 Internal Medicine - H&P: HPI Chief complaint: Progressive CKD History of present illness: Mr. Mckay is a 72 year old male who presents work evaluation and work up of progressive KINZA on CKD. Patient was seen by Dr. 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 He has a history of hypothyroidism on Synthroid, diabetes2 not on any medicines since his weight loss of 60 pounds when he was ill from October to December of last year. He also has hypertension. Given these , it is suspected that his CKD is related to diabetes and hypertension. He reports that he has been putting out urine. Denies shortness of breath or significant peripheral edema to suggest volume overload Of note he was recently treated with a course of Augmentin for infection in early July - suspect viral but was covered by antibiotics EKG personally reviewed with rate 99, normal sinus rhythm Past Med Surg Social Fam HX - Past Medical History Medical history: arthritis, diabetes, hypertension, renal disease, thyroid disease, other Psychiatric history: no psych history - Past Surgical History Surgical History: orthopedic, other - Social History Smoking Status: Never smoker Smokeless Tobacco Status: No Alcohol use: none Drug use: none - Family History Mother Living Status: Hx Family Cardiac Disorders: Yes (valve replacement) Internal Medicine - H&P: Meds Allopurinol [Zyloprim 300 MG] 300 mg PO DAILY 08/31/16 [History] Diltiazem HCl [Cardizem LA] 120 mg PO DAILY 08/31/16 [History] Levothyroxine [Synthroid] 175 mcg PO DAILY 08/31/16 [History] Ramipril [Altace] 10 mg PO BID 08/31/16 [History] Rosuvastatin [Crestor] 40 mg PO HS 08/31/16 [History] Tamsulosin [Flomax] 0.4 mg PO DAILY 08/31/16 [History] Tramadol HCl [Ultram] 100 mg PO BID PRN 08/31/16 [History] Omeprazole [PriLOSEC] 40 mg PO DAILY 10/22/16 [History] Ferrous Sulfate 325 mg PO BID #60 tab 11/11/16 [Rx] predniSONE [PredniSONE] 7 mg PO DAILY 08/10/17 [History] 3 Allergy/AdvReac Type Severity Reaction Status Date / Time mycophenolate mofetil Allergy Nausea Verified 08/10/17 09:57 [From CellCept] prednisone AdvReac See Verified 08/10/17 09:57 Comments All Systems PM: A 10-system review of systems was performed and is negative for pertinent findings except as documented above in the HPI. Review of systems: ROS 14 point review of systems reviewed as best as possible given presentation. Pertinent positive or negative as per HPI or otherwise reviewed as negative - Constitutional Vitals: Temp Pulse Resp BP Pulse Ox 98.5 F 77 20 199/98 99 08/10/17 09:57 08/10/17 09:57 08/10/17 09:57 08/10/17 09:57 08/10/17 09:57 Exam: General - AAO x 3 Psych - Appropriate affect/speech. No agitation Eyes - KASEY. Eye lids intact. No scleral icterus Heart - Sinus. RRR. S1 and S2 present. No added HS/murmurs appreciated. No elevated JVD appreciated. Lung - Adequate air entry b/l, No crackles/wheezes appreciated GI - Soft, non-tender. No hepatosplenomegaly/ascites. BS+ - No CVA/suprapubic tenderness or palpable bladder distension Skin - Intact. No rash/petechiae/ecchymosis. Warm extremities. Trace edema MSK - Joints with normal ROM. No joint swellings Internal Med - H&P Results - Labs CBC & Chem 7: 08/10/17 10:20 08/10/17 10:20 Labs: Short CBC 08/10/17 Range/Units 10:20 WBC 11.3 H (4.3-11.1) K/mcL Hgb 8.5 L (12.9-16.9) g/dL Hct 26.5 L (37.5-50.1) % Plt Count 210 (140-400) K/mcL Neutrophils # 7.5 (1.6-8.9) K/mcL BMP 08/10/17 10:20 Sodium 137 Potassium 4.2 Chloride 105 Carbon Dioxide 20 L BUN 84 H Creatinine 6.02 H Glucose 162 H Calcium 9.2 Liver Function 08/10/17 Range/Units 10:20 Total Bilirubin 0.3 (0.3-1.0) mg/dL Direct Bilirubin 0.1 (0.0-0.2) mg/dL AST 18 (13-39) Units/L ALT 11 (7-52) Units/L Alkaline Phosphatase 51 (34-104) Units/L Albumin 3.5 (3.5-5.7) g/dL Urine 08/10/17 Range/Units 11:25 Urine Color Yellow (Yellow) Urine Clarity Clear (Clear) Urine pH 6.5 (5.0-8.0) pH Units Ur Specific [place] 1.016 (1.010-1.025) Urine Protein >=300 H (Neg-Trace) mg/dL Urine Glucose (UA) 250 H (Normal) mg/dL - Assessment and plan (1) Renal failure (ARF), acute on chronic Current Visit: No Status: Acute Assessment and plan: seen by Dr Hayden who is following - 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 I&Os further management pending renal assistance of membranous GN High risk for progressive renal failure needing intervention to prevent further organ failure hold ACEI trend lab Qualifiers: Qualified Code(s): N17.9 - Acute kidney failure, unspecified; N18.9 - Chronic kidney disease, unspecified; N18.9 - Chronic kidney disease, unspecified (2) Diabetes mellitus Current Visit: No Status: Chronic Assessment and plan: now diet controlled and off oral agents per patient check A1c Qualifiers: Qualified Code(s): E11.29 - Type 2 diabetes mellitus with other diabetic kidney complication; R80.9 - Proteinuria, unspecified; R80.9 - Proteinuria, unspecified (3) Hypertension Current Visit: No Status: Chronic Assessment and plan: continue med Hold ACEI Qualifiers: Qualified Code(s): I10 - Essential (primary) hypertension (4) Hypothyroidism Current Visit: No Status: Chronic Assessment and plan: continue med Qualifiers: Qualified Code(s): E03.9 - Hypothyroidism, unspecified - Time Spent With Patient Total time spent is greater than 50% in coordination of care (as documented) at patient's floor/unit and/or counseling patient:
--- NOTE | 2017-08-10 12:59 | Nephrology Consult Note ---
Date of Encounter: 08/10/17 Time of Encounter: 12:56 Assessment and Plan (1) Acute worsening of stage 4 chronic kidney disease Current Visit: No Status: Acute Is a well known patient of Dr. Perdomo. This could be worsening vs. progression of CKD. Seen and examined in ED 31. Did discuss possible need for PD or HD, patient hopes it does not come to that. Urine studies and ultrasound ordered. Avoid nephrotoxins and continue to renal dose all medications. (2) Anemia Current Visit: Yes Status: Chronic Hgb 8.5. Will do anemia workup if not already completed. Qualifiers: Anemia type: unspecified type Qualified Code(s): D64.9 - Anemia, unspecified (3) Nausea Current Visit: Yes Status: Acute Nausea comes and goes with "urination". UA ordered to r/o UTI. (4) Hypertension Current Visit: No Status: Chronic Stable. Qualifiers: Hypertension type: essential hypertension Qualified Code(s): I10 - Essential (primary) hypertension History of Present Illness - Reason for Consult Consult date: 08/10/17 Acute Kidney Injury, Chronic Kidney Disease - Chief Complaint abdominal pain - History of Present Illness Mr. Mckay is a 72 year old male who presents today for KINZA/CKD work up. Is a well known patient of Dr. Pierson. He was seen yesterday and has had worsening labs, she recommended he go to ED for workup. Admits to nausea without emesis and right flank pain when urinating. Denies frequency, urgency, or hesitancy. PMH: Hypothyrodism, DM2. 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 No current chronic use of NSAIDS. Past Med Surg Social Fam HX - Past Medical History Medical history: arthritis, diabetes, hypertension, renal disease, thyroid disease, other Psychiatric history: no psych history - Past Surgical History Surgical History: orthopedic, other - Social History Smoking Status: Never smoker Smokeless Tobacco Status: No Alcohol use: none Drug use: none - Family History Mother Living Status: Hx Family Cardiac Disorders: Yes (valve replacement) Medications and Allergies Allopurinol [Zyloprim 300 MG] 300 mg PO DAILY 08/31/16 [History] Diltiazem HCl [Cardizem LA] 120 mg PO DAILY 08/31/16 [History] Levothyroxine [Synthroid] 175 mcg PO DAILY 08/31/16 [History] Ramipril [Altace] 10 mg PO BID 08/31/16 [History] Rosuvastatin [Crestor] 40 mg PO HS 08/31/16 [History] Tamsulosin [Flomax] 0.4 mg PO DAILY 08/31/16 [History] Tramadol HCl [Ultram] 100 mg PO BID PRN 08/31/16 [History] Omeprazole [PriLOSEC] 40 mg PO DAILY 10/22/16 [History] Ferrous Sulfate 325 mg PO BID #60 tab 11/11/16 [Rx] predniSONE [PredniSONE] 7 mg PO DAILY 08/10/17 [History] 3 Allergy/AdvReac Type Severity Reaction Status Date / Time mycophenolate mofetil Allergy Nausea Verified 08/10/17 09:57 [From CellCept] prednisone AdvReac See Verified 08/10/17 09:57 Comments Review of Systems Constitutional: no anorexia, no fever(s) Cardiovascular: no chest pain, no edema, no irregular heart rhythm, no orthopnea , no palpitations Respiratory: no cough Gastrointestinal: abdominal pain, no change in bowel habits, no constipation Genitourinary Male: as per HPI Neurological: no focal weakness, no frequent falls Exam - Vital Signs Vital signs: Initial Vital Signs Temp Pulse Resp BP Pulse Ox 98.5 F 77 20 199/98 99 08/10/17 09:57 08/10/17 09:57 08/10/17 09:57 08/10/17 09:57 08/10/17 09:57 Vital Signs - Last 8 Hours Temp Pulse Resp BP Pulse Ox 08/10/17 09:57 98.5 F 77 20 199/98 99 Intake and Output 08/09/17 08/10/17 08/10/17 23:59 07:59 15:59 Other: Stool Characteristics Normal for Patient Stool Color Brown Weight 102.058 kg Patient Weight 08/10/17 23:59 Weight 102.058 kg - General Appearance General appearance: well-developed, well-nourished EENT: ATNC, hearing intact, vision intact Neck: supple Respiratory: clear Cardiology: no murmurs, no edema, normal S1, normal S2 Gastrointestinal: normoactive bowel sounds, no tenderness, no guarding Additional Comments: No tenderness with light palpation. Integumentary: no rash, warm and dry Neurologic: alert and oriented x3 Psychiatric: mood/affect appropriate, cooperative Results - Lab Results 08/10/17 10:20 08/10/17 10:20 Most recent lab results Calcium 9.2 mg/dL (8.6-10.3) 08/10/17 10:20 Consult Discharge Plan - Plan Referrals: Fern Colon MD [Primary Care Provider] -
[2017-08-10] MEDS ORDERED: Dextrose Gel 15 GM/37.5 ML TUBE PO PRN ×2 (13:05)
[2017-08-10] MEDS ORDERED: *HR* Dextrose 50 % in Water (Syg) 50 ML SYRINGE IVP PRN (13:05)
[2017-08-10] MEDS ORDERED: D5% in Water 1,000 ML IVC PRN (13:05)
[2017-08-10] MEDS ORDERED: cloNIDine HCl 0.1 MG TABLET PO ONE (13:06)
[2017-08-10] MEDS ORDERED: hydrALAZINE 25 MG TABLET PO PRN (13:07)
[2017-08-10 14:21] LABS: Vitamin B12 564 pg/mL (250-1100)
[2017-08-10 14:22] LABS: Folate > 22.3 ng/mL (3.0-16.0)
[2017-08-10] MEDS: *HR* Heparin 5,000 UNIT/ML VIAL SQ SCH (16:34)
[2017-08-10] MEDS: Insulin LISPRO 300 UNITS/3 ML VIAL SQ SCH ×2 (16:35→22:13)
[2017-08-10] MEDS: 0.9 % Sodium Chloride 1,000 ML IVC SCH (16:38)
[2017-08-11 00:39] LABS: Bilirubin,Urine Negative (Negative); Blood,Urine Small (Negative); Clarity,Urine Clear (Clear); Color,Urine Yellow (Yellow); Glucose,Urine (UA) 100 mg/dL (Normal); Ketones,Urine Negative (Negative); Leukocyte Esterase,Urine Negative (Negative); Nitrite,Urine Negative (Negative); PH,Urine 6.5 pH Units (5.0-8.0); Protein,Urine >=300 mg/dL (Neg-Trace); Specific Gravity,Urine 1.015 (1.010-1.025); Urobilinogen,Urine Normal (Normal)
[2017-08-11 00:40] LABS: Bacteria,Urine None Seen per hpf (None-Few); Hyaline Casts,Urine None Seen per lpf (None-Few); RBC,Urine 0-3 per hpf (0-3); Squamous Epithelial Cell,Urine Moderate per lpf (None-Few); WBC,Urine 0-3 per hpf (0-3)
[2017-08-11] MEDS: traMADol 50 MG TABLET PO PRN ×3 (00:55→21:33)
[2017-08-11 01:16] LABS: Protein/Creatinine Ratio,Urine 7.55 mg/mg (0.00-0.20); Sodium, Urine 69.7 mEq/L
[2017-08-11] MEDS: *HR* Heparin 5,000 UNIT/ML VIAL SQ SCH (05:45)
[2017-08-11] MEDS: 0.9 % Sodium Chloride 1,000 ML IVC SCH (05:45)
[2017-08-11 05:56] LABS: Basophils # 0.1 K/mcL (0.0-0.2); Basophils % 0.4 %; Eosinophils # 0.3 K/mcL (0.0-0.6); Eosinophils % 2.4 %; Hematocrit 22.2 % (37.5-50.1); Hemoglobin 7.2 g/dL (12.9-16.9); Immature Granulocytes % 0.9 % (0-4); Lymphocytes # 3.5 K/mcL (0.6-4.6); Lymphocytes % 30.1 %; Mean Corpuscular HGB Conc 32.4 g/dL (31.6-35.5); Mean Corpuscular Volume 95.7 fL (83.0-100.0); Mean Platelet Volume 9.4 fL (9.4-12.4); Monocytes % 8.8 %; Neutrophils # 6.6 K/mcL (1.6-8.9); Platelet Count 173 K/mcL (140-400); Red Blood Count 2.32 M/mcL (4.19-5.50); Red Cell Distribution Width 16.3 % (11.5-14.5); Segmented Neutrophils % 57.4 %
[2017-08-11 06:19] LABS: Albumin/Globulin Ratio 1.3 (1.1-2.2); Bilirubin,Total 0.3 mg/dL (0.3-1.0); Calcium 8.7 mg/dL (8.6-10.3); Globulin 2.4 g/dL (2.4-3.5); Magnesium 1.7 mg/dL (1.6-2.6); Phosphorous 6.7 mg/dL (2.7-4.5); Potassium 4.1 mEq/L (3.5-5.1); Total Protein 5.4 g/dL (6.4-8.9)
[2017-08-11] MEDS: Insulin LISPRO 300 UNITS/3 ML VIAL SQ SCH ×4 (07:24→21:36)
[2017-08-11] MEDS: Diltiazem CD (24hr) 120 MG CAPSULE PO SCH (07:58)
[2017-08-11 08:04] LABS: Estimated Average Glucose 157 mg/dl; Hemoglobin A1C 7.1 %
--- NOTE | 2017-08-11 10:58 | Nephrology Progress Note ---
Date of Encounter: 08/11/17 Time of Encounter: 10:58 - Assessment and Plan (1) Acute worsening of stage 4 chronic kidney disease Current Visit: No Status: Acute Baseline of CKD 4/5 GFR was 21 in March of 2017 and 17 in April of 2017. 2nd Liter NS infusing now. Good urine output 1974. Continue to avoid nephrotoxins and renal dose all medications. Scr is 6 and GFR 9 today. Will continue to monitor and determine if HD is needed. Unclear if this is progression of CKD or KINZA. (2) Anemia Current Visit: Yes Status: Chronic Anemia workup results. Iron 78 Tsat 35 Transferrin 161 Ferritin 906 B12 564 Folate > 22.3 Qualifiers: Anemia type: unspecified type Qualified Code(s): D64.9 - Anemia, unspecified (3) Nausea Current Visit: Yes Status: Acute Still nauseous when he urinates, no emesis. Does go away after he does urinate. (4) Hypertension Current Visit: No Status: Chronic 168/100 and 164/92 after PO Hydralazine and Cardizem. Will recommend another antihypertensive. Qualifiers: Hypertension type: essential hypertension Qualified Code(s): I10 - Essential (primary) hypertension Subjective Principal diagnosis: Renal Failure Interval history: Pt seen and examined. Objective - Vital Signs Vital signs: Vital Signs Temp Pulse Resp BP Pulse Ox 08/11/17 07:21 98.9 F 87 17 168/100 96 08/11/17 04:26 98.6 F 79 17 153/84 96 08/11/17 00:03 98.8 F 83 18 175/94 96 08/10/17 22:09 99.4 F 76 17 161/87 97 08/10/17 16:12 98.6 F 77 18 151/84 97 08/10/17 15:44 98 F 18 145/81 Intake and Output 08/10/17 08/11/17 08/11/17 23:59 07:59 15:59 Intake Total 360 / 360 1000 / 1000 480 / 480 Output Total 1500 / 1500 225 / 225 Balance 360 / 360 -500 / -500 255 / 255 Intake: IV Fluids 1000 / 1000 0.9 % Sodium Chloride 1,000 ML 1000 / 1000 @ 75 mls/hr IVC .[id number] JONNIE Rx #:[id number] Oral 360 / 360 480 / 480 Output: Urine 1500 / 1500 225 / 225 Other: Meal Dinner Breakfast Percent of Meal Consumed 100% 100% # Voids 1 Weight 97.125 kg 96.3 kg Blood Glucose* 106 98 Patient Weight 08/11/17 23:59 Weight 96.3 kg - General Appearance General appearance: Present: well-developed, well-nourished, appears started age EENT: Present: ATNC, mucous membranes moist, hearing intact, vision intact Neck: Present: supple Cardiology: Present: no edema, normal S1, normal S2 Gastrointestinal: Present: normoactive bowel sounds, no tenderness, no guarding Integumentary: Present: no rash, warm and dry Neurologic: Present: alert and oriented x3 Psychiatric: Present: mood/affect appropriate, cooperative - Lab 08/11/17 05:30 08/11/17 05:30 Most recent lab results Calcium 8.7 mg/dL (8.6-10.3) 08/11/17 05:30 Phosphorus 6.7 mg/dL (2.7-4.5) H 08/11/17 05:30 Magnesium 1.7 mg/dL (1.6-2.6) 08/11/17 05:30 Urine Creatinine 38 mg/dL 08/11/17 00:02 Urine Sodium 69.7 mEq/L 08/11/17 00:02 Urine Total Protein 287 mg/dL (1-14) H 08/11/17 00:02 Consult Discharge Plan - Plan Referrals: Fern Colon MD [Primary Care Provider] -
[2017-08-11] MEDS ORDERED: hydrALAZINE 25 MG TABLET PO ONE (11:56)
--- NOTE | 2017-08-11 12:22 | Electrocardiograph Report ---
[place] [id number] Test Date: 2017-08-10 Pat Name: Micheal Mckay Department: 104 Room: 2A42 Gender: M Director Of Marketing And Promotions: ADAN : 1945 Requested By: Sabi See Order Number: [id number] Reading MD: Diogo Chow Measurements Intervals [place] Rate: 99 P: 67 ND: 188 QRS: -24 QRSD: 129 T: 110 QT: 380 QTc: 436 Interpretive Statements SINUS RHYTHM WITH FREQUENT SUPRAVENTRICULAR PREMATURE COMPLEXES LEFT VENTRICULAR HYPERTROPHY AND ST-T CHANGE LEFTWARD AXIS Electronically Signed On 08-11-2017 12:20:28 EDT by Diogo Chow
[2017-08-11 12:36] LABS: Prothrombin Time 11.1 Seconds (9.4-12.1)
[2017-08-11 13:16] LABS: Activated Partial Thrombo Time 25.4 Seconds (26.0-36.0)
[2017-08-11] MEDS: Acetaminophen 325 MG TABLET PO PRN ×2 (16:42→23:40)
[2017-08-11] MEDS: hydrALAZINE 25 MG TABLET PO SCH ×2 (16:43→21:34)
--- NOTE | 2017-08-11 16:57 | Internal Med Progress Note ---
Date of Encounter: 08/11/17 Time of Encounter: 13:00 - Assessment and plan (1) Renal failure (ARF), acute on chronic Current Visit: No Status: Acute Assessment and plan: Held ACEI Cont IV hydration Nephro consulted scheduled for renal biopsy in AM for further eval trend lab Qualifiers: Acute renal failure type: unspecified Chronic kidney disease stage: unspecified stage Qualified Code(s): N17.9 - Acute kidney failure, unspecified ; N18.9 - Chronic kidney disease, unspecified (2) Diabetes mellitus Current Visit: No Status: Chronic Assessment and plan: His HbA1C 7.1 cont diet modifications also placed him on ISS Qualifiers: Diabetes mellitus type: type 2 Diabetes mellitus beverage server insulin use: without beverage server use Diabetes mellitus complication status: with kidney complications Diabetes mellitus complication detail: with microalbuminuria Qualified Code(s): E11.29 - Type 2 diabetes mellitus with other diabetic kidney complication; R80.9 - Proteinuria, unspecified (3) Anemia Current Visit: Yes Status: Acute Assessment and plan: Mostly due to CKD-4 cont monitor no need of PRBC now will check Iron profile in AM Talk to Nephro about erythropoitien inj Qualifiers: Anemia type: due to chronic kidney disease Chronic kidney disease stage: stage 4 (severe) Qualified Code(s): N18.4 - Chronic kidney disease, stage 4 ( severe); D63.1 - Anemia in chronic kidney disease; D63.1 - Anemia in chronic kidney disease (4) Hypertension Current Visit: No Status: Chronic Assessment and plan: fairly controlled held his ACEI started him on Hydralazine will also add Norvasc if his BP wont control Qualifiers: Hypertension type: essential hypertension Qualified Code(s): I10 - Essential (primary) hypertension (5) Hypothyroidism Current Visit: No Status: Chronic Assessment and plan: continue med Qualifiers: Hypothyroidism type: unspecified Qualified Code(s): E03.9 - Hypothyroidism , unspecified - Time Spent With Patient Total time spent is greater than 50% in coordination of care (as documented) at patient's floor/unit and/or counseling patient: - Subjective Interval history: Mr. Mckay is a 72 year old male with known DM2, HTN, Hypothyroidism and CKD-4 pt who follows with Nephro Dr. Hayden as an out pt, pt was sent our hospitl for further eval regarding his worsening KINZA with CKD-4. Pt denied any CP / SOB. Tolerating PO intake well. Denied any complaints. - Constitutional Vitals: Temp Pulse Resp BP Pulse Ox 99.5 F 78 18 169/87 98 08/11/17 16:20 08/11/17 16:20 08/11/17 16:20 08/11/17 16:20 08/11/17 16:20 General appearance: Present: A&O X 3, no acute distress, answers questions appropriately - Head Head exam: Present: atraumatic, normal inspection - Neck Neck exam general surgery: Present: supple - Respiratory Respiratory exam: Present: decreased breath sounds. Absent: rales, respiratory distress, rhonchi, wheezes - Cardiovascular Cardiovascular exam: Present: RRR, +S1, +S2. Absent: tachycardia - GI/Abdominal GI/Abdominal exam: Present: normal bowel sounds, soft. Absent: rebound, rigid, tenderness - Extremities Exam Extremities exam: Absent: calf tenderness, pedal edema, tenderness - Back Exam Back exam: Absent: CVA tenderness (L), CVA tenderness (R) - Neurological Exam Neurological exam: Present: alert, oriented X3 - Psychiatric Psychiatric exam: Present: normal affect, normal mood Internal Medicine: Result - Labs CBC & Chem 7: 08/11/17 05:30 08/11/17 05:30 Labs: Short CBC 08/11/17 Range/Units 05:30 WBC 11.6 H (4.3-11.1) K/mcL Hgb 7.2 L (12.9-16.9) g/dL Hct 22.2 L (37.5-50.1) % Plt Count 173 (140-400) K/mcL Neutrophils # 6.6 (1.6-8.9) K/mcL BMP 08/11/17 05:30 Sodium 138 Potassium 4.1 Chloride 108 H Carbon Dioxide 20 L BUN 81 H Creatinine 6.00 H Glucose 97 Calcium 8.7 Liver Function 08/11/17 Range/Units 05:30 Total Bilirubin 0.3 (0.3-1.0) mg/dL AST 15 (13-39) Units/L ALT 10 (7-52) Units/L Alkaline Phosphatase 42 (34-104) Units/L Albumin 3.0 L (3.5-5.7) g/dL Urine 08/11/17 Range/Units 00:02 Urine Color Yellow (Yellow) Urine Clarity Clear (Clear) Urine pH 6.5 (5.0-8.0) pH Units Ur Specific [place] 1.015 (1.010-1.025) Urine Protein >=300 H (Neg-Trace) mg/dL Urine Glucose (UA) 100 H (Normal) mg/dL - ABG Interpretation ABG results: PT/INR, D-dimer PT 11.1 Seconds (9.4-12.1) 08/11/17 12:01 - Impressions Impressions Retroperitoneum Ultrasound 08/10/17 20:30 IMPRESSION: No hydronephrosis D/ / Valerio Disla MD / Valerio Disla MD Interpreting Provider: Valerio Disla MD Consult Discharge Plan - Plan Referrals: Fern Colon MD [Primary Care Provider] -
[2017-08-11] MEDS ORDERED: Ondansetron 4 MG/2 ML VIAL IVP PRN (23:25)
[2017-08-12 04:27] LABS: Basophils # 0.1 K/mcL (0.0-0.2); Basophils % 0.4 %; Eosinophils # 0.3 K/mcL (0.0-0.6); Eosinophils % 2.2 %; Hematocrit 24.1 % (37.5-50.1); Hemoglobin 7.8 g/dL (12.9-16.9); Immature Granulocytes % 1.2 % (0-4); Lymphocytes # 2.9 K/mcL (0.6-4.6); Lymphocytes % 23.2 %; Mean Corpuscular HGB Conc 32.4 g/dL (31.6-35.5); Mean Corpuscular Hemoglobin 31.2 pg (28.0-33.3); Mean Corpuscular Volume 96.4 fL (83.0-100.0); Mean Platelet Volume 9.4 fL (9.4-12.4); Monocytes # 1.2 K/mcL (0.0-1.3); Monocytes % 9.1 %; Nucleated Red Blood Cells 0.2 /100 WBC (0); Platelet Count 186 K/mcL (140-400); Red Cell Distribution Width 16.3 % (11.5-14.5); Segmented Neutrophils % 63.9 %
[2017-08-12 04:53] LABS: Calcium 8.8 mg/dL (8.6-10.3); Magnesium 1.6 mg/dL (1.6-2.6); Potassium 3.7 mEq/L (3.5-5.1)
[2017-08-12] MEDS: Insulin LISPRO 300 UNITS/3 ML VIAL SQ SCH ×4 (09:49→22:16)
[2017-08-12] MEDS: Diltiazem CD (24hr) 120 MG CAPSULE PO SCH (09:51)
[2017-08-12] MEDS: hydrALAZINE 25 MG TABLET PO SCH ×3 (09:52→21:17)
--- NOTE | 2017-08-12 10:35 | Nephrology Progress Note ---
Date of Encounter: 08/12/17 Time of Encounter: 10:32 - Assessment and Plan (1) Acute worsening of stage 4 chronic kidney disease Current Visit: No Status: Acute Baseline of CKD 4/5 GFR was 21 in March of 2017 and 17 in April of 2017. Fluids d/niya. Good urine output 3250 Continue to avoid nephrotoxins and renal dose all medications. Scr 5.96 is and GFR 9 today. Will continue to monitor and determine if HD is needed. Unclear if this is progression of CKD or KINZA. Renal Biopsy ordered for today. (2) Anemia Current Visit: Yes Status: Acute Repeat CBC and other labs. Substantial change in today and yesterday without intervention. Will transfuse if pt becomes symptomatic, not symptomatic at this time. Qualifiers: Anemia type: due to chronic kidney disease Chronic kidney disease stage: stage 4 (severe) Qualified Code(s): N18.4 - Chronic kidney disease, stage 4 ( severe); D63.1 - Anemia in chronic kidney disease; D63.1 - Anemia in chronic kidney disease (3) Nausea Current Visit: Yes Status: Acute Still nauseous when he urinates, no emesis. UA negative. Does go away after he does urinate. Defer to primary team. (4) Hypertension Current Visit: No Status: Chronic Per primary team. Qualifiers: Hypertension type: essential hypertension Qualified Code(s): I10 - Essential (primary) hypertension Subjective Principal diagnosis: Renal Failure Interval history: Pt seen and examined. Is anxious to get biopsy completed. Objective - Vital Signs Vital signs: Vital Signs Temp Pulse Resp BP Pulse Ox 08/12/17 09:07 99.2 F 81 17 159/66 08/12/17 07:06 99.9 F H 93 17 163/96 94 08/12/17 02:35 98.7 F 87 17 132/74 96 08/12/17 00:00 99.4 F 93 17 174/95 96 08/11/17 20:52 100.2 F H 82 17 164/88 99 08/11/17 16:20 99.5 F 78 18 169/87 98 08/11/17 12:50 124/81 08/11/17 10:56 98.4 F 85 17 164/92 97 Intake and Output 08/11/17 08/12/17 08/12/17 23:59 07:59 15:59 Intake Total 1000 / 1000 Output Total 725 / 725 1050 / 1050 Balance 275 / 275 -1050 / -1050 Intake: IV Fluids 1000 / 1000 0.9 % Sodium Chloride 1,000 ML 1000 / 1000 @ 75 mls/hr IVC .[id number] JONNIE Rx #:[id number] Output: Urine 725 / 725 1050 / 1050 Other: # Voids 1 # Bowel Movements 1 Weight 75 kg 75 kg Blood Glucose* 200 118 Patient Weight 08/12/17 23:59 Weight 75 kg - General Appearance General appearance: Present: well-developed, well-nourished EENT: Present: ATNC, hearing intact, vision intact Neck: Present: supple Respiratory: Present: clear Cardiology: Present: no edema, normal S1, normal S2 Gastrointestinal: Present: normoactive bowel sounds, no tenderness, no guarding Integumentary: Present: no rash, warm and dry Neurologic: Present: alert and oriented x3 Psychiatric: Present: mood/affect appropriate, cooperative - Lab 08/12/17 10:27 08/12/17 04:11 Most recent lab results Calcium 8.8 mg/dL (8.6-10.3) 08/12/17 04:11 Phosphorus 6.7 mg/dL (2.7-4.5) H 08/11/17 05:30 Magnesium 1.6 mg/dL (1.6-2.6) 08/12/17 04:11 Urine Creatinine 38 mg/dL 08/11/17 00:02 Urine Sodium 69.7 mEq/L 08/11/17 00:02 Urine Total Protein 287 mg/dL (1-14) H 08/11/17 00:02 Consult Discharge Plan - Plan Referrals: Fern Colon MD [Primary Care Provider] -
[2017-08-12 10:55] LABS: Basophils # 0.1 K/mcL (0.0-0.2); Basophils % 0.4 %; Eosinophils # 0.3 K/mcL (0.0-0.6); Eosinophils % 2.3 %; Lymphocytes # 2.2 K/mcL (0.6-4.6); Lymphocytes % 19.2 %; Mean Corpuscular Hemoglobin 31.1 pg (28.0-33.3); Mean Corpuscular Volume 97.3 fL (83.0-100.0); Mean Platelet Volume 9.6 fL (9.4-12.4); Monocytes # 0.9 K/mcL (0.0-1.3); Monocytes % 8.4 %; Neutrophils # 7.7 K/mcL (1.6-8.9); Nucleated Red Blood Cells 0.4 /100 WBC (0); Platelet Count 184 K/mcL (140-400); Red Blood Count 2.57 M/mcL (4.19-5.50); Red Cell Distribution Width 16.5 % (11.5-14.5); Segmented Neutrophils % 68.7 %
[2017-08-12 11:15] LABS: % Iron Saturation 13 % (20-55); Ferritin 786 ng/ml (20-250); Iron 25 mcg/dL (65-175); Transferrin 140 mg/dL (203-362)
[2017-08-12 11:22] LABS: Vitamin B12 454 pg/mL (250-1100)
[2017-08-12 11:30] LABS: Folate > 22.3 ng/mL (3.0-16.0)
[2017-08-12] MEDS ORDERED: Sodium Bicarbonate 75 MEQ in 0.45 % Sodium Chloride 1,000 ML IVC SCH ×2 (11:30→12:15)
[2017-08-12] MEDS: Acetaminophen 325 MG TABLET PO PRN (12:29)
[2017-08-12] MEDS ORDERED: 0.9 % Sodium Chloride 500 ML ONE (14:00)
[2017-08-12] MEDS: cloNIDine HCl 0.1 MG TABLET PO SCH ×2 (16:06→21:18)
--- NOTE | 2017-08-12 17:06 | Internal Med Progress Note ---
Date of Encounter: 08/12/17 Time of Encounter: 17:06 - Assessment and plan (1) Renal failure (ARF), acute on chronic Current Visit: No Status: Acute Assessment and plan: Held ACEI Nephro started on NaHco3 gtt Had renal biopsy today trend lab Qualifiers: Acute renal failure type: unspecified Chronic kidney disease stage: unspecified stage Qualified Code(s): N17.9 - Acute kidney failure, unspecified ; N18.9 - Chronic kidney disease, unspecified (2) Diabetes mellitus Current Visit: No Status: Chronic Assessment and plan: His HbA1C 7.1 cont diet modifications also placed him on ISS Qualifiers: Diabetes mellitus type: type 2 Diabetes mellitus nursing home insulin use: without 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 will start him on Iron supplements Qualifiers: Anemia type: due to chronic kidney disease Chronic kidney disease stage: stage 4 (severe) Qualified Code(s): N18.4 - Chronic kidney disease, stage 4 ( severe); D63.1 - Anemia in chronic kidney disease; D63.1 - Anemia in chronic kidney disease (4) Hypertension Current Visit: No Status: Chronic Assessment and plan: fairly controlled held his ACEI Cont him on Hydralazine Also started on Clonidine 0.1mg BID also inc Cardizem to 240mg Qualifiers: Hypertension type: essential hypertension Qualified Code(s): I10 - Essential (primary) hypertension (5) Hypothyroidism Current Visit: No Status: Chronic Assessment and plan: continue med Qualifiers: Hypothyroidism type: unspecified Qualified Code(s): E03.9 - Hypothyroidism , unspecified - Time Spent With Patient Total time spent is greater than 50% in coordination of care (as documented) at patient's floor/unit and/or counseling patient: - Subjective Interval history: Mr. Mckay is a 72 year old male with known DM2, HTN, Hypothyroidism and CKD-4 pt who follows with Gordon Hayden as an out pt, pt was sent our hospitl for further eval regarding his worsening KINZA with CKD-4. Pt denied any CP / SOB. Tolerating PO intake well. Denied any complaints. Just came back from renal biopsy. - Constitutional Vitals: Temp Pulse Resp BP Pulse Ox 98.4 F 91 17 155/86 98 08/12/17 11:15 08/12/17 16:09 08/12/17 16:09 08/12/17 16:09 08/12/17 16:09 General appearance: Present: A&O X 3, no acute distress, answers questions appropriately - Head Head exam: Present: atraumatic, normal inspection - Neck Neck exam general surgery: Present: supple - Respiratory Respiratory exam: Present: decreased breath sounds. Absent: rales, respiratory distress, rhonchi, wheezes - Cardiovascular Cardiovascular exam: Present: RRR, +S1, +S2. Absent: tachycardia - GI/Abdominal GI/Abdominal exam: Present: normal bowel sounds, soft. Absent: rebound, rigid, tenderness - Extremities Exam Extremities exam: Absent: calf tenderness, pedal edema, tenderness - Neurological Exam Neurological exam: Present: alert, oriented X3 - Psychiatric Psychiatric exam: Present: normal affect, normal mood Internal Medicine: Result - Labs CBC & Chem 7: 08/12/17 10:27 08/12/17 04:11 Labs: Short CBC 08/12/17 08/12/17 Range/Units 04:11 10:27 WBC 12.6 H 11.2 H (4.3-11.1) K/mcL Hgb 7.8 L 8.0 L (12.9-16.9) g/dL Hct 24.1 L 25.0 L (37.5-50.1) % Plt Count 186 184 (140-400) K/mcL Neutrophils # 8.0 7.7 (1.6-8.9) K/mcL BMP 08/12/17 04:11 Sodium 139 Potassium 3.7 Chloride 108 H Carbon Dioxide 18 L BUN 77 H Creatinine 5.96 H Glucose 112 H Calcium 8.8 - ABG Interpretation ABG results: PT/INR, D-dimer PT 11.1 Seconds (9.4-12.1) 08/11/17 12:01 - Impressions Impressions Renal Biopsy CT 08/12/17 00:00 IMPRESSION: Successful CT guided core biopsy left kidney. D/ / Vlad Wang MD / Vlad Wang MD Interpreting Provider: Vlad Wang MD Consult Discharge Plan - Plan Referrals: Fern Colon MD [Primary Care Provider] -
[2017-08-12] MEDS: traMADol 50 MG TABLET PO PRN (21:18)
[2017-08-13] MEDS: *HR* Heparin 5,000 UNIT/ML VIAL SQ SCH ×2 (05:35→17:56)
[2017-08-13 07:13] LABS: Calcium 8.8 mg/dL (8.6-10.3); Potassium 3.7 mEq/L (3.5-5.1)
[2017-08-13] MEDS: cloNIDine HCl 0.1 MG TABLET PO SCH ×2 (08:21→20:35)
[2017-08-13] MEDS: hydrALAZINE 25 MG TABLET PO SCH ×3 (08:21→20:35)
[2017-08-13] MEDS: Diltiazem CD (24hr) 120 MG CAPSULE PO SCH (08:21)
[2017-08-13] MEDS: Insulin LISPRO 300 UNITS/3 ML VIAL SQ SCH ×4 (10:16→20:36)
--- NOTE | 2017-08-13 10:27 | Nephrology Progress Note ---
Date of Encounter: 08/13/17 Time of Encounter: 09:45 - Assessment and Plan (1) CKD (chronic kidney disease), stage V Status: Acute He has been in stage V. We sat in his 2A room together for about 30-40 min of which >50% was counseling about renal failure, dialysis options and my recommendations. I recommend initation of HD, but he initially declined and wanted to wait for outpt follw up and referral for [facility] first; but later in the afternoon he agree to HD and consented for a temporary HD catheter placement (by then he was not NPO). Cont to follow a renal protective strategy as able. Will follow with you. (2) Anemia due to stage 5 chronic kidney disease Status: Acute Goal Hgb 10-11. May provide MADONNA and/or IV iron at some point. (3) Hypertension Status: Chronic Considered his home meds and inpt meds and based MDM upon his current renal function and efforts to avoid exacerbation and hyperkalemia. Qualifiers: Hypertension type: essential hypertension Qualified Code(s): I10 - Essential (primary) hypertension (4) Membranous glomerulonephritis Status: Chronic By historty. Pending renal biopsy results. Subjective Principal diagnosis: Renal Failure Interval history: Pt was seen/examined. He affirmed having lost weight recently and having relatively frequent myoclonic twitching. 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 He had a renal biopsy yesterday and denied flank pain, gross hematuria or any problems. He voiced that he wants to "walk out today." We sat in his 2A room together for about 30-40 min of which >50% was counseling about renal failure, dialysis options and my recommendations. Objective - Vital Signs Vital signs: Vital Signs Temp Pulse Resp BP Pulse Ox 08/13/17 07:10 98.7 F 72 17 131/80 91 08/13/17 03:58 98.8 F 71 17 140/80 95 08/13/17 00:35 98 F 89 17 138/76 95 08/12/17 20:24 99.5 F 90 17 141/82 96 Intake and Output 08/12/17 08/13/17 08/13/17 23:59 07:59 15:59 Intake Total 480 / 480 Output Total 350 / 350 100 / 100 Balance -350 / -350 380 / 380 Intake: Oral 480 / 480 Output: Urine 350 / 350 100 / 100 Other: Meal Breakfast Percent of Meal Consumed 100% Blood Glucose* 148 142 - General Appearance General appearance: Present: well-developed, cachectic, frail EENT: Present: ATNC, PERRL, mucous membranes moist Neck: Present: supple Respiratory: Present: clear Cardiology: Present: no murmurs, edema, regular rate, normal S1, normal S2 Gastrointestinal: Present: normoactive bowel sounds, no tenderness, no guarding Integumentary: Present: warm and dry Neurologic: Present: no focal deficit, asterixis, alert and oriented x3 Musculoskeletal: Present: no erythema, no cyanosis, no clubbing Psychiatric: Present: mood/affect appropriate, cooperative (though initially he refused dialysis) - Lab 08/16/17 05:44 08/16/17 05:44 Most recent lab results Calcium 8.8 mg/dL (8.6-10.3) 08/13/17 06:23 Phosphorus 6.7 mg/dL (2.7-4.5) H 08/11/17 05:30 Magnesium 1.6 mg/dL (1.6-2.6) 08/12/17 04:11 Urine Creatinine 38 mg/dL 08/11/17 00:02 Urine Sodium 69.7 mEq/L 08/11/17 00:02 Urine Total Protein 287 mg/dL (1-14) H 08/11/17 00:02 Consult Discharge Plan - Plan Referrals: Vinnie Ramírez MD [Partnered Physician] - (Physician will see the patient at Dialysis Center) Fern Colon MD [Primary Care Provider] - 08/23/17 3:00 pm (Please follow up as schedule...) Prescriptions: cloNIDine HCl [CloNIDine HCl] 0.1 mg PO BID #60 tablet Diltiazem CD (24hr) [Cardizem CD] 240 mg PO DAILY #30 cap.er.24h Hydralazine HCl 50 mg PO Q8H #90 tablet Sevelamer [Renvela] 800 mg PO TIDWM #90 tablet Sodium Bicarbonate 650 mg PO BID #60 tablet
[2017-08-13] MEDS ORDERED: 0.9 % Sodium Chloride 250 ML IVC PRN (14:10)
[2017-08-13] MEDS ORDERED: *HR* Heparin 5,000 UNIT/ML VIAL ONE ×2 (14:18→14:20)
[2017-08-13 15:15] LABS: Complement Component 3 119 mg/dL (88-201); Complement Component 4 32 mg/dL (10-40)
[2017-08-13] MEDS ORDERED: 0.9 % Sodium Chloride 1,000 ML ONE (16:12)
--- NOTE | 2017-08-13 16:32 | Internal Med Progress Note ---
Date of Encounter: 08/13/17 Time of Encounter: 14:00 - Assessment and plan (1) Renal failure (ARF), acute on chronic Current Visit: No Status: Acute Assessment and plan: Held ACEI s/p renal biopsy - path report P Discussed with pt about dialysis options since he does have intermittent muscle twitching which could be most likely hyperuricemia related, suggested him to go for HD Pt does agreed this evening to go for HD Talked to Dr. 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 will start him on Iron supplements Qualifiers: Anemia type: due to chronic kidney disease Chronic kidney disease stage: stage 4 (severe) Qualified Code(s): N18.4 - Chronic kidney disease, stage 4 ( severe); D63.1 - Anemia in chronic kidney disease; D63.1 - Anemia in chronic kidney disease (4) Hypertension Current Visit: No Status: Chronic Assessment and plan: better with current regimen Hydralazine 50mg TID + Clonidine 0.1mg BID + Cardizem 120mg held his ACEI Qualifiers: Hypertension type: essential hypertension Qualified Code(s): I10 - Essential (primary) hypertension (5) Hypothyroidism Current Visit: No Status: Chronic Assessment and plan: continue med Qualifiers: Hypothyroidism type: unspecified Qualified Code(s): E03.9 - Hypothyroidism , unspecified - Time Spent With Patient Total time spent is greater than 50% in coordination of care (as documented) at patient's floor/unit and/or counseling patient: - Subjective Interval history: Mr. Mckay is a 72 year old male with known DM2, HTN, Hypothyroidism and CKD-4 pt who follows with Nephpattie Hayden as an out pt, pt was sent our hospitl for further eval regarding his worsening KINZA with CKD-4. Pt denied any CP / SOB. Tolerating PO intake well. Denied any complaints. No events over night.. Denied any muscle twitching today - Constitutional Vitals: Temp Pulse Resp BP Pulse Ox 98.3 F 75 16 148/77 98 08/13/17 16:05 08/13/17 16:05 08/13/17 16:05 08/13/17 16:05 08/13/17 16:05 General appearance: Present: A&O X 3, no acute distress, answers questions appropriately - Head Head exam: Present: atraumatic, normal inspection - Neck Neck exam general surgery: Present: supple - Respiratory Respiratory exam: Present: decreased breath sounds. Absent: rales, respiratory distress, rhonchi, wheezes - Cardiovascular Cardiovascular exam: Present: RRR, +S1, +S2. Absent: tachycardia - GI/Abdominal GI/Abdominal exam: Present: normal bowel sounds, soft. Absent: rebound, rigid, tenderness - Extremities Exam Extremities exam: Absent: calf tenderness, pedal edema, tenderness - Back Exam Back exam: Absent: CVA tenderness (L), CVA tenderness (R) - Neurological Exam Neurological exam: Present: alert, oriented X3 - Psychiatric Psychiatric exam: Present: normal affect, normal mood Internal Medicine: Result - Labs CBC & Chem 7: 08/12/17 10:27 08/13/17 06:23 Labs: BMP 08/13/17 06:23 Sodium 135 L Potassium 3.7 Chloride 105 Carbon Dioxide 20 L BUN 73 H Creatinine 6.31 H Glucose 188 H Calcium 8.8 - ABG Interpretation ABG results: PT/INR, D-dimer PT 11.1 Seconds (9.4-12.1) 08/11/17 12:01 - Impressions Impressions Guidance Ultrasound 08/13/17 00:00 IMPRESSION: Successful ultrasound guided non-tunneled catheter placement. D/ / Vlad Wang MD / Vlad Wang MD Interpreting Provider: Vlad Wang MD Insertion Non-Tunneled Catheter 08/13/17 00:00 IMPRESSION: Successful ultrasound guided non-tunneled catheter placement. D/ / Vlad Wang MD / Vlad Wang MD Interpreting Provider: Vlad Wang MD Chest X-Ray 08/13/17 14:31 IMPRESSION: No acute findings D/ / Bertha Callaway MD / Bertha Callaway MD Interpreting Provider: Bertha Callaway MD Consult Discharge Plan - Plan Referrals: Fern Colon MD [Primary Care Provider] -
[2017-08-13 17:50] LABS: Hepatitis B Surface Antibody 2.63 mIU/mL; Hepatitis B Surface Antigen Nonreactive (Nonreactive)
[2017-08-13] MEDS: Acetaminophen 325 MG TABLET PO PRN (22:44)
[2017-08-14 03:57] LABS: Calcium 8.6 mg/dL (8.6-10.3); Magnesium 1.7 mg/dL (1.6-2.6); Potassium 3.5 mEq/L (3.5-5.1)
[2017-08-14] MEDS: *HR* Heparin 5,000 UNIT/ML VIAL SQ SCH ×2 (06:24→17:48)
[2017-08-14] MEDS ORDERED: 0.9 % Sodium Chloride 1,000 ML ONE (07:34)
[2017-08-14] MEDS ORDERED: 0.9 % Sodium Chloride 250 ML IVC PRN (08:09)
[2017-08-14] MEDS: Insulin LISPRO 300 UNITS/3 ML VIAL SQ SCH ×4 (09:00→21:19)
--- NOTE | 2017-08-14 11:14 | Nephrology Progress Note ---
Date of Encounter: 08/14/17 Time of Encounter: 08:55 - Assessment and Plan (1) CKD (chronic kidney disease), stage V Status: Acute Has progressed to ESRD, and should start HD. He tolerated his first HD yesterday and today I have arranged for a second treatment. Not clear why, but he never had been arranged for an AVF. Yesterday I sat with him for at least 30 min counseling him about dialysis options, the process of HD and though at first he wanted to "walk out of the hospital" he later changed his mind and HD was started late Wednesday afternoon with a temporary HD catheter ( he had not been NPO so a Permacath was not an option). Plan tomorrow (Wednesday) [facility] and for [facility] Permac[facility] on Wednesday. He has been off ASA for many days. I have also already placed a consult to the to help arrange a dialysis chair ; he lives in [place], and has been a pt of Dr. Cali from the clinic. Next HD on Wednesday, ideally after Permacath placement. Renal biopsy preliminary demonstrated clearly Diabetic nephropathy, minimal MN, some ATN (likely from the severe nephrotic range proteinuria), plus other findings (pending electron microscopy). So for now, I do not recommend any pulse dose steroids or other immunosuppresive therapy. Thank you. (2) Anemia due to stage 5 chronic kidney disease Status: Acute (3) Hypertension Status: Chronic Qualifiers: Hypertension type: essential hypertension Qualified Code(s): I10 - Essential (primary) hypertension (4) Membranous glomerulonephritis Status: Chronic Subjective Principal diagnosis: Renal Failure Interval history: Pt was s/e and he voiced tolerating his first HD. He was seen while on HD on Wednesday. He did not affirm N/V, cramping or dizziness while undergoing HD. Objective - Vital Signs Vital signs: Vital Signs Temp Pulse Resp BP Pulse Ox 08/14/17 11:00 119/76 08/14/17 10:45 127/69 08/14/17 10:30 118/69 08/14/17 10:15 135/84 08/14/17 10:00 154/80 08/14/17 09:45 147/95 08/14/17 09:30 148/88 08/14/17 09:15 144/106 08/14/17 09:00 132/82 08/14/17 08:45 97.7 F 18 124/84 08/14/17 08:14 98 F 91 17 156/88 98 08/14/17 03:21 98.2 F 83 18 136/71 97 08/13/17 23:12 99.4 F 90 18 127/72 97 08/13/17 20:34 99.2 F 18 164/83 96 08/13/17 20:32 99.2 F 88 18 164/83 96 08/13/17 20:05 99.4 F 18 186/90 08/13/17 19:45 149/92 08/13/17 19:30 157/90 08/13/17 19:15 147/93 08/13/17 19:00 150/99 08/13/17 18:45 142/94 08/13/17 18:30 146/92 08/13/17 18:15 161/97 08/13/17 18:00 137/96 08/13/17 17:45 98.4 F 18 148/86 08/13/17 16:05 98.3 F 75 16 148/77 98 08/13/17 11:22 98.1 F 74 17 129/71 96 Intake and Output 08/13/17 08/14/17 08/14/17 23:59 07:59 15:59 Intake Total 840 / 840 0 / 0 600 / 600 Output Total 1850 / 1850 500 / 500 Balance -1010 / -1010 -500 / -500 600 / 600 Intake: Oral 240 / 240 0 / 0 0 / 0 Intake, Rinseback and Flushes 600 / 600 600 / 600 Output: Urine 1250 / 1250 500 / 500 Total Dialysis (HD) Output 600 / 600 Other: Meal two bowls of cereal Percent of Meal Consumed 100% # Voids 1 Weight 75 kg 96.162 kg 96.162 kg Blood Glucose* 113 113 Hemodialysis Net Fluid Removed 0 994 (mL) Patient Weight 08/14/17 23:59 Weight 96.162 kg - General Appearance Exam: General appearance: Present: well-developed, thin and tall EENT: Present: ATNC, PERRL, mucous membranes moist Neck: Present: supple, Right IJ temporary HD catheter was in place and C/D/I Respiratory: Present: clear Cardiology: Present: no murmurs, edema, regular rate, normal S1, normal S2 Gastrointestinal: Present: normoactive bowel sounds, no tenderness, no guarding Integumentary: Present: warm and dry Neurologic: Present: no focal deficit, asterixis, alert and oriented x3 Musculoskeletal: Present: no erythema, no cyanosis, no clubbing Psychiatric: Present: mood/affect appropriate, cooperative - Lab 08/16/17 05:44 08/16/17 05:44 Most recent lab results Calcium 8.6 mg/dL (8.6-10.3) 08/14/17 03:25 Phosphorus 6.7 mg/dL (2.7-4.5) H 08/11/17 05:30 Magnesium 1.7 mg/dL (1.6-2.6) 08/14/17 03:25 Urine Creatinine 38 mg/dL 08/11/17 00:02 Urine Sodium 69.7 mEq/L 08/11/17 00:02 Urine Total Protein 287 mg/dL (1-14) H 08/11/17 00:02 Consult Discharge Plan - Plan Referrals: Vinnie Ramírez MD [Partnered Physician] - (Physician will see the patient at Dialysis Center) Fern Colon MD [Primary Care Provider] - 08/23/17 3:00 pm (Please follow up as schedule...) Prescriptions: cloNIDine HCl [CloNIDine HCl] 0.1 mg PO BID #60 tablet Diltiazem CD (24hr) [Cardizem CD] 240 mg PO DAILY #30 cap.er.24h Hydralazine HCl 50 mg PO Q8H #90 tablet Sevelamer [Renvela] 800 mg PO TIDWM #90 tablet Sodium Bicarbonate 650 mg PO BID #60 tablet
[2017-08-14] MEDS: cloNIDine HCl 0.1 MG TABLET PO SCH ×2 (12:18→21:17)
[2017-08-14] MEDS: hydrALAZINE 25 MG TABLET PO SCH ×3 (12:18→21:18)
[2017-08-14] MEDS: Diltiazem CD (24hr) 120 MG CAPSULE PO SCH (12:45)
--- NOTE | 2017-08-14 14:50 | Internal Med Progress Note ---
Date of Encounter: 08/14/17 Time of Encounter: 14:50 - Assessment and plan (1) Renal failure (ARF), acute on chronic Current Visit: No Status: Acute Assessment and plan: Held ACEI s/p renal biopsy - path report P Pt had temp HD cath placed on 08/13/17 Getting HD daily May hold in AM Nephro on board Qualifiers: Acute renal failure type: unspecified Chronic kidney disease stage: unspecified stage Qualified Code(s): N17.9 - Acute kidney failure, unspecified ; N18.9 - Chronic kidney disease, unspecified (2) Diabetes mellitus Current Visit: No Status: Chronic Assessment and plan: His HbA1C 7.1 cont diet modifications also placed him on ISS Qualifiers: Diabetes mellitus type: type 2 Diabetes mellitus shelter insulin use: without shelter use Diabetes mellitus complication status: with kidney complications Diabetes mellitus complication detail: with microalbuminuria Qualified Code(s): E11.29 - Type 2 diabetes mellitus with other diabetic kidney complication; R80.9 - Proteinuria, unspecified (3) Anemia Current Visit: Yes Status: Acute Assessment and plan: Mostly due to CKD-4 cont monitor no need of PRBC now stable Hb @ 8.0 reviewed Iron profile.. 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 started him on Iron supplements Qualifiers: Anemia type: due to chronic kidney disease Chronic kidney disease stage: stage 4 (severe) Qualified Code(s): N18.4 - Chronic kidney disease, stage 4 ( severe); D63.1 - Anemia in chronic kidney disease; D63.1 - Anemia in chronic kidney disease (4) Hypertension Current Visit: No Status: Chronic Assessment and plan: better with current regimen Hydralazine 50mg TID + Clonidine 0.1mg BID + Cardizem 120mg held his ACEI Qualifiers: Hypertension type: essential hypertension Qualified Code(s): I10 - Essential (primary) hypertension (5) Hypothyroidism Current Visit: No Status: Chronic Assessment and plan: continue med Qualifiers: Hypothyroidism type: unspecified Qualified Code(s): E03.9 - Hypothyroidism , unspecified - Time Spent With Patient Total time spent is greater than 50% in coordination of care (as documented) at patient's floor/unit and/or counseling patient: - Subjective Interval history: Mr. Mckay is a 72 year old male with known DM2, HTN, Hypothyroidism and CKD-4 pt who follows with Nephro Dr. Finkily as an out pt, pt was sent our hospitl for further eval regarding his worsening KINZA with CKD-4. Pt denied any CP / SOB. Tolerating PO intake well. Denied any complaints. No events over night.. Denied any muscle twitching today - Constitutional Vitals: Temp Pulse Resp BP Pulse Ox 97.6 F 91 16 140/94 98 08/14/17 11:39 08/14/17 08:14 08/14/17 11:39 08/14/17 11:39 08/14/17 08:14 General appearance: Present: A&O X 3, no acute distress, answers questions appropriately - Head Head exam: Present: atraumatic, normal inspection - Neck Neck exam general surgery: Present: supple - Respiratory Respiratory exam: Present: decreased breath sounds. Absent: rales, respiratory distress, rhonchi, wheezes - Cardiovascular Cardiovascular exam: Present: RRR, +S1, +S2. Absent: tachycardia - GI/Abdominal GI/Abdominal exam: Present: normal bowel sounds, soft. Absent: rebound, rigid, tenderness - Extremities Exam Extremities exam: Absent: calf tenderness, pedal edema, tenderness - Back Exam Back exam: Absent: CVA tenderness (L), CVA tenderness (R) Internal Medicine: Result - Labs CBC & Chem 7: 08/12/17 10:27 08/14/17 03:25 Labs: BMP 08/14/17 03:25 Sodium 137 Potassium 3.5 Chloride 104 Carbon Dioxide 24 BUN 44 H Creatinine 4.52 H Glucose 152 H Calcium 8.6 - ABG Interpretation ABG results: PT/INR, D-dimer PT 11.1 Seconds (9.4-12.1) 08/11/17 12:01 - Impressions Impressions Guidance Ultrasound 08/13/17 00:00 IMPRESSION: Successful ultrasound guided non-tunneled catheter placement. D/ / Vlad Wang MD / Vlad Wang MD Interpreting Provider: Vlad Wang MD Insertion Non-Tunneled Catheter 08/13/17 00:00 IMPRESSION: Successful ultrasound guided non-tunneled catheter placement. D/ / Vlad Wang MD / Vlad Wang MD Interpreting Provider: Vlad Wang MD Chest X-Ray 08/13/17 14:31 IMPRESSION: No acute findings D/ / Bertha Callaway MD / Bertha Callaway MD Interpreting Provider: Bertha Callaway MD Consult Discharge Plan - Plan Referrals: Fern Colon MD [Primary Care Provider] -
[2017-08-14] MEDS: Acetaminophen 325 MG TABLET PO PRN (15:11)
[2017-08-14 16:53] LABS: Alpha 2 Globulin (PEP) 0.81 g/dL (0.48-1.05); Beta Globulin (PEP) 0.67 g/dL (0.48-1.10)
[2017-08-14] MEDS: traMADol 50 MG TABLET PO PRN (21:17)
[2017-08-14] MEDS: *HR* LORazepam 0.5 MG TABLET PO PRN (23:39)
[2017-08-15 05:20] LABS: Basophils % 0.2 %; Eosinophils # 0.2 K/mcL (0.0-0.6); Eosinophils % 2.6 %; Hematocrit 21.4 % (37.5-50.1); Hemoglobin 6.8 g/dL (12.9-16.9); Immature Granulocytes % 0.5 % (0-4); Lymphocytes # 2.6 K/mcL (0.6-4.6); Lymphocytes % 31.5 %; Mean Corpuscular HGB Conc 31.8 g/dL (31.6-35.5); Mean Corpuscular Hemoglobin 31.6 pg (28.0-33.3); Mean Corpuscular Volume 99.5 fL (83.0-100.0); Mean Platelet Volume 9.7 fL (9.4-12.4); Monocytes % 11.8 %; Neutrophils # 4.4 K/mcL (1.6-8.9); Nucleated Red Blood Cells 0.2 /100 WBC (0); Platelet Count 166 K/mcL (140-400); Red Blood Count 2.15 M/mcL (4.19-5.50); Red Cell Distribution Width 16.9 % (11.5-14.5); Segmented Neutrophils % 53.4 %
[2017-08-15] MEDS: *HR* Heparin 5,000 UNIT/ML VIAL SQ SCH ×3 (05:22→17:07)
[2017-08-15 05:31] LABS: Calcium 8.3 mg/dL (8.6-10.3); Potassium 3.4 mEq/L (3.5-5.1)
[2017-08-15] MEDS: hydrALAZINE 25 MG TABLET PO SCH ×3 (09:21→21:39)
[2017-08-15] MEDS: cloNIDine HCl 0.1 MG TABLET PO SCH ×2 (09:21→21:40)
[2017-08-15] MEDS: Diltiazem CD (24hr) 120 MG CAPSULE PO SCH (09:21)
[2017-08-15] MEDS: Insulin LISPRO 300 UNITS/3 ML VIAL SQ SCH ×4 (09:22→21:58)
--- NOTE | 2017-08-15 15:14 | Internal Med Progress Note ---
Date of Encounter: 08/15/17 Time of Encounter: 15:12 - Assessment and plan (1) Renal failure (ARF), acute on chronic Current Visit: No Status: Acute Assessment and plan: Held ACEI s/p renal biopsy - path report P Pt had temp HD cath placed on 08/13/17 Cont HD as per Nephro recommendations Nephro on board Qualifiers: Acute renal failure type: unspecified Chronic kidney disease stage: unspecified stage Qualified Code(s): N17.9 - Acute kidney failure, unspecified ; N18.9 - Chronic kidney disease, unspecified (2) Diabetes mellitus Current Visit: No Status: Chronic Assessment and plan: His HbA1C 7.1 cont diet modifications also placed him on ISS Qualifiers: Diabetes mellitus type: type 2 Diabetes mellitus care home insulin use: without care home use Diabetes mellitus complication status: with kidney complications Diabetes mellitus complication detail: with microalbuminuria Qualified Code(s): E11.29 - Type 2 diabetes mellitus with other diabetic kidney complication; R80.9 - Proteinuria, unspecified (3) Anemia Current Visit: Yes Status: Acute Assessment and plan: Mostly due to CKD-4 cont monitor no need of PRBC now stable Hb @ 8.0 reviewed Iron profile.. 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 started him on Iron supplements Qualifiers: Anemia type: due to chronic kidney disease Chronic kidney disease stage: stage 4 (severe) Qualified Code(s): N18.4 - Chronic kidney disease, stage 4 ( severe); D63.1 - Anemia in chronic kidney disease; D63.1 - Anemia in chronic kidney disease (4) Hypertension Current Visit: No Status: Chronic Assessment and plan: better with current regimen Hydralazine 50mg TID + Clonidine 0.1mg BID + Cardizem 120mg held his ACEI Qualifiers: Hypertension type: essential hypertension Qualified Code(s): I10 - Essential (primary) hypertension (5) Hypothyroidism Current Visit: No Status: Chronic Assessment and plan: continue med Qualifiers: Hypothyroidism type: unspecified Qualified Code(s): E03.9 - Hypothyroidism , unspecified - Time Spent With Patient Total time spent is greater than 50% in coordination of care (as documented) at patient's floor/unit and/or counseling patient: - Subjective Interval history: Mr. Mckay is a 72 year old male with known DM2, HTN, Hypothyroidism and CKD-4 pt who follows with Nephro Dr. Finkily as an out pt, pt was sent our hospitl for further eval regarding his worsening KINZA with CKD-4. Pt denied any CP / SOB. Tolerating PO intake well. Denied any complaints. No events over night.. Stated his muscle twitching better now - Constitutional Vitals: Temp Pulse Resp BP Pulse Ox 98.7 F 91 16 123/64 100 08/15/17 11:34 08/15/17 11:34 08/15/17 11:34 08/15/17 11:34 08/15/17 11:34 General appearance: Present: A&O X 3, no acute distress, answers questions appropriately - Head Head exam: Present: atraumatic - Neck Neck exam general surgery: Present: lymphadenopathy, supple - Respiratory Respiratory exam: Absent: respiratory distress, tachypnea - Extremities Exam Extremities exam: Absent: calf tenderness, pedal edema, tenderness - Back Exam Back exam: Absent: CVA tenderness (L), CVA tenderness (R) - Psychiatric Psychiatric exam: Present: normal affect, normal mood Internal Medicine: Result - Labs CBC & Chem 7: 08/15/17 04:42 08/15/17 04:42 Labs: Short CBC 08/15/17 Range/Units 04:42 WBC 8.2 (4.3-11.1) K/mcL Hgb 6.8 L (12.9-16.9) g/dL Hct 21.4 L (37.5-50.1) % Plt Count 166 (140-400) K/mcL Neutrophils # 4.4 (1.6-8.9) K/mcL BMP 08/15/17 04:42 Sodium 137 Potassium 3.4 L Chloride 104 Carbon Dioxide 27 BUN 27 H Creatinine 4.01 H Glucose 113 H Calcium 8.3 L - ABG Interpretation ABG results: PT/INR, D-dimer PT 11.1 Seconds (9.4-12.1) 08/11/17 12:01 Consult Discharge Plan - Plan Referrals: Fern Colon MD [Primary Care Provider] -
[2017-08-15] MEDS: *HR* LORazepam 0.5 MG TABLET PO PRN (21:40)
[2017-08-15] MEDS: traMADol 50 MG TABLET PO PRN (23:36)
[2017-08-16 06:13] LABS: Basophils % 0.2 %; Eosinophils # 0.2 K/mcL (0.0-0.6); Eosinophils % 2.8 %; Hematocrit 20.9 % (37.5-50.1); Hemoglobin 6.7 g/dL (12.9-16.9); Immature Granulocytes % 0.5 % (0-4); Lymphocytes % 23.4 %; Mean Corpuscular HGB Conc 32.1 g/dL (31.6-35.5); Mean Corpuscular Hemoglobin 31.8 pg (28.0-33.3); Mean Corpuscular Volume 99.1 fL (83.0-100.0); Mean Platelet Volume 9.8 fL (9.4-12.4); Monocytes # 0.8 K/mcL (0.0-1.3); Monocytes % 9.8 %; Neutrophils # 5.3 K/mcL (1.6-8.9); Platelet Count 153 K/mcL (140-400); Red Blood Count 2.11 M/mcL (4.19-5.50); Red Cell Distribution Width 16.8 % (11.5-14.5); Segmented Neutrophils % 63.3 %
[2017-08-16 06:20] LABS: Prothrombin Time 11.2 Seconds (9.4-12.1)
[2017-08-16 06:31] LABS: Calcium 8.5 mg/dL (8.6-10.3); Potassium 3.5 mEq/L (3.5-5.1)
[2017-08-16] MEDS ORDERED: 0.9 % Sodium Chloride 250 ML IVC PRN (06:55)
[2017-08-16] MEDS ORDERED: 0.9 % Sodium Chloride 1,000 ML ONE (07:42)
[2017-08-16 09:36] LABS: ANA IgG by ELISA NONE DETECTED (None Detected)
--- NOTE | 2017-08-16 11:41 | Nephrology Progress Note ---
Date of Encounter: 08/16/17 Time of Encounter: 11:38 - Assessment and Plan (1) Acute worsening of stage 4 chronic kidney disease Current Visit: No Status: Acute Baseline of CKD 4/5 GFR was 21 in March of 2017 and 17 in April of 2017. Started on hemodialysis on 08/13/17 and today is his consecutive day 3 of dialysis. He will get a permacath placed today in IR and will be on schedule for MWF at [facility] with Dr. Perdomo. ROSCOE Calle is working on discharge information. Patient is adamant he is leaving today. Continue to avoid nephrotoxins and renal dose all medications. Is still making urine, will continue to watch I/O's. (2) Anemia Current Visit: Yes Status: Acute Hgb is 6.7 was 6.8 yesterday. Is not symptomatic. Will defer transfusions to primary team. Is on Ferrous Sulfate and Aranesp already. Qualifiers: Anemia type: due to chronic kidney disease Chronic kidney disease stage: stage 4 (severe) Qualified Code(s): N18.4 - Chronic kidney disease, stage 4 ( severe); D63.1 - Anemia in chronic kidney disease; D63.1 - Anemia in chronic kidney disease (3) Nausea Current Visit: Yes Status: Acute Has resolved. (4) Hypertension Current Visit: No Status: Chronic Per primary team. Qualifiers: Hypertension type: essential hypertension Qualified Code(s): I10 - Essential (primary) hypertension Subjective Principal diagnosis: Renal Failure Interval history: Pt seen and examined while in hemodialysis. NAD. Objective - Vital Signs Vital signs: Vital Signs Temp Pulse Resp BP Pulse Ox 08/16/17 07:27 98.6 F 81 16 134/70 97 08/16/17 04:28 98.3 F 88 16 139/74 94 08/15/17 22:20 98.3 F 82 15 151/80 98 08/15/17 19:35 98.5 F 77 15 138/65 98 08/15/17 15:45 98.4 F 65 16 119/80 99 Intake and Output 08/15/17 08/16/17 08/16/17 23:59 07:59 15:59 Intake Total 200 / 200 Output Total 900 / 900 560 / 560 Balance -700 / -700 -560 / -560 Intake: Oral 200 / 200 Output: Urine 900 / 900 560 / 560 Other: Meal NPO Weight 98.1 kg Blood Glucose* 164 115 109 Patient Weight 08/16/17 23:59 Weight 98.1 kg - General Appearance General appearance: Present: well-developed, well-nourished EENT: Present: ATNC, hearing intact, vision intact Neck: Present: supple Respiratory: Present: clear Cardiology: Present: no murmurs, no edema, normal S1, normal S2 Dialysis Vascular Access: Venous Catheter (Right temp line. DRSG C/D/I.) Gastrointestinal: Present: normoactive bowel sounds, no tenderness, no guarding Integumentary: Present: no rash, warm and dry Neurologic: Present: alert and oriented x3 Psychiatric: Present: mood/affect appropriate, cooperative - Lab 08/16/17 05:44 08/16/17 05:44 Most recent lab results Calcium 8.5 mg/dL (8.6-10.3) L 08/16/17 05:44 Phosphorus 6.7 mg/dL (2.7-4.5) H 08/11/17 05:30 Magnesium 1.7 mg/dL (1.6-2.6) 08/14/17 03:25 Urine Creatinine 38 mg/dL 08/11/17 00:02 Urine Sodium 69.7 mEq/L 08/11/17 00:02 Urine Total Protein 287 mg/dL (1-14) H 08/11/17 00:02 Consult Discharge Plan - Plan Referrals: Fern Colon MD [Primary Care Provider] -
[2017-08-16] MEDS ORDERED: *HR* Heparin 10,000 UNIT/10 ML VIAL IV PRN (12:24)
[2017-08-16] MEDS ORDERED: Heparin 1,000 UNITS/500 mL 500 ML ONE (14:36)
[2017-08-16] MEDS ORDERED: *HR* FentaNYL (PF) 100 MCG/2 ML VIAL IVP ONE (14:47)
[2017-08-16] MEDS ORDERED: *HR* Midazolam HCl 2 MG/2 ML VIAL IVP ONE (14:47)
[2017-08-16] MEDS ORDERED: CeFAZolin Premix DUPLEX 2,000 MG/50 ML BAG IVPB ONE ×2 (14:47→15:00)
--- NOTE | 2017-08-16 14:49 | Pre-Sedation Evaluation ---
Pre-sedation evaluation - Pre-sedation checklist Date of procedure: 08/16/17 Procedure: permacath Recent Vitals: Last Vital Signs Temp 98.6 F 08/16/17 07:27 Pulse 81 08/16/17 07:27 Resp 16 08/16/17 07:27 BP 134/70 08/16/17 07:27 Pulse Ox 97 08/16/17 07:27 H&P (including ROS) documented in medical record: Yes Previous reaction to sedatives/anesthetics: No Dietary Status: NPO after Midnight Airway Assessment: Patient can open mouth completely, TMJ function normal, Micrognathia (under-bite, receding chin) absent, Neck with adequate range of motion Dentition: No loose teeth or bridges Possible difficult airway: No ASA Classification *see protocol: CLASS II-Mild systemic disease Plan of Care: Pt appropriate candidate for procedure/moderate/conscious sedation , Risks/benefits of procedure/sedation discussed w/ patient/family, If not NPO; Risk of intake outweiged by necessity to perform procedure
[2017-08-16] MEDS ORDERED: 0.9 % Sodium Chloride 500 ML ONE (14:50)
[2017-08-16] MEDS ORDERED: *HR* Heparin 5,000 UNIT/ML VIAL ONE (15:11)
--- NOTE | 2017-08-16 15:19 | IR Procedure Note ---
Date of procedure: 08/16/17 Consent Obtained: Written consent Timeout: Correct patient and procedure verified, Correct site verified, Time out performed, Skin prep completed Indications: renal failure Procedure Performed: permacath Was there an assistant manager of operations present: No Site/Technique: rt IJ to RA Results/Findings: adequate placement Estimated blood loss (cc): 2 Complications: None; Tolerated procedure well Post Procedure Treatment Plan: OK to dialyze Specimen: none
[2017-08-16] MEDS: Insulin LISPRO 300 UNITS/3 ML VIAL SQ SCH ×3 (15:57→16:45)
[2017-08-16] MEDS: cloNIDine HCl 0.1 MG TABLET PO SCH (15:58)
[2017-08-16] MEDS: hydrALAZINE 25 MG TABLET PO SCH ×2 (15:58→16:45)
[2017-08-16] MEDS: Diltiazem CD (24hr) 120 MG CAPSULE PO SCH (16:00)
--- NOTE | 2017-08-16 16:10 | Discharge Summary ---
- NOTES TO OUTPATIENT PROVIDER Notes to Outpatient Provider: f/u with Gordon Hayden in 1 week to discuss about blood work and biopsy results in detail. Jazmin go for HD on M/W/F Orders not resulted at time of discharge: Pending orders 08/15/17 04:42 [place] Lambda Qnt FLC w Ratio AM 0400 MPO/PR3 (ANCA) Antibodies Routine 08/16/17 IR cvc insrt tunnel wo prt/outside sales manager [IR] Routine IR us guide needle place [IR] Routine Date of Encounter: 08/16/17 Time of Encounter: 16:07 - Discharge Diagnosis (1) Renal failure (ARF), acute on chronic Priority: Primary Status: Acute Qualifiers: Acute renal failure type: unspecified Chronic kidney disease stage: stage 5 , not on chronic dialysis Qualified Code(s): N17.9 - Acute kidney failure, unspecified; N18.5 - Chronic kidney disease, stage 5; N18.5 - Chronic kidney disease, stage 5; N18.5 - Chronic kidney disease, stage 5; N18.5 - Chronic kidney disease, stage 5 (2) CKD (chronic kidney disease), stage V Priority: Secondary Status: Acute (3) Diabetes mellitus Priority: Secondary Status: Chronic Qualifiers: Diabetes mellitus type: type 2 Diabetes mellitus senior care insulin use: without terminal operations supervisor use Diabetes mellitus complication status: with kidney complications Diabetes mellitus complication detail: with microalbuminuria Qualified Code(s): E11.29 - Type 2 diabetes mellitus with other diabetic kidney complication; R80.9 - Proteinuria, unspecified (4) Anemia Priority: Secondary Status: Acute Qualifiers: Anemia type: due to chronic kidney disease Chronic kidney disease stage: stage 5, not on chronic dialysis Qualified Code(s): N18.5 - Chronic kidney disease, stage 5; D63.1 - Anemia in chronic kidney disease; D63.1 - Anemia in chronic kidney disease (5) Hypertension Priority: Secondary Status: Chronic Qualifiers: Hypertension type: essential hypertension Qualified Code(s): I10 - Essential (primary) hypertension (6) Hypothyroidism Priority: Secondary Status: Chronic Qualifiers: Hypothyroidism type: unspecified Qualified Code(s): E03.9 - Hypothyroidism , unspecified Hospital course: Mr. Mckay is a 72 year old male with known DM2, HTN, Hypothyroidism and CKD-4 pt who follows with Nephro Dr. Hayden as an out pt, pt was sent our hospital for further eval regarding his worsening KINZA with CKD-4. Pt was admitted in the hospital and started him on IV hydration and NaHCo3 gtt, however his cr has not improved a bit. It does look like pt does developed CKD-5 / ESRD. He did got for renal biopsy. As per Dr. Goyal his Renal biopsy preliminary demonstrated clearly Diabetic nephropathy, minimal MN, some ATN (likely from the severe nephrotic range proteinuria), plus other findings (pending electron microscopy) . So he did not recommend any pulse dose steroids or other immunosuppresive therapy. Pt agreed for HD, so he was placed on temp HD cath initially and did go for HD here. He had perm HD cath placed in today. Pt has been doing well on HD. So will d/c him home in stable condition with out HD on /. He has SPEP, UPEP and [place] Lambda qnt FLC with ratio ordered which were still pending. he does have uncontrolled BP, so adjusted his medication with Cardizem 240mg PO Daily, Ramipri 10mg BID , added hdyraalzine 50mg TID and Clonidine 0.1mg BID. - Time Spent with Patient Total time spent providing and/or coordinating discharge services: - Discharge Medications Prescriptions: cloNIDine HCl [CloNIDine HCl] 0.1 mg PO BID #60 tablet Diltiazem CD (24hr) [Cardizem CD] 240 mg PO DAILY #30 cap.er.24h Hydralazine HCl 50 mg PO Q8H #90 tablet Sevelamer [Renvela] 800 mg PO TIDWM #90 tablet Sodium Bicarbonate 650 mg PO BID #60 tablet Home Medications: Allopurinol [Zyloprim 300 MG] 300 mg PO DAILY 08/31/16 [History] Levothyroxine [Synthroid] 175 mcg PO DAILY 08/31/16 [History] Ramipril [Altace] 10 mg PO BID 08/31/16 [History] Rosuvastatin [Crestor] 40 mg PO HS 08/31/16 [History] Tamsulosin [Flomax] 0.4 mg PO DAILY 08/31/16 [History] Tramadol HCl [Ultram] 100 mg PO BID PRN 08/31/16 [History] Omeprazole [PriLOSEC] 40 mg PO DAILY 10/22/16 [History] Ferrous Sulfate 325 mg PO BID #60 tab 11/11/16 [Rx] predniSONE [PredniSONE] 7 mg PO DAILY 08/10/17 [History] Diltiazem CD (24hr) [Cardizem CD] 240 mg PO DAILY #30 cap.er.24h 08/16/17 [Rx] Hydralazine HCl 50 mg PO Q8H #90 tablet 08/16/17 [Rx] Sevelamer [Renvela] 800 mg PO TIDWM #90 tablet 08/16/17 [Rx] Sodium Bicarbonate 650 mg PO BID #60 tablet 08/16/17 [Rx] cloNIDine HCl [CloNIDine HCl] 0.1 mg PO BID #60 tablet 08/16/17 [Rx] Allergies/Adverse Reactions: 3 Allergy/AdvReac Type Severity Reaction Status Date / Time mycophenolate mofetil Allergy Nausea Verified 08/10/17 09:57 [From CellCept] prednisone AdvReac See Verified 08/10/17 09:57 Comments Date of admission: 08/12/17 18:05 Primary care physician: eFrn Colon, Consults: 08/13/17 14:09 Consult to Interventional Radiology [CONS] Routine Consulting Provider: Radiology Interventional Cols Reason for Consult: Please eval for placement of a temporary HD catheter today. Thank you. Call Completed: Yes 08/13/17 14:15 Consult to Dialysis [CONS] ONCE 08/13/17 18:38 Consult to Interventional Radiology [CONS] Routine Consulting Provider: Radiology Interventional Cols Reason for Consult: Please evaluate for placement of a Permacath on Wednesday. Call Completed: No Consult to [facility] [CONS] Routine Reason for SW Consult: Please arrange for a dialysis chair. He has been a patient of Dr. Cali from the clinic. 08/14/17 08:15 Consult to Dialysis [CONS] ONCE 08/16/17 07:00 Consult to Dialysis [CONS] ONCE - Constitutional Vitals: Temp Pulse Resp BP Pulse Ox 97.8 F 111 18 162/89 99 08/16/17 15:52 08/16/17 15:52 08/16/17 15:52 08/16/17 15:52 08/16/17 15:52 General appearance: Present: A&O X 3, no acute distress, answers questions appropriately - Head Head exam: Present: atraumatic, normocephalic - Neck Neck exam general surgery: Present: supple - Respiratory Respiratory exam: Present: decreased breath sounds. Absent: rales, respiratory distress, rhonchi, wheezes - Cardiovascular Cardiovascular exam: Present: RRR, +S1, +S2. Absent: tachycardia - GI/Abdominal GI/Abdominal exam: Present: normal bowel sounds, soft. Absent: rebound, rigid, tenderness - Extremities Exam Extremities exam: Absent: calf tenderness, pedal edema, tenderness - Back Exam Back exam: Absent: CVA tenderness (L), CVA tenderness (R) - Psychiatric Psychiatric exam: Present: normal affect, normal mood - Skin Skin exam: Absent: rash - Patient Status Disposition: Home, Self-Care Condition: Good Overall status at discharge: patient is back to baseline - Discharge Instructions Follow Up With: Fern Colon MD [Primary Care Provider] - Vinnie Ramírez MD [Partnered Physician] - - Diet and Activity Activity: increase activity as tolerated Diet: low salt diet
[2017-08-16 16:43] VITALS: BP 183/89
[2017-08-16] MEDS: Acetaminophen 325 MG TABLET PO PRN (16:47)
[2017-08-17 07:47] LABS: IFE Reflexed NOT DONE
[2017-08-17 22:47] LABS: Kappa Qnt Free Light Chains 9.02 mg/dL (0.33-1.94); Lambda Qnt Free Light Chains 5.9 mg/dL (0.57-2.63)
[2017-08-18 06:23] LABS: Myeloperoxidase Ab 0 AU/mL (0-19); Serine Protease-3 Antibody 5 AU/mL (0-19)
== END 2017-08-16 17:55 | disposition home or self-care (01) | DRG 683 ==
LOC: EMEROO 09:55 → 2ANU 13:54 → INTOOBSV 13:54 → 2ANU 16:05 → SUATTDRO 08-12 18:05
PROVIDERS: ADMIT Internal Medicine; ATTEND Family Medicine
PROC: IRPERMA (2017-08-16 12:00)

== ENCOUNTER 2018-01-02 04:56 | Inpatient (IN) ==
[2018-01-02] MEDS ORDERED: Ondansetron 4 MG/2 ML VIAL IVP ONE (05:01)
[2018-01-02] MEDS ORDERED: 0.9 % Sodium Chloride 1,000 ML IVC ONE (05:01)
[2018-01-02 05:23] LABS: Basophils % 0.2 %; Eosinophils # 0.2 K/mcL (0.0-0.6); Eosinophils % 1.3 %; Hemoglobin 11.3 g/dL (12.9-16.9); Immature Granulocytes % 0.2 % (0-4); Lymphocytes # 1.2 K/mcL (0.6-4.6); Lymphocytes % 9.5 %; Mean Corpuscular HGB Conc 32.3 g/dL (31.6-35.5); Mean Corpuscular Hemoglobin 32.1 pg (28.0-33.3); Mean Corpuscular Volume 99.4 fL (83.0-100.0); Mean Platelet Volume 9.2 fL (9.4-12.4); Monocytes # 0.7 K/mcL (0.0-1.3); Monocytes % 5.5 %; Neutrophils # 10.2 K/mcL (1.6-8.9); Platelet Count 174 K/mcL (140-400); Red Blood Count 3.52 M/mcL (4.19-5.50); Red Cell Distribution Width 16.2 % (11.5-14.5); Segmented Neutrophils % 83.3 %
[2018-01-02 05:57] LABS: Alanine Aminotransferase < 3 Units/L (7-52); Albumin 3.7 g/dL (3.5-5.7); Albumin/Globulin Ratio 1.5 (1.1-2.2); Alkaline Phosphatase 54 Units/L (34-104); Aspartate Amino Transferase 13 Units/L (13-39); BUN/Creatinine Ratio 8 (6-26); Bilirubin,Total 0.6 mg/dL (0.3-1.0); Blood Urea Nitrogen 52 mg/dL (8-23); Calcium 9.6 mg/dL (8.6-10.3); Carbon Dioxide 24 mEq/L (23-29); Chloride 101 mEq/L (98-107); Globulin 2.4 g/dL (2.4-3.5); Glucose 143 mg/dL (70-105); Lipase 16 Units/L (11-82); Magnesium 1.8 mg/dL (1.6-2.6); Osmolality,Calculated 299 (280-300); Potassium 4.3 mEq/L (3.5-5.1); Sodium 136 mEq/L (136-145); Total Protein 6.1 g/dL (6.4-8.9); Troponin I 0.05 ng/mL (< 0.04); eGFR For Non-African Americans 8 (> 60)
--- NOTE | 2018-01-02 06:23 | Emergency Department Note ---
Disposition Clinical Impression: NSTEMI (non-ST elevated myocardial infarction) Disposition: Admitted As Inpatient Referrals: Fern Colon MD [Primary Care Provider] - General Adult HPI - General Chief complaint: ED Back Pain/Injury Stated complaint: Back pain Time Seen by Provider: 01/02/18 04:59 Source: patient, EMS Limitations: no limitations - History of Present Illness HPI Narrative: ED ATTESTATION NOTE: I examined this patient and my medical decision-making was reviewed with the Resident Physician/[employer]PERVIS[employer]/PA/Student. I have personally performed a face to face evaluation on this patient & I agree with the documented findings, disposition and treatment plan as described except to the extent set forth below. Patient was seen with emergency medicine resident Edgardo Bains please see copy of his note for details of this encounter Briefly: 72-year-old male recently had to back surgery by Dr. Carey at [facility] by EMS for nausea and vomiting and weakness. EKG shows sinus rhythm without significant ST-T changes. Abdomen surgically benign. Patient had a troponin which was critically elevated 0.05. Patient will be admitted for an NSTEMI. Admission disposition pending. we have provided 40 minutes of critical care service for this patient Pain Scale: 0 - Related Data Home Medications Medication Instructions Recorded Confirmed Allopurinol [Zyloprim 300 MG] 300 mg PO DAILY 08/31/16 08/10/17 Levothyroxine [Synthroid] 175 mcg PO DAILY 08/31/16 12/28/17 Ramipril [Altace] 10 mg PO BID 08/31/16 12/28/17 Rosuvastatin [Crestor] 40 mg PO HS 08/31/16 12/28/17 Tamsulosin [Flomax] 0.4 mg PO DAILY 08/31/16 12/28/17 Tramadol HCl [Ultram] 100 mg PO BID PRN 08/31/16 12/28/17 Omeprazole [PriLOSEC] 40 mg PO DAILY 10/22/16 12/28/17 predniSONE [PredniSONE] 5 mg PO DAILY 08/10/17 12/28/17 Psyllium Husk [Fiber] 0.52 gm PO 12/28/17 12/28/17 Renal Vitamin [Renal Caps Softgel] 1 cap PO DAILY 12/28/17 12/28/17 Previous Rx's Medication Instructions Recorded Ferrous Sulfate 325 mg PO BID #60 tab 11/11/16 Diltiazem CD (24hr) [Cardizem CD] 240 mg PO DAILY #30 cap.er.24h 08/16/17 Hydralazine HCl 50 mg PO Q8H #90 tablet 08/16/17 Sevelamer [Renvela] 800 mg PO TIDWM #90 tablet 08/16/17 Sodium Bicarbonate 650 mg PO BID #60 tablet 08/16/17 cloNIDine HCl [CloNIDine HCl] 0.1 mg PO BID #60 tablet 08/16/17 OxyCODONE Immed Rel [Roxicodone 5 5 mg PO Q6HR PRN 7 Days #30 tablet 12/29/17 MG] Allergies Allergy/AdvReac Type Severity Reaction Status Date / Time mycophenolate mofetil Allergy Nausea Verified 12/16/17 14:23 [From CellCept] prednisone Allergy See Verified 01/02/18 05:10 Comments Past Medical History - Past Medical History Medical history: Reports: arthritis, cancer, diabetes, dialysis, GERD, hepatitis , hyperlipidemia, hypertension, kidney stones, thyroid disease Surgical history: Reports: orthopedic, other Psychiatric history: Reports: no psych history - Social History Smoking Status: Never smoker Smokeless Tobacco Status: No Alcohol use: Reports: rarely Drug use: Reports: none Physical Exam - General Limitations: no limitations General appearance: alert, in no apparent distress Course Vital Signs Temperature 102.7 F H 01/02/18 05:03 Pulse Rate 96 01/02/18 05:03 Respiratory Rate 18 01/02/18 05:03 Blood Pressure 154/63 01/02/18 05:03 O2 Sat by Pulse Oximetry 94 01/02/18 05:03 Temperature 102.7 F H 01/02/18 05:03 Pulse Rate 96 01/02/18 05:03 Respiratory Rate 18 01/02/18 05:03 Blood Pressure 154/63 01/02/18 05:03 O2 Sat by Pulse Oximetry 94 01/02/18 05:03 Oxygen Delivery Oxygen Delivery Room Air Medical Decision Making - Lab Data Result diagrams: 01/02/18 05:10 01/02/18 05:10 Lab Results 01/02/18 01/02/18 01/02/18 Range/Units 05:10 05:10 05:10 WBC 12.2 H (4.3-11.1) K/mcL RBC 3.52 L (4.19-5.50) M/mcL Hgb 11.3 L (12.9-16.9) g/dL Hct 35.0 L (37.5-50.1) % MCV 99.4 (83.0-100.0) fL MCH 32.1 (28.0-33.3) pg MCHC 32.3 (31.6-35.5) g/dL RDW 16.2 H (11.5-14.5) % Plt Count 174 (140-400) K/mcL MPV 9.2 L (9.4-12.4) fL Immature Gran % 0.2 (0-4) % Seg Neutrophils % 83.3 % Lymphocytes % 9.5 % Monocytes % 5.5 % Eosinophils % 1.3 % Basophils % 0.2 % Neutrophils # 10.2 H (1.6-8.9) K/mcL Lymphocytes # 1.2 (0.6-4.6) K/mcL Monocytes # 0.7 (0.0-1.3) K/mcL Eosinophils # 0.2 (0.0-0.6) K/mcL Basophils # 0.0 (0.0-0.2) K/mcL Sodium 136 (136-145) mEq/L Potassium 4.3 (3.5-5.1) mEq/L Chloride 101 (98-107) mEq/L Carbon Dioxide 24 (23-29) mEq/L BUN 52 H (8-23) mg/dL Creatinine 6.52 H (0.70-1.30) mg/dL Est GFR ( Amer) 10 L (> 60) Est GFR (Non-Af Amer) 8 L (> 60) BUN/Creatinine Ratio 8 (6-26) Glucose 143 H (70-105) mg/dL Calculated Osmolality 299 (280-300) Lactic Acid 0.9 (0.5-2.2) mmol/L Calcium 9.6 (8.6-10.3) mg/dL Magnesium 1.8 (1.6-2.6) mg/dL Total Bilirubin 0.6 (0.3-1.0) mg/dL AST 13 (13-39) Units/L ALT < 3 L (7-52) Units/L Alkaline Phosphatase 54 (34-104) Units/L Troponin I 0.05 H* (< 0.04) ng/mL Serum Total Protein 6.1 L (6.4-8.9) g/dL Albumin 3.7 (3.5-5.7) g/dL Globulin 2.4 (2.4-3.5) g/dL Albumin/Globulin Ratio 1.5 (1.1-2.2) Lipase 16 (11-82) Units/L
--- NOTE | 2018-01-02 06:42 | Emergency Department Note ---
Disposition Clinical Impression: NSTEMI (non-ST elevated myocardial infarction), Nausea Disposition: Admitted As Inpatient Condition: Fair Referrals: Fern Colon MD [Primary Care Provider] - Forms: ED Satisfaction Letter Time of Disposition: 06:59 General Adult HPI - General Chief complaint: ED Nausea/Vomiting/Diarrhea Stated complaint: Back pain Time Seen by Provider: 01/02/18 04:59 Source: patient, EMS Limitations: no limitations Nursing Notes Reviewed: Yes Vital Signs Reviewed: Yes - History of Present Illness HPI Narrative: 72-year-old male presents to the emergency department with history of ESRD, ACS as well as recent kyphoplasty for nausea. Patient states this morning he woke up having intense nausea. He says he does not hurt anywhere except for his abdomen when he is vomiting. He has vomited he says more than 12-15 times. Says nonbilious nonbloody. Patient is not having chest pain or shortness of breath at this time. Patient has no other complaints at this time otherwise he complains no fevers. Patient recently had kyphoplasty done by Dr. Brady on Wednesday. Patient said it went well and he had no complications. Pain Scale: 0 - Related Data Home Medications Medication Instructions Recorded Confirmed Allopurinol [Zyloprim 300 MG] 300 mg PO DAILY 08/31/16 08/10/17 Levothyroxine [Synthroid] 175 mcg PO DAILY 08/31/16 12/28/17 Ramipril [Altace] 10 mg PO BID 08/31/16 12/28/17 Rosuvastatin [Crestor] 40 mg PO HS 08/31/16 12/28/17 Tamsulosin [Flomax] 0.4 mg PO DAILY 08/31/16 12/28/17 Tramadol HCl [Ultram] 100 mg PO BID PRN 08/31/16 12/28/17 Omeprazole [PriLOSEC] 40 mg PO DAILY 10/22/16 12/28/17 predniSONE [PredniSONE] 5 mg PO DAILY 08/10/17 12/28/17 Psyllium Husk [Fiber] 0.52 gm PO 12/28/17 12/28/17 Renal Vitamin [Renal Caps Softgel] 1 cap PO DAILY 12/28/17 12/28/17 Previous Rx's Medication Instructions Recorded Ferrous Sulfate 325 mg PO BID #60 tab 11/11/16 Diltiazem CD (24hr) [Cardizem CD] 240 mg PO DAILY #30 cap.er.24h 08/16/17 Hydralazine HCl 50 mg PO Q8H #90 tablet 08/16/17 Sevelamer [Renvela] 800 mg PO TIDWM #90 tablet 08/16/17 Sodium Bicarbonate 650 mg PO BID #60 tablet 08/16/17 cloNIDine HCl [CloNIDine HCl] 0.1 mg PO BID #60 tablet 08/16/17 OxyCODONE Immed Rel [Roxicodone 5 5 mg PO Q6HR PRN 7 Days #30 tablet 12/29/17 MG] Allergies Allergy/AdvReac Type Severity Reaction Status Date / Time mycophenolate mofetil Allergy Nausea Verified 12/16/17 14:23 [From CellCept] prednisone Allergy See Verified 01/02/18 05:10 Comments All systems ED: reviewed and negative except as stated. Review of Systems: As Per HPI Constitutional: Denies: fever, chills, weakness, weight change Eyes: Denies: eye pain, eye discharge, vision change ENT ED: Denies: ear pain, throat pain, dental pain, hearing loss, epistaxis, congestion, dysphagia Cardiovascular: Denies: chest pain, palpitations, dyspnea on exertion, edema, syncope Respiratory: Denies: cough, dyspnea, wheezes, hemoptysis, stridor Gastrointestinal: Reports: abdominal pain, nausea. Denies: vomiting, diarrhea, constipation, hematemesis, melena, hematochezia Genitourinary: Denies: urgency, dysuria, frequency, hematuria Musculoskeletal: Denies: back pain, neck pain, arthralgia, myalgia Integumentary: Denies: rash, abrasion, lesions Neurological: Denies: headache, weakness, numbness, paresthesias, confusion, abnormal gait, vertigo Psychiatric: Denies: anxiety, depression, suicidal thoughts, homicidal thoughts , auditory hallucinations, visual hallucinations Endocrine: Denies: fatigue Hematological/Lymphatic: Denies: easy bleeding, easy bruising Past Medical History - Past Medical History Attestation: Yes The following information was validated with the patient. Source: patient Medical history: Reports: arthritis, cancer, diabetes, dialysis, GERD, hepatitis , hyperlipidemia, hypertension, kidney stones, thyroid disease Surgical history: Reports: orthopedic, other Psychiatric history: Reports: no psych history - Social History Smoking Status: Never smoker Smokeless Tobacco Status: No Alcohol use: Reports: rarely Drug use: Reports: none Physical Exam - General Limitations: no limitations General appearance: alert, in no apparent distress - Head Head exam: atraumatic, normocephalic, normal inspection - Eye Eye exam: Present: normal appearance, PERRL, EOMI - ENT ENT exam: normal exam, normal oropharynx, mucous membranes moist - Neck Neck exam: Present: normal inspection, full ROM, trachea midline - Chest Chest inspection: Present: normal inspection, symmetric chest wall rise - Respiratory Respiratory exam: Present: normal lung sounds bilaterally - Cardiovascular Cardiovascular exam: Present: regular rate, normal rhythm, normal heart sounds - Abdominal Exam Abdominal exam: Present: soft, Non-Tender, normal bowel sounds. Absent: tenderness, distention, guarding, rebound, rigidity - Extremities Exam Extremities exam: Present: normal inspection, full ROM. Absent: tenderness, pedal edema - Back Exam Back exam: Present: normal inspection, full ROM. Absent: tenderness, CVA tenderness (R), CVA tenderness (L) - Neurological Exam Neurological exam: Present: alert, oriented X3 - Skin Skin exam: Present: warm, dry, intact, normal color Course Course Narrative: 72-year-old male presented to the emergency department for nausea. We will give patient 8 mg Zofran as well as IV fluids. We will get basic labs including CBC, BMP we will also get troponin EKG and chest x-ray. We will also get urinalysis. Disposition pending results Vital Signs Temperature 102.7 F H 01/02/18 05:03 Pulse Rate 96 01/02/18 05:03 Respiratory Rate 18 01/02/18 05:03 Blood Pressure 154/63 01/02/18 05:03 O2 Sat by Pulse Oximetry 94 01/02/18 05:03 Temperature 102.7 F H 01/02/18 05:03 Pulse Rate 96 01/02/18 05:03 Respiratory Rate 18 01/02/18 05:03 Blood Pressure 154/63 01/02/18 05:03 O2 Sat by Pulse Oximetry 94 01/02/18 05:03 Oxygen Delivery Oxygen Delivery Room Air Medical Decision Making - [facility] Narrative Medical decision making narrative: 72-year-old male here for nausea. Patient did have recent surgery. Surgery site looked does look fine. Patient of elevated troponin of 0.06. Due to the elevation of troponin patient was likely is having an and STEMI. EKG did have a left bundle-branch block but most likely this is second this is old when compared with old one done back in August. Patient was given 8 mg Zofran as well as IV fluids he did tolerate that well he has not vomited since. Patient does have an elevated white count. All other labs are within normal limits for patient. I spoke with the hospitalist who agreed to admit the patient to their service. Patient was admitted in stable condition. Chest X-Ray 01/02/18 05:02 IMPRESSION: No acute findings. Stable mild cardiomegaly and vascular congestion. D/ / Adrian Fernández / Adrian Fernández Interpreting Provider: Adrian Fernández - Medical Records Medical records reviewed: Yes I reviewed the patient's medical records. - Lab Data Lab results reviewed: Yes I reviewed the patient's lab results. Result diagrams: 01/02/18 05:10 01/02/18 05:10 Lab Results 01/02/18 01/02/18 01/02/18 Range/Units 05:10 05:10 05:10 WBC 12.2 H (4.3-11.1) K/mcL RBC 3.52 L (4.19-5.50) M/mcL Hgb 11.3 L (12.9-16.9) g/dL Hct 35.0 L (37.5-50.1) % MCV 99.4 (83.0-100.0) fL MCH 32.1 (28.0-33.3) pg MCHC 32.3 (31.6-35.5) g/dL RDW 16.2 H (11.5-14.5) % Plt Count 174 (140-400) K/mcL MPV 9.2 L (9.4-12.4) fL Immature Gran % 0.2 (0-4) % Seg Neutrophils % 83.3 % Lymphocytes % 9.5 % Monocytes % 5.5 % Eosinophils % 1.3 % Basophils % 0.2 % Neutrophils # 10.2 H (1.6-8.9) K/mcL Lymphocytes # 1.2 (0.6-4.6) K/mcL Monocytes # 0.7 (0.0-1.3) K/mcL Eosinophils # 0.2 (0.0-0.6) K/mcL Basophils # 0.0 (0.0-0.2) K/mcL Sodium 136 (136-145) mEq/L Potassium 4.3 (3.5-5.1) mEq/L Chloride 101 (98-107) mEq/L Carbon Dioxide 24 (23-29) mEq/L BUN 52 H (8-23) mg/dL Creatinine 6.52 H (0.70-1.30) mg/dL Est GFR ( Amer) 10 L (> 60) Est GFR (Non-Af Amer) 8 L (> 60) BUN/Creatinine Ratio 8 (6-26) Glucose 143 H (70-105) mg/dL Calculated Osmolality 299 (280-300) Lactic Acid 0.9 (0.5-2.2) mmol/L Calcium 9.6 (8.6-10.3) mg/dL Magnesium 1.8 (1.6-2.6) mg/dL Total Bilirubin 0.6 (0.3-1.0) mg/dL AST 13 (13-39) Units/L ALT < 3 L (7-52) Units/L Alkaline Phosphatase 54 (34-104) Units/L Troponin I 0.05 H* (< 0.04) ng/mL Serum Total Protein 6.1 L (6.4-8.9) g/dL Albumin 3.7 (3.5-5.7) g/dL Globulin 2.4 (2.4-3.5) g/dL Albumin/Globulin Ratio 1.5 (1.1-2.2) Lipase 16 (11-82) Units/L - Radiology Data Radiology results reviewed: Yes I reviewed the patient's radiology results. - EKG Data EKG #1 EKG attestation: Yes I reviewed and interpreted this EKG. EKG results narrative: EKG done at 0 516 review myself and the attending shows sinus rhythm a rate of 95, TN interval 144, QRS 129, QTC 478 normal axis. No acute ST changes no acute T-wave changes patient does have signs of left bundle branch block there is no other signs of any blocks. No hypertrophy or heart strain. No WPW/ Brugada/HOCM. Otherwise EKG is unchanged when compared with old one done 08/10/17
[2018-01-02 08:19] LABS: Bilirubin,Urine Negative (Negative); Blood,Urine Negative (Negative); Clarity,Urine Clear (Clear); Color,Urine Yellow (Yellow); Glucose,Urine (UA) 100 mg/dL (Normal); Ketones,Urine Negative (Negative); Leukocyte Esterase,Urine Negative (Negative); Nitrite,Urine Negative (Negative); PH,Urine 7.5 pH Units (5.0-8.0); Protein,Urine >=300 mg/dL (Neg-Trace); Specific Gravity,Urine 1.008 (1.010-1.025); Urobilinogen,Urine Normal (Normal)
[2018-01-02 08:21] LABS: Bacteria,Urine None Seen per hpf (None-Few); Hyaline Casts,Urine None Seen per lpf (None-Few); RBC,Urine 0-3 per hpf (0-3); Squamous Epithelial Cell,Urine Moderate per lpf (None-Few); WBC,Urine 0-3 per hpf (0-3)
[2018-01-02] MEDS ORDERED: Acetaminophen 325 MG TABLET PO PRN (09:43)
[2018-01-02] MEDS ORDERED: Ondansetron 4 MG/2 ML VIAL IVP PRN (10:09)
[2018-01-02] MEDS ORDERED: 0.9 % Sodium Chloride 500 ML IVC ONE (10:18)
--- NOTE | 2018-01-02 10:41 | Internal Med History&Physical ---
Date of Encounter: 01/02/18 Time of Encounter: 10:38 Internal Medicine - H&P: HPI Admitted From: Home Plans for Post Hospital Care: Home History of present illness: Mr. Mckay is a 72 year old male of diabetes, hypertension, GERD, hyperlipidemia , hypothyroidism, skin cancer and end-stage renal disease started on dialysis in September(MWF) recently had surgery for lumbar stenosis and radiculopathy with laminectomy of L4-S1 done on 12/28/17 is coming in with complain of nausea vomiting which started yesterday. Surgery was uncomplicated. He came in with nausea and vomiting that started approximately 10:00 yesterday night. She ate a sandwich around 4:00 which he said was close to expiration. Started having nausea around 10:00 and since midnight he had vomiting about every 20-30 minutes. Vomitus was nonbilious, occasional streaks of blood. Denies any chest pain, palpitation, lightheadedness or shortness of breath. He denies any diarrhea. Has constipation and has had bowel movements since Wednesday. Took mild laxative yesterday which did not help. He admits to having some chills but has not had measured his temperature. He has minimal back pain around the site of his surgery. He does have some pain in his right hip and knee for past the 1-2 days. He has mild baseline pain before. He has associated headache. In he was noted to have fever of 102.7 and WBC of 12.2. His EKG showed left bundle branch block which was old. His troponin was 0.05. Patient was admitted for NSTEMI. He did not receive any aspirin in ER. on interview this morning he did not complain any chest pain, abdominal pain, shortness of breath. He had another episode of fever. He is feeling nauseous but has not had vomiting this morning. Complaints of some right knee and hip pain. Past Med Surg Social Fam HX - Past Medical History Medical history: arthritis, cancer, diabetes, dialysis, GERD, hepatitis, hyperlipidemia, hypertension, kidney stones, thyroid disease Additional medical history: aspergillus, skin cancer, diagnosed with hepatitis C through [facility] but states that pcp did a redraw and he was negative Psychiatric history: no psych history - Past Surgical History Surgical History: orthopedic, other Additional surgical history: Vasectomy, Left arm shunt, right chest permacath, left total knee, 4 skin cancer removals, laminectomy - Social History Smoking Status: Never smoker Smokeless Tobacco Status: No Alcohol use: rarely Drug use: none - Family History Mother Living Status: Hx Family Cardiac Disorders: Yes Hx Family Cancer: Yes Internal Medicine - H&P: Meds Allopurinol [Zyloprim 300 MG] 300 mg PO DAILY 08/31/16 [History] Levothyroxine [Synthroid] 175 mcg PO DAILY 08/31/16 [History] Ramipril [Altace] 10 mg PO BID 08/31/16 [History] Rosuvastatin [Crestor] 40 mg PO HS 08/31/16 [History] Tamsulosin [Flomax] 0.4 mg PO DAILY 08/31/16 [History] Tramadol HCl [Ultram] 100 mg PO BID PRN 08/31/16 [History] Omeprazole [PriLOSEC] 40 mg PO DAILY 10/22/16 [History] Ferrous Sulfate 325 mg PO BID #60 tab 11/11/16 [Rx] predniSONE [PredniSONE] 5 mg PO DAILY 08/10/17 [History] Diltiazem CD (24hr) [Cardizem CD] 240 mg PO DAILY #30 cap.er.24h 08/16/17 [Rx] Hydralazine HCl 50 mg PO Q8H #90 tablet 08/16/17 [Rx] Sevelamer [Renvela] 800 mg PO TIDWM #90 tablet 08/16/17 [Rx] cloNIDine HCl [CloNIDine HCl] 0.1 mg PO BID #60 tablet 08/16/17 [Rx] Psyllium Husk [Fiber] 0.52 gm PO DAILY PRN 12/28/17 [History] Renal Vitamin [Renal Caps Softgel] 1 cap PO DAILY 12/28/17 [History] OxyCODONE Immed Rel [Roxicodone 5 MG] 5 mg PO Q6HR PRN 7 Days #30 tablet [Rx] 3 Allergy/AdvReac Type Severity Reaction Status Date / Time mycophenolate mofetil Allergy Nausea Verified 12/16/17 14:23 [From CellCept] prednisone Allergy See Verified 01/02/18 05:10 Comments All Systems PM: A 10-system review of systems was performed and is negative for pertinent findings except as documented above in the HPI. - Constitutional Vitals: Temp Pulse Resp BP Pulse Ox 100.0 F H 95 18 147/69 91 01/02/18 09:26 01/02/18 09:26 01/02/18 09:26 01/02/18 09:26 01/02/18 09:26 General appearance: Present: A&O X 3 Exam: Constitutional: Vitals as noted. Conversant. No Apparent Distress. No obvious deformities. Eyes exam: Sclera white, conjunctiva clear, no lid lag, PEARLA. ENT exam: Grossly normal hearing. Nasophargeal and Oropharyngeal exam unremarkable. dry mucus membranes. No JVD, carotid bruit, no cervical lymphadenopathy. no thyromegaly or mass. Respiratory exam: Clear to auscultation bilaterally. No accessory muscle use, rales, rhonchi or wheezes Cardiovascular exam: RRR, +S1, +S2. systolic ejection murmur, gallop, rubs. No chest wall tenderness GI/Abdominal exam: Soft, Non-tender, Non-distended, normal bowel sounds, soft, no peritoneal signs. no orgenomegaly or mass appreciated. no hernia. Musculoskeletal exam: full ROM of all extremities, no atrophy or deformity noted. no edema or cyanosis, warm, pulses palpable and symmetrical in UE/LE. no calf tenderness. Limited back flexion and extension due to pain and recent low back surgery. Neurological exam: AO X3, CN II-XII grossly intact, grossly normal motor and sensory exam. Normal muscle tone and reflexes. no focal deficits. Skin exam: No skin rash, lesions or ulcers noted. no purpura or ecchymosis. Surgical scar healing well. Dressing in place. No signs of infection. Pych: Good insight and judgment. Intact memory. AOx3. Mood and affect Internal Med - H&P Results - Labs CBC & Chem 7: 01/02/18 05:10 01/02/18 05:10 - Assessment and plan (1) SIRS (systemic inflammatory response syndrome) Current Visit: Yes Status: Acute Assessment and plan: Patient has positive sirs criteria being the febrile with temperature of 102, HR 96, WBC 12.2 - CXR negative, UA unremarkable. Clinically abdomen benign, postsurgical scar looks healing well without any signs of infection, dialysis access entry without erythema or pain - Possible gastroenteritis with nausea or vomiting. However significant fever and post surgical. We will obtain imaging of lumbar spine and abdomen to rule out other source of infection. Has baseline murmur from aortic stenosis. No stigmata of endocarditis seen. If no other source found and patient continues to have sirs criteria we will consider echocardiogram - We will hold antibiotics for now. Patient received 1 L of NS in ER. We give another 500 mL of normal saline as patient appeared clinically dry doing be getting IV contrast for imaging. Follow-up blood cultures. - recent laminectomy of L4-S1. Surgical site appears healing well. We will obtain the surgical evaluation for need for any additional intervention given recent surgery. (2) Nausea and vomiting Current Visit: No Status: Resolved Assessment and plan: Nausea vomiting possibly from for poisoning or gastroenteritis - However given significant fever and other systemic signs we will workup for alternative causes Qualifiers: Vomiting type: unspecified Vomiting Intractability: unspecified Qualified Code(s): R11.2 - Nausea with vomiting, unspecified (3) Elevated troponin I level Current Visit: Yes Status: Acute Assessment and plan: - levated troponin likely from poor clearance of her kidneys. - Currently chest pain-free. Did not come with chest pain. Will trend troponin. He did not receive aspirin in ER. - Relative contraindication to anticoagulation given recent surgery. No compelling evidence to start anticoagulation as of now. (4) ESRD (end stage renal disease) on dialysis Current Visit: No Status: Acute Assessment and plan: - Consult nephrology for dialysis management - Spoke with nephrology to give IV contrast if needed for imaging to find source of infection. If gets contrast to be dialyzed tomorrow. - Prednisone one of the home medication. However patient mentioning he has allergy and is not taking. Follow-up nephrology for need for continuing prednisone. (5) Diabetes mellitus Current Visit: No Status: Chronic Assessment and plan: - Accu-Cheks and sliding scale - Medication reconciliation without any diabetic medications. Qualifiers: Diabetes mellitus type: type 2 Diabetes mellitus watermelon inspector insulin use: without watermelon inspector use Diabetes mellitus complication status: with kidney complications Diabetes mellitus complication detail: with microalbuminuria Qualified Code(s): E11.29 - Type 2 diabetes mellitus with other diabetic kidney complication; R80.9 - Proteinuria, unspecified (6) Hypertension Current Visit: No Status: Chronic Assessment and plan: - Blood pressure stable for now. We will continue home diltiazem and ramipril. We will hold home clonidine for now. Qualifiers: Hypertension type: essential hypertension Qualified Code(s): I10 - Essential (primary) hypertension (7) Hypothyroidism Current Visit: No Status: Chronic Assessment and plan: continue home levothyroxine Qualifiers: Hypothyroidism type: unspecified Qualified Code(s): E03.9 - Hypothyroidism , unspecified (8) DVT prophylaxis Current Visit: Yes Status: Acute Assessment and plan: - Heparin SC - Time Spent With Patient Total time spent is greater than 50% in coordination of care (as documented) at patient's floor/unit and/or counseling patient:
[2018-01-02] MEDS ORDERED: *HR* OxyCODONE Immed Rel 5 MG TABLET PO PRN (10:47)
[2018-01-02] MEDS ORDERED: traMADol 50 MG TABLET PO PRN (10:47)
[2018-01-02] MEDS ORDERED: Isovue-370 500 ML INFUS..BTL IV ONE (10:53)
[2018-01-02] MEDS: hydrALAZINE 25 MG TABLET PO SCH ×2 (11:57→18:06)
[2018-01-02] MEDS: Diltiazem CD (24hr) 240 MG CAPSULE PO SCH (11:57)
--- NOTE | 2018-01-02 12:52 | Nephrology Consult Note ---
Date of Encounter: 01/02/18 Time of Encounter: 11:30 Assessment and Plan (1) Nausea & vomiting Current Visit: Yes Status: Acute Agree with symptomatic treatment, and I see that the UA was without signs of UTI. His lungs did not demonstrated signs of PNA on CXR or on exam, but this N/ V could be constipation related. He is s/p surgery and was not move much the last few days, and he reported that he's not have a BM since before surgery. So I recommend a one-time lactulose, and if no response then enema. He last dialyzed on Wednesday without event, and the next HD is planned for tomorrow. As discussed with the Hospitalist, if he needs CT abd with IV contrast , this would be reasonable -- if needed -- with dialysis planned tomorrow. My colleague Dr. Hayden will be on-call starting tomorrow. Qualifiers: Vomiting type: unspecified Vomiting Intractability: unspecified Qualified Code(s): R11.2 - Nausea with vomiting, unspecified (2) Constipation Current Visit: Yes Status: Acute See above Qualifiers: Constipation type: unspecified constipation type Qualified Code(s): K59.00 - Constipation, unspecified (3) Anemia due to stage 5 chronic kidney disease Current Visit: No Status: Acute Goal Hgb is 10-11. Will monitor and provide EPO and/or IV iron as needed. (4) ESRD (end stage renal disease) on dialysis Current Visit: Yes Status: Acute Plan for his next HD on Wednesday. (5) S/P laminectomy Current Visit: No Status: Acute As per Surgery (6) Hypertension Current Visit: Yes Status: Chronic Will monitor. Qualifiers: Hypertension type: essential hypertension Qualified Code(s): I10 - Essential (primary) hypertension History of Present Illness - Reason for Consult Consult date: 01/02/18 end stage renal disease, hyperkalemia Requesting physician: Audrey Valenzuela - Chief Complaint N/V, Constipation; hx of ESRD - History of Present Illness Micheal Mckay is a very pleasant gentleman with a pmh of ESRD on HD MWF and prior chronic GN who presented with persistent N/V. He last had HD on Wednesday, he affirmed. 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 He uses a Permacath but the LUE AVF is nicely maturing and the dialysis RNs have been canulating with the one-needle and one port of the Permacath approach. He developed N/V especially on Wednesday, with lots of nonbilious vomiting, he described. He affirmed fatigue, but no CP or worsening dyspnea. No recent BM and he said that he's not had a BM since before surgery. The floor RN was present in the room during my interview/examine. Past Med Surg Social Fam HX - Past Medical History Medical history: arthritis, cancer, diabetes, dialysis, GERD, hepatitis, hyperlipidemia, hypertension, kidney stones, thyroid disease Additional medical history: aspergillus, skin cancer, diagnosed with [facility] C [facility] but states that pcp did a redraw and he was negative Psychiatric history: no psych history - Past Surgical History Surgical History: orthopedic, other Additional surgical history: Vasectomy, Left arm shunt, right chest permacath, left total knee, 4 skin cancer removals, laminectomy - Social History Smoking Status: Never smoker Smokeless Tobacco Status: No Alcohol use: rarely Drug use: none - Family History Mother Living Status: Hx Family Cardiac Disorders: Yes Hx Family Cancer: Yes Medications and Allergies Allopurinol [Zyloprim 300 MG] 300 mg PO DAILY 08/31/16 [History] Levothyroxine [Synthroid] 175 mcg PO DAILY 08/31/16 [History] Ramipril [Altace] 10 mg PO BID 08/31/16 [History] Rosuvastatin [Crestor] 40 mg PO HS 08/31/16 [History] Tamsulosin [Flomax] 0.4 mg PO DAILY 08/31/16 [History] Tramadol HCl [Ultram] 100 mg PO BID PRN 08/31/16 [History] Omeprazole [PriLOSEC] 40 mg PO DAILY 10/22/16 [History] Ferrous Sulfate 325 mg PO BID #60 tab 11/11/16 [Rx] predniSONE [PredniSONE] 5 mg PO DAILY 08/10/17 [History] Diltiazem CD (24hr) [Cardizem CD] 240 mg PO DAILY #30 cap.er.24h 08/16/17 [Rx] Hydralazine HCl 50 mg PO Q8H #90 tablet 08/16/17 [Rx] Sevelamer [Renvela] 800 mg PO TIDWM #90 tablet 08/16/17 [Rx] cloNIDine HCl [CloNIDine HCl] 0.1 mg PO BID #60 tablet 08/16/17 [Rx] Psyllium Husk [Fiber] 0.52 gm PO DAILY PRN 12/28/17 [History] Renal Vitamin [Renal Caps Softgel] 1 cap PO DAILY 12/28/17 [History] OxyCODONE Immed Rel [Roxicodone 5 MG] 5 mg PO Q6HR PRN 7 Days #30 tablet [Rx] 3 Allergy/AdvReac Type Severity Reaction Status Date / Time mycophenolate mofetil Allergy Nausea Verified 12/16/17 14:23 [From CellCept] prednisone Allergy See Verified 01/02/18 05:10 Comments Review of Systems All Systems: reviewed and no additional remarkable complaints except as stated Exam - Vital Signs Vital signs: Initial Vital Signs Temp Pulse Resp BP Pulse Ox 102.7 F H 96 18 154/63 94 01/02/18 05:03 01/02/18 05:03 01/02/18 05:03 01/02/18 05:03 01/02/18 05:03 - General Appearance General appearance: well-developed, appears started age, fatigue, frail EENT: ATNC, PERRL, mucous membranes moist Neck: supple Respiratory: clear Cardiology: no edema, regular rate, regular rhythm, normal S1, normal S2 - Dialysis Access Dialysis Vascular Access: Venous Catheter (with exitsite appearing C/D/I and the LUE AVF with excellent thrill/bruit) Gastrointestinal: normoactive bowel sounds, no tenderness, no guarding Integumentary: no rash, warm and dry Neurologic: no focal deficit, no asterixis, alert and oriented x3 Musculoskeletal: no deformities, no erythema, no clubbing Psychiatric: mood/affect appropriate, cooperative Results - Lab Results 01/04/18 04:17 01/04/18 04:17 Most recent lab results Calcium 9.6 mg/dL (8.6-10.3) 01/02/18 05:10 Magnesium 1.8 mg/dL (1.6-2.6) 01/02/18 05:10 I reviewed the labs, vitals, med lists, progress notes and imaging. Consult Discharge Plan - Plan Referrals: Fern Colon MD [Primary Care Provider] -
[2018-01-02] MEDS ORDERED: Lactulose Oral Soln 20 GM/30 ML UDC PO ONE (12:55)
[2018-01-02] MEDS ORDERED: Ampicillin/Sulbactam 3,000 MG in 0.9 % Sodium Chloride Mini Bag 100 ML IVPB ONE (16:02)
[2018-01-02] MEDS: *HR* Heparin 5,000 UNIT/ML VIAL SQ SCH ×2 (16:04→20:37)
[2018-01-02] MEDS ORDERED: Azithromycin 500 MG in D5% in Water 250 ML IVPB SCH (17:00)
[2018-01-02] MEDS: Insulin LISPRO 300 UNITS/3 ML VIAL SQ SCH (17:07)
[2018-01-02 21:03] LABS: Adenovirus Not Detected (Not Detect); Bordetella Pertussis Not Detected (Not Detect); Chlamydophila pneumoniae Not Detected (Not Detect); Coronavirus 229E Not Detected (Not Detect); Coronavirus HKU1 Not Detected (Not Detect); Coronavirus NL63 Not Detected (Not Detect); Coronavirus OC43 Not Detected (Not Detect); Human Metapneumovirus Not Detected (Not Detect); Human Rhinovirus/Enterovirus Not Detected (Not Detect); Influenza A Subtype 2009 H1 Not Detected (Not Detect); Influenza A Untypeable Not Detected (Not Detect); Influenza B Not Detected (Not Detect); Mycoplasma pneumoniae Not Detected (Not Detect); Parainfluenza Virus 1 Not Detected (Not Detect); Parainfluenza Virus 2 Not Detected (Not Detect); Parainfluenza Virus 3 Not Detected (Not Detect); Parainfluenza Virus 4 Not Detected (Not Detect); Respiratory Syncytial Virus Not Detected (Not Detect)
[2018-01-03] MEDS: hydrALAZINE 25 MG TABLET PO SCH ×4 (02:19→21:05)
[2018-01-03 04:34] LABS: Basophils # 0.1 K/mcL (0.0-0.2); Basophils % 0.4 %; Eosinophils # 0.3 K/mcL (0.0-0.6); Eosinophils % 2.3 %; Hematocrit 31.4 % (37.5-50.1); Hemoglobin 9.8 g/dL (12.9-16.9); Immature Granulocytes % 0.3 % (0-4); Lymphocytes # 2.1 K/mcL (0.6-4.6); Lymphocytes % 15.1 %; Mean Corpuscular HGB Conc 31.2 g/dL (31.6-35.5); Mean Corpuscular Volume 99.4 fL (83.0-100.0); Mean Platelet Volume 9.4 fL (9.4-12.4); Monocytes # 1.1 K/mcL (0.0-1.3); Monocytes % 8.3 %; Neutrophils # 10.1 K/mcL (1.6-8.9); Platelet Count 183 K/mcL (140-400); Red Blood Count 3.16 M/mcL (4.19-5.50); Red Cell Distribution Width 16.2 % (11.5-14.5); Segmented Neutrophils % 73.6 %
[2018-01-03 04:51] LABS: Calcium 9.4 mg/dL (8.6-10.3); Potassium 4.5 mEq/L (3.5-5.1)
[2018-01-03] MEDS: *HR* Heparin 5,000 UNIT/ML VIAL SQ SCH ×3 (05:09→21:05)
[2018-01-03] MEDS ORDERED: 0.9 % Sodium Chloride 250 ML IVC PRN (06:43)
[2018-01-03] MEDS ORDERED: 0.9 % Sodium Chloride 1,000 ML PRIME SCH (06:45)
[2018-01-03] MEDS: Insulin LISPRO 300 UNITS/3 ML VIAL SQ SCH ×4 (07:54→22:43)
[2018-01-03] MEDS: Renal Vitamin 1 CAP CAPSULE PO SCH (08:11)
[2018-01-03] MEDS ORDERED: Dextrose Gel 15 GM/37.5 ML TUBE PO PRN ×2 (08:51)
[2018-01-03] MEDS ORDERED: *HR* Dextrose 50 % in Water (Syg) 50 ML SYRINGE IVP PRN (08:51)
[2018-01-03] MEDS ORDERED: D5% in Water 1,000 ML IVC PRN (08:51)
[2018-01-03] MEDS ORDERED: Acetaminophen 325 MG TABLET PO PRN (08:52)
[2018-01-03] MEDS ORDERED: traMADol 50 MG TABLET PO PRN (08:52)
[2018-01-03] MEDS ORDERED: Vancomycin 1 EACH in 0.9 % Sodium Chloride 250 ML IVPB SCH (09:00)
[2018-01-03] MEDS ORDERED: Vancomycin 1 EACH in 0.9 % Sodium Chloride 250 ML IVPB PRN (09:45)
--- NOTE | 2018-01-03 09:52 | Spine Progress Note ---
Date of Encounter: 01/03/18 Time of Encounter: 09:47 Subjective Principal diagnosis: Status post laminectomy Interval history: Spasms a 72-year-old gentleman well known to the practice who is status post laminectomy L4-S1 12/28/2017. He has a history of chronic renal failure requiring dialysis. He had and uneventful postoperative course but recently admitted due to elevated white count and low-grade fever. We are asked to see regarding possibility of wound infection and changes on CT of the lumbar spine. On exam he is awake and alert in no acute distress. Afebrile vital signs stable. He has had some low-grade temperatures. Incision is well approximated , clean dry and intact. He is neurovascularly intact with regard to his bilateral lower extremities. CT scan of the lumbar spine dated 01/02/2018 reveals postsurgical changes consistent with laminectomy L4-S1. There are multilevel degenerative changes. There is vacuum phenomena at L2-3, L3-4, and L4-5 consistent with degenerative disc disease and degenerative changes. There is no evidence of discitis, vertebral osteomyelitis, or epidural abscess. Impression: 1) Status post laminectomy Plan: His CT scan is consistent consistent with degenerative changes as well as postsurgical changes. I do not see any clear evidence of an infectious process and favor pulmonary as the likely source at this time. Patient should continue dry sterile dressing changes. Objective Vital signs: Vital Signs Temp Pulse Resp BP Pulse Ox 01/03/18 08:55 115/51 01/03/18 08:40 125/56 01/03/18 08:25 98.9 F 18 124/55 01/03/18 08:17 90 01/03/18 07:04 98.9 F 68 18 120/47 90 01/03/18 05:06 99 F 62 17 114/61 90 01/03/18 01:15 99 F 69 17 149/72 90 01/02/18 21:36 99.3 F 69 17 111/61 93 01/02/18 16:16 98.4 F 64 18 147/68 92 01/02/18 13:16 98.3 F 82 17 150/77 94 Intake and Output 01/02/18 01/03/18 01/03/18 23:59 07:59 15:59 Intake Total 120 / 120 1000 / 1000 1080 / 1080 Output Total 250 / 250 275 / 275 Balance -130 / -130 725 / 725 1080 / 1080 Intake: Oral 120 / 120 1000 / 1000 480 / 480 Intake, Rinseback and Flushes 600 / 600 Output: Urine 250 / 250 275 / 275 Other: Meal Dinner Breakfast Percent of Meal Consumed 0% 100% Weight 102.3 kg Blood Glucose* 104 96 Hemodialysis Net Fluid Removed 229 (mL) Patient Weight 01/03/18 23:59 Weight 102.3 kg - Labs CBC & BMP: 01/03/18 04:13 01/03/18 04:13 Labs: Abnormal lab results WBC 13.7 K/mcL (4.3-11.1) H 01/03/18 04:13 RBC 3.16 M/mcL (4.19-5.50) L 01/03/18 04:13 Hgb 9.8 g/dL (12.9-16.9) L D 01/03/18 04:13 Hct 31.4 % (37.5-50.1) L 01/03/18 04:13 MCHC 31.2 g/dL (31.6-35.5) L 01/03/18 04:13 RDW 16.2 % (11.5-14.5) H 01/03/18 04:13 Neutrophils # 10.1 K/mcL (1.6-8.9) H 01/03/18 04:13 Sodium 133 mEq/L (136-145) L 01/03/18 04:13 Carbon Dioxide 22 mEq/L (23-29) L 01/03/18 04:13 BUN 64 mg/dL (8-23) H 01/03/18 04:13 Creatinine 7.20 mg/dL (0.70-1.30) H 01/03/18 04:13 Est GFR ( Amer) 9 (> 60) L 01/03/18 04:13 Est GFR (Non-Af Amer) 8 (> 60) L 01/03/18 04:13 Glucose 126 mg/dL (70-105) H 01/03/18 04:13 POC Glucose 123 mg/dL (70-99) H 01/02/18 16:16 ALT < 3 Units/L (7-52) L 01/02/18 05:10 Troponin I 0.08 ng/mL (< 0.04) H* 01/02/18 14:53 Serum Total Protein 6.1 g/dL (6.4-8.9) L 01/02/18 05:10 Ur Specific [place] 1.008 (1.010-1.025) L 01/02/18 07:49 Urine Protein >=300 mg/dL (Neg-Trace) H 01/02/18 07:49 Urine Glucose (UA) 100 mg/dL (Normal) H 01/02/18 07:49 Ur Squamous Epith Cells Moderate per lpf (None-Few) H 01/02/18 07:49 Consult Discharge Plan - Plan Referrals: Fern Colon MD [Primary Care Provider] -
--- NOTE | 2018-01-03 10:06 | Nephrology Progress Note ---
Date of Encounter: 01/03/18 Time of Encounter: 10:04 - Assessment and Plan (1) ESRD (end stage renal disease) on dialysis Current Visit: No Status: Acute Current regimen is MWF at [facility]. Last Tx was Wednesday without complication. HD in progress for today. Avoid nephrotoxins and renal dose. Renal diet if able to eat. (2) Hypertension Current Visit: No Status: Chronic Stable, 125/56. Qualifiers: Hypertension type: essential hypertension Qualified Code(s): I10 - Essential (primary) hypertension (3) Anemia due to stage 5 chronic kidney disease Current Visit: No Status: Acute Goal HGB is 10-11. 9.8 today, stable. (4) S/P laminectomy Current Visit: No Status: Acute Per Dr. Carey. Inspected the incision site at bedside, no evidence of infection. (5) Constipation Current Visit: Yes Status: Acute He did have a BM early this am, he denies having much relief from nausea/ abdominal pain. Qualifiers: Constipation type: unspecified constipation type Qualified Code(s): K59.00 - Constipation, unspecified (6) Nausea & vomiting Current Visit: Yes Status: Acute Supportive care. Consider stool softeners scheduled. Qualifiers: Vomiting type: unspecified Vomiting Intractability: unspecified Qualified Code(s): R11.2 - Nausea with vomiting, unspecified Subjective Principal diagnosis: Status post laminectomy Interval history: Pt seen and examined during HD, tolerating well. He does not feel well today. Admits to still feeling nauseated. Did report he had a BM early this am, unable to view in EMR. Denies CP/SOB. Objective - Vital Signs Vital signs: Vital Signs Temp Pulse Resp BP Pulse Ox 01/03/18 09:40 123/58 01/03/18 09:25 118/53 01/03/18 09:10 119/50 01/03/18 08:55 115/51 01/03/18 08:40 125/56 01/03/18 08:25 98.9 F 18 124/55 01/03/18 08:17 90 01/03/18 07:04 98.9 F 68 18 120/47 90 01/03/18 05:06 99 F 62 17 114/61 90 01/03/18 01:15 99 F 69 17 149/72 90 01/02/18 21:36 99.3 F 69 17 111/61 93 01/02/18 16:16 98.4 F 64 18 147/68 92 01/02/18 13:16 98.3 F 82 17 150/77 94 Intake and Output 01/02/18 01/03/18 01/03/18 23:59 07:59 15:59 Intake Total 120 / 120 1000 / 1000 1080 / 1080 Output Total 250 / 250 275 / 275 Balance -130 / -130 725 / 725 1080 / 1080 Intake: Oral 120 / 120 1000 / 1000 480 / 480 Intake, Rinseback and Flushes 600 / 600 Output: Urine 250 / 250 275 / 275 Other: Meal Dinner Breakfast Percent of Meal Consumed 0% 100% Weight 102.3 kg Blood Glucose* 104 96 Hemodialysis Net Fluid Removed 575 (mL) Patient Weight 01/03/18 23:59 Weight 102.3 kg - General Appearance General appearance: Present: well-developed, well-nourished EENT: Present: ATNC, hearing intact, vision intact Neck: Present: supple Respiratory: Present: clear Cardiology: Present: no edema, normal S1, normal S2 Dialysis Vascular Access: Arteriovenous Fistula thrill: Yes bruit: Yes Gastrointestinal: Present: normoactive bowel sounds, no tenderness, no guarding Integumentary: Present: no rash, warm and dry Neurologic: Present: alert and oriented x3 Psychiatric: Present: mood/affect appropriate, cooperative - Lab 01/03/18 04:13 01/03/18 04:13 Most recent lab results Calcium 9.4 mg/dL (8.6-10.3) 01/03/18 04:13 Magnesium 1.8 mg/dL (1.6-2.6) 01/02/18 05:10 Consult Discharge Plan - Plan Referrals: Fern Colon MD [Primary Care Provider] -
[2018-01-03] MEDS: Piperacillin/Tazobactam 3.375 GM in 0.9 % Sodium Chloride Mini Bag 100 ML IVPB SCH ×2 (10:17→17:55)
[2018-01-03 11:24] LABS: Basophils % 0.3 %; Eosinophils # 0.3 K/mcL (0.0-0.6); Eosinophils % 2.3 %; Hematocrit 30.3 % (37.5-50.1); Immature Granulocytes % 0.2 % (0-4); Lymphocytes # 1.3 K/mcL (0.6-4.6); Lymphocytes % 10.5 %; Mean Corpuscular Hemoglobin 32.2 pg (28.0-33.3); Mean Corpuscular Volume 97.4 fL (83.0-100.0); Mean Platelet Volume 8.8 fL (9.4-12.4); Monocytes % 8.3 %; Neutrophils # 9.9 K/mcL (1.6-8.9); Platelet Count 162 K/mcL (140-400); Red Blood Count 3.11 M/mcL (4.19-5.50); Red Cell Distribution Width 15.9 % (11.5-14.5); Segmented Neutrophils % 78.4 %
[2018-01-03] MEDS: Diltiazem CD (24hr) 240 MG CAPSULE PO SCH (13:11)
[2018-01-03] MEDS: Lisinopril 20 MG TABLET PO SCH (13:11)
--- NOTE | 2018-01-03 14:28 | Internal Med Progress Note ---
Hospitalist Progress Note - Encounter Date of Encounter: 01/03/18 Time of Encounter: 11:35 - Subjective Interval History: Patient is feeling better today. No new episodes of fever. Has been receiving IV antibiotics. He was dialyzed this morning. No acute events. - Exam Vitals: Temp Pulse Resp BP Pulse Ox 98.7 F 68 18 155/85 90 01/03/18 12:15 01/03/18 07:04 01/03/18 12:15 01/03/18 12:15 01/03/18 08:17 Exam: General: Patient is alert, no acute distress, oriented x 3 Respiratory: Decreased breath sounds at both bases No wheezing or crackles. Cardiovascular: Regular rate and rhythm. s1 and s2 normal No clicks, rubs, gallops, or murmurs. No pedal edema Abdomen: Abdomen is soft, nontender. Bowel sounds are present Musculoskeletal: Spontaneously moving all extremities. No palpable fluctuance over the recent spine surgical site. Skin: warm, dry, intact. Neuro: Alert oriented x 3 normal cranial nerves, no focal deficits - Assessment and Plan (1) Sepsis Current Visit: Yes Status: Suspected Assessment and Plan: From pneumonia. Continue broad-spectrum antibiotics. Moderate risk for complications. (2) Pneumonia Current Visit: Yes Status: Suspected Assessment and Plan: CT scan of the abdomen and pelvis showed bilateral lower lobe and right middle lobe pneumonia. Continue started on vancomycin and Zosyn. Follow culture results. No new episodes of fever since starting antibiotics. (3) Diabetes mellitus Current Visit: Yes Status: Chronic Assessment and Plan: Well-controlled. Continue current insulin regimen. (4) Hypertension Current Visit: Yes Status: Chronic Assessment and Plan: Continue Cardizem, hydralazine and lisinopril. (5) Nausea and vomiting Current Visit: Yes Status: Resolved Assessment and Plan: Improved. No new episodes. Tolerating diet well. (6) Hypothyroidism Current Visit: Yes Status: Chronic Assessment and Plan: Continue levothyroxine (7) ESRD (end stage renal disease) on dialysis Current Visit: Yes Status: Acute Assessment and Plan: Dialyzed today. Nephrology following. (8) Elevated troponin I level Current Visit: Yes Status: Acute Assessment and Plan: Adynamic. Likely elevated due to underlying ESRD. No chest pain. (9) DVT prophylaxis Current Visit: Yes Status: Acute Assessment and Plan: On subcutaneous heparin - Time Spent with Patient Total time spent is greater than 50% in coordination of care (as documented) at patient's floor/unit and/or counseling patient: Internal Medicine: Result - Labs CBC & Chem 7: 01/03/18 11:09 01/03/18 04:13 Labs: Short CBC 01/03/18 01/03/18 Range/Units 04:13 11:09 WBC 13.7 H 12.6 H (4.3-11.1) K/mcL Hgb 9.8 L D 10.0 L (12.9-16.9) g/dL Hct 31.4 L 30.3 L (37.5-50.1) % Plt Count 183 162 (140-400) K/mcL Neutrophils # 10.1 H 9.9 H (1.6-8.9) K/mcL BMP 01/03/18 04:13 Sodium 133 L Potassium 4.5 Chloride 101 Carbon Dioxide 22 L BUN 64 H Creatinine 7.20 H Glucose 126 H Calcium 9.4 Cardiac Enzymes 01/02/18 Range/Units 14:53 Troponin I 0.08 H* (< 0.04) ng/mL Consult Discharge Plan - Plan Referrals: Fern Colon MD [Primary Care Provider] - (1) Sepsis Qualifiers: Sepsis type: methicillin resistant Staphylococcus aureus Qualified Code(s): A41.02 - Sepsis due to Methicillin resistant Staphylococcus aureus (2) Pneumonia Qualifiers: Pneumonia type: due to methicillin-resistant Staphylococcus aureus (MRSA) Laterality: bilateral Lung location: lower lobe of lung Qualified Code(s): J15.212 - Pneumonia due to Methicillin resistant Staphylococcus aureus (3) Diabetes mellitus Qualifiers: Diabetes mellitus type: type 2 Diabetes mellitus senior living insulin use: without senior living use Diabetes mellitus complication status: with kidney complications Diabetes mellitus complication detail: with microalbuminuria Qualified Code(s): E11.29 - Type 2 diabetes mellitus with other diabetic kidney complication; R80.9 - Proteinuria, unspecified (4) Hypertension Qualifiers: Hypertension type: essential hypertension Qualified Code(s): I10 - Essential (primary) hypertension (5) Nausea and vomiting Qualifiers: Vomiting type: unspecified Vomiting Intractability: unspecified Qualified Code(s): R11.2 - Nausea with vomiting, unspecified (6) Hypothyroidism Qualifiers: Hypothyroidism type: unspecified Qualified Code(s): E03.9 - Hypothyroidism, unspecified
--- NOTE | 2018-01-03 17:26 | Electrocardiograph Report ---
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
[2018-01-04] MEDS ORDERED: Sennosides/Docusate Sodium TABLET PO PRN (04:51)
[2018-01-04 05:04] LABS: Basophils % 0.4 %; Eosinophils # 0.3 K/mcL (0.0-0.6); Eosinophils % 2.9 %; Hematocrit 29.7 % (37.5-50.1); Hemoglobin 9.5 g/dL (12.9-16.9); Immature Granulocytes % 0.3 % (0-4); Lymphocytes # 1.7 K/mcL (0.6-4.6); Lymphocytes % 15.5 %; Mean Corpuscular Hemoglobin 31.3 pg (28.0-33.3); Mean Corpuscular Volume 97.7 fL (83.0-100.0); Mean Platelet Volume 9.5 fL (9.4-12.4); Monocytes # 1.2 K/mcL (0.0-1.3); Monocytes % 10.9 %; Neutrophils # 7.7 K/mcL (1.6-8.9); Platelet Count 175 K/mcL (140-400); Red Blood Count 3.04 M/mcL (4.19-5.50); Red Cell Distribution Width 15.9 % (11.5-14.5)
[2018-01-04 05:22] LABS: Calcium 9.3 mg/dL (8.6-10.3); Potassium 4.1 mEq/L (3.5-5.1)
[2018-01-04] MEDS: *HR* Heparin 5,000 UNIT/ML VIAL SQ SCH ×3 (05:32→21:53)
[2018-01-04] MEDS: Piperacillin/Tazobactam 3.375 GM in 0.9 % Sodium Chloride Mini Bag 100 ML IVPB SCH ×2 (05:33→16:53)
[2018-01-04] MEDS: Insulin LISPRO 300 UNITS/3 ML VIAL SQ SCH ×4 (08:35→21:44)
[2018-01-04] MEDS: hydrALAZINE 25 MG TABLET PO SCH ×3 (08:44→21:53)
[2018-01-04] MEDS: Renal Vitamin 1 CAP CAPSULE PO SCH (08:44)
[2018-01-04] MEDS: Diltiazem CD (24hr) 240 MG CAPSULE PO SCH (08:44)
[2018-01-04] MEDS: Lisinopril 20 MG TABLET PO SCH (08:45)
[2018-01-04] MEDS ORDERED: Azithromycin 500 MG in D5% in Water 250 ML IVPB SCH (09:00)
[2018-01-04] MEDS ORDERED: Vancomycin 500 MG in 0.9 % Sodium Chloride Mini Bag 100 ML IVPB ONE (09:48)
[2018-01-04] MEDS ORDERED: Milk and Molasses Enema 200 ML RC ONE (11:59)
--- NOTE | 2018-01-04 12:33 | Internal Med Progress Note ---
Hospitalist Progress Note - Encounter Date of Encounter: 01/04/18 Time of Encounter: 09:55 - Subjective Interval History: Patient has no new complaints other than constipation for the last 7 days. He did have an episode of fever with temperature 101.5 at 10 PM last night. Denies any chills, shortness of breath, productive cough, chest pain, or nausea/ vomiting. He feels much better than when he first presented. - Exam Vitals: Temp Pulse Resp BP Pulse Ox 99.3 F 64 18 126/67 95 01/04/18 11:52 01/04/18 11:52 01/04/18 11:52 01/04/18 11:52 01/04/18 11:52 Exam: General: Patient is alert, no acute distress, oriented x 3 Respiratory: Decreased breath sounds at both bases, No rhonchi, wheezing, or crackles. Cardiovascular: Regular rate and rhythm. s1 and s2 normal Abdomen: Abdomen is soft, nontender. Mildly distended. Bowel sounds are present Musculoskeletal: Spontaneously moving all extremities. No midline tenderness on the lower spine Skin: warm, dry, intact. Neuro: Alert oriented x 3 normal cranial nerves, no focal deficits - Assessment and Plan (1) Sepsis Current Visit: Yes Status: Suspected Assessment and Plan: Secondary to possible HCAP with recent hospitalization for lumbar surgery Patient is clinically improving with downtrending WBC but had fever last night Blood culture negative so far, Legionella/strep antigen is negative. Influenza negative on IV Vanc/zosyn, will re-add azithromycin for atypical coverage if patient does well, may transition to PO levaquin and d/c home (2) Pneumonia Current Visit: Yes Status: Suspected Assessment and Plan: CT scan of the abdomen and pelvis showed bilateral lower lobe and right middle lobe pneumonia. Management as above (3) Constipation Current Visit: Yes Status: Acute Assessment and Plan: Reports not having any bowel movement for the last 7 days, has been taking miralax at home without releif Will give enema and Dulcolax suppository today (4) Diabetes mellitus Current Visit: Yes Status: Chronic Assessment and Plan: Well-controlled. Continue current insulin regimen. (5) Hypertension Current Visit: Yes Status: Chronic Assessment and Plan: Continue Cardizem, hydralazine and lisinopril. clonidine on hold, to be restarted if BP elevated (6) Hypothyroidism Current Visit: Yes Status: Chronic Assessment and Plan: Continue levothyroxine (7) ESRD (end stage renal disease) on dialysis Current Visit: Yes Status: Acute Assessment and Plan: HD per Nephrology (8) Elevated troponin I level Current Visit: Yes Status: Acute Assessment and Plan: Adynamic. No chest pain. Likely elevated due to underlying ESRD. (9) DVT prophylaxis Current Visit: Yes Status: Acute Assessment and Plan: On subcutaneous heparin - Time Spent with Patient Total time spent is greater than 50% in coordination of care (as documented) at patient's floor/unit and/or counseling patient: Internal Medicine: Result - Labs CBC & Chem 7: 01/04/18 04:17 01/04/18 04:17 Labs: Short CBC 01/04/18 Range/Units 04:17 WBC 11.0 (4.3-11.1) K/mcL Hgb 9.5 L (12.9-16.9) g/dL Hct 29.7 L (37.5-50.1) % Plt Count 175 (140-400) K/mcL Neutrophils # 7.7 (1.6-8.9) K/mcL BMP 01/04/18 04:17 Sodium 137 Potassium 4.1 Chloride 103 Carbon Dioxide 22 L BUN 38 H Creatinine 5.01 H Glucose 105 Calcium 9.3 Consult Discharge Plan - Plan Referrals: Fern Colon MD [Primary Care Provider] - (1) Sepsis Qualifiers: Sepsis type: methicillin resistant Staphylococcus aureus Qualified Code(s): A41.02 - Sepsis due to Methicillin resistant Staphylococcus aureus (2) Pneumonia Qualifiers: Pneumonia type: due to methicillin-resistant Staphylococcus aureus (MRSA) Laterality: bilateral Lung location: lower lobe of lung Qualified Code(s): J15.212 - Pneumonia due to Methicillin resistant Staphylococcus aureus (3) Constipation Qualifiers: Constipation type: unspecified constipation type Qualified Code(s): K59.00 - Constipation, unspecified (4) Diabetes mellitus Qualifiers: Diabetes mellitus type: type 2 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
--- NOTE | 2018-01-04 17:24 | Nephrology Progress Note ---
Date of Encounter: 01/04/18 Time of Encounter: 12:00 - Assessment and Plan (1) Hypertension Current Visit: Yes Status: Chronic Will monitor. Qualifiers: Hypertension type: essential hypertension Qualified Code(s): I10 - Essential (primary) hypertension (2) Anemia due to stage 5 chronic kidney disease Current Visit: No Status: Acute Goal Hgb is 10-11. Will monitor and provide EPO and/or IV iron as needed. (3) ESRD (end stage renal disease) on dialysis Current Visit: Yes Status: Acute Plan for his next HD on wednesday. s/p Hd yesterday Lytes WNL (4) S/P laminectomy Current Visit: No Status: Acute As per Surgery (5) Constipation Current Visit: Yes Status: Acute per primary team Qualifiers: Constipation type: unspecified constipation type Qualified Code(s): K59.00 - Constipation, unspecified (6) Nausea & vomiting Current Visit: Yes Status: Resolved Qualifiers: Vomiting type: unspecified Vomiting Intractability: unspecified Qualified Code(s): R11.2 - Nausea with vomiting, unspecified Subjective Principal diagnosis: Status post laminectomy Interval history: Pt seen and examined with nursing at bedside and as well. No new complaints. Interim noted. s/p HD yesterday Objective - Vital Signs Vital signs: Vital Signs Temp Pulse Resp BP Pulse Ox 01/04/18 16:33 99.9 F H 75 18 146/70 95 01/04/18 11:52 99.3 F 64 18 126/67 95 01/04/18 07:54 99.6 F 75 18 141/69 91 01/04/18 05:25 99.7 F H 70 18 132/59 94 01/04/18 00:15 99.6 F 70 16 121/68 95 01/03/18 22:14 101.5 F H 73 17 140/70 91 01/03/18 21:09 91 Intake and Output 01/04/18 01/04/18 01/04/18 07:59 15:59 23:59 Intake Total 460 / 460 Output Total 450 / 450 225 / 225 Balance -450 / -450 235 / 235 Intake: IV Fluids 100 / 100 Zosyn 3.375 GM In 0.9 % Sodium 100 / 100 Chloride (Mini-Bag +) 100 ML @ 25 mls/hr IVPB Q12HR JONNIE Rx#: [id number] Oral 360 / 360 Output: Urine 450 / 450 225 / 225 Other: Meal Breakfast Percent of Meal Consumed 100% Stool Size Moderate Stool Consistency formed Stool Color Brown Weight 101.9 kg Blood Glucose* 108 125 100 Patient Weight 01/04/18 23:59 Weight 101.9 kg - Lab 01/04/18 04:17 01/04/18 04:17 Most recent lab results Calcium 9.3 mg/dL (8.6-10.3) 01/04/18 04:17 Magnesium 1.8 mg/dL (1.6-2.6) 01/02/18 05:10 Consult Discharge Plan - Plan Referrals: Fern Colon MD [Primary Care Provider] -
[2018-01-04] MEDS: Bisacodyl 10 MG RECTAL SUPPOSITORY RC SCH (21:54)
[2018-01-05 05:01] LABS: Hematocrit 30.7 % (37.5-50.1); Hemoglobin 9.9 g/dL (12.9-16.9); Mean Corpuscular HGB Conc 32.2 g/dL (31.6-35.5); Mean Corpuscular Hemoglobin 31.3 pg (28.0-33.3); Mean Corpuscular Volume 97.2 fL (83.0-100.0); Mean Platelet Volume 9.3 fL (9.4-12.4); Platelet Count 207 K/mcL (140-400); Red Blood Count 3.16 M/mcL (4.19-5.50); Red Cell Distribution Width 15.5 % (11.5-14.5)
[2018-01-05 05:24] LABS: Calcium 9.6 mg/dL (8.6-10.3); Potassium 4.1 mEq/L (3.5-5.1)
[2018-01-05] MEDS: Piperacillin/Tazobactam 3.375 GM in 0.9 % Sodium Chloride Mini Bag 100 ML IVPB SCH (06:02)
[2018-01-05] MEDS: *HR* Heparin 5,000 UNIT/ML VIAL SQ SCH ×2 (06:02→13:37)
[2018-01-05] MEDS: Insulin LISPRO 300 UNITS/3 ML VIAL SQ SCH ×2 (07:53→13:24)
[2018-01-05] MEDS: Renal Vitamin 1 CAP CAPSULE PO SCH (07:56)
[2018-01-05] MEDS: Diltiazem CD (24hr) 240 MG CAPSULE PO SCH ×3 (07:58→13:35)
[2018-01-05] MEDS: Lisinopril 20 MG TABLET PO SCH ×2 (07:59→13:18)
[2018-01-05] MEDS: cloNIDine HCl 0.1 MG TABLET PO SCH ×2 (07:59→13:37)
[2018-01-05] MEDS ORDERED: *HR* Heparin 10,000 UNIT/10 ML VIAL IV PRN (08:30)
[2018-01-05] MEDS ORDERED: 0.9 % Sodium Chloride 250 ML IVC PRN (08:30)
[2018-01-05] MEDS ORDERED: 0.9 % Sodium Chloride 1,000 ML PRIME SCH (08:30)
[2018-01-05] MEDS ORDERED: Azithromycin 250 MG TABLET PO SCH (09:00)
[2018-01-05] MEDS ORDERED: 0.9 % Sodium Chloride 1,000 ML ONE (09:15)
--- NOTE | 2018-01-05 11:07 | Nephrology Progress Note ---
Date of Encounter: 01/05/18 Time of Encounter: 11:05 - Assessment and Plan (1) ESRD (end stage renal disease) on dialysis Current Visit: Yes Status: Acute Hd in progress today. Lytes WNL (2) Hypertension Current Visit: Yes Status: Chronic BP is 166/79, stable. Qualifiers: Hypertension type: essential hypertension Qualified Code(s): I10 - Essential (primary) hypertension (3) Anemia due to stage 5 chronic kidney disease Current Visit: No Status: Acute Goal Hgb is 10-11. Will monitor and provide EPO and/or IV iron as needed. Hgb is 9.9 today, stable. (4) S/P laminectomy Current Visit: No Status: Acute As per Surgery (5) Constipation Current Visit: Yes Status: Acute per primary team Qualifiers: Constipation type: unspecified constipation type Qualified Code(s): K59.00 - Constipation, unspecified (6) Nausea & vomiting Current Visit: Yes Status: Resolved Continue supportive care. Qualifiers: Vomiting type: unspecified Vomiting Intractability: unspecified Qualified Code(s): R11.2 - Nausea with vomiting, unspecified Subjective Principal diagnosis: Status post laminectomy Interval history: Pt seen and examined during HD, tolerating well. He admits he does not feel great today, but maybe a little better. Denies CP/SOB. Objective - Vital Signs Vital signs: Vital Signs Temp Pulse Resp BP Pulse Ox 01/05/18 06:57 99.5 F 80 17 166/79 91 01/05/18 05:04 99.7 F H 77 17 144/67 94 01/04/18 23:55 98.7 F 71 17 157/73 96 01/04/18 22:00 95 01/04/18 20:08 99.8 F H 65 17 161/81 95 01/04/18 16:33 99.9 F H 75 18 146/70 95 01/04/18 11:52 99.3 F 64 18 126/67 95 Intake and Output 01/04/18 01/05/18 01/05/18 23:59 07:59 15:59 Intake Total 700 / 700 360 / 360 Output Total 250 / 250 550 / 550 Balance 450 / 450 -550 / -550 360 / 360 Intake: IV Fluids 100 / 100 Zosyn 3.375 GM In 0.9 % Sodium 100 / 100 Chloride (Mini-Bag +) 100 ML @ 25 mls/hr IVPB Q12HR JONNIE Rx#: [id number] Oral 600 / 600 360 / 360 Output: Urine 250 / 250 550 / 550 Other: Meal Dinner Breakfast Percent of Meal Consumed 100% 25% Stool Size Small Stool Consistency formed Stool Color Brown # Bowel Movements 1 Weight 102 kg Blood Glucose* 127 110 - General Appearance General appearance: Present: well-developed, well-nourished EENT: Present: ATNC, hearing intact, vision intact Neck: Present: supple Respiratory: Present: clear Cardiology: Present: no edema, normal S1, normal S2 Dialysis Vascular Access: Arteriovenous Fistula thrill: Yes bruit: Yes Gastrointestinal: Present: normoactive bowel sounds, no tenderness, no guarding Integumentary: Present: no rash, warm and dry Neurologic: Present: alert and oriented x3 Psychiatric: Present: mood/affect appropriate, cooperative - Lab 01/05/18 04:23 01/05/18 04:23 Most recent lab results Calcium 9.6 mg/dL (8.6-10.3) 01/05/18 04:23 Magnesium 1.8 mg/dL (1.6-2.6) 01/02/18 05:10 Consult Discharge Plan - Plan Referrals: Fern Colon MD [Primary Care Provider] -
[2018-01-05 13:07] VITALS: BP 172/97
--- NOTE | 2018-01-05 13:15 | Discharge Summary ---
- NOTES TO OUTPATIENT PROVIDER Notes to Outpatient Provider: Patient was admitted for sepsis secondary to HCAP. Was treated with IV Vanco/Zosyn/azithromycin with clinical improvement and downtrending white blood cell count. He did have low-grade temperature of 99.8-99.9 but states that his temp has always been like that for the last several months at least and did not want to stay inpatient after 4 days of treatement. He will be discharged on PO levaquin for a total of 7 days and close follow up with PCP. Orders not resulted at time of discharge: Pending orders 01/06/18 04:00 Basic Metabolic Panel AM 0400 CBC no Diff [Complete Blood Count w/o Diff] [HEME] AM 04001/07/18 04:00 Basic Metabolic Panel AM 0400 CBC no Diff [Complete Blood Count w/o Diff] [HEME] AM 04001/08/18 04:00 Basic Metabolic Panel AM 0400 CBC no Diff [Complete Blood Count w/o Diff] [HEME] AM 04001/09/18 04:00 Basic Metabolic Panel AM 0400 CBC no Diff [Complete Blood Count w/o Diff] [HEME] AM 0400 01/10/18 04:00 Basic Metabolic Panel AM 0400 CBC no Diff [Complete Blood Count w/o Diff] [HEME] AM 0400 Date of Encounter: 01/05/18 Time of Encounter: 12:45 - Discharge Diagnosis (1) Sepsis Priority: Primary Status: Suspected Qualifiers: Sepsis type: methicillin resistant Staphylococcus aureus Qualified Code(s) : A41.02 - Sepsis due to Methicillin resistant Staphylococcus aureus (2) Pneumonia Priority: Secondary Status: Suspected Qualifiers: Pneumonia type: due to methicillin-resistant Staphylococcus aureus (MRSA) Laterality: bilateral Lung location: lower lobe of lung Qualified Code(s): J15.212 - Pneumonia due to Methicillin resistant Staphylococcus aureus (3) Constipation Priority: Secondary Status: Acute Qualifiers: Constipation type: unspecified constipation type Qualified Code(s): K59.00 - Constipation, unspecified (4) Diabetes mellitus Priority: Secondary Status: Chronic Qualifiers: Diabetes mellitus type: type 2 Diabetes mellitus retirement insulin use: without terminal makeup operator use Diabetes mellitus complication status: with kidney complications Diabetes mellitus complication detail: with microalbuminuria Qualified Code(s): E11.29 - Type 2 diabetes mellitus with other diabetic kidney complication; R80.9 - Proteinuria, unspecified (5) Hypertension Priority: Secondary Status: Chronic Qualifiers: Hypertension type: essential hypertension Qualified Code(s): I10 - Essential (primary) hypertension (6) Hypothyroidism Priority: Secondary Status: Chronic Qualifiers: Hypothyroidism type: unspecified Qualified Code(s): E03.9 - Hypothyroidism , unspecified (7) ESRD (end stage renal disease) on dialysis Priority: Secondary Status: Acute (8) Elevated troponin I level Priority: Secondary Status: Acute (9) DVT prophylaxis Priority: Secondary Status: Acute Hospital course: Mr. Mckay is a 72 year old male with past medical history of diabetes, ESRD on hemodialysis, hypertension, hypothyroidism, recent laminectomy, was admitted for sepsis secondary to HCAP. Treated with IV Vanc/zosyn/azithromycin for 4 days with clinical improvement and downtrending WBC. On the day of discharge, he was still having temp of 99.8-9 but he stated that his temp has been like that for the last several months if not longer and did not want to stay in the hospital for further IV abx. He will be discharged on PO levaquin for a total of 7 days and close follow up with PCP. He was also educated to return to the ED if he has fever spikes, or develops worsening shortness of breath, productive cough, nausea/vomiting, or weakness. Discharge discussed with: patient, family, nurse - Time Spent with Patient Total time spent providing and/or coordinating discharge services: Greater than 30 minutes - Discharge Medications Prescriptions: levoFLOXacin [Levaquin] 750 mg PO DAILY 7 Days #7 tablet Sennosides/Docusate Sodium [Senna Plus] 2 each PO BID PRN #20 tablet PRN Reason: Constipation Home Medications: Allopurinol [Zyloprim 300 MG] 300 mg PO DAILY 08/31/16 [History] Levothyroxine [Synthroid] 175 mcg PO DAILY 08/31/16 [History] Ramipril [Altace] 10 mg PO BID 08/31/16 [History] Rosuvastatin [Crestor] 40 mg PO HS 08/31/16 [History] Tamsulosin [Flomax] 0.4 mg PO DAILY 08/31/16 [History] Tramadol HCl [Ultram] 100 mg PO BID PRN 08/31/16 [History] Omeprazole [PriLOSEC] 40 mg PO DAILY 10/22/16 [History] Ferrous Sulfate 325 mg PO BID #60 tab 11/11/16 [Rx] predniSONE [PredniSONE] 5 mg PO DAILY 08/10/17 [History] Diltiazem CD (24hr) [Cardizem CD] 240 mg PO DAILY #30 cap.er.24h 08/16/17 [Rx] Hydralazine HCl 50 mg PO Q8H #90 tablet 08/16/17 [Rx] Sevelamer [Renvela] 800 mg PO TIDWM #90 tablet 08/16/17 [Rx] cloNIDine HCl [CloNIDine HCl] 0.1 mg PO BID #60 tablet 08/16/17 [Rx] Psyllium Husk [Fiber] 0.52 gm PO DAILY PRN 12/28/17 [History] Renal Vitamin [Renal Caps Softgel] 1 cap PO DAILY 12/28/17 [History] OxyCODONE Immed Rel [Roxicodone 5 MG] 5 mg PO Q6HR PRN 7 Days #30 tablet [Rx] Sennosides/Docusate Sodium [Senna Plus] 2 each PO BID PRN #20 tablet 01/05/18 [ Rx] levoFLOXacin [Levaquin] 750 mg PO DAILY 7 Days #7 tablet 01/05/18 [Rx] Allergies/Adverse Reactions: 3 Allergy/AdvReac Type Severity Reaction Status Date / Time mycophenolate mofetil AdvReac Nausea Verified 01/05/18 07:13 [From CellCept] Date of admission: 01/02/18 12:16 Primary care physician: Fern Colon MD Consults: 01/03/18 06:45 Consult to Dialysis [CONS] ONCE 01/03/18 08:09 Consult to Orthopedic Surgery [CONS] Routine Consulting Provider: Sánchez Carey Jr Reason for Consult: Recent laminectomy; Sepsis Call Completed: Yes 01/03/18 13:30 Consult to Nephrology [CONS] Routine Consulting Provider: Kidney Keiko/MAYI/RANDAL/REYNA Reason for Consult: HD patient Time Notified: 13:30 Call Completed: Yes 01/04/18 12:35 Consult to Occupational Therapy [CONS] Routine Comment: Evaluate, develop and implement POC Reason for Consult: deconditioning from sepsis Does patient have active BEDREST order?: No Is patient medically & hemodynamically stable?: Yes Consult to Physical Therapy [CONS] Routine Comment: Evaluate, develop and implement POC Reason for Consult: deconditioning from sepsis Does patient have active BEDREST order?: No Is patient medically & hemodynamically stable?: Yes 01/05/18 08:30 Consult to Dialysis [CONS] ONCE - Constitutional Vitals: Temp Pulse Resp BP Pulse Ox 100.0 F H 80 18 172/97 91 01/05/18 13:04 01/05/18 06:57 01/05/18 13:04 01/05/18 13:04 01/05/18 06:57 General appearance: Present: A&O X 3 Exam: General: Patient is alert, no acute distress, oriented x 3 Respiratory: Decreased breath sounds at both bases, No rhonchi, wheezing, or crackles. Cardiovascular: Regular rate and rhythm. s1 and s2 normal Abdomen: Abdomen is soft, nontender. Mildly distended. Bowel sounds are present Musculoskeletal: Spontaneously moving all extremities. No midline tenderness on the lower spine Skin: warm, dry, intact. Neuro: Alert oriented x 3 normal cranial nerves, no focal deficits - Patient Status Disposition: Home, Self-Care Condition: Fair - Discharge Instructions Instructions: Diabetes Mellitus Type 2 in Adults (DC), Chronic Hypertension (DC ) Follow Up With: Fern Colon MD [Primary Care Provider] - - Diet and Activity Activity: resume usual activities as tolerated Diet: diabetic diet
[2018-01-05] MEDS: hydrALAZINE 25 MG TABLET PO SCH ×2 (13:18→13:39)
[2018-01-05] MEDS: Bisacodyl 10 MG RECTAL SUPPOSITORY RC SCH ×2 (13:25→13:34)
[2018-01-05] MEDS ORDERED: Aminoglycoside Consult 1 EACH MC ONE (16:29)
== END 2018-01-05 16:30 | disposition home or self-care (01) | DRG 871 ==
LOC: SUATTDRO → 2ANU 04:56 → EMEROOARM 04:56 → 2ANU 09:02 → SUATTDRO 12:16
PROVIDERS: ADMIT Pediatrics; ATTEND Internal Medicine

== ENCOUNTER 2018-03-22 09:14 | Inpatient (IN) ==
[2018-03-22] MEDS ORDERED: Ondansetron 4 MG/2 ML VIAL IVP ONE ×2 (09:37→13:56)
[2018-03-22] MEDS ORDERED: 0.9 % Sodium Chloride 1,000 ML IVC ONE (09:37)
[2018-03-22] MEDS ORDERED: *HR* HYDROcodone/Acet 5/325 mg TABLET PO ONE (09:37)
--- NOTE | 2018-03-22 10:04 | Emergency Department Note ---
Disposition Clinical Impression: Right leg pain, Inability to ambulate due to hip Disposition: Admitted As Inpatient Condition: Good Referrals: Ismael Griffin MD [Primary Care Provider] - Forms: ED Satisfaction Letter Time of Disposition: 10:11 Extremity Problem HPI - General Chief complaint: ED Extremity Problem,Nontraumatic Stated complaint: Right leg pain(groin) Time Seen by Provider: 03/22/18 09:18 Source: patient Mode of arrival: wheelchair Limitations: no limitations Nursing Notes Reviewed: Yes Vital Signs Reviewed: Yes - History of Present Illness HPI Narrative: Patient has right leg pain. Over the last 3 days she has had persistently worsening pain over the medial aspect of the mid thigh. He denies any falls tra estefany or injury. Denies any other specific medical history that is consistent with this. Patient has not started any new medications or change in any medications. 2 months ago he did have a spine surgery completed and had no issues after that event. He has been ambulating at home without any distress. Currently he is denying chest pain, shortness of breath, nausea, vomiting, diarrhea Pt Subjective Complaint: extremity pain Onset (ago): day(s) Consistency: constant Injury Location: right, lower extremity Pain Scale: 3 Quality: sharp Radiation: proximal Improves with: nothing Worsens with: range of motion, weight bearing, walking, palpation Associated symptoms: Reports: denies other symptoms. Denies: chest pain, shortness of breath, abdominal pain, back pain, bowel/bladder symptoms, fever, myalgias, arthralgias - Related Data Home Medications Medication Instructions Recorded Confirmed Allopurinol [Zyloprim 300 MG] 300 mg PO DAILY 08/31/16 01/02/18 Levothyroxine [Synthroid] 175 mcg PO DAILY 08/31/16 01/02/18 Ramipril [Altace] 10 mg PO BID 08/31/16 01/02/18 Rosuvastatin [Crestor] 40 mg PO HS 08/31/16 01/02/18 Tamsulosin [Flomax] 0.4 mg PO DAILY 08/31/16 01/02/18 Tramadol HCl [Ultram] 100 mg PO BID PRN 08/31/16 01/02/18 Omeprazole [PriLOSEC] 40 mg PO DAILY 10/22/16 01/02/18 Psyllium Husk [Fiber] 0.52 gm PO DAILY PRN 12/28/17 01/02/18 Renal Vitamin [Renal Caps Softgel] 1 cap PO DAILY 12/28/17 01/02/18 Aspirin [Adult Aspirin] 81 mg PO DAILY 03/22/18 03/22/18 Cyanocobalamin (B-12) [Vitamin B12] 1,000 mcg PO DAILY 03/22/18 03/22/18 Sevelamer [Renvela] 800 mg PO TIDWM 03/22/18 03/22/18 Sodium Bicarbonate 650 mg PO BID 03/22/18 03/22/18 dilTIAZem HCl [Diltiazem 24Hr ER] 120 mg PO DAILY 03/22/18 03/22/18 predniSONE [PredniSONE] 4 mg PO DAILY 03/22/18 03/22/18 Previous Rx's Medication Instructions Recorded Ferrous Sulfate 325 mg PO BID #60 tab 11/11/16 Hydralazine HCl 50 mg PO Q8H #90 tablet 08/16/17 Sennosides/Docusate Sodium [Senna 2 each PO BID PRN #20 tablet 01/05/18 Plus] Allergies Allergy/AdvReac Type Severity Reaction Status Date / Time mycophenolate mofetil AdvReac Nausea Verified 01/05/18 07:13 [From CellCept] All systems ED: reviewed and negative except as stated. Review of Systems: As Per HPI Constitutional: Denies: fever, chills, weakness ENT ED: Denies: ear pain, throat pain, epistaxis, congestion Cardiovascular: Denies: chest pain, palpitations, dyspnea on exertion, orthopnea Respiratory: Denies: cough, dyspnea, wheezes Gastrointestinal: Denies: abdominal pain, nausea, vomiting, diarrhea, constipation Genitourinary: Denies: urgency, dysuria, frequency Musculoskeletal: Reports: myalgia. Denies: back pain, neck pain Integumentary: Denies: rash, abrasion Neurological: Denies: headache, weakness Psychiatric: Denies: anxiety, depression, suicidal thoughts, homicidal thoughts Hematological/Lymphatic: Denies: easy bleeding Past Medical History - Past Medical History Attestation: Yes The following information was validated with the patient. Source: patient Medical history: Reports: arthritis, cancer, diabetes, dialysis, GERD, hepatitis, hyperlipidemia, hypertension, kidney stones, thyroid disease Surgical history: Reports: orthopedic, other Psychiatric history: Reports: no psych history - Social History Smoking Status: Never smoker Smokeless Tobacco Status: No Alcohol use: Reports: rarely Drug use: Reports: none Physical Exam - General Limitations: no limitations General appearance: alert, in no apparent distress - Head Head exam: atraumatic, normocephalic, normal inspection - ENT ENT exam: normal exam, normal oropharynx, mucous membranes moist - Neck Neck exam: Present: normal inspection, full ROM, trachea midline. Absent: tenderness, meningismus, lymphadenopathy - Chest Chest inspection: Present: normal inspection, symmetric chest wall rise. Absent: tenderness - Respiratory Respiratory exam: Present: normal lung sounds bilaterally. Absent: respiratory distress, wheezes, accessory muscle use - Cardiovascular Cardiovascular exam: Present: regular rate, normal rhythm, normal heart sounds - Abdominal Exam Abdominal exam: Present: soft, Non-Tender, normal bowel sounds. Absent: tenderness, distention, guarding, rebound, rigidity, trauma, Mcfarlane's sign, R ovsing's sign, tenderness at McBurney's Point - Extremities Exam Extremities exam: Present: normal inspection, full ROM, normal capillary refill. Absent: tenderness - Back Exam Back exam: Present: normal inspection, full ROM, sciatic notch tenderness (R), straight leg raise (R). Absent: tenderness, CVA tenderness (R), CVA tenderness (L), paraspinal tenderness - Neurological Exam Neurological exam: Present: alert, oriented X3, CN II-XII intact, normal gait - Skin Skin exam: Present: warm, dry, intact, normal color Course Course Narrative: Patient seen and examined the time of arrival. See history of present illness. Patient presents to the emergency room with mid thigh pain on the right leg. Is on the medial aspect the leg. He denies any falls trauma or injury. Denies any pain that radiates anywhere else in the leg except to the thigh. He is now having discomfort in his right hip and into his lower abdomen since he has been guarding against this pain for the last 3 days. Denies any history of vascular related issues. Denies any heart attacks. He denies being on any blood thinn ers. He is a dialysis patient. He denies any chest pain, shortness of breath, headache, vision changes. Denies any nausea vomiting or diarrhea. Denies any fevers or chills. He has not traveled outside the country. He has not had any manipulation or procedures completed on his right hip and groin or abdomen. His most recent surgery was 2 months ago he had a spinal laminectomy completed. It was in the lower lumbar spine. I reviewed the area on the posterior aspect of the back there is no signs of redness warmth or tenderness. On physical exam his vital signs are stable. Patient is alert he is oriented. He does appear to be in some significant distress with his hand wrapped around his thigh. His lungs are clear. Heart is regular. Abdomen is soft nontender nondistended with no guarding no rigidity and no peritoneal symptoms at this time. He does not have any pain specifically in his hip or abdomen. No pulsatile masses or lesions noted at this point. Pelvis appears to be stable. He has no pain over the pubic symphysis. He has mild tenderness over the right sciatic notch no gross deformity or injury to the right hip. He does also have a history of rheumatoid arthritis and dose of prednisone daily and a low dose. Patient has multiple etiologies could be contributing to the symptoms here today. His right lower extremity has good palpable PT and DP pulses bilaterally that are symmetric. His foot is warm. He has no tenderness over the deep venous system of the legs at this time. He does have tenderness over the medial aspect of the thigh just medial to the femur. Because of this the patient will have workup completed with CT the abdomen urinalysis CBC chemistry and Doppler study of the right lower extremity at this time. Pain medication fluids will be given. Etiology to the isolated pain in the right medial thigh is undifferentiated this point. We will continue to monitor and treat symptoms until disposition is determined. - Reevaluation(s) Reevaluation #1: Patient has baseline GFR at this time. Creatinine is around normal. Potassium is normal. No acute intervention required. CT imaging of the abdomen is unremarkable for bony abnormality or intra-abdominal related etiology at this time. We will continue monitor his symptoms are controlled and Doppler study is completed Time: 11:23 Reevaluation #2: Patient is still having pain in the leg. His ultrasound evaluation is unremarkable in the CT imaging of his abdomen is negative. After reevaluation of the leg does have tenderness over the medial compartment where the arterial vascular system would be. He does have good pulses at the distal aspect of the foot and his foot is warm but there is still some concern. An independent CT with angiography of the right lower extremity is ordered at this time. Patient does have chronic renal insufficiency secondary to kidney disease. He is c urrently in dialysis. He gets dialyzed tomorrow morning so the concern for nephropathy secondary to the contrast load. Patient is otherwise clinically stable. He is informed of this is comfortable with the projected plan Time: 12:17 Reevaluation #3: Patient is unable to bear weight on the right leg with ambulation. Because of this she will be admitted for continuation of care. No other acute etiology noted this time I would be concerning for vascular or structural abnormality. The hospitalist has been paged for the admission process to be completed. Consult will be placed orthopedics. Hospitalist review the case and had no other recommendations or concerns. Patient will be admitted for symptomatic control orthopedic consult. Time: 15:49 - Consultations Consultation #1: Dr. Sanders reviewed the case. Based on the description and imaging modalities the patient is otherwise stable. Big issue at this time is pain in the medial aspect of the thigh. Patient may require admission secondary to inability to ambulate dependent upon the ambulation test here in the emergency room. Recommendation for outpatient follow-up of physical therapy were given. No other acute issues at this time. Vital Signs Temperature 98.0 F 03/22/18 09:17 Pulse Rate 86 03/22/18 09:17 Respiratory Rate 15 03/22/18 09:17 Blood Pressure 172/86 03/22/18 09:17 O2 Sat by Pulse Oximetry 97 03/22/18 09:17 Temperature 98.0 F 03/22/18 09:43 Pulse Rate 74 03/22/18 13:50 Respiratory Rate 18 03/22/18 13:50 Blood Pressure 139/75 03/22/18 13:50 O2 Sat by Pulse Oximetry 98 03/22/18 13:50 Oxygen Delivery Oxygen Delivery Nasal Cannula Extremity Problem, Nontraumati - MDM Narrative Medical decision making narrative: Right leg pain - Medical Records Medical records reviewed: Yes I reviewed the patient's medical records. - Lab Data Lab results reviewed: Yes I reviewed the patient's lab results. Result diagrams: 03/22/18 09:45 03/22/18 09:45 Lab Results 03/22/18 03/22/18 03/22/18 Range/Units 09:45 09:45 09:45 WBC 10.6 (4.3-11.1) K/mcL RBC 3.36 L (4.19-5.50) M/mcL Hgb 10.5 L (12.9-16.9) g/dL Hct 32.8 L (37.5-50.1) % MCV 97.6 (83.0-100.0) fL MCH 31.3 (28.0-33.3) pg MCHC 32.0 (31.6-35.5) g/dL RDW 14.6 H (11.5-14.5) % Plt Count 265 (140-400) K/mcL MPV 8.6 L (9.4-12.4) fL Immature Gran % 0.3 (0-4) % Seg Neutrophils % 68.1 % Lymphocytes % 15.8 % Monocytes % 12.2 % Eosinophils % 2.8 % Basophils % 0.8 % Neutrophils # 7.2 (1.6-8.9) K/mcL Lymphocytes # 1.7 (0.6-4.6) K/mcL Monocytes # 1.3 (0.0-1.3) K/mcL Eosinophils # 0.3 (0.0-0.6) K/mcL Basophils # 0.1 (0.0-0.2) K/mcL PT 11.5 (9.4-12.1) Seconds INR 1.0 APTT 29.0 (26.0-36.0) Seconds Sodium 136 (136-145) mEq/L Potassium 4.2 (3.5-5.1) mEq/L Chloride 98 (98-107) mEq/L Carbon Dioxide 28 (23-29) mEq/L BUN 41 H (8-23) mg/dL Creatinine 5.76 H (0.70-1.30) mg/dL Est GFR ( Amer) 12 L (> 60) Est GFR (Non-Af Amer) 10 L (> 60) BUN/Creatinine Ratio 7 (6-26) Glucose 134 H (70-105) mg/dL Calculated Osmolality 294 (280-300) Calcium 9.8 (8.6-10.3) mg/dL Urine Color (Yellow) Urine Clarity (Clear) Urine pH (5.0-8.0) pH Units Ur Specific [place] (1.010-1.025) Urine Protein (Neg-Trace) mg/dL Urine Glucose (UA) (Normal) mg/dL Urine Ketones (Negative) mg/dL Urine Blood (Negative) Urine Nitrite (Negative) Urine Bilirubin (Negative) Urine Urobilinogen (Normal) mg/dL Ur Leukocyte Esterase (Negative) Urine Microscopic RBC (0-3) per hpf Urine Microscopic WBC (0-3) per hpf Ur Squamous Epith Cells (None-Few) per lpf Urine Bacteria (None-Few) per hpf Hyaline Casts (None-Few) per lpf Ur Culture Indicated? (NO) 03/22/18 Range/Units 11:04 WBC (4.3-11.1) K/mcL RBC (4.19-5.50) M/mcL Hgb (12.9-16.9) g/dL Hct (37.5-50.1) % MCV (83.0-100.0) fL MCH (28.0-33.3) pg MCHC (31.6-35.5) g/dL RDW (11.5-14.5) % Plt Count (140-400) K/mcL MPV (9.4-12.4) fL Immature Gran % (0-4) % Seg Neutrophils % % Lymphocytes % % Monocytes % % Eosinophils % % Basophils % % Neutrophils # (1.6-8.9) K/mcL Lymphocytes # (0.6-4.6) K/mcL Monocytes # (0.0-1.3) K/mcL Eosinophils # (0.0-0.6) K/mcL Basophils # (0.0-0.2) K/mcL PT (9.4-12.1) Seconds INR APTT (26.0-36.0) Seconds Sodium (136-145) mEq/L Potassium (3.5-5.1) mEq/L Chloride (98-107) mEq/L Carbon Dioxide (23-29) mEq/L BUN (8-23) mg/dL Creatinine (0.70-1.30) mg/dL Est GFR ( Amer) (> 60) Est GFR (Non-Af Amer) (> 60) BUN/Creatinine Ratio (6-26) Glucose (70-105) mg/dL Calculated Osmolality (280-300) Calcium (8.6-10.3) mg/dL Urine Color Yellow (Yellow) Urine Clarity Clear (Clear) Urine pH 8.0 (5.0-8.0) pH Units Ur Specific [place] 1.025 (1.010-1.025) Urine Protein >=300 H (Neg-Trace) mg/dL Urine Glucose (UA) 100 H (Normal) mg/dL Urine Ketones Negative (Negative) mg/dL Urine Blood Negative (Negative) Urine Nitrite Negative (Negative) Urine Bilirubin Negative (Negative) Urine Urobilinogen Normal (Normal) mg/dL Ur Leukocyte Esterase Negative (Negative) Urine Microscopic RBC 0-3 (0-3) per hpf Urine Microscopic WBC 0-3 (0-3) per hpf Ur Squamous Epith Cells Few (None-Few) per lpf Urine Bacteria None Seen (None-Few) per hpf Hyaline Casts None Seen (None-Few) per lpf Ur Culture Indicated? NO (NO) - Radiology Data Radiology results reviewed: Yes I reviewed the patient's radiology results. CT imaging of the abdomen along with CT imaging of the right lower extremity are unremarkable for acute bony abnormality or vascularly significant lesion. - EKG Data EKG attestation: Yes I reviewed and interpreted this EKG. EKG results narrative: EKG shows sinus rhythm. Heart rate of 81. DC interval 154. QRS duration of 137. QTC of 504. [place] appears to be stable. Left bundle-branch is chronic on presentation here today with similar J-point elevation. No acute signs of ST segment elevation or abnormality at this point. No acute signs of WPW or Brugada syndrome. EKG is similar in comparison to EKG on 01/02/18.
[2018-03-22 10:24] LABS: Basophils # 0.1 K/mcL (0.0-0.2); Basophils % 0.8 %; Eosinophils # 0.3 K/mcL (0.0-0.6); Eosinophils % 2.8 %; Hematocrit 32.8 % (37.5-50.1); Hemoglobin 10.5 g/dL (12.9-16.9); Immature Granulocytes % 0.3 % (0-4); Lymphocytes # 1.7 K/mcL (0.6-4.6); Lymphocytes % 15.8 %; Mean Corpuscular Hemoglobin 31.3 pg (28.0-33.3); Mean Corpuscular Volume 97.6 fL (83.0-100.0); Mean Platelet Volume 8.6 fL (9.4-12.4); Monocytes # 1.3 K/mcL (0.0-1.3); Monocytes % 12.2 %; Neutrophils # 7.2 K/mcL (1.6-8.9); Platelet Count 265 K/mcL (140-400); Red Blood Count 3.36 M/mcL (4.19-5.50); Red Cell Distribution Width 14.6 % (11.5-14.5); Segmented Neutrophils % 68.1 %
[2018-03-22 10:32] LABS: Calcium 9.8 mg/dL (8.6-10.3); Potassium 4.2 mEq/L (3.5-5.1)
[2018-03-22 10:33] LABS: Prothrombin Time 11.5 Seconds (9.4-12.1)
[2018-03-22 11:21] LABS: Bilirubin,Urine Negative (Negative); Blood,Urine Negative (Negative); Clarity,Urine Clear (Clear); Color,Urine Yellow (Yellow); Glucose,Urine (UA) 100 mg/dL (Normal); Ketones,Urine Negative (Negative); Leukocyte Esterase,Urine Negative (Negative); Nitrite,Urine Negative (Negative); Protein,Urine >=300 mg/dL (Neg-Trace); Specific Gravity,Urine 1.025 (1.010-1.025); Urobilinogen,Urine Normal (Normal)
[2018-03-22 11:25] LABS: Bacteria,Urine None Seen per hpf (None-Few); Hyaline Casts,Urine None Seen per lpf (None-Few); RBC,Urine 0-3 per hpf (0-3); Squamous Epithelial Cell,Urine Few per lpf (None-Few); WBC,Urine 0-3 per hpf (0-3)
[2018-03-22] MEDS: Isovue-370 500 ML INFUS..BTL IV ONE ×2 (12:50→12:51)
[2018-03-22] MEDS ORDERED: *HR* Morphine 2 MG/ML SYRINGE IVP ONE (13:56)
[2018-03-22] MEDS ORDERED: Sennosides/Docusate Sodium TABLET PO PRN (16:25)
--- NOTE | 2018-03-22 17:09 | Internal Med History&Physical ---
<Ismael Ruiz - Last Filed: 03/22/18 17:01> Date of Encounter: 03/22/18 Time of Encounter: 15:00 Internal Medicine - H&P: HPI Chief complaint: Right thigh pain Admitted From: Home Plans for Post Hospital Care: Home History of present illness: Mr. Mckay is a 72 year old male with no medical history of end-stage renal disease dialysis Wednesday, atrial fibrillation rate controlled, gout, peripheral vascular disease, BPH presented to the emergency department with right medial thigh pain. Mr. Mckay developed right medial thigh pain starting 4 days ago that hurts mostly when he flexes his hip, abducts the hip or tries to walk. He finds relief by lying on his right side with his leg externally rotated against the bed. Any other movements at the hip joint hurt. He denies any pain in his lumbar or sacrum, denies any pain with knee flexion or extension. He denies any concerning symptoms of numbness, loss of bowel or bladder function. Denies any recent trauma, falls or injuries. He does mention he had a laminectomy 2 months ago due to spinal stenosis causing weakness in his right lower extremity. Roughly one week ago he had an upper respiratory infection and was treated with a Z-Claudio in the outpatient setting. Denies any current fevers, chills, diaphoresis, blurry vision, chest pain, palpitations or chest pressure, denies any shortness of breath, abdominal pains nausea vomiting diarrhea constipation, weakness numbness in any of his extremities loss of sensation or muscle strength. Of note he does mention that he was recently on a prednisone taper with his upper respiratory infection. Past Med Surg Social Fam HX - Past Medical History Medical history: arthritis, cancer, diabetes, dialysis, GERD, hepatitis, hyperlipidemia, hypertension, kidney stones, thyroid disease Additional medical history: aspergillus, skin cancer, diagnosed with hepatitis C through [facility] but states that pcp did a redraw and he was negative. Stage V Renal Disease. Hypothyoidism. Type II Diabetic. Skin cancer Psychiatric history: no psych history - Past Surgical History Surgical History: orthopedic, other Additional surgical history: Vasectomy, Left arm shunt, right chest permacath, left total knee, 4 skin cancer removals, laminectomy - Social History Smoking Status: Never smoker Smokeless Tobacco Status: No Alcohol use: rarely Drug use: none - Family History Mother Living Status: Hx Family Cardiac Disorders: Yes Hx Family Cancer: Yes Internal Medicine - H&P: Meds RX: Allopurinol [Zyloprim 300 MG] 300 mg PO DAILY 08/31/16 [History] RX: Levothyroxine [Synthroid] 175 mcg PO DAILY 08/31/16 [History] RX: Ramipril [Altace] 10 mg PO BID 08/31/16 [History] RX: Rosuvastatin [Crestor] 40 mg PO HS 08/31/16 [History] RX: Tamsulosin [Flomax] 0.4 mg PO DAILY 08/31/16 [History] RX: Tramadol HCl [Ultram] 100 mg PO BID 08/31/16 [History] RX: Omeprazole [PriLOSEC] 40 mg PO DAILY 10/22/16 [History] RX: Ferrous Sulfate 325 mg PO BID #60 tab 11/11/16 [Rx] RX: Hydralazine HCl 50 mg PO Q8H #90 tablet 08/16/17 [Rx] RX: Psyllium Husk [Fiber] 0.52 gm PO DAILY PRN 12/28/17 [History] RX: Renal Vitamin [Renal Caps Softgel] 1 cap PO DAILY 12/28/17 [History] RX: Sennosides/Docusate Sodium [Senna Plus] 2 each PO BID PRN #20 tablet 01/05/18 [Rx] Aspirin [Adult Aspirin] 81 mg PO DAILY 03/22/18 [History] Cyanocobalamin (B-12) [Vitamin B12] 1,000 mcg PO DAILY 03/22/18 [History] RX: Sevelamer [Renvela] 800 mg PO TIDWM 03/22/18 [History] RX: Sodium Bicarbonate 650 mg PO BID 03/22/18 [History] dilTIAZem HCl [Diltiazem 24Hr ER] 120 mg PO DAILY 03/22/18 [History] predniSONE [PredniSONE] 4 mg PO DAILY 03/22/18 [History] Allergy/AdvReac Type Severity Reaction Status Date / Time mycophenolate mofetil AdvReac Nausea Verified 01/05/18 07:13 [From CellCept] All Systems PM: A 10-system review of systems was performed and is negative for pertinent findings except as documented above in the HPI. Review of systems: Denies any current fevers, chills, diaphoresis, blurry vision, chest pain, palpitations or chest pressure, denies any shortness of breath, abdominal pains nausea vomiting diarrhea constipation, weakness numbness in any of his extremities loss of sensation or muscle strength. + for muscle pain in medial right thigh - Constitutional Vitals: Temp Pulse Resp BP Pulse Ox 98.0 F 74 16 159/91 98 03/22/18 09:43 03/22/18 13:50 03/22/18 16:53 03/22/18 16:53 03/22/18 13:50 Exam: Gen. alert awake oriented interactive in no acute distress HEENT normocephalic, atraumatic, pupils equal reactive, nasal cavity patent open oral mucosa moist, neck supple trachea midline no palpable lymphadenopathy Cardiac regular rate and rhythm, grade 3/6 systolic ejection murmur, radial pulses 2+ with less than 2 second capillary refill. Posterior tibial pulses 2+ bilateral no signs of poor perfusion. Respiratory clear to auscultation bilaterally Abdomen soft nontender palpation positive bowel sounds Extremities: Symmetric bilateral muscle strength in upper and lower eczematous is 5 out of 5, sensation intact in upper and lower extremities and peritoneal region. Patient does demonstrate pain with muscle spasm with adduction of the right hip and flexion of the right hip with tenderness to palpation around the pubic ramus and symphysis at muscle insertion points. Sensation is intact. Neurovascularly intact. No findings of erythema or edema. Patient does have a dialysis fistula in the left anterior forearm without any signs of erythema or edema. Positive thrill noted at the fistula. Internal Med - H&P Results - Labs CBC & Chem 7: 03/22/18 09:45 03/22/18 09:45 Labs: Short CBC 03/22/18 Range/Units 09:45 WBC 10.6 (4.3-11.1) K/mcL Hgb 10.5 L (12.9-16.9) g/dL Hct 32.8 L (37.5-50.1) % Plt Count 265 (140-400) K/mcL Neutrophils # 7.2 (1.6-8.9) K/mcL BMP 03/22/18 09:45 Sodium 136 Potassium 4.2 Chloride 98 Carbon Dioxide 28 BUN 41 H Creatinine 5.76 H Glucose 134 H Calcium 9.8 Urine 03/22/18 Range/Units 11:04 Urine Color Yellow (Yellow) Urine Clarity Clear (Clear) Urine pH 8.0 (5.0-8.0) pH Units Ur Specific [place] 1.025 (1.010-1.025) Urine Protein >=300 H (Neg-Trace) mg/dL Urine Glucose (UA) 100 H (Normal) mg/dL - Impressions ITS Impressions Abdomen/Pelvis CT 03/22/18 09:36 IMPRESSION: 1. No acute process in the abdomen or pelvis. The appendix is within normal limits. 2. Small fat containing bilateral inguinal hernias. 3. Mild diverticulosis. 4. Cholelithiasis without evidence of cholecystitis. D/ /22/2018 11:19:54 Steven Grant MD / isaura Interpreting Provider: Steven Grant MD Aorta w/Runoff CTA 03/22/18 12:15 IMPRESSION: 1. Mild calcified atherosclerotic plaque in the aortoiliac circulation. No significant inflow disease. 2. Eccentric calcified atherosclerotic plaque at the level of the right common femoral bifurcation, approaching 50% in degree of narrowing. Consider correlation with duplex for more precise evaluation. 3. Otherwise intact bilateral lower extremity runoff. Three-vessel runoff bilaterally. Evaluation is partially limited by extensive vascular calcification. 4. No acute findings within the abdomen or pelvis. Redemonstration of cholelithiasis, and scattered colonic diverticulosis with no acute features. 5. There is suggestion of a small pericardial effusion. Atherosclerotic calcification in the coronary circulation. D/ / 03/22/2018 13:43:51 Christopher Fong MD / omero Interpreting Provider: Christopher Fong MD - Assessment and plan (1) Acute pain of right thigh Current Visit: Yes Status: Acute Assessment and plan: Patient complains of pain and tenderness in the proximal right medial thigh worsened with abduction, flexion at the right hip joint. Appears to be along the obturator nerve distribution of the abductor muscles. No findings of neurovascularly compromised. - Patient denies trauma or injury - Known recent laminectomy secondary to spinal stenosis and treatment of symptomology including right lower extremity weakness and numbness which was relieved postprocedure. Imaging studies performed: 1. CT abdomen and pelvis without contrast demonstrated no acute process in the abdomen or pelvis, small fat-containing bilateral inguinal hernias, mild diverticulosis, cholelithiasis without evidence of cholecystitis. No acute osseous abnormality seen on CT. 2. CTA of aorta with runoff: Demonstrated eccentric calcification atherosclerotic plaque at the level of right common femoral bifurcation approximately 50% degree narrowing. Otherwise intact bilateral lower extremity runoff. 3 vessel runoff bilaterally. No acute findings within abdomen or pelvis. On clinical exam it appears to be possible muscle strain versus muscle or tendon tear of the abductor muscles. Given his recent laminectomy there is a possibility that there may be nerve involvements but appears to be muscle skeletal in nature at this time. - Orthopedic surgery was contacted by the emergency department, recommended MRI. Plan: - MRI of the lumbar spine and pelvis, no contrast of patient's renal function - Muscle relaxers - We will provide pain control (2) ESRD (end stage renal disease) on dialysis Current Visit: No Status: Acute Assessment and plan: Patient is seen by [facility]. - Dialysis Wednesday Made dialysis yesterday - Patient received contrast during evaluation in the emergency department. - Consult to nephrology for dialysis and patient (3) S/P laminectomy Current Visit: No Status: Acute Assessment and plan: Laminectomy 2 months ago to relieve spinal stenosis causing right lower extremity numbness and weakness. (4) DVT prophylaxis Current Visit: Yes Status: Acute Assessment and plan: Subcutaneous heparin 5000 units every 8 hours - Time Spent With Patient Total time spent is greater than 50% in coordination of care (as documented) at patient's floor/unit and/or counseling patient: <Arlette Goddard - Last Filed: 03/22/18 17:35> Date of Encounter: 03/22/18 Time of Encounter: 17:00 Internal Medicine - H&P: HPI History of present illness: Mr. Mckay is a 72 year old male All Systems PM: A 10-system review of systems was performed and is negative for pertinent findings except as documented above in the HPI. - Constitutional Vitals: Temp Pulse Resp BP Pulse Ox 98.0 F 74 16 159/91 98 03/22/18 09:43 03/22/18 13:50 03/22/18 16:53 03/22/18 16:53 03/22/18 13:50 General appearance: Present: mild distress, A&O X 3, pleasant, answers questions appropriately - Eye Eye exam: Present: EOMI, conjuntiva pink, sclera anicteric - Neck Neck exam general surgery: Present: supple, trachea midline. Absent: lymphadenopathy - Respiratory Respiratory exam: Present: CTAB. Absent: accessory muscle use, rales, rhonchi, wheezes - Cardiovascular Cardiovascular exam: Present: RRR, +S1, +S2. Absent: diastolic murmur, gallop, rubs, systolic murmur - GI/Abdominal GI/Abdominal exam: Present: normal bowel sounds, soft, no peritoneal signs. Absent: distended, tenderness - Extremities Exam Extremities exam: Present: tenderness (in the right inguinal/ medial upper thigh region), warm, radial pulses palpable and symmetrical. Absent: calf tenderness, cyanotic, pedal edema - Neurological Exam Neurological exam: Present: CN II-XII intact, oriented X3, no focal deficits, strengths equal and symetr throughout. Absent: facial droop, speech deficit - Psychiatric Psychiatric exam: Present: normal affect, normal mood - Skin Skin exam: Present: dry, intact Internal Med - H&P Results - Labs CBC & Chem 7: 03/22/18 09:45 03/22/18 09:45 Labs: Short CBC 03/22/18 Range/Units 09:45 WBC 10.6 (4.3-11.1) K/mcL Hgb 10.5 L (12.9-16.9) g/dL Hct 32.8 L (37.5-50.1) % Plt Count 265 (140-400) K/mcL Neutrophils # 7.2 (1.6-8.9) K/mcL BMP 03/22/18 09:45 Sodium 136 Potassium 4.2 Chloride 98 Carbon Dioxide 28 BUN 41 H Creatinine 5.76 H Glucose 134 H Calcium 9.8 Urine 03/22/18 Range/Units 11:04 Urine Color Yellow (Yellow) Urine Clarity Clear (Clear) Urine pH 8.0 (5.0-8.0) pH Units Ur Specific Balm 1.025 (1.010-1.025) Urine Protein >=300 H (Neg-Trace) mg/dL Urine Glucose (UA) 100 H (Normal) mg/dL - Impressions ITS Impressions Abdomen/Pelvis CT 03/22/18 09:36 IMPRESSION: 1. No acute process in the abdomen or pelvis. The appendix is within normal limits. 2. Small fat containing bilateral inguinal hernias. 3. Mild diverticulosis. 4. Cholelithiasis without evidence of cholecystitis. D/ /22/2018 11:19:54 Steven Grant MD / isaura Interpreting Provider: Steven Grant MD Aorta w/Runoff CTA 03/22/18 12:15 IMPRESSION: 1. Mild calcified atherosclerotic plaque in the aortoiliac circulation. No significant inflow disease. 2. Eccentric calcified atherosclerotic plaque at the level of the right common femoral bifurcation, approaching 50% in degree of narrowing. Consider correlation with duplex for more precise evaluation. 3. Otherwise intact bilateral lower extremity runoff. Three-vessel runoff bilaterally. Evaluation is partially limited by extensive vascular calcification. 4. No acute findings within the abdomen or pelvis. Redemonstration of cholelithiasis, and scattered colonic diverticulosis with no acute features. 5. There is suggestion of a small pericardial effusion. Atherosclerotic calcification in the coronary circulation. D/ / 03/22/2018 13:43:51 Christopher Fong MD / omero Interpreting Provider: Christopher Fong MD - Assessment and plan (1) Acute pain of right thigh Current Visit: Yes Status: Acute (2) ESRD (end stage renal disease) on dialysis Current Visit: No Status: Acute (3) S/P laminectomy Current Visit: No Status: Acute (4) DVT prophylaxis Current Visit: Yes Status: Acute - Time Spent With Patient Total time spent is greater than 50% in coordination of care (as documented) at patient's floor/unit and/or counseling patient: - Attending Attestation I saw evaluated and examined this patient and my medical decision-making was reviewed with the Resident Physician, Ismael Ruiz. I agree with the documented findings, disposition and treatment plan as described except to any changes set forth below. We independently had [id number] contact with the patient. 72-year-old male patient with history of hypertension, end-stage renal disease on hemodialysis who was presented to the ER with complaints of acute onset right medial thigh pain. Pain started suddenly about 4 days ago and has continued to worsen to the point where she is unable to ambulate and the result of his pain. Pain is worse when he flexes or abducts his hip. Pain is located close to the inguinal region. It is nonradiating. No associated weakness or numbness in his lower extremities. Patient does have underlying peripheral neuropathy due to diabetes which has not worsened. He reports he had an episode of upper respiratory illness for which she took azithromycin. He denies any recent falls. Patient did undergo laminectomy for lumbar spinal stenosis and radiculopathy in December. He had recovered well from the surgery. He denies any recent fevers. No chills. CT angiogram of the aorta with runoff shows calcified plaque approaching 50% degree narrowing at the level of the right common femoral bifurcation. Otherwise negative. Acute right thigh/inguinal region pain: Etiology uncertain. CT of the abdomen and pelvis does show bilateral inguinal hernia. However patient does not have any signs of incarcerated hernia or abdominal pain. Will treat patient symptomatically for now. Orthopedics has been consulted for further evaluation. They did recommend MRI. We will obtain a MRI of the lumbar spine and pelvis. Diabetes mellitus type 2: Monitor blood sugars. Sliding scale insulin. Diabetic diet. Essential hypertension: Blood pressure is elevated. We will resume home medications. Continue to monitor blood pressure closely. End-stage renal disease on hemodialysis: We will consult nephrology for dialysis needs. Patient gets dialyzed on a Wednesday schedule. DVT prophylaxis with subcutaneous heparin
[2018-03-22] MEDS ORDERED: Naloxone 0.4 MG/ML INJ IVP PRN (17:20)
[2018-03-22] MEDS: hydrALAZINE 25 MG TABLET PO SCH (19:08)
[2018-03-22] MEDS: *HR* Heparin 5,000 UNIT/ML VIAL SQ SCH (22:25)
[2018-03-22] MEDS: *HR* OxyCODONE Immed Rel 5 MG TABLET PO PRN (22:25)
[2018-03-23] MEDS: hydrALAZINE 25 MG TABLET PO SCH ×4 (00:34→21:30)
[2018-03-23] MEDS: *HR* HYDROcodone/Acet 5/325 mg TABLET PO PRN (03:49)
[2018-03-23 05:07] LABS: Calcium 9.6 mg/dL (8.6-10.3); Potassium 4.9 mEq/L (3.5-5.1)
--- NOTE | 2018-03-23 06:20 | Electrocardiograph Report ---
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
[2018-03-23] MEDS: *HR* Heparin 5,000 UNIT/ML VIAL SQ SCH ×3 (06:32→21:30)
[2018-03-23] MEDS: Aspirin Enteric Coated 81 MG Tablet PO SCH (08:02)
[2018-03-23] MEDS: *HR* OxyCODONE Immed Rel 5 MG TABLET PO PRN ×2 (08:19→14:53)
[2018-03-23] MEDS ORDERED: 0.9 % Sodium Chloride 250 ML IVC PRN (08:23)
[2018-03-23] MEDS ORDERED: 0.9 % Sodium Chloride 1,000 ML PRIME SCH (08:30)
--- NOTE | 2018-03-23 08:38 | Internal Med Progress Note ---
Hospitalist Progress Note - Encounter Date of Encounter: 03/23/18 Time of Encounter: 08:34 - Subjective Interval History: Patient seen and examined this morning at bedside. No acute overnight events. Is lying in bed comfortably however complaints of severe pain with any attempts to lift his right leg. Pain localized in the medial aspect of the thigh and occasionally radiating to the lateral aspect of his thigh anteriorly. Denies any nausea or vomiting. Denies any tingling numbness in the leg besides his usual tingling in his feet. Did mention he had undescribable lower back discomfort yesterday. Denies any bowel or urinary complaints. Denies any chest pain or shortness of breath. - Exam Vitals: Temp Pulse Resp BP Pulse Ox 99.0 F 70 16 149/76 92 03/23/18 06:39 03/23/18 06:39 03/23/18 06:39 03/23/18 06:39 03/23/18 06:39 Exam: General: In no acute distress. Conversant. Respiratory exam: CTAB. no accessory muscle use, rales, rhonchi, wheezes Cardiovascular exam: RRR, +S1, +S2. sytolic murmur present, gallop, rubs. GI/Abdominal exam: Non-tender, Non-distended, normal bowel sounds, soft, no peritoneal signs. Extremities exam: Decreased range of movement on Rt leg due to pain. Full ROM on Lt. Sensation and pulse intact bilaterally. No pedal edema. No deformity noticed. dialysis fistula in the left anterior forearm Neurological exam: CN II-XII intact, AO X3, no focal deficits. no pronater drift, facial droop, speech deficit Skin exam: No skin rash, ulcer, purpura or ecchymosis. - Assessment and Plan (1) ESRD (end stage renal disease) on dialysis Current Visit: No Status: Acute (2) S/P laminectomy Current Visit: No Status: Acute (3) Acute pain of right thigh Current Visit: Yes Status: Acute (4) DVT prophylaxis Current Visit: Yes Status: Acute - Summary of Assessment and Plan Summary of Assessment and Plan: Acute pain of right thigh - Gradual in onset. No h/o trauma. Recent laminectomy about [address] mcnally for spinal stenosis. No surgical complication. - CT angiogram of the aorta with runoff shows calcified plaque approaching 50% degree narrowing at the level of the right common femoral bifurcation. - CT of the abdomen and pelvis does show small fat containing bilateral inguinal hernia. Cholelithiasis without evidence of cholecystitis. No acute abdomen fi ndings. - c/w current pain regimen. - Orthopedics consulted for further evaluation. f/u MRI of the lumbar spine and pelvis. ESRD (end stage renal disease) on dialysis - Nephrology consulted for dialysis needs. Gets dialysis on MWF. DVT prophylaxis - SQ heparin Diabetes mellitus type 2 - Accuchecks and Sliding scale insulin. - Diabetic diet. Essential hypertension - currently stable - c/w home medications. - Time Spent with Patient Total time spent is greater than 50% in coordination of care (as documented) at patient's floor/unit and/or counseling patient: Internal Medicine: Result - Labs CBC & Chem 7: 03/22/18 09:45 03/23/18 04:01 Labs: Short CBC 03/22/18 Range/Units 09:45 WBC 10.6 (4.3-11.1) K/mcL Hgb 10.5 L (12.9-16.9) g/dL Hct 32.8 L (37.5-50.1) % Plt Count 265 (140-400) K/mcL Neutrophils # 7.2 (1.6-8.9) K/mcL BMP 03/22/18 03/23/18 09:45 04:01 Sodium 136 133 L Potassium 4.2 4.9 Chloride 98 99 Carbon Dioxide 28 25 BUN 41 H 46 H Creatinine 5.76 H 6.56 H Glucose 134 H 87 Calcium 9.8 9.6 Urine 03/22/18 Range/Units 11:04 Urine Color Yellow (Yellow) Urine Clarity Clear (Clear) Urine pH 8.0 (5.0-8.0) pH Units Ur Specific [place] 1.025 (1.010-1.025) Urine Protein >=300 H (Neg-Trace) mg/dL Urine Glucose (UA) 100 H (Normal) mg/dL - ABG Interpretation ABG results: PT/INR, D-dimer PT 11.5 Seconds (9.4-12.1) 03/22/18 09:45 - Impressions Impressions Abdomen/Pelvis CT 03/22/18 09:36 IMPRESSION: 1. No acute process in the abdomen or pelvis. The appendix is within normal limits. 2. Small fat containing bilateral inguinal hernias. 3. Mild diverticulosis. 4. Cholelithiasis without evidence of cholecystitis. D/ /22/2018 11:19:54 Steven Grant MD / isaura Interpreting Provider: Steven Grant MD Aorta w/Runoff CTA 03/22/18 12:15 IMPRESSION: 1. Mild calcified atherosclerotic plaque in the aortoiliac circulation. No significant inflow disease. 2. Eccentric calcified atherosclerotic plaque at the level of the right common femoral bifurcation, approaching 50% in degree of narrowing. Consider correlation with duplex for more precise evaluation. 3. Otherwise intact bilateral lower extremity runoff. Three-vessel runoff bilaterally. Evaluation is partially limited by extensive vascular calcification. 4. No acute findings within the abdomen or pelvis. Redemonstration of cholelithiasis, and scattered colonic diverticulosis with no acute features. 5. There is suggestion of a small pericardial effusion. Atherosclerotic calcification in the coronary circulation. D/ / 03/22/2018 13:43:51 Christopher Fong MD / omero Interpreting Provider: Christopher Fong MD Consult Discharge Plan - Plan Referrals: Ismael Griffin MD [Primary Care Provider] -
[2018-03-23] MEDS ORDERED: *HR* Heparin 5,000 UNIT/ML VIAL ONE (09:33)
--- NOTE | 2018-03-23 09:49 | Nephrology Consult Note ---
Addendum entered and electronically signed by Mat Goyal DO 03/24/18 07:29: I have personally performed a face to face evaluation on this patient. I have reviewed and agree with the care plan. History and Exam by me shows: ESRD, Anemia of CKD, chronic steroid use, Acute right thigh/hip pain. 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 Due for HD today, which I arranged. I reviewed his progress notes, labs, vitals, med lists, imaging, and I also reviewed outside medical records from the dialysis for this complex and high risk pt. Previously the ER had communicated with me the concern for PT/DVT, and so the pros/cons, risks/benefits were considered and CTA was agreed upon, which I informed the pt. Fortunately, no VTE was found. Next HD will be planed for Wednesday. Original Note: Date of Encounter: 03/23/18 Time of Encounter: 09:49 Assessment and Plan (1) ESRD (end stage renal disease) on dialysis Current Visit: Yes Status: Acute Current regimen is MWF at [facility]. Plan for HD today. Renal diet Renal vitamins Strict I/O Avoid nephrotoxins and renal dose all medications. (2) Acute pain of right thigh Current Visit: Yes Status: Acute Continue supportive care. Ortho has been consulted. (3) Anemia Current Visit: No Status: Acute Goal Hgb is 10-11. Hgb is 10.5 today, stable. Qualifiers: Anemia type: due to chronic kidney disease Chronic kidney disease stage: stage 5, not on chronic dialysis Qualified Code(s): N18.5 - Chronic kidney disease, stage 5; D63.1 - Anemia in chronic kidney disease History of Present Illness - Reason for Consult Consult date: 03/23/18 end stage renal disease Requesting physician: Arlette Goddard - Chief Complaint right groin/leg pain - History of Present Illness Mr. Mckay is a 72 year old male who presented to ED with right leg/groin pain that started on Wednesday or Wednesday which has progressively gotten worse. PMH: arthritis, diabetes, GERD, HTN and ESRD with current regimen MWF at [facility]. Last HD tx was Wednesday without complication. Denies nausea, vomiting, diarrhea. Denies chest pain or shortness of breath. His leg is still hurting him with exam. He can stand and put pressure on the extremity however he can not lift it up off the bed for the exam. He lives at home with significant other. Denies ETOH, tobacco, or illicit drug use. Past Med Surg Social Fam HX - Past Medical History Medical history: arthritis, cancer, diabetes, dialysis, GERD, hepatitis, hyperlipidemia, hypertension, kidney stones, thyroid disease Additional medical history: aspergillus, skin cancer, [facility] but states that pcp did a redraw and he was negative. Stage V Renal Disease. Hypothyoidism. Type II Diabetic. Skin cancer Psychiatric history: no psych history - Past Surgical History Surgical History: orthopedic, other Additional surgical history: Vasectomy, Left arm shunt, right chest permacath, left total knee, 4 skin cancer removals, laminectomy - Social History Smoking Status: Never smoker Smokeless Tobacco Status: No Alcohol use: rarely Drug use: none - Family History Mother Living Status: Hx Family Cardiac Disorders: Yes Hx Family Cancer: Yes Medications and Allergies Allopurinol [Zyloprim 300 MG] 300 mg PO DAILY 08/31/16 [History] Levothyroxine [Synthroid] 175 mcg PO DAILY 08/31/16 [History] Ramipril [Altace] 10 mg PO BID 08/31/16 [History] Rosuvastatin [Crestor] 40 mg PO HS 08/31/16 [History] Tamsulosin [Flomax] 0.4 mg PO DAILY 08/31/16 [History] Tramadol HCl [Ultram] 100 mg PO BID 08/31/16 [History] Omeprazole [PriLOSEC] 40 mg PO DAILY 10/22/16 [History] Ferrous Sulfate 325 mg PO BID #60 tab 11/11/16 [Rx] Hydralazine HCl 50 mg PO Q8H #90 tablet 08/16/17 [Rx] Psyllium Husk [Fiber] 0.52 gm PO DAILY PRN 12/28/17 [History] Renal Vitamin [Renal Caps Softgel] 1 cap PO DAILY 12/28/17 [History] Sennosides/Docusate Sodium [Senna Plus] 2 each PO BID PRN #20 tablet 01/05/18 [Rx] Aspirin [Adult Aspirin] 81 mg PO DAILY 03/22/18 [History] Cyanocobalamin (B-12) [Vitamin B12] 1,000 mcg PO DAILY 03/22/18 [History] Sevelamer [Renvela] 800 mg PO TIDWM 03/22/18 [History] Sodium Bicarbonate 650 mg PO BID 03/22/18 [History] dilTIAZem HCl [Diltiazem 24Hr ER] 120 mg PO DAILY 03/22/18 [History] predniSONE [PredniSONE] 4 mg PO DAILY 03/22/18 [History] Allergy/AdvReac Type Severity Reaction Status Date / Time mycophenolate mofetil AdvReac Nausea Verified 01/05/18 07:13 [From CellCept] Review of Systems All Systems review (narrative): The remainder of the systems are negative. Constitutional: no chills, no fatigue, no fever(s) Cardiovascular: no chest pain at rest, no dyspnea, no orthopnea, no palpitations Respiratory: no cough Gastrointestinal: no abdominal pain, no change in bowel habits, no diarrhea, no nausea, no vomiting Genitourinary Male: no hematuria Exam - Vital Signs Vital signs: Initial Vital Signs Temp Pulse Resp BP Pulse Ox 98.0 F 86 15 172/86 97 03/22/18 09:17 03/22/18 09:17 03/22/18 09:17 03/22/18 09:17 03/22/18 09:17 Vital Signs - Last 8 Hours Temp Pulse Resp BP Pulse Ox 03/23/18 06:39 99.0 F 70 16 149/76 92 03/23/18 04:07 99.0 F 70 16 135/80 94 Intake and Output 03/22/18 03/23/18 03/23/18 23:59 07:59 15:59 Intake Total 0 / 0 Output Total 200 / 200 Balance -200 / -200 Intake: Oral 0 / 0 Output: Urine 200 / 200 Other: Meal Breakfast Percent of Meal Consumed 100% Weight 101 kg Patient Weight 03/23/18 23:59 Weight 101 kg - General Appearance General appearance: well-developed, well-nourished EENT: ATNC, hearing intact, vision intact Neck: supple Respiratory: clear Cardiology: no edema, normal S1, normal S2 - Dialysis Access Dialysis Vascular Access: Arteriovenous Fistula thrill: Yes bruit: Yes Gastrointestinal: normoactive bowel sounds, no tenderness, no guarding Integumentary: no rash, warm and dry Neurologic: alert and oriented x3 Additional Comments: Pt is unable to lift right lower extremity off the the bed. Left lower extremity is able to be lifted without difficulty. 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 Equal push/pull with bilat feet on exam. Psychiatric: mood/affect appropriate, cooperative Results - Lab Results 03/22/18 09:45 03/23/18 04:01 Most recent lab results Calcium 9.6 mg/dL (8.6-10.3) 03/23/18 04:01 Consult Discharge Plan - Plan Referrals: Ismael Griffin MD [Primary Care Provider] -
[2018-03-23] MEDS: Lisinopril 20 MG TABLET PO SCH (14:53)
[2018-03-23] MEDS: Diltiazem CD (24hr) 120 MG CAPSULE PO SCH (14:53)
[2018-03-23] MEDS: Acetaminophen 325 MG TABLET PO PRN (16:50)
[2018-03-24] MEDS: *HR* OxyCODONE Immed Rel 5 MG TABLET PO PRN (05:27)
[2018-03-24] MEDS: *HR* Heparin 5,000 UNIT/ML VIAL SQ SCH ×3 (05:28→21:10)
[2018-03-24 07:33] LABS: Basophils # 0.1 K/mcL (0.0-0.2); Basophils % 0.9 %; Eosinophils # 0.3 K/mcL (0.0-0.6); Eosinophils % 3.7 %; Hematocrit 32.2 % (37.5-50.1); Hemoglobin 10.3 g/dL (12.9-16.9); Immature Granulocytes % 0.3 % (0-4); Lymphocytes # 2.3 K/mcL (0.6-4.6); Lymphocytes % 25.8 %; Mean Corpuscular Hemoglobin 31.6 pg (28.0-33.3); Mean Corpuscular Volume 98.8 fL (83.0-100.0); Mean Platelet Volume 8.8 fL (9.4-12.4); Monocytes # 1.3 K/mcL (0.0-1.3); Monocytes % 15.2 %; Neutrophils # 4.7 K/mcL (1.6-8.9); Platelet Count 228 K/mcL (140-400); Red Blood Count 3.26 M/mcL (4.19-5.50); Red Cell Distribution Width 14.4 % (11.5-14.5); Segmented Neutrophils % 54.1 %
[2018-03-24 07:58] LABS: Albumin 3.5 g/dL (3.5-5.7); Albumin/Globulin Ratio 1.3 (1.1-2.2); Bilirubin,Direct 0.1 mg/dL (0.0-0.2); Bilirubin,Indirect 0.3 mg/dL (0.0-1.2); Bilirubin,Total 0.4 mg/dL (0.3-1.0); Calcium 9.8 mg/dL (8.6-10.3); Globulin 2.8 g/dL (2.4-3.5); Potassium 4.3 mEq/L (3.5-5.1); Total Protein 6.3 g/dL (6.4-8.9)
[2018-03-24] MEDS: hydrALAZINE 25 MG TABLET PO SCH ×3 (08:00→21:09)
[2018-03-24] MEDS: *HR* HYDROcodone/Acet 5/325 mg TABLET PO PRN (08:02)
[2018-03-24] MEDS: Lisinopril 20 MG TABLET PO SCH (08:03)
[2018-03-24] MEDS: Diltiazem CD (24hr) 120 MG CAPSULE PO SCH (08:03)
[2018-03-24] MEDS: Psyllium 1 PACKET POWD.PACK PO SCH (08:03)
[2018-03-24] MEDS: Aspirin Enteric Coated 81 MG Tablet PO SCH (08:03)
--- NOTE | 2018-03-24 10:18 | Internal Med Progress Note ---
Hospitalist Progress Note - Encounter Date of Encounter: 03/24/18 Time of Encounter: 10:09 - Subjective Interval History: Patient seen and examined this morning at bedside. No acute overnight events. Pain improved. Has some cramping back pain. Denies any bowel or urinary complaints. Denies any chest pain or shortness of breath. - Exam Vitals: Temp Pulse Resp BP Pulse Ox 99.7 F H 69 16 144/63 95 03/24/18 06:51 03/24/18 06:51 03/24/18 06:51 03/24/18 06:51 03/24/18 06:51 Exam: General: In no acute distress. Conversant. Respiratory exam: CTAB. no accessory muscle use, rales, rhonchi, wheezes Cardiovascular exam: RRR, +S1, +S2. sytolic murmur present, gallop, rubs. GI/Abdominal exam: Non-tender, Non-distended, normal bowel sounds, soft, no peritoneal signs. Extremities exam: Decreased range of movement on Rt leg due to pain. Full ROM on Lt. Sensation and pulse intact bilaterally. No pedal edema. No deformity noticed. dialysis fistula in the left anterior forearm Neurological exam: CN II-XII intact, AO X3, no focal deficits. no pronater drift, facial droop, speech deficit Skin exam: No skin rash, ulcer, purpura or ecchymosis. - Assessment and Plan (1) ESRD (end stage renal disease) on dialysis Current Visit: No Status: Acute (2) S/P laminectomy Current Visit: No Status: Acute (3) Acute pain of right thigh Current Visit: Yes Status: Acute (4) DVT prophylaxis Current Visit: Yes Status: Acute - Summary of Assessment and Plan Summary of Assessment and Plan: Acute pain of right thigh - Gradual in onset. No h/o trauma. Recent laminectomy about [address] mcnally for spinal stenosis. No surgical complication. - CT angiogram of the aorta with runoff shows calcified plaque approaching 50% degree narrowing at the level of the right common femoral bifurcation. - CT of the abdomen and pelvis does show small fat containing bilateral inguinal hernia. Cholelithiasis without evidence of cholecystitis. No acute abdomen findings. - c/w current pain regimen. - Pelvic/Lumbar MRI reports reviewed. Nonspecific intramuscular edema. Improved AP diameter at L4-5 and L5-S1. - Possible statin myopathy. - Patient also with some myalgia in shoulder before for which was on Prednsione. Unclear diagnosis. ? PMR. Will resume home steroid dose. - CK 119. - Orthopedics consulted for further evaluation. ESRD (end stage renal disease) on dialysis - Nephrology consulted for dialysis needs. Gets dialysis on MWF. DVT prophylaxis - SQ heparin Diabetes mellitus type 2 - Accuchecks and Sliding scale insulin. - Diabetic diet. Hypothyroidism - cw home thyroxine Essential hypertension - currently stable - c/w home medications. PT/OT for discharge planing. - Time Spent with Patient Total time spent is greater than 50% in coordination of care (as documented) at patient's floor/unit and/or counseling patient: Internal Medicine: Result - Labs CBC & Chem 7: 03/24/18 07:06 03/24/18 07:06 Labs: Short CBC 03/24/18 Range/Units 07:06 WBC 8.7 (4.3-11.1) K/mcL Hgb 10.3 L (12.9-16.9) g/dL Hct 32.2 L (37.5-50.1) % Plt Count 228 (140-400) K/mcL Neutrophils # 4.7 (1.6-8.9) K/mcL BMP 03/24/18 07:06 Sodium 135 L Potassium 4.3 Chloride 99 Carbon Dioxide 25 BUN 31 H Creatinine 5.25 H Glucose 102 Calcium 9.8 Liver Function 03/24/18 Range/Units 07:06 Total Bilirubin 0.4 (0.3-1.0) mg/dL Direct Bilirubin 0.1 (0.0-0.2) mg/dL AST 13 (13-39) Units/L ALT 7 (7-52) Units/L Alkaline Phosphatase 44 (34-104) Units/L Albumin 3.5 (3.5-5.7) g/dL - ABG Interpretation ABG results: PT/INR, D-dimer PT 11.5 Seconds (9.4-12.1) 03/22/18 09:45 - Impressions Impressions Aorta w/Runoff CTA 03/22/18 12:15 IMPRESSION: 1. Mild calcified atherosclerotic plaque in the aortoiliac circulation. No significant inflow disease. 2. Eccentric calcified atherosclerotic plaque at the level of the right common femoral bifurcation, approaching 50% in degree of narrowing. Consider correlation with duplex for more precise evaluation. 3. Otherwise intact bilateral lower extremity runoff. Three-vessel runoff bilaterally. Evaluation is partially limited by extensive vascular calcification. 4. No acute findings within the abdomen or pelvis. Redemonstration of cholelithiasis, and scattered colonic diverticulosis with no acute features. 5. There is suggestion of a small pericardial effusion. Atherosclerotic calcification in the coronary circulation. D/ / 03/22/2018 13:43:51 Christopher Fong MD / omero Interpreting Provider: Christopher Fong MD Lumbar Spine MRI 03/23/18 17:23 IMPRESSION: Status post L4-5 and L5-S1 bilateral laminectomies. Multilevel degenerative disc disease as described above, with spinal canal AP diameter improved at L4-5 and L5-S1. Spinal canal narrowing, moderate at L2-3 and L3-4, mild at L1-. Foraminal narrowing, moderate to severe at bilateral L5-S1, moderate at left L4-5, mild at right L4-5. D/ / Connor Wilson MD / Connor Wilson MD Interpreting Provider: Connor Wilson MD Pelvis MRI 03/23/18 17:23 IMPRESSION: 1. Nonspecific small to moderate right hip effusion with nonspecific pronounced intramuscular edema of the right adductor musculature and involving the distal right iliopsoas and proximal right vastus lateralis muscle. While findings potentially could be related to muscular strains in the setting of trauma, given history states no known injury. Underlying infectious process should be excluded, however, no discrete marrow edema or acute osseous abnormality is identified. 2. Small amount of nonspecific free fluid within the pelvis. D/ / Vlad Lewis MD / Vlad Lewis MD Interpreting Provider: Vlad Lewis MD Consult Discharge Plan - Plan Referrals: Ismael Griffin MD [Primary Care Provider] -
--- NOTE | 2018-03-24 10:19 | Nephrology Progress Note ---
Addendum entered and electronically signed by Mat Goyal DO 03/24/18 18:12: I have personally performed a face to face evaluation on this patient. I have reviewed and agree with the care plan. History and Exam by me shows: ESRD on HD MWF, with no urgent extra dialysis indicated today based upon both exam and biochemically. Appreciate primary team in work up. I too suspect possible PMR. Next HD planned for tomorrow. Original Note: Date of Encounter: 03/24/18 Time of Encounter: 10:17 - Assessment and Plan (1) ESRD (end stage renal disease) on dialysis Current Visit: Yes Status: Acute Current regimen is MWF at [facility]. HD completed yesterday. Plan for HD tomorrow. Renal diet Renal vitamins Strict I/O Avoid nephrotoxins and renal dose all medications. (2) Acute pain of right thigh Current Visit: Yes Status: Acute Continue supportive care. MRI Pelvis: 1. Nonspecific small to moderate right hip effusion with nonspecific pronounced intramuscular edema of the right adductor musculature and involving the distal right iliopsoas and proximal right vastus lateralis muscle. While findings potentially could be related to muscular strains in the setting of trauma, given history states no known injury. Underlying infectious process should be excluded, however, no discrete marrow edema or acute osseous abnormality is identified. 2. Small amount of nonspecific free fluid within the pelvis. (3) Anemia Current Visit: No Status: Acute Goal Hgb is 10-11. Hgb is 10.3 today, stable. Qualifiers: Qualified Code(s): N18.5 - Chronic kidney disease, stage 5; D63.1 - Anemia in chronic kidney disease Subjective Principal diagnosis: right hip/groin pain Interval history: Pt seen and examined. Denies chest pain or shortness of breath. Denies nausea, vomiting, diarrhea. Admits right hip pain is still constant, but maybe more tolerable. Objective - Vital Signs Vital signs: Vital Signs Temp Pulse Resp BP Pulse Ox 03/24/18 06:51 99.7 F H 69 16 144/63 95 03/24/18 04:07 99.3 F 78 18 158/74 94 03/23/18 23:25 100.5 F H 76 18 168/83 95 03/23/18 18:52 99.9 F H 76 16 125/63 92 03/23/18 15:37 100.8 F H 91 16 155/76 92 03/23/18 13:30 98.1 F 17 131/87 03/23/18 13:15 139/74 03/23/18 13:00 135/74 03/23/18 12:45 137/77 03/23/18 12:30 139/79 03/23/18 12:15 139/76 03/23/18 12:00 143/72 03/23/18 11:45 135/73 03/23/18 11:30 135/74 03/23/18 11:15 139/72 03/23/18 11:00 132/70 03/23/18 10:45 138/71 03/23/18 10:30 137/75 Intake and Output 03/23/18 03/24/18 03/24/18 23:59 07:59 15:59 Output Total 700 / 700 Balance -700 / -700 Output: Urine 700 / 700 Other: Weight 101.7 kg - General Appearance General appearance: Present: well-developed, well-nourished EENT: Present: ATNC, hearing intact, vision intact Respiratory: Present: clear Cardiology: Present: no edema, normal S1, normal S2 Dialysis Vascular Access: Arteriovenous Fistula thrill: Yes bruit: Yes Gastrointestinal: Present: normoactive bowel sounds, no tenderness, no guarding Integumentary: Present: no rash, warm and dry Neurologic: Present: alert and oriented x3 Psychiatric: Present: mood/affect appropriate, cooperative - Lab 03/24/18 07:06 03/24/18 07:06 Most recent lab results Calcium 9.8 mg/dL (8.6-10.3) 03/24/18 07:06 Consult Discharge Plan - Plan Referrals: Ismael Griffin MD [Primary Care Provider] -
[2018-03-24] MEDS: predniSONE 5 MG TABLET PO SCH (11:26)
[2018-03-24] MEDS: Ondansetron ODT 4 MG TAB.RAPDIS SL PRN (20:36)
--- NOTE | 2018-03-24 21:00 | Orthopedic Consult Note ---
Date of Encounter: 03/24/18 Time of Encounter: 20:50 History of Present Illness Chief complaint: Right proximal medial thigh pain HPI: Mr. Mckay is a 72 year old male admitted with a 4-5 day history of right medial thigh and groin pain. Patient is well-known to me from previous orthopedic care. Patient states that he developed somewhat insidious but progressive right medial thigh and groin pain without any trauma or acute episode. Patient got to the point where he could barely flex or move his hip without pain. He states that he is feeling better at this time and is able to begin to move the hip much easier. Patient is a renal dialysis patient. He is on chronic prednisone. He had a decompression laminectomy of his lumbar spine performed about 2 months ago with a postoperative pneumonia. Apparently the patient was improving from his back surgery prior to this event. I reviewed the patient's completed history and physical as well as the medical record. Pertinent orthopedic examination reveals a pleasant 72-year-old gentleman in minimal distress while lying in hospital bed. He is able to move his hip with no significant pain. Pain is increased with active controlling of the hip from a flexed to extended position. I am able to internally and actually rotate the hip without significant pain. Patient does have some tenderness over the abduct ors. There is also some tenderness over the greater trochanter. Iliotibial band is not tender. There is some mild medial knee pain. Distal neurovascular exam is grossly intact. Laboratory data includes a normal white blood cell count. No evidence of a shift. Sedimentation rate or CRP have not been performed. I reviewed a recently completed MRI of the right hip. This does reveal a mild right hip effusion. There is a moderate amount of edema noted in the adductors. There is also some edema in the gluteus minimus and medius tendons consistent with partial tearing at the trochanter. There is some fluid in the trochanteric bursa. No evidence of acute fractures or dislocation. No evidence of significant arthrosis. Impression: Right hip effusion with surrounding muscle edema (adductors and gluteus insertions) Recommendation: Due to the patient's immunocompromise condition would recommend interventional radiology perform a guided aspirate of the right hip effusion. Hopefully there is no evidence of infection and this can be treated very conservatively without any intervention. Have ordered interventional radiology consult. Would send specimen off for stat Gram stain and cell count with a culture to be performed. Further recommendations will be made pending the outcome of that study. Thank you for allowing me to see care for Mr. Mckay. Sincerely, Cortes Mcdonald,DO Past Med Surg Social Fam HX - Past Medical History Medical history: arthritis, cancer, diabetes, dialysis, GERD, hepatitis, hyperlipidemia, hypertension, kidney stones, thyroid disease Additional medical history: aspergillus, skin cancer, [facility] but states that pcp did a redraw and he was negative. Stage V Renal Disease. Hypothyoidism. Type II Diabetic. Skin cancer Psychiatric history: no psych history - Past Surgical History Surgical History: orthopedic, other Additional surgical history: Vasectomy, Left arm shunt, right chest permacath, left total knee, 4 skin cancer removals, laminectomy - Social History Smoking Status: Never smoker Smokeless Tobacco Status: No Alcohol use: rarely Drug use: none - Family History Mother Living Status: Hx Family Cardiac Disorders: Yes Hx Family Cancer: Yes Medications and Allergies Allopurinol [Zyloprim 300 MG] 300 mg PO DAILY 08/31/16 [History] Levothyroxine [Synthroid] 175 mcg PO DAILY 08/31/16 [History] Ramipril [Altace] 10 mg PO BID 08/31/16 [History] Rosuvastatin [Crestor] 40 mg PO HS 08/31/16 [History] Tamsulosin [Flomax] 0.4 mg PO DAILY 08/31/16 [History] Tramadol HCl [Ultram] 100 mg PO BID 08/31/16 [History] Omeprazole [PriLOSEC] 40 mg PO DAILY 10/22/16 [History] Ferrous Sulfate 325 mg PO BID #60 tab 11/11/16 [Rx] Hydralazine HCl 50 mg PO Q8H #90 tablet 08/16/17 [Rx] Psyllium Husk [Fiber] 0.52 gm PO DAILY PRN 12/28/17 [History] Renal Vitamin [Renal Caps Softgel] 1 cap PO DAILY 12/28/17 [History] Sennosides/Docusate Sodium [Senna Plus] 2 each PO BID PRN #20 tablet 01/05/18 [Rx] Aspirin [Adult Aspirin] 81 mg PO DAILY 03/22/18 [History] Cyanocobalamin (B-12) [Vitamin B12] 1,000 mcg PO DAILY 03/22/18 [History] Sevelamer [Renvela] 800 mg PO TIDWM 03/22/18 [History] Sodium Bicarbonate 650 mg PO BID 03/22/18 [History] dilTIAZem HCl [Diltiazem 24Hr ER] 120 mg PO DAILY 03/22/18 [History] predniSONE [PredniSONE] 5 mg PO DAILY 03/22/18 [History] Allergy/AdvReac Type Severity Reaction Status Date / Time mycophenolate mofetil AdvReac Nausea Verified 01/05/18 07:13 [From CellCept] All Systems Reviewed: The remainder of the systems were reviewed and are negative Physical Exam - Constitutional Vitals: Temp Pulse Resp BP Pulse Ox 99 F 69 18 136/69 99 03/24/18 20:05 03/24/18 20:05 03/24/18 20:05 03/24/18 20:05 03/24/18 20:05 Results - Labs Result Diagrams: 03/24/18 07:06 03/24/18 07:06 Labs: Abnormal lab results RBC 3.26 M/mcL (4.19-5.50) L 03/24/18 07:06 Hgb 10.3 g/dL (12.9-16.9) L 03/24/18 07:06 Hct 32.2 % (37.5-50.1) L 03/24/18 07:06 MPV 8.8 fL (9.4-12.4) L 03/24/18 07:06 Sodium 135 mEq/L (136-145) L 03/24/18 07:06 BUN 31 mg/dL (8-23) H 03/24/18 07:06 Creatinine 5.25 mg/dL (0.70-1.30) H 03/24/18 07:06 Est GFR ( Amer) 13 (> 60) L 03/24/18 07:06 Est GFR (Non-Af Amer) 11 (> 60) L 03/24/18 07:06 Serum Total Protein 6.3 g/dL (6.4-8.9) L 03/24/18 07:06 Urine Protein >=300 mg/dL (Neg-Trace) H 03/22/18 11:04 Urine Glucose (UA) 100 mg/dL (Normal) H 03/22/18 11:04 H & H 03/24/18 Range/Units 07:06 Hgb 10.3 L (12.9-16.9) g/dL Hct 32.2 L (37.5-50.1) % All other labs normal. - Diagnostic results Hip MRI: image reviewed Consult Discharge Plan - Plan Referrals: Ismael Griffin MD [Primary Care Provider] -
[2018-03-25] MEDS: *HR* Heparin 5,000 UNIT/ML VIAL SQ SCH ×3 (05:21→21:13)
[2018-03-25 06:28] LABS: Basophils # 0.1 K/mcL (0.0-0.2); Basophils % 0.8 %; Eosinophils # 0.4 K/mcL (0.0-0.6); Eosinophils % 4.5 %; Hemoglobin 9.9 g/dL (12.9-16.9); Immature Granulocytes % 0.3 % (0-4); Lymphocytes # 2.1 K/mcL (0.6-4.6); Lymphocytes % 27.1 %; Mean Corpuscular HGB Conc 31.9 g/dL (31.6-35.5); Mean Corpuscular Volume 97.2 fL (83.0-100.0); Mean Platelet Volume 8.8 fL (9.4-12.4); Neutrophils # 4.2 K/mcL (1.6-8.9); Platelet Count 242 K/mcL (140-400); Red Blood Count 3.19 M/mcL (4.19-5.50); Red Cell Distribution Width 14.3 % (11.5-14.5); Segmented Neutrophils % 54.3 %
[2018-03-25 06:46] LABS: Albumin 3.6 g/dL (3.5-5.7); Albumin/Globulin Ratio 1.3 (1.1-2.2); Bilirubin,Indirect 0.3 mg/dL (0.0-1.2); Bilirubin,Total 0.3 mg/dL (0.3-1.0); Globulin 2.8 g/dL (2.4-3.5); Total Protein 6.4 g/dL (6.4-8.9)
[2018-03-25 06:47] LABS: Potassium 4.5 mEq/L (3.5-5.1)
[2018-03-25] MEDS: Psyllium 1 PACKET POWD.PACK PO SCH (07:19)
[2018-03-25] MEDS: Aspirin Enteric Coated 81 MG Tablet PO SCH (07:20)
[2018-03-25] MEDS: Lisinopril 20 MG TABLET PO SCH (07:21)
[2018-03-25] MEDS: Diltiazem CD (24hr) 120 MG CAPSULE PO SCH (07:21)
[2018-03-25] MEDS: predniSONE 5 MG TABLET PO SCH (07:21)
[2018-03-25] MEDS: hydrALAZINE 25 MG TABLET PO SCH ×3 (07:21→21:12)
[2018-03-25] MEDS: Acetaminophen 325 MG TABLET PO PRN (11:41)
--- NOTE | 2018-03-25 13:43 | Internal Med Progress Note ---
Hospitalist Progress Note - Encounter Date of Encounter: 03/25/18 Time of Encounter: 12:16 - Subjective Interval History: Patient seen and examined at bedside at dialysis unit. No acute overnight events. Pain significantly improved. Denies any bowel or urinary complaints. Denies any chest pain or shortness of breath. Had low-grade fever overnight as sociated with drenching sweat. Patient was able to walk to bathroom by himself - Exam Vitals: Temp Pulse Resp BP Pulse Ox 97.5 F L 74 18 127/71 94 03/25/18 09:45 03/25/18 06:58 03/25/18 09:45 03/25/18 11:45 03/25/18 06:58 Exam: General: In no acute distress. Conversant. Respiratory exam: CTAB. no accessory muscle use, rales, rhonchi, wheezes Cardiovascular exam: RRR, +S1, +S2. systolic murmur present, gallop, rubs. GI/Abdominal exam: Non-tender, Non-distended, normal bowel sounds, soft, no peritoneal signs. Extremities exam: Decreased range of movement with flexion and abduction on Rt leg due to pain. Improved range of motion on Rt compared to yesterday. Full ROM on Lt. Sensation and pulse intact bilaterally. No pedal edema. No deformity noticed. dialysis fistula in the left anterior forearm Neurological exam: CN II-XII intact, AO X3, no focal deficits. no pronater drift, facial droop, speech deficit Skin exam: No skin rash, ulcer, purpura or ecchymosis. - Assessment and Plan (1) ESRD (end stage renal disease) on dialysis Current Visit: No Status: Acute (2) S/P laminectomy Current Visit: No Status: Acute (3) Acute pain of right thigh Current Visit: Yes Status: Acute (4) DVT prophylaxis Current Visit: Yes Status: Acute - Summary of Assessment and Plan Summary of Assessment and Plan: Acute pain of right thigh - Gradual in onset. No h/o trauma. Recent laminectomy about [address] mcnally for spinal stenosis. No surgical complication. - CT angiogram of the aorta with runoff shows calcified plaque approaching 50% degree narrowing at the level of the right common femoral bifurcation. - CT of the abdomen and pelvis does show small fat containing bilateral inguinal hernia. Cholelithiasis without evidence of cholecystitis. No acute abdomen findings. - c/w current pain regimen. - Pelvic/Lumbar MRI rt hip effusion with surrounding muscle edema. Improved AP diameter at L4-5 and L5-S1. - Possible statin myopathy. Now stopped but CK 119. - Patient also with some myalgia in shoulder/chest before for which was prescribed Prednsione. Unclear diagnosis. ? PMR. Will resume home steroid dose. - Orthopedics following recommended Rt hip arthrocentesis given h/o immunosuppression. To get it this afternoon with IR. - Low grade fever yesterday with chills/diaphoresis. Infectious etiology possible with septic arthritis. Hold antiobiotics for now. CRP added to morning lab. ID consulted. ESRD (end stage renal disease) on dialysis - Nephrology consulted for dialysis needs. Gets dialysis on MWF. Diabetes mellitus type 2 - Accuchecks and Sliding scale insulin. - Diabetic diet. Anemia - chronic. Baseline around 9. - Likely related to ESRD - monitor for now. Hypothyroidism - cw home thyroxine Essential hypertension - currently stable - c/w home medications. DVT prophylaxis - SQ heparin PT/OT for discharge planing. - Time Spent with Patient Total time spent is greater than 50% in coordination of care (as documented) at patient's floor/unit and/or counseling patient: Internal Medicine: Result - Labs CBC & Chem 7: 03/25/18 05:49 03/25/18 05:49 Labs: Short CBC 03/25/18 Range/Units 05:49 WBC 7.7 (4.3-11.1) K/mcL Hgb 9.9 L (12.9-16.9) g/dL Hct 31.0 L (37.5-50.1) % Plt Count 242 (140-400) K/mcL Neutrophils # 4.2 (1.6-8.9) K/mcL BMP 03/25/18 05:49 Sodium 135 L Potassium 4.5 Chloride 101 Carbon Dioxide 23 BUN 48 H Creatinine 6.83 H Glucose 90 Calcium 10.0 Liver Function 03/25/18 Range/Units 05:49 Total Bilirubin 0.3 (0.3-1.0) mg/dL Direct Bilirubin 0.0 (0.0-0.2) mg/dL AST 15 (13-39) Units/L ALT 7 (7-52) Units/L Alkaline Phosphatase 44 (34-104) Units/L Albumin 3.6 (3.5-5.7) g/dL - ABG Interpretation ABG results: PT/INR, D-dimer PT 11.5 Seconds (9.4-12.1) 03/22/18 09:45 Consult Discharge Plan - Plan Referrals: Ismael Griffin MD [Primary Care Provider] - 03/31/18 1:30 pm (Please follow up as schedule)
[2018-03-25 14:47] LABS: Source,Synovial Fluid RIGHT HIP
[2018-03-25 15:07] LABS: Appearance,Synovial Fluid Cloudy (Clear-Hazy); Color,Synovial Fluid Straw (Straw)
--- NOTE | 2018-03-25 16:53 | Infectious Disease Consult ---
Date of Encounter: 03/25/18 Time of Encounter: 16:44 Assessment and Plan (1) Sepsis Status: Suspected Assessment and plan: had 2 sirs criteria on admission likely secondary to septic arthritis Qualifiers: Sepsis type: methicillin resistant Staphylococcus aureus Qualified Code(s): A41.02 - Sepsis due to Methicillin resistant Staphylococcus aureus (2) Right hip joint effusion Status: Acute Assessment and plan: sx present since 03/18/18; no trauma or fall or injury etiology not clear MRI pelvis 03/23/2018: Nonspecific [id number] right hip effusion with nonspecific pronounce intramuscular edema of the right abductor musculature and involving the distal right iliopsoas and proximal right vastus lateralis muscle s/p arthrocentesis 03/25/18 by IR; fluid: Colorstraw total nucleated cells > 100,000%N 79. Gram stain no organisms Cultures pending Patient is immunosuppressed and has WBCs over 100,000. He also had 2 SIRS criteria including fever and tachycardia We will start empiric antibiotics until the cultures finalize. We will give the cultures about 48-72 hours to finalize. If cultures remain negative after 72 hours then we can DC all antibiotics and discharge the patient home. If cultures are positive then we will tailor antibiotics accordingly We will also order left cultures and inflammatory markers. (3) ESRD (end stage renal disease) on dialysis Status: Acute (4) Cavitary lesion of lung Status: Acute Assessment and plan: history of pulmonary aspergillosis treated with voriconazole x 9 months Infectious Disease HPI - Data of Consult Patient: known to practice within the last 3 years Consult date: 03/25/18 Requesting Physician: Audrey Valenzuela MD Primary Care Provider: Ismael Griffin MD - Consult Narrative Reason for consult: Right hip effusion/septic arthritis History of present illness: Mr. Mckay is a 72 year old male Patient is a 72-year-old gentleman who presented to [facility] on 03/22/2018 with right hip pain. We are consulted on 03/25/2018 for right hip septic arthritis. Patient is 72-year-old gentleman well-known to my service. Was seen by me as outpatient for aspergillosis in the lung that was treated with voriconazole for 9 months at [facility]. Patient also is a patient of Dr. Nunez from pain clinic who underwent a L5-S1 interlaminar epidural steroid injection with local anesthetic and steroid under fluoroscopy in July 2017. August 2017: Went into acute on chronic renal failure and was started on dialysis 12/28/2017: Underwent laminectomy L5-S1 by Dr. Carey. 01/02/2018: Admitted for nausea and vomiting patient was septic with fever and leukocytosis. All cultures were negative. Patient had a CT abdomen and pelvis and lumbar spine. Findings were concerning for pneumonia and there was a fluid collection in the epidural space likely post surgical. All workup for pneumonia including strep, influenza, Legionella sputum culture blood cultures were all negative. Patient was discharged on levofloxacin. 01/28/2018 patient had dialysis catheter removed by interventional radiology On this admission patient presented to the emergency department on March 22 with right medial thigh pain. Patient states that the pain started about 4 days prior to admission and it was only hurting mostly when he flexes his hip, abduc ts the hip or tries to walk patient denied any fevers or chills. No night sweats. No rigors. Patient denies any recent trauma fall or injury. Apparently patient recently had a surgery a laminectomy and that causes him to have right lower extremity weakness. Patient was also recently noted to have upper respiratory infection and was given some steroids and a Z-Claudio. Since admission, patient was febrile with a MAXIMUM TEMPERATURE of 100.8 Fahrenheit, intermittent tachycardia but no tachypnea. Presenting labs revealed a WBC of 10.6 with 68% neutrophils no bands. Patient's BUN [address] abdomen and pelvis no acute process CTA aorta and runoff noted MRI lumbar spine no active infection 03/23/2018 MRI of the pelvis revealed 1. Nonspecific small to moderate right hip effusion with nonspecific pronounced intramuscular edema of the right adductor musculature and involving the distal right iliopsoas and proximal right vastus lateralis muscle. While findings potentially could be related to muscular strains in the setting of trauma, given history states no known injury. Underlying infectious process should be excluded, however, no discrete marrow edema or acute osseous abnormality is identified. 2. Small amount of nonspecific free fluid within the pelvis. On 03/25/2018 Patient had an arthrocentesis done of the left hip which revealed WBC over 100,000 with 80% neutrophils. Gram stain reveals no bacteria. Keep in mind that the arthrocentesis was done and the patient has not been on antibiotics. Currently patient appears comfortable laying in bed nontoxic eager to go home. Patient denies any headache no chest pain no shortness of breath no nausea no vomiting no diarrhea no urinary symptoms. Physical exam is really unremarkable. Back exam with no abnormalities. Right thigh/hip with no erythema no edema no warmth to touch and no pain on passive movement CC: Audrey Valenzuela MD Past Med Surg Social Fam HX - Past Medical History Medical history: arthritis, cancer, diabetes, dialysis, GERD, hepatitis, hyperlipidemia, hypertension, kidney stones, thyroid disease Additional medical history: aspergillus, skin cancer, diagnosed with [facility] C [facility] but states that pcp did a redraw and he was negative. Stage V Renal Disease. Hypothyoidism. Type II Diabetic. Skin cancer Psychiatric history: no psych history - Past Surgical History Surgical History: orthopedic, other Additional surgical history: Vasectomy, Left arm shunt, right chest permacath, left total knee, 4 skin cancer removals, laminectomy - Social History Smoking Status: Never smoker Smokeless Tobacco Status: No Alcohol use: rarely Drug use: none - Family History Mother Living Status: Hx Family Cardiac Disorders: Yes Hx Family Cancer: Yes Infectious Disease-CN:Meds RX: Allopurinol [Zyloprim 300 MG] 300 mg PO DAILY 08/31/16 [History] RX: Levothyroxine [Synthroid] 175 mcg PO DAILY 08/31/16 [History] RX: Ramipril [Altace] 10 mg PO BID 08/31/16 [History] RX: Rosuvastatin [Crestor] 40 mg PO HS 08/31/16 [History] RX: Tamsulosin [Flomax] 0.4 mg PO DAILY 08/31/16 [History] RX: Tramadol HCl [Ultram] 100 mg PO BID 08/31/16 [History] RX: Omeprazole [PriLOSEC] 40 mg PO DAILY 10/22/16 [History] RX: Ferrous Sulfate 325 mg PO BID #60 tab 11/11/16 [Rx] RX: Hydralazine HCl 50 mg PO Q8H #90 tablet 08/16/17 [Rx] RX: Psyllium Husk [Fiber] 0.52 gm PO DAILY PRN 12/28/17 [History] RX: Renal Vitamin [Renal Caps Softgel] 1 cap PO DAILY 12/28/17 [History] RX: Sennosides/Docusate Sodium [Senna Plus] 2 each PO BID PRN #20 tablet 01/05/18 [Rx] Aspirin [Adult Aspirin] 81 mg PO DAILY 03/22/18 [History] Cyanocobalamin (B-12) [Vitamin B12] 1,000 mcg PO DAILY 03/22/18 [History] RX: Sevelamer [Renvela] 800 mg PO TIDWM 03/22/18 [History] RX: Sodium Bicarbonate 650 mg PO BID 03/22/18 [History] dilTIAZem HCl [Diltiazem 24Hr ER] 120 mg PO DAILY 03/22/18 [History] predniSONE [PredniSONE] 5 mg PO DAILY 03/22/18 [History] Allergy/AdvReac Type Severity Reaction Status Date / Time mycophenolate mofetil AdvReac Nausea Verified 01/05/18 07:13 [From CellCept] Review of systems: 10 point review of systems done, negative other for what is mentioned in history of present illness Exam - Constitutional Vitals: Temp Pulse Resp BP Pulse Ox 98.7 F 80 18 114/41 93 03/25/18 15:53 03/25/18 15:53 03/25/18 15:53 03/25/18 15:53 03/25/18 15:53 General appearance: cooperative, no acute distress, no febrile - Head Head exam: Present: atraumatic, normocephalic - Eye Eye exam: Present: EOMI, PERRL, sclera anicteric - ENT ENT exam: Present: mucous membranes dry, normal exam - Neck Neck exam: Present: full ROM. Absent: meningismus - Respiratory Respiratory exam: Present: CTAB. Absent: wheezes - Cardiovascular Cardiovascular exam: Present: RRR, +S1, +S2 - GI/Abdominal GI/Abdominal exam: Present: normal bowel sounds, soft. Absent: tenderness - Extremities Exam Extremities exam: Present: full ROM, normal inspection. Absent: joint swelling - Back Exam Back exam: Present: normal inspection. Absent: vertebral tenderness - Neurological Exam Neurological exam: Present: alert, oriented X3. Absent: speech deficit - Psychiatric Psychiatric exam: Present: normal affect, normal mood - Skin Skin exam: Present: normal color. Absent: rash Infectious Disease CN: Results - Labs CBC & Chem 7: 03/25/18 05:49 12/14/18 05:49 Cultures: Cultures 03/25/18 13:52 Body Fluid Culture - Preliminary Ascites Fluid Serology: Serology 03/25/18 03/25/18 03/22/18 Range/Units 14:46 14:46 11:04 Urine Color Yellow (Yellow) Urine Clarity Clear (Clear) Urine pH 8.0 (5.0-8.0) pH Units Ur Specific Taylor 1.025 (1.010-1.025) Urine Protein >=300 H (Neg-Trace) mg/dL Urine Glucose (UA) 100 H (Normal) mg/dL Urine Ketones Negative (Negative) mg/dL Urine Blood Negative (Negative) Urine Nitrite Negative (Negative) Urine Bilirubin Negative (Negative) Urine Urobilinogen Normal (Normal) mg/dL Ur Leukocyte Esterase Negative (Negative) Urine Microscopic RBC 0-3 (0-3) per hpf Urine Microscopic WBC 0-3 (0-3) per hpf Ur Squamous Epith Cells Few (None-Few) per lpf Urine Bacteria None Seen (None-Few) per hpf Hyaline Casts None Seen (None-Few) per lpf Ur Culture Indicated? NO (NO) Fluid Crystals None Seen (None Seen) Synovial Source RIGHT HIP Synovial Color Straw (Straw) Synovial Appearance Cloudy A (Clear-Hazy) Synovial Volume 4.5 mL Synovial RBC 0.004 H (0.000 - 0.002) M/mcl Synovial Tot Nuc Cell > 357539 H (0-200) TNC/mcL Synovial Band Neuts Test Not Performed Synovial Basophils Test Not Performed Synovial Eosinophils Test Not Performed Synovial Seg Neuts % 79.0 % Synovial Lymphocytes % 12.0 % Synovial Monocytes % 2.0 % Synovial Other Cells % 7.0 % Consult Discharge Plan - Plan Referrals: Ismael Griffin MD [Primary Care Provider] - 03/31/18 1:30 pm (Please follow up as schedule)
--- NOTE | 2018-03-25 18:27 | Nephrology Progress Note ---
Date of Encounter: 03/25/18 Time of Encounter: 17:00 - Assessment and Plan (1) ESRD (end stage renal disease) on dialysis Current Visit: Yes Status: Acute Dialysis note: ESRD on HD MWF with dialysis indicated today. (2) Anemia Current Visit: No Status: Acute Goal Hgb is 10-11 Qualifiers: Anemia type: due to chronic kidney disease Chronic kidney disease stage: stage 5, not on chronic dialysis Qualified Code(s): N18.5 - Chronic kidney disease, stage 5; D63.1 - Anemia in chronic kidney disease (3) Acute pain of right thigh Current Visit: Yes Status: Acute Appreciate I.D. Subjective Principal diagnosis: right hip/groin pain Interval history: pt was s/e earlier today while on HD. He did not affirm N/V/D or cramping from HD. Objective - Vital Signs Vital signs: Vital Signs Temp Pulse Resp BP Pulse Ox 03/25/18 15:53 98.7 F 80 18 114/41 93 03/25/18 13:30 97.7 F 18 125/73 03/25/18 13:15 98/62 03/25/18 13:00 102/58 03/25/18 12:45 108/57 03/25/18 12:30 114/57 03/25/18 12:15 124/73 03/25/18 12:00 126/72 03/25/18 11:45 127/71 03/25/18 11:30 109/55 03/25/18 11:15 106/55 03/25/18 11:00 119/60 03/25/18 10:45 113/56 03/25/18 10:30 117/67 03/25/18 10:15 138/76 03/25/18 10:00 138/80 03/25/18 09:45 97.5 F L 18 169/76 03/25/18 06:58 98.9 F 74 16 131/72 94 03/25/18 04:16 98.7 F 75 16 141/73 95 03/25/18 00:34 98.7 F 76 16 147/74 96 03/24/18 20:05 99 F 69 18 136/69 99 Intake and Output 03/25/18 03/25/18 03/25/18 07:59 15:59 23:59 Intake Total 150 / 150 960 / 960 240 / 240 Output Total 600 / 600 2325 / 2325 Balance -450 / -450 -1365 / -1365 240 / 240 Intake: Oral 150 / 150 360 / 360 240 / 240 Intake, Rinseback and Flushes 600 / 600 Output: Urine 600 / 600 225 / 225 Total Dialysis (HD) Output 2100 / 2100 Other: Meal Lunch Dinner Percent of Meal Consumed 75% 100% Weight 99.7 kg 99.7 kg Hemodialysis Net Fluid Removed 1500 (mL) Patient Weight 03/25/18 23:59 Weight 99.7 kg - General Appearance General appearance: Present: well-developed, well-nourished, appears started age EENT: Present: ATNC, PERRL, mucous membranes moist Neck: Present: supple Respiratory: Present: clear Cardiology: Present: no edema, regular rate, normal S1, normal S2 Dialysis Vascular Access: Arteriovenous Fistula (LUE) thrill: Yes bruit: Yes Gastrointestinal: Present: normoactive bowel sounds, guarding Neurologic: Present: alert and oriented x3 Psychiatric: Present: mood/affect appropriate, cooperative - Lab 03/25/18 05:49 03/25/18 05:49 Most recent lab results Calcium 10.0 mg/dL (8.6-10.3) 03/25/18 05:49 Consult Discharge Plan - Plan Referrals: Ismael Griffin MD [Primary Care Provider] - 03/31/18 1:30 pm (Please follow up as schedule)
[2018-03-25] MEDS: Cefepime HCl 1,000 MG in Water for inj. (sterile) 20 ML 10 ML IVPB SCH (19:12)
--- NOTE | 2018-03-25 20:23 | Orthopedics Progress Note ---
Date of Encounter: 03/25/18 Time of Encounter: 20:21 Subjective Principal diagnosis: right hip/groin pain Interval history: 03/25/2018. Patient states hip is feeling better. Had a arthrocentesis performed with fluoroscopic guidance today. Patient tolerated well. Vital signs are stable. Patient is afebrile. Hip range of motion is improved with much less pain. White blood cell count remains normal. CRP elevated at 54. Preliminary aspirate reveals greater than 100,000 WBC, Gram stain and culture pending. Impression: Right hip effusion, Gram stain and cultures of aspirate pending Recommendation: Patient started on IV vancomycin pending culture results. F shayne recommendations will be made pending these results. Objective Vital signs: Vital Signs Temp Pulse Resp BP Pulse Ox 03/25/18 15:53 98.7 F 80 18 114/41 93 03/25/18 13:30 97.7 F 18 125/73 03/25/18 13:15 98/62 03/25/18 13:00 102/58 03/25/18 12:45 108/57 03/25/18 12:30 114/57 03/25/18 12:15 124/73 03/25/18 12:00 126/72 03/25/18 11:45 127/71 03/25/18 11:30 109/55 03/25/18 11:15 106/55 03/25/18 11:00 119/60 03/25/18 10:45 113/56 03/25/18 10:30 117/67 03/25/18 10:15 138/76 03/25/18 10:00 138/80 03/25/18 09:45 97.5 F L 18 169/76 03/25/18 06:58 98.9 F 74 16 131/72 94 03/25/18 04:16 98.7 F 75 16 141/73 95 03/25/18 00:34 98.7 F 76 16 147/74 96 Intake and Output 03/25/18 03/25/18 03/25/18 07:59 15:59 23:59 Intake Total 150 / 150 960 / 960 240 / 240 Output Total 600 / 600 2325 / 2325 Balance -450 / -450 -1365 / -1365 240 / 240 Intake: Oral 150 / 150 360 / 360 240 / 240 Intake, Rinseback and Flushes 600 / 600 Output: Urine 600 / 600 225 / 225 Total Dialysis (HD) Output 2100 / 2100 Other: Meal Lunch Dinner Percent of Meal Consumed 75% 100% Weight 99.7 kg 99.7 kg Hemodialysis Net Fluid Removed 1500 (mL) Patient Weight 03/25/18 23:59 Weight 99.7 kg - Labs CBC & BMP: 03/25/18 05:49 03/25/18 05:49 Labs: Abnormal lab results RBC 3.19 M/mcL (4.19-5.50) L 03/25/18 05:49 Hgb 9.9 g/dL (12.9-16.9) L 03/25/18 05:49 Hct 31.0 % (37.5-50.1) L 03/25/18 05:49 MPV 8.8 fL (9.4-12.4) L 03/25/18 05:49 Sodium 135 mEq/L (136-145) L 03/25/18 05:49 BUN 48 mg/dL (8-23) H 03/25/18 05:49 Creatinine 6.83 mg/dL (0.70-1.30) H 03/25/18 05:49 Est GFR ( Amer) 10 (> 60) L 03/25/18 05:49 Est GFR (Non-Af Amer) 8 (> 60) L 03/25/18 05:49 C-Reactive Protein 54 mg/L (Less than 10) H 03/25/18 05:49 Urine Protein >=300 mg/dL (Neg-Trace) H 03/22/18 11:04 Urine Glucose (UA) 100 mg/dL (Normal) H 03/22/18 11:04 Synovial Appearance Cloudy (Clear-Hazy) A 03/25/18 14:46 Synovial RBC 0.004 M/mcl (0.000-0.002) H 03/25/18 14:46 Synovial Tot Nuc Cell > [id number] TNC/mcL (0-200) H 03/25/18 14:46 Consult Discharge Plan - Plan Referrals: Ismael Griffin MD [Primary Care Provider] - 03/31/18 1:30 pm (Please follow up as schedule)
[2018-03-26] MEDS: *HR* Heparin 5,000 UNIT/ML VIAL SQ SCH ×3 (05:26→21:00)
[2018-03-26 06:41] LABS: Basophils # 0.1 K/mcL (0.0-0.2); Basophils % 0.7 %; Eosinophils # 0.3 K/mcL (0.0-0.6); Eosinophils % 3.9 %; Hematocrit 31.1 % (37.5-50.1); Hemoglobin 10.2 g/dL (12.9-16.9); Immature Granulocytes % 0.1 % (0-4); Lymphocytes # 2.7 K/mcL (0.6-4.6); Lymphocytes % 30.7 %; Mean Corpuscular HGB Conc 32.8 g/dL (31.6-35.5); Mean Corpuscular Hemoglobin 31.3 pg (28.0-33.3); Mean Corpuscular Volume 95.4 fL (83.0-100.0); Mean Platelet Volume 9.1 fL (9.4-12.4); Monocytes # 0.9 K/mcL (0.0-1.3); Monocytes % 10.2 %; Neutrophils # 4.7 K/mcL (1.6-8.9); Platelet Count 251 K/mcL (140-400); Red Blood Count 3.26 M/mcL (4.19-5.50); Red Cell Distribution Width 14.1 % (11.5-14.5); Segmented Neutrophils % 54.4 %
[2018-03-26 06:45] LABS: Calcium 10.2 mg/dL (8.6-10.3); Potassium 4.1 mEq/L (3.5-5.1)
--- NOTE | 2018-03-26 08:43 | Event Note ---
Date of Encounter: 03/26/18 Time of Encounter: 08:41 - Nephrology Event Note Nephrology Chart Review / Update ESRD on HD MWF. Last HD was Wednesday. Next HD planned for Wednesday. I will be available this weekend, if needed. Thank you.
[2018-03-26] MEDS: hydrALAZINE 25 MG TABLET PO SCH ×3 (09:19→21:00)
[2018-03-26] MEDS: Lisinopril 20 MG TABLET PO SCH (09:20)
[2018-03-26] MEDS: Diltiazem CD (24hr) 120 MG CAPSULE PO SCH (09:20)
[2018-03-26] MEDS: predniSONE 5 MG TABLET PO SCH (09:20)
[2018-03-26] MEDS: Aspirin Enteric Coated 81 MG Tablet PO SCH (09:20)
[2018-03-26] MEDS: Psyllium 1 PACKET POWD.PACK PO SCH (09:21)
[2018-03-26] MEDS ORDERED: Vancomycin 500 MG in 0.9 % Sodium Chloride Mini Bag 100 ML IVPB ONE (10:42)
--- NOTE | 2018-03-26 12:30 | Internal Med Progress Note ---
Hospitalist Progress Note - Encounter Date of Encounter: 03/26/18 Time of Encounter: 10:36 - Subjective Interval History: Patient seen and examined this morning. No acute overnight events. Pain now absent. Denies any bowel or urinary complaints. no chest pain or shortness of breath. No overnight fever, chill, N/V. Ambulating well. - Exam Vitals: Temp Pulse Resp BP Pulse Ox 99.1 F 70 16 147/75 97 03/26/18 11:12 03/26/18 11:12 03/26/18 11:12 03/26/18 11:12 03/26/18 11:12 Exam: General: In no acute distress. Conversant. Respiratory exam: CTAB. no accessory muscle use, rales, rhonchi, wheezes Cardiovascular exam: RRR, +S1, +S2. systolic murmur present, gallop, rubs. GI/Abdominal exam: Non-tender, Non-distended, normal bowel sounds, soft, no peritoneal signs. Extremities exam: Minimal pain with Rt leg movement. Improved range of motion on Rt compared to yesterday. Full ROM on Lt. Sensation and pulse intact bilaterally. No pedal edema. No deformity noticed. dialysis fistula in the left anterior forearm Neurological exam: CN II-XII intact, AO X3, no focal deficits. no pronater drift, facial droop, speech deficit Skin exam: No skin rash, ulcer, purpura or ecchymosis. - Assessment and Plan (1) ESRD (end stage renal disease) on dialysis Current Visit: No Status: Acute (2) S/P laminectomy Current Visit: No Status: Acute (3) Acute pain of right thigh Current Visit: Yes Status: Acute (4) DVT prophylaxis Current Visit: Yes Status: Acute - Summary of Assessment and Plan Summary of Assessment and Plan: Acute pain of right leg/hip - Gradual in onset. No h/o trauma. Recent laminectomy about [address] mcnally for spinal stenosis. No surgical complication. - CT angiogram of the aorta with runoff shows calcified plaque approaching 50% degree narrowing at the level of the right common femoral bifurcation. - CT of the abdomen and pelvis does show small fat containing bilateral inguinal hernia. Cholelithiasis without evidence of cholecystitis. No acute abdomen findings. - c/w current pain regimen. - Pelvic/Lumbar MRI rt hip effusion with surrounding muscle edema. Improved AP diameter at L4-5 and L5-S1. - Possible statin myopathy. Now stopped but CK 119. - Patient also with some myalgia in shoulder/chest before for which was prescribed Prednsione. Unclear diagnosis. ? PMR. Will resume home steroid dose. - Orthopedics following recommended Rt hip arthrocentesis given h/o imm unosuppression. s/p IR guided arthrocentesis - Synovial fluid suspicious of septic arthritis with WBC >138633. CRP of 54. Started on empiric vancomycin and cefepime. f/u Cultures. ESRD (end stage renal disease) on dialysis - Nephrology consulted for dialysis needs. Gets dialysis on MWF. Diabetes mellitus type 2 - Blood glucose well controlled - Accuchecks and Sliding scale insulin. - Diabetic diet. Anemia - chronic. Baseline around 9. - Likely related to ESRD - monitor for now. Hypothyroidism - cw home thyroxine Essential hypertension - currently stable - c/w home medications. DVT prophylaxis - SQ heparin - Time Spent with Patient Total time spent is greater than 50% in coordination of care (as documented) at patient's floor/unit and/or counseling patient: Internal Medicine: Result - Labs CBC & Chem 7: 03/26/18 05:44 03/26/18 05:44 Labs: Short CBC 03/26/18 Range/Units 05:44 WBC 8.7 (4.3-11.1) K/mcL Hgb 10.2 L (12.9-16.9) g/dL Hct 31.1 L (37.5-50.1) % Plt Count 251 (140-400) K/mcL Neutrophils # 4.7 (1.6-8.9) K/mcL BMP 03/25/18 03/26/18 05:49 05:44 Sodium 135 L 136 Potassium 4.5 4.1 Chloride 101 99 Carbon Dioxide 23 25 BUN 48 H 39 H Creatinine 6.83 H 5.31 H Glucose 90 97 Calcium 10.0 10.2 - ABG Interpretation ABG results: PT/INR, D-dimer PT 11.5 Seconds (9.4-12.1) 03/22/18 09:45 - Impressions Impressions Joint Aspiration/Injection 03/25/18 09:28 IMPRESSION: Successful fluoroscopic-guided right hip joint aspiration. D/ / 03/25/2018 14:11:19 Juan F Lopez MD / jarred Interpreting Provider: Juan F Lopez MD Consult Discharge Plan - Plan Referrals: Ismael Griffin MD [Primary Care Provider] - 03/31/18 1:30 pm (Please follow up as schedule)
--- NOTE | 2018-03-26 15:27 | Orthopedics Progress Note ---
Date of Encounter: 03/26/18 Time of Encounter: 15:24 Subjective Principal diagnosis: right hip/groin pain Interval history: 03/25/2018. Patient states hip is feeling better. Had a arthrocentesis performed with fluoroscopic guidance today. Patient tolerated well. Vital signs are stable. Patient is afebrile. Hip range of motion is improved with much less pain. White blood cell count remains normal. CRP elevated at 54. Preliminary aspirate reveals greater than 100,000 WBC, Gram stain and culture pending. Impression: Right hip effusion, Gram stain and cultures of aspirate pending Recommendation: Patient started on IV vancomycin pending culture results. Lauren bella recommendations will be made pending these results. 03/26/2018. Patient is sleeping soundly. Reportedly has not had any right hip pain. Vital signs stable. Patient is afebrile. Cultures negative at 24 hours. Impression: Right hip effusion. Preliminary-no evidence of infection Recommendation: Continue to observe and await final culture results. Antibiotics per infectious disease. Objective Vital signs: Vital Signs Temp Pulse Resp BP Pulse Ox 03/26/18 11:12 99.1 F 70 16 147/75 97 03/26/18 07:33 99.3 F 74 16 138/74 95 03/26/18 01:10 99.0 F 67 18 134/70 95 03/25/18 23:20 98.7 F 71 16 136/73 93 03/25/18 15:53 98.7 F 80 18 114/41 93 Intake and Output 03/25/18 03/26/18 03/26/18 23:59 07:59 15:59 Intake Total 560 / 560 0 / 0 360 / 360 Output Total 150 / 150 Balance 560 / 560 -150 / -150 360 / 360 Intake: IV Fluids 260 / 260 Maxipime 1,000 MG In Water for 10 inj. (sterile) 10 ML @ 300 mls/ hr IVPB QPM [facility] Rx#:[id number] Vancocin 1,500 MG In 0.9 % 250 / 250 Sodium Chloride 250 ML @ 167 mls/hr IVPB ONCE ONE Rx#: [id number] Oral 300 / 300 0 / 0 360 / 360 Output: Urine 150 / 150 Other: Meal Dinner Breakfast Percent of Meal Consumed 100% 100% - Labs CBC & BMP: 03/26/18 05:44 03/26/18 05:44 Labs: Abnormal lab results RBC 3.26 M/mcL (4.19-5.50) L 03/26/18 05:44 Hgb 10.2 g/dL (12.9-16.9) L 03/26/18 05:44 Hct 31.1 % (37.5-50.1) L 03/26/18 05:44 MPV 9.1 fL (9.4-12.4) L 03/26/18 05:44 BUN 39 mg/dL (8-23) H 03/26/18 05:44 Creatinine 5.31 mg/dL (0.70-1.30) H 03/26/18 05:44 Est GFR ( Amer) 13 (> 60) L 03/26/18 05:44 Est GFR (Non-Af Amer) 11 (> 60) L 03/26/18 05:44 C-Reactive Protein 54 mg/L (Less than 10) H 03/25/18 05:49 Urine Protein >=300 mg/dL (Neg-Trace) H 03/22/18 11:04 Urine Glucose (UA) 100 mg/dL (Normal) H 03/22/18 11:04 Synovial Appearance Cloudy (Clear-Hazy) A 03/25/18 14:46 Synovial RBC 0.004 M/mcl (0.000-0.002) H 03/25/18 14:46 Synovial Tot Nuc Cell > [id number] TNC/mcL (0-200) H 03/25/18 14:46 Consult Discharge Plan - Plan Referrals: Ismael Griffin MD [Primary Care Provider] - 03/31/18 1:30 pm (Please follow up as schedule)
[2018-03-26] MEDS: Cefepime HCl 1,000 MG in Water for inj. (sterile) 20 ML 10 ML IVPB SCH (17:30)
[2018-03-26] MEDS: Ondansetron ODT 4 MG TAB.RAPDIS SL PRN (18:47)
[2018-03-27] MEDS: *HR* Heparin 5,000 UNIT/ML VIAL SQ SCH ×3 (05:32→20:43)
[2018-03-27 06:36] LABS: Basophils # 0.1 K/mcL (0.0-0.2); Basophils % 0.9 %; Eosinophils # 0.3 K/mcL (0.0-0.6); Eosinophils % 4.9 %; Hematocrit 31.1 % (37.5-50.1); Hemoglobin 9.8 g/dL (12.9-16.9); Immature Granulocytes % 0.1 % (0-4); Lymphocytes # 2.3 K/mcL (0.6-4.6); Lymphocytes % 34.8 %; Mean Corpuscular HGB Conc 31.5 g/dL (31.6-35.5); Mean Corpuscular Hemoglobin 30.6 pg (28.0-33.3); Mean Corpuscular Volume 97.2 fL (83.0-100.0); Monocytes # 0.8 K/mcL (0.0-1.3); Monocytes % 11.3 %; Neutrophils # 3.2 K/mcL (1.6-8.9); Platelet Count 223 K/mcL (140-400); Red Cell Distribution Width 13.9 % (11.5-14.5)
[2018-03-27 06:54] LABS: Potassium 3.9 mEq/L (3.5-5.1)
[2018-03-27] MEDS: Diltiazem CD (24hr) 120 MG CAPSULE PO SCH (07:52)
[2018-03-27] MEDS: Aspirin Enteric Coated 81 MG Tablet PO SCH (07:52)
[2018-03-27] MEDS: predniSONE 5 MG TABLET PO SCH (07:52)
[2018-03-27] MEDS: Psyllium 1 PACKET POWD.PACK PO SCH (07:52)
[2018-03-27] MEDS: Lisinopril 20 MG TABLET PO SCH (07:52)
[2018-03-27] MEDS: hydrALAZINE 25 MG TABLET PO SCH ×3 (07:52→20:43)
--- NOTE | 2018-03-27 12:53 | Internal Med Progress Note ---
Hospitalist Progress Note - Encounter Date of Encounter: 03/27/18 Time of Encounter: 12:51 - Subjective Interval History: Patient seen and examined this morning. No acute overnight events. Patient without any pain. Denies any bowel or urinary complaints. no chest pain or shortness of breath. No overnight fever, chill, N/V. Ambulating well. - Exam Vitals: Temp Pulse Resp BP Pulse Ox 98.2 F 66 18 110/56 98 03/27/18 10:56 03/27/18 10:56 03/27/18 10:56 03/27/18 10:56 03/27/18 10:56 Exam: General: In no acute distress. Conversant. Respiratory exam: CTAB. no accessory muscle use, rales, rhonchi, wheezes Cardiovascular exam: RRR, +S1, +S2. systolic murmur present, gallop, rubs. GI/Abdominal exam: Non-tender, Non-distended, normal bowel sounds, soft, no peritoneal signs. Extremities exam: No pain Rt leg movement. Full ROM on Lt and Rt. Sensation and pulse intact bilaterally. No pedal edema. No deformity noticed. dialysis fistula in the left anterior forearm Neurological exam: CN II-XII intact, AO X3, no focal deficits. no pronater drift, facial droop, speech deficit Skin exam: No skin rash, ulcer, purpura or ecchymosis. - Assessment and Plan (1) ESRD (end stage renal disease) on dialysis Current Visit: No Status: Acute (2) S/P laminectomy Current Visit: No Status: Acute (3) Acute pain of right thigh Current Visit: Yes Status: Acute (4) DVT prophylaxis Current Visit: Yes Status: Acute - Summary of Assessment and Plan Summary of Assessment and Plan: Acute pain of right leg/hip - Gradual in onset. No h/o trauma. Recent laminectomy about [address] mcnally for spinal stenosis. No surgical complication. - CT angiogram of the aorta with runoff shows calcified plaque approaching 50% degree narrowing at the level of the right common femoral bifurcation. - CT of the abdomen and pelvis does show small fat containing bilateral inguinal hernia. Cholelithiasis without evidence of cholecystitis. No acute abdomen findings. - c/w current pain regimen. - Pelvic/Lumbar MRI rt hip effusion with surrounding muscle edema. Improved AP diameter at L4-5 and L5-S1. - Possible statin myopathy. Now stopped but CK 119. - Patient also with some myalgia in shoulder/chest before for which was prescribed Prednsione. Unclear diagnosis. ? PMR. Resumed on home steroid dose. - Hat Rt hip arthrocentesis given h/o immunosuppression. s/p IR guided arthrocentesis 03/25/18 - Synovial fluid suspicious of septic arthritis with WBC >617381. CRP of 54. - c/w empiric vancomycin and cefepime. - Cultures NGTD. Plan to DC antibiotics after 72 hours if no growth and discharge home. - Orthopedics and ID following. ESRD (end stage renal disease) on dialysis - Nephrology consulted for dialysis needs. Gets dialysis on MWF. Diabetes mellitus type 2 - Blood glucose well controlled - Accuchecks and Sliding scale insulin. - Diabetic diet. Anemia - chronic. Baseline around 9. - Likely related to ESRD - monitor for now. Hypothyroidism - cw home thyroxine Essential hypertension - currently stable - c/w home medications. DVT prophylaxis - SQ heparin - Time Spent with Patient Total time spent is greater than 50% in coordination of care (as documented) at patient's floor/unit and/or counseling patient: Internal Medicine: Result - Labs CBC & Chem 7: 03/27/18 06:11 03/27/18 06:11 Labs: Short CBC 03/27/18 Range/Units 06:11 WBC 6.7 (4.3-11.1) K/mcL Hgb 9.8 L (12.9-16.9) g/dL Hct 31.1 L (37.5-50.1) % Plt Count 223 (140-400) K/mcL Neutrophils # 3.2 (1.6-8.9) K/mcL BMP 03/27/18 06:11 Sodium 135 L Potassium 3.9 Chloride 99 Carbon Dioxide 25 BUN 54 H Creatinine 7.27 H Glucose 130 H Calcium 10.0 - ABG Interpretation ABG results: PT/INR, D-dimer PT 11.5 Seconds (9.4-12.1) 03/22/18 09:45 Consult Discharge Plan - Plan Referrals: Ismael Griffin MD [Primary Care Provider] - 03/31/18 1:30 pm (Please follow up as schedule)
--- NOTE | 2018-03-27 14:45 | Orthopedics Progress Note ---
Date of Encounter: 03/27/18 Time of Encounter: 14:44 Subjective Principal diagnosis: right hip/groin pain Interval history: 03/25/2018. Patient states hip is feeling better. Had a arthrocentesis performed with fluoroscopic guidance today. Patient tolerated well. Vital signs are stable. Patient is afebrile. Hip range of motion is improved with much less pain. White blood cell count remains normal. CRP elevated at 54. Preliminary aspirate reveals greater than 100,000 WBC, Gram stain and culture pending. Impression: Right hip effusion, Gram stain and cultures of aspirate pending Recommendation: Patient started on IV vancomycin pending culture results. Lauren bella recommendations will be made pending these results. 03/26/2018. Patient is sleeping soundly. Reportedly has not had any right hip pain. Vital signs stable. Patient is afebrile. Cultures negative at 24 hours. Impression: Right hip effusion. Preliminary-no evidence of infection Recommendation: Continue to observe and await final culture results. Antibiotics per infectious disease. 03/27/18. Patient is afebrile. White blood cell count remains normal. Culture results currently are negative. Patient reportedly pain free. No intervention unless positive culture results are noted. Please contact me if any change in status. Objective Vital signs: Vital Signs Temp Pulse Resp BP Pulse Ox 03/27/18 10:56 98.2 F 66 18 110/56 98 03/27/18 06:30 97.9 F 66 17 130/64 97 03/27/18 03:33 97.8 F 74 18 134/55 94 03/26/18 22:48 98.8 F 70 17 132/65 96 03/26/18 21:02 95 03/26/18 20:55 99.0 F 69 18 119/67 95 03/26/18 16:22 98.3 F 69 16 133/74 96 Intake and Output 03/26/18 03/27/18 03/27/18 23:59 07:59 15:59 Intake Total 1110 / 1110 100 / 100 600 / 600 Output Total 750 / 750 300 / 300 Balance 360 / 360 -200 / -200 600 / 600 Intake: IV Fluids 110 / 110 Maxipime 1,000 MG In Water for 10 / 10 inj. (sterile) 10 ML @ 300 mls/ hr IVPB QPM [facility] Rx#:[id number] Vancocin 500 MG In 0.9 % Sodium 100 / 100 Chloride (Mini-Bag +) 100 ML @ 100 mls/hr IVPB ONCE ONE Rx#: [id number] Oral 1000 / 1000 100 / 100 600 / 600 Output: Urine 750 / 750 300 / 300 Other: Meal Breakfast Percent of Meal Consumed 100% - Labs CBC & BMP: 03/27/18 06:11 03/27/18 06:11 Labs: Abnormal lab results RBC 3.20 M/mcL (4.19-5.50) L 03/27/18 06:11 Hgb 9.8 g/dL (12.9-16.9) L 03/27/18 06:11 Hct 31.1 % (37.5-50.1) L 03/27/18 06:11 MCHC 31.5 g/dL (31.6-35.5) L 03/27/18 06:11 MPV 9.0 fL (9.4-12.4) L 03/27/18 06:11 Sodium 135 mEq/L (136-145) L 03/27/18 06:11 BUN 54 mg/dL (8-23) H 03/27/18 06:11 Creatinine 7.27 mg/dL (0.70-1.30) H 03/27/18 06:11 Est GFR ( Amer) 9 (> 60) L 03/27/18 06:11 Est GFR (Non-Af Amer) 7 (> 60) L 03/27/18 06:11 Glucose 130 mg/dL (70-105) H 03/27/18 06:11 C-Reactive Protein 54 mg/L (Less than 10) H 03/25/18 05:49 Urine Protein >=300 mg/dL (Neg-Trace) H 03/22/18 11:04 Urine Glucose (UA) 100 mg/dL (Normal) H 03/22/18 11:04 Synovial Appearance Cloudy (Clear-Hazy) A 03/25/18 14:46 Synovial RBC 0.004 M/mcl (0.000-0.002) H 03/25/18 14:46 Synovial Tot Nuc Cell > [id number] TNC/mcL (0-200) H 03/25/18 14:46 Consult Discharge Plan - Plan Referrals: Ismael rGiffin MD [Primary Care Provider] - 03/31/18 1:30 pm (Please follow up as schedule)
[2018-03-27] MEDS: Cefepime HCl 1,000 MG in Water for inj. (sterile) 20 ML 10 ML IVPB SCH (16:59)
[2018-03-27] MEDS: Ondansetron ODT 4 MG TAB.RAPDIS SL PRN (19:37)
[2018-03-28] MEDS: *HR* OxyCODONE Immed Rel 5 MG TABLET PO PRN (03:20)
[2018-03-28 03:44] LABS: Hemoglobin 9.6 g/dL (12.9-16.9); Red Blood Count 3.08 M/mcL (4.19-5.50)
[2018-03-28 03:45] LABS: Basophils # 0.1 K/mcL (0.0-0.2); Basophils % 0.9 %; Eosinophils # 0.2 K/mcL (0.0-0.6); Eosinophils % 2.7 %; Hematocrit 29.2 % (37.5-50.1); Immature Granulocytes % 0.2 % (0-4); Lymphocytes # 2.5 K/mcL (0.6-4.6); Lymphocytes % 30.7 %; Mean Corpuscular HGB Conc 32.9 g/dL (31.6-35.5); Mean Corpuscular Hemoglobin 31.2 pg (28.0-33.3); Mean Corpuscular Volume 94.8 fL (83.0-100.0); Mean Platelet Volume 8.9 fL (9.4-12.4); Monocytes # 0.8 K/mcL (0.0-1.3); Monocytes % 10.2 %; Neutrophils # 4.4 K/mcL (1.6-8.9); Platelet Count 228 K/mcL (140-400); Red Cell Distribution Width 14.1 % (11.5-14.5); Segmented Neutrophils % 55.3 %
[2018-03-28 04:04] LABS: Calcium 9.7 mg/dL (8.6-10.3); Potassium 4.3 mEq/L (3.5-5.1)
[2018-03-28] MEDS: *HR* Heparin 5,000 UNIT/ML VIAL SQ SCH ×2 (05:31→13:22)
[2018-03-28] MEDS ORDERED: 0.9 % Sodium Chloride 250 ML IVC PRN (05:32)
[2018-03-28] MEDS: Psyllium 1 PACKET POWD.PACK PO SCH (08:21)
[2018-03-28] MEDS: hydrALAZINE 25 MG TABLET PO SCH ×2 (08:23→13:22)
[2018-03-28] MEDS: Diltiazem CD (24hr) 120 MG CAPSULE PO SCH (08:23)
[2018-03-28] MEDS: Lisinopril 20 MG TABLET PO SCH (08:23)
[2018-03-28] MEDS: predniSONE 5 MG TABLET PO SCH (08:23)
[2018-03-28] MEDS: Aspirin Enteric Coated 81 MG Tablet PO SCH (08:24)
--- NOTE | 2018-03-28 09:37 | Discharge Summary ---
- NOTES TO OUTPATIENT PROVIDER Notes to Outpatient Provider: Patient should follow up with orthopedist. Patient's statin held for now. Orders not resulted at time of discharge: Pending orders 03/25/18 13:52 AFB Culture, Body Fluid [TB] Routine AFB Smear [TB] Routine Culture,Anaerobic [RM] Stat Culture,Body Fluid [RM] Stat 03/25/18 18:43 Culture,Blood [BC] Routine 03/30/18 04:00 Vancomycin,Random AM 0400 Date of Encounter: 03/28/18 Time of Encounter: 09:37 - Discharge Diagnosis (1) ESRD (end stage renal disease) on dialysis Priority: Secondary Status: Acute (2) S/P laminectomy Priority: Secondary Status: Acute (3) Acute pain of right thigh Priority: Primary Status: Acute (4) DVT prophylaxis Priority: Secondary Status: Acute (5) Right hip joint effusion Priority: Primary Status: Acute (6) Anemia due to stage 5 chronic kidney disease Priority: Secondary Status: Acute (7) Cavitary lesion of lung Priority: Secondary Status: Acute (8) Diabetes mellitus Priority: Secondary Status: Chronic Qualifiers: Diabetes mellitus type: type 2 Diabetes mellitus chcf insulin use: without predatory animal exterminator use Diabetes mellitus complication status: with kidney complications Diabetes mellitus complication detail: with microalbuminuria Qualified Code(s): E11.29 - Type 2 diabetes mellitus with other diabetic kidney complication; R80.9 - Proteinuria, unspecified (9) Hypertension Priority: Secondary Status: Chronic Qualifiers: Hypertension type: essential hypertension Qualified Code(s): I10 - Essential (primary) hypertension (10) Hypothyroidism Priority: Secondary Status: Chronic Qualifiers: Hypothyroidism type: unspecified Qualified Code(s): E03.9 - Hypothyroidism, unspecified Hospital course: Mr. Mckay is a 72 year old male with past medical history of end-stage renal disease on dialysis, atrial fibrillation, peripheral vascular disease, hyperten tano, hyperlipidemia, diabetes, kidney stones came in with the right thigh pain ongoing for 4 days which was severe intensity. Patient without any history of trauma. Patient had CTA of the aorta with runoff showed calcification of 50% at the left level of right common femoral bifurcation. CT abdomen and pelvis showed small fat-containing bilateral inguinal hernia. Cholelithiasis without cholecystitis. Patient had MRI which showed mild right hip effusion along with some intramuscular edema. Lumbar MRI showed improved AP diameter at L4-L5 and L5-S1. Patient underwent IR guided hip arthrocentesis which initially was suspicious of infectious cause with elevated white count. Patient was started on vancomycin and cefepime and was on it for 4 days. Blood cultures and synovial fluid cultures and crystal analysis did not reveal any etiology. Antibiotics were discontinued. Patient got dialyzed with nephrology was he was in the hospital. Patient currently asymptomatic and wants to go home. At this point is unclear why patient had his symptoms. Patient was also resume on his home medication prednisone which is unclear to him why he is taking. We will continue that for now. Will hold patient atorvastatin for now though his CK levels were normal. Discharge discussed with: patient, family, nurse, case management, databases computer consultant - Time Spent with Patient Total time spent providing and/or coordinating discharge services: Greater than 30 minutes (42) - Discharge Medications Home Medications: Allopurinol [Zyloprim 300 MG] 300 mg PO DAILY 08/31/16 [History] Levothyroxine [Synthroid] 175 mcg PO DAILY 08/31/16 [History] Ramipril [Altace] 10 mg PO BID 08/31/16 [History] Tamsulosin [Flomax] 0.4 mg PO DAILY 08/31/16 [History] Tramadol HCl [Ultram] 100 mg PO BID 08/31/16 [History] Omeprazole [PriLOSEC] 40 mg PO DAILY 10/22/16 [History] Ferrous Sulfate 325 mg PO BID #60 tab 11/11/16 [Rx] Hydralazine HCl 50 mg PO Q8H #90 tablet 08/16/17 [Rx] Psyllium Husk [Fiber] 0.52 gm PO DAILY PRN 12/28/17 [History] Renal Vitamin [Renal Caps Softgel] 1 cap PO DAILY 12/28/17 [History] Sennosides/Docusate Sodium [Senna Plus] 2 each PO BID PRN #20 tablet 01/05/18 [Rx] Aspirin [Adult Aspirin] 81 mg PO DAILY 03/22/18 [History] Cyanocobalamin (B-12) [Vitamin B12] 1,000 mcg PO DAILY 03/22/18 [History] Sevelamer [Renvela] 800 mg PO TIDWM 03/22/18 [History] Sodium Bicarbonate 650 mg PO BID 03/22/18 [History] dilTIAZem HCl [Diltiazem 24Hr ER] 120 mg PO DAILY 03/22/18 [History] predniSONE [PredniSONE] 5 mg PO DAILY 03/22/18 [History] Allergies/Adverse Reactions: Allergy/AdvReac Type Severity Reaction Status Date / Time mycophenolate mofetil AdvReac Nausea Verified 01/05/18 07:13 [From CellCept] Date of admission: 03/27/18 14:51 Primary care physician: Ismael Griffin MD Consults: 03/22/18 14:57 Consult to Orthopedic Surgery [CONS] Stat Consulting Provider: [facility] Reason for Consult: right leg pain Call Completed: Yes 03/22/18 17:25 Consult to Nephrology [CONS] Routine Consulting Provider: [facility]MAYI/RANDAL/REYNA Reason for Consult: Dialysis MWF, patient of [facility] Call Completed: Yes 03/23/18 08:30 Consult to Dialysis [CONS] ONCE 03/24/18 09:21 Consult to Occupational Therapy [CONS] Routine Comment: Evaluate, develop and implement POC Reason for Consult: improve mobility Does patient have active BEDREST order?: No Is patient medically & hemodynamically stable?: Yes Consult to Physical Therapy [CONS] Routine Comment: Evaluate, develop and implement POC Reason for Consult: improve mobility Does patient have active BEDREST order?: No Is patient medically & hemodynamically stable?: Yes 03/24/18 20:47 Consult to Interventional Radiology [CONS] Routine Consulting Provider: Radiology Interventional [facility] Reason for Consult: Right Hip Effusion Aspiration Call Completed: No 03/25/18 06:45 Consult to Dialysis [CONS] ONCE 03/25/18 14:15 Consult to Infectious Diseases [CONS] Routine Consulting Provider: Infectious Disease [facility] Reason for Consult: Rt hip effusion, ? septic arthritis Call Completed: Yes 03/28/18 05:45 Consult to Dialysis [CONS] ONCE Discharging clinician: Audrey Valenzuela - Constitutional Vitals: Temp Pulse Resp BP Pulse Ox 98.9 F 71 18 124/38 91 03/28/18 06:37 03/28/18 06:37 03/28/18 06:37 03/28/18 06:37 03/28/18 06:37 Exam: General: In no acute distress. Conversant. Respiratory exam: CTAB. no accessory muscle use, rales, rhonchi, wheezes Cardiovascular exam: RRR, +S1, +S2. systolic murmur present, gallop, rubs. GI/Abdominal exam: Non-tender, Non-distended, normal bowel sounds, soft, no peritoneal signs. Extremities exam: No pain Rt leg movement. Full ROM on Lt and Rt. Sensation and pulse intact bilaterally. No pedal edema. No deformity noticed. dialysis fistula in the left anterior forearm Neurological exam: CN II-XII intact, AO X3, no focal deficits. no pronater drift, facial droop, speech deficit Skin exam: No skin rash, ulcer, purpura or ecchymosis. - Patient Status Disposition: Home, Self-Care Condition: Good - Discharge Instructions Follow Up With: Ismael Griffin MD [Primary Care Provider] - 03/31/18 1:30 pm (Please follow up as schedule) - Diet and Activity Activity: as per physical therapy
--- NOTE | 2018-03-28 10:00 | Infectious Disease Progress No ---
Date of Encounter: 03/28/18 Time of Encounter: 09:58 - Assessment and Plan (1) Sepsis Current Visit: No Status: Suspected Had 2 sepsis criteria on admission. Etiology unclear. Improved. Blood cultures drawn 03/25/18 no growth to date 2 sets. Recommendations: Cultures are negative. Okay to discontinue antibiotics and observe. Pain management per the primary team. No further recommendations from the ID team. We will sign off. Please re-consult if needed. Qualifiers: Sepsis type: methicillin resistant Staphylococcus aureus Qualified Code(s): A41.02 - Sepsis due to Methicillin resistant Staphylococcus aureus (2) Right hip joint effusion Current Visit: Yes Status: Acute Etiology unclear: septic hip vs. inflammatory vs. other. Patient denies known trauma or fall or injury. Symptoms present since 03/18/18. MRI pelvis 03/23/2018: Nonspecific [id number] right hip effusion with nonspecific pronounce intramuscular edema of the right abductor musculature and involving the distal right iliopsoas and proximal right vastus lateralis muscle. Status post arthrocentesis 03/25/18 by IR: fluid straw-colored, TNC >100,000 with 79 % segmented neutrophils. Gram stain negative. Culture no growth. Symptoms resolved at this time. Currently on Vanc and Cefepime. (3) ESRD (end stage renal disease) on dialysis Current Visit: No Status: Acute Nephrology consulted to assist with HD. (4) Cavitary lesion of lung Current Visit: No Status: Acute History of pulmonary Aspergillosis. Treated with Voriconazole x 9 months. - Subjective Interval history: Patient seen and examined in the dialysis unit. No acute events noted overnight. Patient states he feels great and wants to go home. Denies any fevers, chills, or rigors. Denies chest pain, shortness of breath, or cough. Denies nausea, vomiting, diarrhea, or constipation. He denies abdominal pain or urinary complaints. He states his appetite is good. He denies any oral thrush or any skin lesions. He denies any pain in the hip for the last few days. Infect Dis PN-Objective Data - Labs CBC & Chem 7: 03/28/18 03:24 03/28/18 03:24 Labs: Laboratory Results - last 24 hr 03/28/18 03/28/18 03/28/18 03:24 03:24 03:24 WBC 8.0 RBC 3.08 L Hgb 9.6 L Hct 29.2 L MCV 94.8 MCH 31.2 MCHC 32.9 RDW 14.1 Plt Count 228 MPV 8.9 L Immature Gran % 0.2 Seg Neutrophils % 55.3 Lymphocytes % 30.7 Monocytes % 10.2 Eosinophils % 2.7 Basophils % 0.9 Neutrophils # 4.4 Lymphocytes # 2.5 Monocytes # 0.8 Eosinophils # 0.2 Basophils # 0.1 Sodium 136 Potassium 4.3 Chloride 101 Carbon Dioxide 21 L BUN 68 H Creatinine 7.91 H Est GFR ( Amer) 8 L Est GFR (Non-Af Amer) 7 L BUN/Creatinine Ratio 9 Glucose 124 H Calculated Osmolality 303 H Calcium 9.7 Random Vancomycin 15 Cultures: Cultures 03/25/18 13:52 Body Fluid Culture - Preliminary Ascites Fluid 03/25/18 13:52 Acid Fast Stain - Final Aspirate 03/25/18 18:43 Blood Culture - Preliminary Peripheral Venipuncture Culture is incubating and being continuously monitored for growth. Final report to follow. 03/25/18 18:43 Blood Culture - Preliminary Peripheral Venipuncture Culture is incubating and being continuously monitored for growth. Final report to follow. Serology 03/25/18 03/25/18 03/22/18 Range/Units 14:46 14:46 11:04 Urine Color Yellow (Yellow) Urine Clarity Clear (Clear) Urine pH 8.0 (5.0-8.0) pH Units Ur Specific [place] 1.025 (1.010-1.025) Urine Protein >=300 H (Neg-Trace) mg/dL Urine Glucose (UA) 100 H (Normal) mg/dL Urine Ketones Negative (Negative) mg/dL Urine Blood Negative (Negative) Urine Nitrite Negative (Negative) Urine Bilirubin Negative (Negative) Urine Urobilinogen Normal (Normal) mg/dL Ur Leukocyte Esterase Negative (Negative) Urine Microscopic RBC 0-3 (0-3) per hpf Urine Microscopic WBC 0-3 (0-3) per hpf Ur Squamous Epith Cells Few (None-Few) per lpf Urine Bacteria None Seen (None-Few) per hpf Hyaline Casts None Seen (None-Few) per lpf Ur Culture Indicated? NO (NO) Fluid Crystals None Seen (None Seen) Synovial Source RIGHT HIP Synovial Color Straw (Straw) Synovial Appearance Cloudy A (Clear-Hazy) Synovial Volume 4.5 mL Synovial RBC 0.004 H (0.000 - 0.002) M/mcl Synovial Tot Nuc Cell > 666014 H (0-200) TNC/mcL Synovial Band Neuts Test Not Performed Synovial Basophils Test Not Performed Synovial Eosinophils Test Not Performed Synovial Seg Neuts % 79.0 % Synovial Lymphocytes % 12.0 % Synovial Monocytes % 2.0 % Synovial Other Cells % 7.0 % Exam - Constitutional Vitals: Temp Pulse Resp BP Pulse Ox 98.9 F 71 18 124/38 91 03/28/18 06:37 03/28/18 06:37 03/28/18 06:37 03/28/18 06:37 03/28/18 06:37 General appearance: average body habitus, cooperative, no acute distress - Head Head exam: Present: atraumatic, normal inspection, normocephalic - Eye Eye exam: Present: EOMI, normal appearance, PERRL Pupils: Present: normal accommodation - ENT ENT exam: Present: mucous membranes moist - Neck Neck exam: Present: normal inspection - Respiratory Respiratory exam: Present: CTAB. Absent: rales, respiratory distress, rhonchi, wheezes - Cardiovascular Cardiovascular exam: Present: RRR, +S1, +S2 - GI/Abdominal GI/Abdominal exam: Present: normal bowel sounds, soft. Absent: distended, tenderness - Extremities Exam Extremities exam: Present: normal inspection. Absent: joint swelling, pedal edema, tenderness Additional comments: AV fistula noted to the left wrist, currently accessed for HD. - Neurological Exam Neurological exam: Present: alert, oriented X3, no focal deficits - Psychiatric Psychiatric exam: Present: normal affect, normal mood - Skin Skin exam: Present: dry, intact, normal color, warm Consult Discharge Plan - Plan Referrals: Ismael Griffin MD [Primary Care Provider] - 03/31/18 1:30 pm (Please follow up as schedule) - Attending Attestation I examined this patient and my medical decision-making was reviewed with the Resident Physician. I agree with the documented findings, disposition and treatment plan as described except to the extent set forth below. Consider stopping all antibiotics and observing. Consider following up with orthopedics as an outpatient We will sign off
--- NOTE | 2018-03-28 10:15 | Nephrology Progress Note ---
Date of Encounter: 03/28/18 Time of Encounter: 10:13 - Assessment and Plan (1) ESRD (end stage renal disease) on dialysis Current Visit: Yes Status: Acute HD MWF. HD in progress today. Avoid nephrotoxins and renal dose. (2) Anemia Current Visit: No Status: Acute Goal Hgb is 10-11 HGB is 9.6 today, stable. Qualifiers: Anemia type: due to chronic kidney disease Chronic kidney disease stage: stage 5, not on chronic dialysis Qualified Code(s): N18.5 - Chronic kidney disease, stage 5; D63.1 - Anemia in chronic kidney disease (3) Acute pain of right thigh Current Visit: Yes Status: Acute Appreciate I.D. and Ortho. Appears inflammatory vs. infection vs. other. Symptoms appear resolving, denies pain and ROM is improved. Subjective Principal diagnosis: right hip/groin pain Interval history: Pt seen and examined during HD, tolerating well. Denies any pain to right hip. Denies nausea, vomiting, diarrhea. Denies chest pain or shortness of breath. States he is ready to go home. Objective - Vital Signs Vital signs: Vital Signs Temp Pulse Resp BP Pulse Ox 03/28/18 10:00 138/72 03/28/18 09:45 137/71 03/28/18 09:30 136/76 03/28/18 09:15 145/69 03/28/18 09:00 139/72 03/28/18 08:45 98.6 F 18 153/79 03/28/18 06:37 98.9 F 71 18 124/38 91 03/28/18 03:44 98.3 F 68 17 137/67 96 03/27/18 23:31 97.6 F 65 17 137/74 97 03/27/18 20:41 95 03/27/18 19:03 98.2 F 70 16 131/65 95 03/27/18 15:24 97.8 F 77 18 172/83 98 03/27/18 10:56 98.2 F 66 18 110/56 98 Intake and Output 03/27/18 03/28/18 03/28/18 23:59 07:59 15:59 Intake Total 700 / 700 600 / 600 Output Total 0 / 0 100 / 100 250 / 250 Balance 600 / 600 350 / 350 Intake: IV Fluids Maxipime 1,000 MG In Water for inj. (sterile) 10 ML @ 300 mls/ hr IVPB QPM JONNIE Rx#:[id number] Oral 0 / 0 700 / 700 Intake, Rinseback and Flushes 600 / 600 Output: Urine 0 / 0 100 / 100 250 / 250 Other: # Voids 1 Hemodialysis Net Fluid Removed 923 (mL) - General Appearance General appearance: Present: well-developed, well-nourished EENT: Present: ATNC, hearing intact, vision intact Neck: Present: supple Respiratory: Present: clear Cardiology: Present: no edema, normal S1, normal S2 Dialysis Vascular Access: Arteriovenous Fistula thrill: Yes bruit: Yes Gastrointestinal: Present: normoactive bowel sounds, no tenderness, no guarding Integumentary: Present: no rash, warm and dry Neurologic: Present: alert and oriented x3 Psychiatric: Present: mood/affect appropriate, cooperative - Lab 03/28/18 03:24 03/28/18 03:24 Most recent lab results Calcium 9.7 mg/dL (8.6-10.3) 03/28/18 03:24 Consult Discharge Plan - Plan Referrals: Ismael Griffin MD [Primary Care Provider] - 03/31/18 1:30 pm (Please follow up as schedule)
[2018-03-28] MEDS ORDERED: 0.9 % Sodium Chloride 1,000 ML ONE (11:55)
[2018-03-28 14:19] VITALS: BP 129/74
[2018-03-28] MEDS ORDERED: Aminoglycoside Consult 1 EACH MC ONE (15:04)
[2018-03-28] MEDS ORDERED: Vancomycin 500 MG in 0.9 % Sodium Chloride Mini Bag 100 ML IVPB ONE (16:00)
== END 2018-03-28 15:05 | disposition home or self-care (01) | DRG 564 ==
LOC: EMEROOARM 09:14 → 2ANU 09:14 → SUATTDRO 15:49 → 2ANU 17:30
PROVIDERS: ADMIT Internal Medicine; ATTEND Internal Medicine

== ENCOUNTER 2018-10-11 01:30 | Observation (INO) ==
[2018-10-11] MEDS ORDERED: *HR* LORazepam 2 MG/ML VIAL IVP ONE (01:57)
[2018-10-11 02:39] LABS: Basophils # 0.1 K/mcL (0.0-0.2); Basophils % 0.8 %; Eosinophils # 0.2 K/mcL (0.0-0.6); Eosinophils % 2.1 %; Hematocrit 30.8 % (37.5-50.1); Immature Granulocytes % 0.9 % (0-4); Lymphocytes # 2.3 K/mcL (0.6-4.6); Lymphocytes % 24.1 %; Mean Corpuscular HGB Conc 32.5 g/dL (31.6-35.5); Mean Corpuscular Hemoglobin 33.4 pg (28.0-33.3); Monocytes % 10.4 %; Neutrophils # 5.9 K/mcL (1.6-8.9); Platelet Count 225 K/mcL (140-400); Red Blood Count 2.99 M/mcL (4.19-5.50); Red Cell Distribution Width 14.7 % (11.5-14.5); Segmented Neutrophils % 61.7 %; White Blood Count 9.6 K/mcL (4.3-11.1)
[2018-10-11 03:01] LABS: Albumin 3.8 g/dL (3.5-5.7); Albumin/Globulin Ratio 1.5 (1.1-2.2); Bilirubin,Direct 0.1 mg/dL (0.0-0.2); Bilirubin,Indirect 0.3 mg/dL (0.0-1.2); Bilirubin,Total 0.4 mg/dL (0.3-1.0); Calcium 9.5 mg/dL (8.6-10.3); Globulin 2.5 g/dL (2.4-3.5); Total Protein 6.3 g/dL (6.4-8.9)
[2018-10-11 03:06] LABS: Troponin I 0.08 ng/mL (< 0.04)
--- NOTE | 2018-10-11 03:21 | Emergency Department Note ---
Disposition Clinical Impression: CKD (chronic kidney disease), stage V, Elevated troponin I level Anemia Qualifiers: Anemia type: due to chronic kidney disease Chronic kidney disease stage: on chronic dialysis Qualified Code(s): N18.6 - End stage renal disease Hypertension Qualifiers: Hypertension type: unspecified Qualified Code(s): I10 - Essential (primary) hypertension Pulmonary edema Qualifiers: Chronicity: acute Qualified Code(s): J81.0 - Acute pulmonary edema Disposition: Admitted As Inpatient Condition: Fair Time of Disposition: 04:41 SOB HPI - General Chief Complaint: ED Shortness of Breath/Dyspnea Stated Complaint: Carrillo Time Seen by Provider: 10/11/18 01:40 Source: patient, family Mode of arrival: private vehicle Limitations: no limitations Nursing Notes Reviewed: Yes Vital Signs Reviewed: Yes - History of Present Illness This is a 73-year-old male with a history of end-stage renal disease on hemodialysis every Wednesday patient of Dr. Gonzales, diabetes, hyperlipidemia, hypertension, pulmonary vascular disease, chronic anemia, and other comorbidities presents emergency department for 3 months of shortness of breath that became worse today throughout the day. He states recent diagnosis of COPD and has been short of breath for quite a while. He states he used a nebulizer treatment around 2200 but this has not helped. He describes his shortness of breath as feeling like his abdomen is full and pushing up on his diaphragm. He states this became considerably worse today. He denies any known cause that made him any more shortness of breath. He denies any known fever, no increase in cough. He specifically denies any chest pain, edema, wheezing, stridor, nausea. He states his dialysis is Wednesday and he does not miss any. He does complain of chronic constipation and states that "I just get a little sliver of a turned out" regularly and he states he makes himself vomit up about once every 3 days because if not he is unable to eat. His last bowel movement was today but apparently it was very small, he has not had any vomiting today. Pt Subjective Complaint: shortness of breath Onset (ago): hour(s) Severity: moderate, severe Consistency/Duration: constant, gradually worsening Improves with: nothing Worsens with: exertion Known history of: COPD, diabetes Associated symptoms: Reports: cough (Chronic with no increase), nausea/vomiting, abdominal pain. Denies: chest pain, pain with inspiration, fever, wheezing, sputum production, orthopnea, lower extremity pain, polyuria, polydipsia, parasthesias, palpitations, hemoptysis, diaphoresis, syncope, rash, sense of impending doom Treatment prior to arrival: none Cough present: Yes Cough Description: Involuntary Cough Frequency: Intermittent Sputum production: No - Related Data Home oxygen amount: none Home Medications Medication Instructions Recorded Confirmed Allopurinol [Zyloprim 300 MG] 300 mg PO DAILY 08/31/16 10/11/18 Levothyroxine [Synthroid] 175 mcg PO DAILY 08/31/16 10/11/18 Ramipril [Altace] 10 mg PO BID 08/31/16 10/11/18 Tamsulosin [Flomax] 0.4 mg PO DAILY 08/31/16 10/11/18 Tramadol HCl [Ultram] 100 mg PO BID 08/31/16 10/11/18 Omeprazole [PriLOSEC] 40 mg PO DAILY 10/22/16 10/11/18 Psyllium Husk [Fiber] 0.52 gm PO DAILY PRN 12/28/17 10/11/18 Renal Vitamin [Renal Caps Softgel] 1 cap PO DAILY 12/28/17 10/11/18 Aspirin [Adult Aspirin] 81 mg PO DAILY 03/22/18 10/11/18 Cyanocobalamin (B-12) [Vitamin B12] 1,000 mcg PO DAILY 03/22/18 10/11/18 Sevelamer [Renvela] 800 mg PO TIDWM 03/22/18 10/11/18 Sodium Bicarbonate 650 mg PO BID 03/22/18 10/11/18 dilTIAZem HCl [Diltiazem 24Hr ER] 120 mg PO DAILY 03/22/18 10/11/18 predniSONE [PredniSONE] 5 mg PO DAILY 03/22/18 10/11/18 Previous Rx's Medication Instructions Recorded Ferrous Sulfate 325 mg PO BID #60 tab 11/11/16 Hydralazine HCl 50 mg PO Q8H #90 tablet 08/16/17 Sennosides/Docusate Sodium [Senna 2 each PO BID PRN #20 tablet 01/05/18 Plus] Ondansetron ODT [Zofran ODT] 4 mg SL Q4HR #10 tab.rapdis 04/07/18 Albuterol Sulfate [Albuterol 2 puff IH Q4HR PRN #1 hfa.aer.ad 09/06/18 Inhaler] Allergies Allergy/AdvReac Type Severity Reaction Status Date / Time mycophenolate mofetil AdvReac Nausea Verified 10/11/18 02:01 [From CellCept] All systems ED: reviewed and negative except as stated. Review of Systems: As Per HPI Past Medical History - Past Medical History Attestation: Yes The following information was validated with the patient. Source: patient, obtained from family Medical history: Reports: arthritis, cancer, diabetes, dialysis, GERD, hepatitis, hyperlipidemia, hypertension, kidney stones, renal disease, thyroid disease Surgical history: Reports: cataract, knee replacement, orthopedic, other Psychiatric history: Reports: no psych history - Social History Smoking Status: Never smoker Smokeless Tobacco Status: No Alcohol use: Reports: none Drug use: Reports: none Physical Exam - General Limitations: no limitations General appearance: alert, in no apparent distress, anxious - Head Head exam: atraumatic, normocephalic, normal inspection - Eye Eye exam: Present: normal appearance - ENT ENT exam: mucous membranes moist - Neck Neck exam: Present: normal inspection, full ROM, trachea midline - Chest Chest inspection: Present: normal inspection, symmetric chest wall rise - Respiratory Respiratory exam: Present: normal lung sounds bilaterally, other (Diminished bases). Absent: respiratory distress, wheezes - Cardiovascular Cardiovascular exam: Present: regular rate, normal rhythm, normal heart sounds - Abdominal Exam Abdominal exam: Present: soft, Non-Tender, normal bowel sounds. Absent: tenderness, distention, guarding, rebound, organomegaly, mass - Extremities Exam Extremities exam: Present: normal inspection, full ROM, other (Slight nonpitting bilateral lower extremity edema) - Back Exam Back exam: Present: normal inspection, full ROM - Neurological Exam Neurological exam: Present: alert, oriented X3 - Psychiatric Psychiatric exam: Present: normal affect, normal mood - Skin Skin exam: Present: warm, dry, intact, normal color Course Course Narrative: Well-developed male in no acute distress. Respirations are easy and even. Patient does appear very anxious, his fists are clenched and he is sitting straight up, he is oxygenating 100% on room air. Here is afebrile, nontachypneic. EKG reveals a sinus rhythm with ventricular rate of 95 bpm, MS interval 161ms, QTC 508 milliseconds, there is no evidence of ischemic pathology or ectopy. There is evidence of left bundle-branch block that is not new. There are no acute changes. Consideration given for cardiac etiology, pulmonary etiology, abdominal etiology given the history of constipation in the known making himself vomit and decreased bowel movements that are chronic. At this time I will hold on breathing treatments and steroids as given patient subjective and objective findings I just to ensure this is pulmonary in etiology. There is no wheezing or increase in coughing. We will obtain basic labs, BNP, troponin, chest x-ray as well as we will get a CT scan of his abdomen and pelvis giving how he discusses what is making him short of breath as it appears to be more abdominal in nature with abdominal bloating and feeling suicidal for about a pushes up on his diaphragm. I am not concerned with a pulmonary embolism or blood,, patient without evidence, PERC positive only for age. This would be very atypical presentation for there to be a cardiac etiology that we will ensure that we obtain a troponin. I did specifically ask patient if he was having any type of pain in his chest or fluttering, to which he has declined. - Reevaluation(s) Reevaluation #1: Patient has a resting quietly. He has not had any respiratory distress while he has been here. He is maintaining saturation on room air. Basic labs returned with a CBC and metabolic panel at baseline, troponin is 0.08 however review previous troponins reveal that this is chronic for him and is most likely related to the end-stage renal disease and demand ischemia, BNP returns elevated at 2333, this is the only BNP we have on file and again this is most likely related to chronic illnesses and fluid overload. Repeat EKG after elevated troponin without acute changes. We will give 20 mg of Lasix, reevaluation after CT scan reveals patient now has crackles in his lungs in general just states that he feels uncomfortable, we will also place him on a BiPAP. Patient will require admission to the hospital given the fluid overload status and the shortness of breath. He is agreeable to this plan of care. He did discuss today at dialysis they did not remove any fluid and wishes to filtration. Time: 03:33 Reevaluation #2: Chest x-ray reveals pulmonary edema, CT abdomen and pelvis is unremarkable for abdominal pathology. Patient does have cholelithiasis though there is no evidence for cholecystitis. Patient has had the BiPAP on, he has tolerated it well. He did remove it and placed oxygen back on. He states it did help him for a while. He is agreeable with admission to the hospital for the shortness of breath, fluid overload. I did speak with hospitalist Dr. Alves is agreeable to take the patient for inpatient status. Time: 04:24 Vital Signs Temperature 98.4 F 10/11/18 01:40 Pulse Rate 103 10/11/18 01:40 Respiratory Rate 22 10/11/18 01:40 Blood Pressure 195/105 10/11/18 01:40 O2 Sat by Pulse Oximetry 98 10/11/18 01:40 Temperature 98.4 F 10/11/18 01:43 Pulse Rate 86 10/11/18 03:00 Respiratory Rate 14 10/11/18 03:50 Blood Pressure 161/98 10/11/18 03:00 O2 Sat by Pulse Oximetry 100 10/11/18 03:50 Oxygen Delivery Oxygen Delivery Nasal Cannula Shortness of Breath/Dyspnea - Lab Data Result diagrams: 10/11/18 02:19 10/11/18 02:19 Lab Results 10/11/18 10/11/18 10/11/18 Range/Units 02:19 02:19 02:19 WBC 9.6 (4.3-11.1) K/mcL RBC 2.99 L (4.19-5.50) M/mcL Hgb 10.0 L (12.9-16.9) g/dL Hct 30.8 L (37.5-50.1) % MCV 103.0 H (83.0-100.0) fL MCH 33.4 H (28.0-33.3) pg MCHC 32.5 (31.6-35.5) g/dL RDW 14.7 H (11.5-14.5) % Plt Count 225 (140-400) K/mcL MPV 9.0 L (9.4-12.4) fL Immature Gran % 0.9 (0-4) % Seg Neutrophils % 61.7 % Lymphocytes % 24.1 % Monocytes % 10.4 % Eosinophils % 2.1 % Basophils % 0.8 % Neutrophils # 5.9 (1.6-8.9) K/mcL Lymphocytes # 2.3 (0.6-4.6) K/mcL Monocytes # 1.0 (0.0-1.3) K/mcL Eosinophils # 0.2 (0.0-0.6) K/mcL Basophils # 0.1 (0.0-0.2) K/mcL Sodium 138 (136-145) mEq/L Potassium 4.0 (3.5-5.1) mEq/L Chloride 100 (98-107) mEq/L Carbon Dioxide 28 (23-29) mEq/L BUN 28 H (8-23) mg/dL Creatinine 4.27 H (0.70-1.30) mg/dL Est GFR ( Amer) 17 L (> 60) Est GFR (Non-Af Amer) 14 L (> 60) BUN/Creatinine Ratio 7 (6-26) Glucose 114 H (70-105) mg/dL Calculated Osmolality 292 (280-300) Lactic Acid 1.1 (0.5-2.2) mmol/L Calcium 9.5 (8.6-10.3) mg/dL Total Bilirubin 0.4 (0.3-1.0) mg/dL Direct Bilirubin 0.1 (0.0-0.2) mg/dL Indirect Bilirubin 0.3 (0.0-1.2) mg/dL AST 18 (13-39) Units/L ALT 10 (7-52) Units/L Alkaline Phosphatase 41 (34-104) Units/L Troponin I 0.08 H* (< 0.04) ng/mL B-Natriuretic Peptide (Less than 100) pg/mL Serum Total Protein 6.3 L (6.4-8.9) g/dL Albumin 3.8 (3.5-5.7) g/dL Globulin 2.5 (2.4-3.5) g/dL Albumin/Globulin Ratio 1.5 (1.1-2.2) 10/11/18 10/11/18 Range/Units 02:19 04:24 WBC (4.3-11.1) K/mcL RBC (4.19-5.50) M/mcL Hgb (12.9-16.9) g/dL Hct (37.5-50.1) % MCV (83.0-100.0) fL MCH (28.0-33.3) pg MCHC (31.6-35.5) g/dL RDW (11.5-14.5) % Plt Count (140-400) K/mcL MPV (9.4-12.4) fL Immature Gran % (0-4) % Seg Neutrophils % % Lymphocytes % % Monocytes % % Eosinophils % % Basophils % % Neutrophils # (1.6-8.9) K/mcL Lymphocytes # (0.6-4.6) K/mcL Monocytes # (0.0-1.3) K/mcL Eosinophils # (0.0-0.6) K/mcL Basophils # (0.0-0.2) K/mcL Sodium (136-145) mEq/L Potassium (3.5-5.1) mEq/L Chloride (98-107) mEq/L Carbon Dioxide (23-29) mEq/L BUN (8-23) mg/dL Creatinine (0.70-1.30) mg/dL Est GFR ( Amer) (> 60) Est GFR (Non-Af Amer) (> 60) BUN/Creatinine Ratio (6-26) Glucose (70-105) mg/dL Calculated Osmolality (280-300) Lactic Acid 0.7 (0.5-2.2) mmol/L Calcium (8.6-10.3) mg/dL Total Bilirubin (0.3-1.0) mg/dL Direct Bilirubin (0.0-0.2) mg/dL Indirect Bilirubin (0.0-1.2) mg/dL AST (13-39) Units/L ALT (7-52) Units/L Alkaline Phosphatase (34-104) Units/L Troponin I (< 0.04) ng/mL B-Natriuretic Peptide 2333 H (Less than 100) pg/mL Serum Total Protein (6.4-8.9) g/dL Albumin (3.5-5.7) g/dL Globulin (2.4-3.5) g/dL Albumin/Globulin Ratio (1.1-2.2) Attestation Statement - Attestation Attestation: Abhinav Henry DO have provided [id number] time during the care of this patient. Detailed review the presentation, symptoms, medical history were discussed and reviewed with the advanced practice provider Christi Whitehead/SALLY. Medical intervention labs and imaging studies were reviewed in detail. See full documentation of physical exam and course of care in the advanced practice provider's note. I agree with the determined course of care, medical intervention and disposition put forth by the advanced practice provider. See below documentation for changes or alterations in documentation.
[2018-10-11] MEDS ORDERED: Furosemide 20 MG/2 ML VIAL IVP ONE ×2 (03:30→11:57)
--- NOTE | 2018-10-11 04:58 | Emergency Department Note ---
Disposition Clinical Impression: CKD (chronic kidney disease), stage V, Elevated troponin I level Anemia Qualifiers: Anemia type: due to chronic kidney disease Chronic kidney disease stage: on chronic dialysis Qualified Code(s): N18.6 - End stage renal disease Hypertension Qualifiers: Hypertension type: unspecified Qualified Code(s): I10 - Essential (primary) hypertension Pulmonary edema Qualifiers: Chronicity: acute Qualified Code(s): J81.0 - Acute pulmonary edema Disposition: Admitted As Inpatient Condition: Fair Referrals: Ismael Griffin MD [Primary Care Provider] - Forms: ED Satisfaction Letter Time of Disposition: 04:58 General Adult HPI - General Chief complaint: ED Shortness of Breath/Dyspnea Stated complaint: Carrillo Time Seen by Provider: 10/11/18 01:40 Source: patient, family Mode of arrival: private vehicle Limitations: no limitations - History of Present Illness Pain Scale: 2 - Related Data Home Medications Medication Instructions Recorded Confirmed Allopurinol [Zyloprim 300 MG] 300 mg PO DAILY 08/31/16 10/11/18 Levothyroxine [Synthroid] 175 mcg PO DAILY 08/31/16 10/11/18 Ramipril [Altace] 10 mg PO BID 08/31/16 10/11/18 Tamsulosin [Flomax] 0.4 mg PO DAILY 08/31/16 10/11/18 Tramadol HCl [Ultram] 100 mg PO BID 08/31/16 10/11/18 Omeprazole [PriLOSEC] 40 mg PO DAILY 10/22/16 10/11/18 Psyllium Husk [Fiber] 0.52 gm PO DAILY PRN 12/28/17 10/11/18 Renal Vitamin [Renal Caps Softgel] 1 cap PO DAILY 12/28/17 10/11/18 Aspirin [Adult Aspirin] 81 mg PO DAILY 03/22/18 10/11/18 Cyanocobalamin (B-12) [Vitamin B12] 1,000 mcg PO DAILY 03/22/18 10/11/18 Sevelamer [Renvela] 800 mg PO TIDWM 03/22/18 10/11/18 Sodium Bicarbonate 650 mg PO BID 03/22/18 10/11/18 dilTIAZem HCl [Diltiazem 24Hr ER] 120 mg PO DAILY 03/22/18 10/11/18 predniSONE [PredniSONE] 5 mg PO DAILY 03/22/18 10/11/18 Previous Rx's Medication Instructions Recorded Ferrous Sulfate 325 mg PO BID #60 tab 11/11/16 Hydralazine HCl 50 mg PO Q8H #90 tablet 08/16/17 Sennosides/Docusate Sodium [Senna 2 each PO BID PRN #20 tablet 01/05/18 Plus] Ondansetron ODT [Zofran ODT] 4 mg SL Q4HR #10 tab.rapdis 04/07/18 Albuterol Sulfate [Albuterol 2 puff IH Q4HR PRN #1 hfa.aer.ad 09/06/18 Inhaler] Allergies Allergy/AdvReac Type Severity Reaction Status Date / Time mycophenolate mofetil AdvReac Nausea Verified 10/11/18 02:01 [From CellCept] Past Medical History - Past Medical History Medical history: Reports: arthritis, cancer, diabetes, dialysis, GERD, hepatitis, hyperlipidemia, hypertension, kidney stones, renal disease, thyroid disease Surgical history: Reports: cataract, knee replacement, orthopedic, other Psychiatric history: Reports: no psych history - Social History Smoking Status: Never smoker Smokeless Tobacco Status: No Alcohol use: Reports: none Drug use: Reports: none Physical Exam - General Limitations: no limitations General appearance: alert, in no apparent distress, anxious Course Vital Signs Temperature 98.4 F 10/11/18 01:40 Pulse Rate 103 10/11/18 01:40 Respiratory Rate 22 10/11/18 01:40 Blood Pressure 195/105 10/11/18 01:40 O2 Sat by Pulse Oximetry 98 10/11/18 01:40 Temperature 98.4 F 10/11/18 01:43 Pulse Rate 86 10/11/18 03:00 Respiratory Rate 26 10/11/18 03:00 Blood Pressure 161/98 10/11/18 03:00 O2 Sat by Pulse Oximetry 99 10/11/18 03:00 Oxygen Delivery Oxygen Delivery Nasal Cannula Medical Decision Making - Lab Data Result diagrams: 10/11/18 02:19 10/11/18 02:19 Lab Results 10/11/18 10/11/18 10/11/18 Range/Units 02:19 02:19 02:19 WBC 9.6 (4.3-11.1) K/mcL RBC 2.99 L (4.19-5.50) M/mcL Hgb 10.0 L (12.9-16.9) g/dL Hct 30.8 L (37.5-50.1) % MCV 103.0 H (83.0-100.0) fL MCH 33.4 H (28.0-33.3) pg MCHC 32.5 (31.6-35.5) g/dL RDW 14.7 H (11.5-14.5) % Plt Count 225 (140-400) K/mcL MPV 9.0 L (9.4-12.4) fL Immature Gran % 0.9 (0-4) % Seg Neutrophils % 61.7 % Lymphocytes % 24.1 % Monocytes % 10.4 % Eosinophils % 2.1 % Basophils % 0.8 % Neutrophils # 5.9 (1.6-8.9) K/mcL Lymphocytes # 2.3 (0.6-4.6) K/mcL Monocytes # 1.0 (0.0-1.3) K/mcL Eosinophils # 0.2 (0.0-0.6) K/mcL Basophils # 0.1 (0.0-0.2) K/mcL Sodium 138 (136-145) mEq/L Potassium 4.0 (3.5-5.1) mEq/L Chloride 100 (98-107) mEq/L Carbon Dioxide 28 (23-29) mEq/L BUN 28 H (8-23) mg/dL Creatinine 4.27 H (0.70-1.30) mg/dL Est GFR ( Amer) 17 L (> 60) Est GFR (Non-Af Amer) 14 L (> 60) BUN/Creatinine Ratio 7 (6-26) Glucose 114 H (70-105) mg/dL Calculated Osmolality 292 (280-300) Lactic Acid 1.1 (0.5-2.2) mmol/L Calcium 9.5 (8.6-10.3) mg/dL Total Bilirubin 0.4 (0.3-1.0) mg/dL Direct Bilirubin 0.1 (0.0-0.2) mg/dL Indirect Bilirubin 0.3 (0.0-1.2) mg/dL AST 18 (13-39) Units/L ALT 10 (7-52) Units/L Alkaline Phosphatase 41 (34-104) Units/L Troponin I 0.08 H* (< 0.04) ng/mL B-Natriuretic Peptide (Less than 100) pg/mL Serum Total Protein 6.3 L (6.4-8.9) g/dL Albumin 3.8 (3.5-5.7) g/dL Globulin 2.5 (2.4-3.5) g/dL Albumin/Globulin Ratio 1.5 (1.1-2.2) 10/11/18 Range/Units 02:19 WBC (4.3-11.1) K/mcL RBC (4.19-5.50) M/mcL Hgb (12.9-16.9) g/dL Hct (37.5-50.1) % MCV (83.0-100.0) fL MCH (28.0-33.3) pg MCHC (31.6-35.5) g/dL RDW (11.5-14.5) % Plt Count (140-400) K/mcL MPV (9.4-12.4) fL Immature Gran % (0-4) % Seg Neutrophils % % Lymphocytes % % Monocytes % % Eosinophils % % Basophils % % Neutrophils # (1.6-8.9) K/mcL Lymphocytes # (0.6-4.6) K/mcL Monocytes # (0.0-1.3) K/mcL Eosinophils # (0.0-0.6) K/mcL Basophils # (0.0-0.2) K/mcL Sodium (136-145) mEq/L Potassium (3.5-5.1) mEq/L Chloride (98-107) mEq/L Carbon Dioxide (23-29) mEq/L BUN (8-23) mg/dL Creatinine (0.70-1.30) mg/dL Est GFR ( Amer) (> 60) Est GFR (Non-Af Amer) (> 60) BUN/Creatinine Ratio (6-26) Glucose (70-105) mg/dL Calculated Osmolality (280-300) Lactic Acid (0.5-2.2) mmol/L Calcium (8.6-10.3) mg/dL Total Bilirubin (0.3-1.0) mg/dL Direct Bilirubin (0.0-0.2) mg/dL Indirect Bilirubin (0.0-1.2) mg/dL AST (13-39) Units/L ALT (7-52) Units/L Alkaline Phosphatase (34-104) Units/L Troponin I (< 0.04) ng/mL B-Natriuretic Peptide 2333 H (Less than 100) pg/mL Serum Total Protein (6.4-8.9) g/dL Albumin (3.5-5.7) g/dL Globulin (2.4-3.5) g/dL Albumin/Globulin Ratio (1.1-2.2) Attestation Statement - Attestation Attestation: II, Abhinav Merchant DO have provided [id number] time during the care of this patient. Detailed review the presentation, symptoms, medical history were discussed and reviewed with the advanced practice provider Christi Vera/SALLY. Medical intervention labs and imaging studies were reviewed in detail. See full documentation of physical exam and course of care in the advanced practice provider's note. I agree with the determined course of care, medical intervention and disposition put forth by the advanced practice provider. See below documentation for changes or alterations in documentation. 73-year-old male presents emergency room for evaluation of shortness of breath and increased work of breathing. Patient denies any falls trauma or injury. He does have a history of renal insufficiency, fluid overload, heart failure. He denies any medication changes this time. He said the symptoms for several days and been progressively getting worse. Patient has not started any new medications. Patient is been otherwise clinically stable. Vital signs reviewed on presentation patient does have increased work of breathing. Patient is alert he is oriented speaking full sentences. On my physical exam the patient has coarse crackles in the bases the bilateral lungs. Heart is regular. Abdomen is soft. No guarding no rigidity. No peritoneal symptoms at this time. Extremities are normal and presentation with slight pitting edema. Patient walked into the emergency room under his own power. Patient will have detailed workup completed this time including chest x-ray EKG CBC chemistry along with CT imaging of the abdomen. Lasix will be started as needed. Patient will be provided with symptomatic control. Patient is otherwise stable. BMP and troponin to be collected. EKG is reviewed by myself in documented in the advanced practice provider's note. See detailed documentation the physical exam, medical intervention, medical decision-making and disposition in the resident provider's note. No critical care provider the patient's treatment course at this time. [id number] Patient is been otherwise asymptomatic here. BiPAP was applied secondary to crackles noted on examination when he came back from the imaging modalities. Is otherwise stable. His BNP is significantly elevated and is never been addressed in the past. Has an echo from earlier this year that shows an ejection fraction 35%. Troponin is elevated but at baseline with his renal insufficiency. He typically goes to dialysis Wednesday. He was evaluated today and had a normal treatment completed. He did not have any volume taken off at this time considering his weight on arrival there was underneath his dry weight according to the staff. Patient felt like they were drawn at that time that is what caused him to have to come in here today. Patient is otherwise stable. The hospitalist Dr. Almazan has reviewed the case. No other recommendations or concerns. Patient will have consult to nephrology completed tomorrow. He is typically under the care of Dr. Hayden. Patient will be monitored here in the emergency department until the admission process is completed.
[2018-10-11] MEDS ORDERED: Ondansetron 4 MG/2 ML VIAL IVP PRN (09:20)
[2018-10-11] MEDS ORDERED: Psyllium 1 PACKET POWD.PACK PO PRN (10:23)
[2018-10-11] MEDS ORDERED: Sennosides/Docusate Sodium TABLET PO PRN (10:23)
[2018-10-11] MEDS ORDERED: hydrALAZINE 25 MG TABLET PO SCH (10:30)
[2018-10-11] MEDS ORDERED: Naloxone 0.4 MG/ML INJ IVP PRN (11:21)
[2018-10-11] MEDS: hydrALAZINE 25 MG TABLET PO SCH ×3 (11:28→20:38)
[2018-10-11] MEDS ORDERED: Ondansetron ODT 4 MG TAB.RAPDIS SL PRN (11:35)
[2018-10-11] MEDS ORDERED: traMADol 50 MG TABLET PO PRN (11:35)
--- NOTE | 2018-10-11 11:45 | Nephrology Consult Note ---
Date of Encounter: 10/11/18 Time of Encounter: 08:45 Assessment and Plan (1) ESRD (end stage renal disease) on dialysis Current Visit: No Status: Chronic End-stage renal disease on thrice weekly hemodialysis every //. he just completed dialysis yesterday for a full treatment at the [facility], and appears euvolemic on exam. He has chronic pulmonary issues, which is what brought him into the hospital with worsening dyspnea. He still makes urine, and therefore I can assist with optimizing a loop diuretic to help with the pulmonary edema. His next tenets of dialysis will be planned for tomorrow. For patients with end-stage renal disease, as always, I recommend following strict I's and O's, daily weights, renal diet, avoidance of nephrotoxic agents, renal dosing. Thank you for consultation [facility] on this complex patient who required a high degree of medical decision-making and evaluation and management. (2) Anemia Current Visit: Yes Status: Chronic Goal Hgb is 10-11 and will monitor for MADONNA and/or IV iron needs Qualifiers: Anemia type: due to chronic kidney disease Chronic kidney disease stage: on chronic dialysis Qualified Code(s): N18.6 - End stage renal disease; D63.1 - Anemia in chronic kidney disease; Z99.2 - Dependence on renal dialysis (3) Pulmonary edema Current Visit: Yes Status: Acute Rec loop diuretics today (He just had HD yesterday and I'll plan for more dialysis tomorrow). He still makes urine, according to the pt. Qualifiers: Chronicity: acute Qualified Code(s): J81.0 - Acute pulmonary edema (4) Hypertension Current Visit: Yes Status: Chronic Will monitor. 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 [facility] was consulted because he requires chronic dialysis. He tells me that he completed his full dialysis treatment yesterday at the [facility] unit in [place], [place], and had no major complaints at that time, but since this his shortness of breath has worsened. He did not affirm having nausea, vomiting, diarrhea, or dizziness. He did not affirm having any lower committee swelling recently either. His was present at the bedside and I answered all of their questions. He is reported no problems with his AV fistula recently. Past Med Surg Social Fam HX - Past Medical History Medical history: arthritis, cancer, diabetes, dialysis, GERD, hepatitis, hyperlipidemia, hypertension, kidney stones, renal disease, thyroid disease Additional medical history: skin cancer, hypothyroid, MSD, gout, hypogonadism,osteoarthritis, hematuria, melanoma, dialysis Psychiatric history: no psych history - Past Surgical History Surgical History: cataract, knee replacement, orthopedic, other Additional surgical history: Vasectomy, Left arm shunt, right chest permacath, left total knee, 4 skin cancer removals, laminectomy - Social History Smoking Status: Never smoker Smokeless Tobacco Status: No Alcohol use: none Drug use: none - Family History Mother Living Status: Hx Family Cardiac Disorders: Yes Hx Family Cancer: Yes Medications and Allergies Allopurinol [Zyloprim 300 MG] 300 mg PO DAILY 08/31/16 [History] Levothyroxine [Synthroid] 175 mcg PO DAILY 08/31/16 [History] Ramipril [Altace] 10 mg PO BID 08/31/16 [History] Tamsulosin [Flomax] 0.4 mg PO DAILY 08/31/16 [History] Tramadol HCl [Ultram] 100 mg PO Q12H PRN 08/31/16 [History] Omeprazole [PriLOSEC] 40 mg PO DAILY 10/22/16 [History] Ferrous Sulfate 325 mg PO BID #60 tab 11/11/16 [Rx] Hydralazine HCl 50 mg PO Q8H #90 tablet 08/16/17 [Rx] Psyllium Husk [Fiber] 0.52 gm PO DAILY PRN 12/28/17 [History] Renal Vitamin [Renal Caps Softgel] 1 cap PO DAILY 12/28/17 [History] Sennosides/Docusate Sodium [Senna Plus] 2 each PO BID PRN #20 tablet 01/05/18 [Rx] Aspirin [Adult Aspirin] 81 mg PO DAILY 03/22/18 [History] Cyanocobalamin (B-12) [Vitamin B12] 1,000 mcg PO DAILY 03/22/18 [History] Sevelamer [Renvela] 800 mg PO TIDWM 03/22/18 [History] Sodium Bicarbonate 650 mg PO BID 03/22/18 [History] dilTIAZem HCl [Diltiazem 24Hr ER] 120 mg PO DAILY 03/22/18 [History] predniSONE [PredniSONE] 5 mg PO DAILY 03/22/18 [History] Albuterol Sulfate [Albuterol Inhaler] 2 puff IH Q4HR PRN #1 hfa.aer.ad 09/06/18 [Rx] Ondansetron [Zuplenz] 4 mg PO Q6H PRN 10/11/18 [History] Allergy/AdvReac Type Severity Reaction Status Date / Time mycophenolate mofetil AdvReac Nausea Verified 10/11/18 02:01 [From CellCept] Review of Systems All Systems: reviewed and no additional remarkable complaints except as stated Exam - Vital Signs Vital signs: Initial Vital Signs Temp Pulse Resp BP Pulse Ox 98.4 F 103 22 195/105 98 10/11/18 01:40 10/11/18 01:40 10/11/18 01:40 10/11/18 01:40 10/11/18 01:40 Vital Signs - Last 8 Hours Temp Pulse Resp BP Pulse Ox 10/11/18 11:26 98.0 F 90 18 175/102 92 10/11/18 07:34 20 98 10/11/18 07:20 98.2 F 89 16 175/103 98 10/11/18 03:50 14 100 Intake and Output 10/10/18 10/11/18 10/11/18 23:59 07:59 15:59 Intake Total 0 / 0 Output Total 150 / 150 Balance -150 / -150 Intake: Oral 0 / 0 Output: Urine 150 / 150 Other: Meal NPO Percent of Meal Consumed 0% # Voids 1 Weight 81.647 kg Blood Glucose* 100 98 Patient Weight 10/11/18 23:59 Weight 81.647 kg - General Appearance General appearance: well-developed, well-nourished, appears started age, fatigue EENT: ATNC, PERRL, mucous membranes moist Neck: supple Respiratory: clear (with scatter rhonchi but diminished breath sounds in the bases) Cardiology: no edema, regular rate, regular rhythm, normal S1, normal S2 - Dialysis Access Dialysis Vascular Access: Arteriovenous Fistula (left forearm AVF) thrill: Yes bruit: Yes Gastrointestinal: normoactive bowel sounds, no tenderness, no guarding Integumentary: no rash, warm and dry Neurologic: no focal deficit, no asterixis, alert and oriented x3 Musculoskeletal: no deformities, no erythema, no cyanosis, no clubbing Psychiatric: mood/affect appropriate, cooperative Results - Lab Results 10/11/18 02:19 07 02:19 Most recent lab results 10/11/18 02:19 Calcium 9.5 Consult Discharge Plan - Plan Referrals: Ismael Griffin MD [Primary Care Provider] -
[2018-10-11] MEDS ORDERED: Ondansetron ODT 4 MG TAB.RAPDIS SL SCH (12:00)
--- NOTE | 2018-10-11 12:38 | Internal Med History&Physical ---
Date of Encounter: 10/11/18 Time of Encounter: 12:37 Internal Medicine - H&P: HPI Chief complaint: shortness of breath History of present illness: This is a 73-year-old male with a history of end-stage renal disease on hemodialysis Wednesday via left forearm AV fistula, diabetes, hyperlipidemia, hypertension, anemia, pulmonary vascular disease who presented to the ER with shortness of breath. The patient stated that he was diagnosed with COPD recently he tried to use his inhalers to improve his shortness of breath was no improvement. The patient denies fever chills, cough, chest pain, palpitation, orthopnea, but of them is minimal nocturnal dyspnea, progressive worsening of lower extremity edema. the patient also reported that he doesn't have radicular bowel movement, and when he has usually eats a very small amount, CAT scan of the abdomen was obtained in the ER and revealed no significant abnormalities The patient stated that he is compliant with his hemodialysis and his last dialysis session was on Wednesday. imaging studies studies was evidence for mild pulmonary edema and bilateral pleural effusion. He stated that he was told in the ER that his symptoms might be attributed to the pleural effusion or the need for more fluid removal with hemodialysis, nephrology was consulted by the ER staff and the patient was admitted for further evaluation and management. Past Med Surg Social Fam HX - Past Medical History Medical history: arthritis, cancer, diabetes, dialysis, GERD, hepatitis, hyperlipidemia, hypertension, kidney stones, renal disease, thyroid disease Additional medical history: skin cancer, hypothyroid, MSD, gout, hypogonadism ,osteoarthritis, hematuria, melanoma, dialysis Psychiatric history: no psych history - Past Surgical History Surgical History: cataract, knee replacement, orthopedic, other Additional surgical history: Vasectomy, Left arm shunt, right chest permacath, left total knee, 4 skin cancer removals, laminectomy - Social History Smoking Status: Never smoker Smokeless Tobacco Status: No Alcohol use: none Drug use: none - Family History Mother Living Status: Hx Family Cardiac Disorders: Yes Hx Family Cancer: Yes Internal Medicine - H&P: Meds Allopurinol [Zyloprim 300 MG] 300 mg PO DAILY PRN 08/31/16 [History] Ramipril [Altace] 10 mg PO BID 08/31/16 [History] Tamsulosin [Flomax] 0.4 mg PO DAILY 08/31/16 [History] Tramadol HCl [Ultram] 100 mg PO Q12H PRN 08/31/16 [History] Omeprazole [PriLOSEC] 40 mg PO DAILY 10/22/16 [History] Ferrous Sulfate 325 mg PO BID #60 tab 11/11/16 [Rx] Hydralazine HCl 50 mg PO Q8H #90 tablet 08/16/17 [Rx] Psyllium Husk [Fiber] 0.52 gm PO DAILY PRN 12/28/17 [History] Renal Vitamin [Renal Caps Softgel] 1 cap PO DAILY 12/28/17 [History] Sennosides/Docusate Sodium [Senna Plus] 2 each PO BID PRN #20 tablet 01/05/18 [Rx] Aspirin [Adult Aspirin] 81 mg PO DAILY 03/22/18 [History] Cyanocobalamin (B-12) [Vitamin B12] 1,000 mcg PO DAILY 03/22/18 [History] Sevelamer [Renvela] 800 mg PO TIDWM 03/22/18 [History] Sodium Bicarbonate 650 mg PO BID 03/22/18 [History] dilTIAZem HCl [Diltiazem 24Hr ER] 120 mg PO DAILY 03/22/18 [History] Albuterol Sulfate [Proventil Inhaler] 2 puff IH Q4HR PRN #1 hfa.aer.ad 09/06/18 [Rx] Carvedilol 12.5 mg PO BID 10/11/18 [History] Gabapentin [Neurontin] 100 mg PO DAILY 10/11/18 [History] Levothyroxine Sodium [Levo-T] 300 mcg PO DAILY 10/11/18 [History] Ondansetron [Zuplenz] 4 mg PO Q6H PRN 10/11/18 [History] predniSONE [PredniSONE] 5 mg PO DAILY 10/11/18 [History] Furosemide [Lasix] 20 mg PO DAILY #30 tablet 10/13/18 [Rx] Allergy/AdvReac Type Severity Reaction Status Date / Time mycophenolate mofetil AdvReac Nausea Verified 10/11/18 22:11 [From CellCept] All Systems PM: A 10-system review of systems was performed and is negative for pertinent findings except as documented above in the HPI. - Constitutional Vitals: Temp Pulse Resp BP Pulse Ox 98.0 F 90 18 175/102 92 10/11/18 11:26 10/11/18 11:26 10/11/18 11:26 10/11/18 11:26 10/11/18 11:26 Exam: General: Ill-appearing and in no acute distress HEENT: No erythema of posterior pharynx. No exudates. Lymphatics: No mandibular or cervical lymphadenopathy Cardiovascular: RRR. No murmurs. No chest wall tenderness. Lungs: Clear to auscelltation bilaterally. Regular chest rise. Abdomen: Non-tender. No rebound or gaurding. Nl bowel sounds. Extremities: No edema. 2+ pulses radial and pedal pulses Skin: No rahses, abrasions, or contusions. Nl cap refill. Psych: Nl attention. A&Ox3 Neuro: tubing assembler II-XII intact. 5/5 strength. Sensation to light touch and pinprick intact. Internal Med - H&P Results - Labs CBC & Chem 7: 10/12/18 04:08 10/12/18 04:08 Labs: Short CBC 10/11/18 Range/Units 02:19 WBC 9.6 (4.3-11.1) K/mcL Hgb 10.0 L (12.9-16.9) g/dL Hct 30.8 L (37.5-50.1) % Plt Count 225 (140-400) K/mcL Neutrophils # 5.9 (1.6-8.9) K/mcL BMP 10/11/18 02:19 Sodium 138 Potassium 4.0 Chloride 100 Carbon Dioxide 28 BUN 28 H Creatinine 4.27 H Glucose 114 H Calcium 9.5 Cardiac Enzymes 10/11/18 10/11/18 Range/Units 02:19 11:47 Troponin I 0.08 H* 0.10 H* (< 0.04) ng/mL Liver Function 10/11/18 Range/Units 02:19 Total Bilirubin 0.4 (0.3-1.0) mg/dL Direct Bilirubin 0.1 (0.0-0.2) mg/dL AST 18 (13-39) Units/L ALT 10 (7-52) Units/L Alkaline Phosphatase 41 (34-104) Units/L Albumin 3.8 (3.5-5.7) g/dL - Impressions ITS Impressions Abdomen/Pelvis CT 10/11/18 01:50 IMPRESSION: No acute finding in the abdomen or pelvis. Cholelithiasis with several calcified gallstones. No findings to suggest cholecystitis. Scattered colon diverticula with no evidence of diverticulitis. Small bilateral pleural effusions, interlobular septal thickening, bronchial wall thickening and cardiomegaly most consistent with mild congestive heart failure. Clinical correlation recommended. D/ / Sánchez Kim MD / Sánchez Kim MD Interpreting Provider: Sánchez Kim MD Chest X-Ray 10/11/18 01:50 IMPRESSION: 1. Mild pulmonary edema, stable. 2. Small bilateral pleural effusions with associated bibasilar atelectasis. D/ / Lucas Camp MD / Lucas Camp MD Interpreting Provider: Lucas Camp MD - Assessment and Plan (1) Bilateral pleural effusion Status: Acute Assessment and plan: As D/e . The most frequent cause of exudative pleural effusion usualy is uremic pleuritis and hypervolemia , Thoracentesis may be performed only in patients with unilateral pleural effusion , continue monitoring. (2) ESRD (end stage renal disease) on dialysis Status: Acute Assessment and plan: nephrology was consulted by the ER staff in the ER, they promptly so the patient and decided that no additional renal replacement therapy sessions is needed at this point, the patient will be scheduled for pain hemodialysis session in a.m. (3) Hypertension Status: Chronic Assessment and plan: we will continue home blood pressure medication, continue to monitor blood pressure while inpatient and adjust regimen accordingly Qualifiers: Hypertension type: essential hypertension Qualified Code(s): I10 - Essential (primary) hypertension (4) Diabetes mellitus Status: Deleted Assessment and plan: we'll start the patient and an insulin sliding scale with moderate coverage Qualifiers: Diabetes mellitus type: type 2 Diabetes mellitus shelter insulin use: without shelter use Diabetes mellitus complication status: with kidney complications Diabetes mellitus complication detail: with microalbuminuria Qualified Code(s): E11.29 - Type 2 diabetes mellitus with other diabetic kidney complication; R80.9 - Proteinuria, unspecified (5) DVT prophylaxis Status: Acute Assessment and plan: we will place SCDs - Time Spent With Patient Total time spent is greater than 50% in coordination of care (as documented) at patient's floor/unit and/or counseling patient:
--- NOTE | 2018-10-11 14:06 | Electrocardiograph Report ---
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
--- NOTE | 2018-10-11 14:07 | Electrocardiograph Report ---
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
--- NOTE | 2018-10-11 18:48 | Event Note ---
Date of Encounter: 10/12/18 Time of Encounter: 18:[address] Carrasquillo who kindly reviews the patient imaging studies and agreed that bilateral small pleural effusion hemodialysis patient most likely secondary to uremia and no further management at this point.
[2018-10-11] MEDS ORDERED: traMADol 50 MG TABLET PO SCH (21:00)
[2018-10-12 04:53] LABS: Basophils # 0.1 K/mcL (0.0-0.2); Basophils % 0.9 %; Eosinophils # 0.2 K/mcL (0.0-0.6); Eosinophils % 2.5 %; Hematocrit 31.7 % (37.5-50.1); Immature Granulocytes % 0.9 % (0-4); Lymphocytes % 21.6 %; Mean Corpuscular HGB Conc 31.5 g/dL (31.6-35.5); Mean Corpuscular Hemoglobin 32.8 pg (28.0-33.3); Mean Corpuscular Volume 103.9 fL (83.0-100.0); Mean Platelet Volume 9.1 fL (9.4-12.4); Monocytes % 10.8 %; Platelet Count 218 K/mcL (140-400); Red Blood Count 3.05 M/mcL (4.19-5.50); Red Cell Distribution Width 14.8 % (11.5-14.5); Segmented Neutrophils % 63.3 %; White Blood Count 9.4 K/mcL (4.3-11.1)
[2018-10-12 04:59] LABS: Prothrombin Time 11.3 Seconds (9.4-12.1)
[2018-10-12 05:02] LABS: Activated Partial Thrombo Time 29.8 Seconds (26.0-36.0)
[2018-10-12 05:18] LABS: Albumin 3.6 g/dL (3.5-5.7); Albumin/Globulin Ratio 1.6 (1.1-2.2); Bilirubin,Total 0.4 mg/dL (0.3-1.0); Calcium 10.2 mg/dL (8.6-10.3); Chol/HDL Ratio 2.3 (0-4.9); Globulin 2.3 g/dL (2.4-3.5); Potassium 4.5 mEq/L (3.5-5.1); Total Protein 5.9 g/dL (6.4-8.9)
[2018-10-12] MEDS ORDERED: 0.9 % Sodium Chloride 250 ML IVC PRN (07:39)
[2018-10-12] MEDS ORDERED: 0.9 % Sodium Chloride 1,000 ML PRIME SCH (07:45)
[2018-10-12] MEDS: predniSONE 1 MG TABLET PO SCH (07:50)
[2018-10-12] MEDS: Cyanocobalamin (B-12) 1,000 MCG TABLET PO SCH (07:51)
[2018-10-12] MEDS: Renal Vitamin 1 CAP CAPSULE PO SCH (07:51)
[2018-10-12] MEDS: Aspirin Enteric Coated 81 MG Tablet PO SCH (07:51)
[2018-10-12] MEDS: hydrALAZINE 25 MG TABLET PO SCH ×3 (07:51→21:09)
[2018-10-12] MEDS: Diltiazem CD (24hr) 120 MG CAPSULE PO SCH (07:51)
[2018-10-12] MEDS ORDERED: Lisinopril 20 MG TABLET PO SCH (09:00)
--- NOTE | 2018-10-12 10:25 | Nephrology Progress Note ---
Date of Encounter: 10/12/18 Time of Encounter: 10:23 - Assessment and Plan (1) ESRD (end stage renal disease) on dialysis Current Visit: No Status: Chronic Current regimen is NITA Watt. HD in progress for today. Renal diet Renal vitamins Strict I/O Avoid nephrotoxins and renal dose all medications. (2) Anemia Current Visit: Yes Status: Chronic Goal Hgb is 10-11 and will monitor for MADONNA and/or IV iron needs Qualifiers: Anemia type: due to chronic kidney disease Chronic kidney disease stage: on chronic dialysis Qualified Code(s): N18.6 - End stage renal disease; D63.1 - Anemia in chronic kidney disease; Z99.2 - Dependence on renal dialysis (3) Hypertension Current Visit: Yes Status: Chronic Will monitor. Continue current Rx Qualifiers: Hypertension type: unspecified Qualified Code(s): I10 - Essential (primary) hypertension (4) Cavitary lesion of lung Current Visit: No Status: Acute As per primary/Pulm. Pt had outpatient CT chest scheduled for today. Spoke with Dr. Vicente, ordered the CT inpatient to be completed today. (5) Pulmonary edema Current Visit: Yes Status: Acute Good response with IV lasix yesterday. 20 mg PO lasix ordered daily. Qualifiers: Chronicity: acute Qualified Code(s): J81.0 - Acute pulmonary edema Subjective Principal diagnosis: difficulty in breathing Interval history: Agents seen and examined in hemodialysis, tolerating well. Denies chest pain, nausea, vomiting, or diarrhea. Admits to shortness of breath. He was placed on 2 L of oxygen by dialysis nurse for complaints of shortness of breath. Spoke with primary team at bedside. Objective - Vital Signs Vital signs: Vital Signs Temp Pulse Resp BP Pulse Ox 10/12/18 07:50 98.2 F 82 17 153/82 100 10/12/18 06:13 16 100 10/12/18 04:30 98.2 F 82 16 136/72 93 10/11/18 23:19 99.2 F 87 18 154/87 98 10/11/18 19:13 97.6 F 95 18 150/84 99 10/11/18 16:13 98.6 F 97 18 133/77 94 10/11/18 13:19 100 10/11/18 12:53 155/85 10/11/18 11:26 98.0 F 90 18 175/102 92 Intake and Output 10/11/18 10/12/18 10/12/18 23:59 07:59 15:59 Intake Total 360 / 600 450 / 810 360 / 810 Output Total 500 / 500 Balance 360 / 450 -50 / 310 360 / 310 Intake: Oral 360 / 600 450 / 810 360 / 810 Output: Urine 500 / 500 Other: Meal Dinner Breakfast Percent of Meal Consumed 80% 100% # Voids 2 Weight 100.8 kg Patient Weight 10/12/18 23:59 Weight 100.8 kg - General Appearance General appearance: Present: well-developed, well-nourished EENT: Present: ATNC, hearing intact, vision intact Neck: Present: supple Respiratory: Present: clear Cardiology: Present: no edema, normal S1, normal S2 Dialysis Vascular Access: Arteriovenous Fistula thrill: Yes bruit: Yes Gastrointestinal: Present: normoactive bowel sounds, no tenderness, no guarding Integumentary: Present: no rash, warm and dry Neurologic: Present: alert and oriented x3 Musculoskeletal: Present: no deformities, no erythema Psychiatric: Present: mood/affect appropriate, cooperative - Lab 10/12/18 04:08 10/12/18 04:08 Most recent lab results 10/12/18 04:08 Calcium 10.2 Phosphorus 7.0 H Magnesium 2.0 Consult Discharge Plan - Plan Referrals: Ismael Griffin MD [Primary Care Provider] -
[2018-10-12] MEDS: Furosemide 20 MG TABLET PO SCH (17:18)
--- NOTE | 2018-10-12 18:21 | Internal Med Progress Note ---
Hospitalist Progress Note - Encounter Date of Encounter: 10/12/18 Time of Encounter: 18:19 - Subjective Interval History: Patient with complaints of shortness of breath during dialysis session this morning Discussed plan with nephrology. She has a history of Aspergillus and was supposed to get a CT scan of his chest outpatient so this was ordered and in patient. - Exam Vitals: Temp Pulse Resp BP Pulse Ox 99.3 F 96 18 143/78 99 10/12/18 16:19 10/12/18 16:19 10/12/18 16:19 10/12/18 16:19 10/12/18 16:19 Exam: General: Ill-appearing and in no acute distress HEENT: No erythema of posterior pharynx. No exudates. Lymphatics: No mandibular or cervical lymphadenopathy Cardiovascular: RRR. No murmurs. No chest wall tenderness. Lungs: Crackles and rhonchi throughout. Regular chest rise. Abdomen: Non-tender. No rebound or gaurding. Nl bowel sounds. Extremities: Trace edema. 2+ pulses radial and pedal pulses Skin: No rahses, abrasions, or contusions. Nl cap refill. Psych: Nl attention. A&Ox3 Neuro: cloth grader II-XII intact. 5/5 strength. Sensation to light touch and pinprick intact. - Assessment and Plan (1) Acute and chronic respiratory failure with hypoxia Current Visit: Yes Status: Acute Assessment and Plan: Patient with history of end-stage renal disease, RA on chronic prednisone, and pulmonary Aspergillus presents with shortness of breath and found to be hypervolemic with bilateral pleural effusions. -Suspect that patient's shortness of breath is largely due to to volume -Patient subjectively improved with hemodialysis and nephrology recommends initiating a loop diuretic to further aid and volume removal -Patient has a history of pulmonary Aspergillus however did not believe this is a large contributor to current disease process given CT results today -No evidence of any other infectious process PLAN: - Hemodialysis and Lasix per nephrology - We will discuss recent CT with pulmonology to see if further investigation is warranted - Pleural effusions likely too small to tap (2) ESRD (end stage renal disease) on dialysis Current Visit: Yes Status: Acute Assessment and Plan: See above (3) Bilateral pleural effusion Current Visit: Yes Status: Acute Assessment and Plan: Bilateral pleural effusions likely too small to tap but will evaluate with bedside ultrasound (4) Aspergillosis Current Visit: Yes Status: Acute Assessment and Plan: Details of this disease currently unclear. Does not appear to have active disease on CT scan. Discussed with pulmonology tomorrow. (5) Hypertension Current Visit: Yes Status: Chronic Assessment and Plan: Continue home medications (6) DVT prophylaxis Current Visit: No Status: Acute DVT Prophylaxis: LMWH - Time Spent with Patient Total time spent is greater than 50% in coordination of care (as documented) at patient's floor/unit and/or counseling patient: Greater than 35 minutes Plan of Care Discussed with: family Internal Medicine: Result - Labs CBC & Chem 7: 10/12/18 04:08 10/12/18 04:08 Labs: Short CBC 10/12/18 Range/Units 04:08 WBC 9.4 (4.3-11.1) K/mcL Hgb 10.0 L (12.9-16.9) g/dL Hct 31.7 L (37.5-50.1) % Plt Count 218 (140-400) K/mcL Neutrophils # 6.0 (1.6-8.9) K/mcL BMP 10/12/18 04:08 Sodium 139 Potassium 4.5 Chloride 100 Carbon Dioxide 25 BUN 43 H Creatinine 5.75 H Glucose 90 Calcium 10.2 Cardiac Enzymes 10/11/18 Range/Units 23:11 Troponin I 0.13 H* (< 0.04) ng/mL Liver Function 10/12/18 Range/Units 04:08 Total Bilirubin 0.4 (0.3-1.0) mg/dL AST 17 (13-39) Units/L ALT 9 (7-52) Units/L Alkaline Phosphatase 39 (34-104) Units/L Albumin 3.6 (3.5-5.7) g/dL - ABG Interpretation ABG results: PT/INR, D-dimer PT 11.3 Seconds (9.4-12.1) 10/12/18 04:08 - Impressions Impressions Chest CT 10/12/18 10:05 IMPRESSION: Small right and small to moderate left pleural effusions and overlying lower lobe atelectasis. Mild bilateral lower lobe interlobular septal thickening and bilateral, scattered ground-glass nodular opacities may be related to pulmonary edema. Previously biopsied 10 mm right lower lobe nodule has further decreased in size since 03/17/2017 and associated cavitation has resolved. Findings suggest improving infectious or inflammatory nodule. D/ / 10/12/2018 13:58:31 Michelle Valenzuela MD / Rina Knott Interpreting Provider: Michelle Valenzuela MD Consult Discharge Plan - Plan Referrals: Ismael Griffin MD [Primary Care Provider] - ____ (5) Hypertension Qualifiers: Hypertension type: unspecified Qualified Code(s): I10 - Essential (primary) hypertension
[2018-10-13] MEDS: predniSONE 1 MG TABLET PO SCH (08:03)
[2018-10-13] MEDS: Renal Vitamin 1 CAP CAPSULE PO SCH (08:04)
[2018-10-13] MEDS: Diltiazem CD (24hr) 120 MG CAPSULE PO SCH (08:04)
[2018-10-13] MEDS: Aspirin Enteric Coated 81 MG Tablet PO SCH (08:04)
[2018-10-13] MEDS: hydrALAZINE 25 MG TABLET PO SCH (08:04)
[2018-10-13] MEDS: Cyanocobalamin (B-12) 1,000 MCG TABLET PO SCH (08:04)
[2018-10-13] MEDS: Furosemide 20 MG TABLET PO SCH (08:04)
--- NOTE | 2018-10-13 08:20 | Nephrology Progress Note ---
Date of Encounter: 10/13/18 Time of Encounter: 08:18 - Assessment and Plan (1) ESRD (end stage renal disease) on dialysis Current Visit: No Status: Chronic Current regimen is NITA Watt. HD completed yesterday. Plan for HD tomorrow if still inpatient. Renal diet Renal vitamins Strict I/O Avoid nephrotoxins and renal dose all medications. (2) Anemia Current Visit: Yes Status: Chronic Goal Hgb is 10-11 and will monitor for MADONNA and/or IV iron needs Qualifiers: Anemia type: due to chronic kidney disease Chronic kidney disease stage: on chronic dialysis Qualified Code(s): N18.6 - End stage renal disease; D63.1 - Anemia in chronic kidney disease; Z99.2 - Dependence on renal dialysis (3) Hypertension Current Visit: Yes Status: Chronic Will monitor. Continue current Rx Qualifiers: Hypertension type: unspecified Qualified Code(s): I10 - Essential (primary) hypertension (4) Cavitary lesion of lung Current Visit: No Status: Acute As per primary/Pulm. CT chest completed yesterday 10/12/18. (5) Pulmonary edema Current Visit: Yes Status: Acute Good response with IV lasix. 20 mg PO lasix ordered daily, continue with discharge. Qualifiers: Chronicity: acute Qualified Code(s): J81.0 - Acute pulmonary edema Subjective Principal diagnosis: difficulty in breathing Interval history: Patient seen and examined. Doing well. Denies chest pain, nausea, vomiting, or diarrhea. Admits to shortness of breath. He was on Bipap most of the night. He is now on 2 liters per n/c. Objective - Vital Signs Vital signs: Vital Signs Temp Pulse Resp BP Pulse Ox 10/13/18 07:14 97.6 F 82 16 153/82 99 10/13/18 04:47 99.1 F 93 17 131/74 93 10/13/18 01:04 98.1 F 76 16 160/83 94 10/12/18 19:57 98.6 F 98 16 135/82 90 10/12/18 16:19 99.3 F 96 18 143/78 99 10/12/18 13:32 98.6 F 18 153/89 10/12/18 13:15 156/98 10/12/18 13:00 148/91 10/12/18 12:45 140/88 10/12/18 12:30 143/89 10/12/18 12:15 156/90 10/12/18 12:00 151/98 10/12/18 11:45 146/92 10/12/18 11:30 134/77 10/12/18 11:15 144/93 10/12/18 11:00 153/94 10/12/18 10:45 125/75 10/12/18 10:30 132/78 10/12/18 10:15 143/84 10/12/18 10:00 148/83 10/12/18 09:45 142/75 10/12/18 09:30 98.5 F 18 136/80 Intake and Output 10/12/18 10/13/18 10/13/18 23:59 07:59 15:59 Intake Total 240 / 1650 Output Total 200 / 3300 800 / 800 Balance 40 / -1650 -800 / -800 Intake: Oral 240 / 1050 Output: Urine 200 / 700 800 / 800 Other: Meal Dinner Percent of Meal Consumed 100% # Voids 1 1 - General Appearance General appearance: Present: well-developed, well-nourished EENT: Present: ATNC, hearing intact, vision intact Neck: Present: supple Respiratory: Present: clear Cardiology: Present: no edema, normal S1, normal S2 Dialysis Vascular Access: Arteriovenous Fistula thrill: Yes bruit: Yes Gastrointestinal: Present: normoactive bowel sounds, no tenderness, no guarding Integumentary: Present: no rash, warm and dry Neurologic: Present: alert and oriented x3 Musculoskeletal: Present: no deformities, no erythema Psychiatric: Present: mood/affect appropriate, cooperative - Lab 10/12/18 04:08 10/12/18 04:08 Consult Discharge Plan - Plan Referrals: Ismale Griffin MD [Primary Care Provider] -
[2018-10-13] MEDS ORDERED: Lisinopril 20 MG TABLET PO SCH (09:00)
[2018-10-13 11:49] VITALS: BP 139/81
[2018-10-13 11:58] LABS: RBC,Pleural Fluid 0.003 M/mcL
[2018-10-13 12:00] LABS: Appearance of Pleural Fl Clear (Clear)
--- NOTE | 2018-10-13 12:19 | Procedure Note ---
Date of procedure: 10/13/18 Pre-op diagnosis: Pleural Effusion, Left Post-op diagnosis: same Procedure: Thoracentesis Procedure Note PROCEDURE: Diagnostic and Therapeutic Thoracentesis PATIENT: CPT CODE: DATE: CONSENT: Obtained DANDY OPERATOR: Lul Yuan MD PROCEDURE PERFORMED: INDICATION: Pleural Effusion A time-out was performed prior to the procedure. A left pleural effusion was visualized with ultrasound and site was marked. Chlorhexadine was used to prep the skin. The patient was then draped in steril fashion. Chlorhexadine was again used to prep the skin. 10ml of 1% Lidocaine was used for local anesthesia. A safecentesis needle was used to access the pleural space and a catheter was placed that drained straw-colored fluid. This was attached to vacume containers and a total of 1400 of fluid was drained. The catheter was then removed. The procedure was well tolerated. A post-line CXR has been ordered to monitor for pneumothorax. ESTIMATED BLOOD LOSS: <5ml COMPLICATIONS: None immediate. CXR ordered. Lul Yuan MD Hospital Medicine Anesthesia: local Surgeon: Tyrese Yuan Was there an medical assistant float present: No Estimated blood loss (cc): 5 Specimen: sent to lab Condition: stable Disposition: floor
--- NOTE | 2018-10-13 12:28 | Discharge Summary ---
Orders not resulted at time of discharge: Pending orders 10/13/18 10:30 Cell Count w Diff, Pleural Fld [BF] Routine Culture,Body Fluid [RM] Routine Fungal Culture [MYC] Routine Glucose,Pleural Fluid [BF] Routine LDH,Pleural Fluid [BF] Routine Lactate Dehydrogenase Stat Total Protein Stat Total Protein,Pleural Fluid [BF] Routine pH,Pleural Fluid [BF] Routine Date of Encounter: 10/14/18 Time of Encounter: 12:22 - Discharge Diagnosis (1) Acute and chronic respiratory failure with hypoxia Priority: Primary Status: Acute (2) ESRD (end stage renal disease) on dialysis Priority: Secondary Status: Acute (3) Bilateral pleural effusion Priority: Secondary Status: Acute (4) Aspergillosis Priority: Secondary Status: Acute (5) Hypertension Priority: Secondary Status: Chronic Qualifiers: Hypertension type: essential hypertension Qualified Code(s): I10 - Essential (primary) hypertension Hospital course: Mr. Mckay is a 73 year old male with history of end-stage renal disease, known bilateral pleural effusions, and pulmonary Aspergillus who presented with acute hypoxic respiratory failure that was largely due to hypervolemia. Patient has attending all dialysis sessions however continues to have problems with volume. Allergies consulted and recommended addition of oral Lasix 20mg. patient also has a history of Aspergillus and bilateral pleural effusions right greater than left. CT was ordered by outpatient occupational health nurse supervisor so was completed in the hospital without evidence of acute infectious pathology. However given history etiology of pleural effusions is unclear. Patient underwent diagnostic and therapeutic thoracentesis, the results of which need to be followed up by patient's primary care provider and occupational health nurse supervisor. Patient will also need BMP at his PCP visit to monitor his Lasix. - Time Spent with Patient Total time spent providing and/or coordinating discharge services: - Discharge Medications Prescriptions: New Furosemide [Lasix] 20 mg PO DAILY #30 tablet Continued Tamsulosin [Flomax] 0.4 mg PO DAILY Allopurinol [Zyloprim 300 MG] 300 mg PO DAILY PRN PRN Reason: GOUT Tramadol HCl [Ultram] 100 mg PO Q12H PRN PRN Reason: Pain Ramipril [Altace] 10 mg PO BID Omeprazole [PriLOSEC] 40 mg PO DAILY Ferrous Sulfate 325 mg PO BID #60 tab Hydralazine HCl 50 mg PO Q8H #90 tablet Psyllium Husk [Fiber] 0.52 gm PO DAILY PRN PRN Reason: Constipation Sennosides/Docusate Sodium [Senna Plus] 2 each PO BID PRN #20 tablet PRN Reason: Constipation Sevelamer [Renvela] 800 mg PO TIDWM dilTIAZem HCl [Diltiazem 24Hr ER] 120 mg PO DAILY Aspirin [Adult Aspirin] 81 mg PO DAILY Cyanocobalamin (B-12) [Vitamin B12] 1,000 mcg PO DAILY Sodium Bicarbonate 650 mg PO BID Albuterol Sulfate [Proventil Inhaler] 2 puff IH Q4HR PRN #1 hfa.aer.ad PRN Reason: dyspnea Ondansetron [Zuplenz] 4 mg PO Q6H PRN PRN Reason: Nausea And Vomiting Carvedilol 12.5 mg PO BID Gabapentin [Neurontin] 100 mg PO DAILY Levothyroxine Sodium [Levo-T] 300 mcg PO DAILY predniSONE [PredniSONE] 5 mg PO DAILY No Action Renal Vitamin [Renal Caps Softgel] 1 cap PO DAILY Home Medications: Allopurinol [Zyloprim 300 MG] 300 mg PO DAILY PRN 08/31/16 [History] Ramipril [Altace] 10 mg PO BID 08/31/16 [History] Tamsulosin [Flomax] 0.4 mg PO DAILY 08/31/16 [History] Tramadol HCl [Ultram] 100 mg PO Q12H PRN 08/31/16 [History] Omeprazole [PriLOSEC] 40 mg PO DAILY 10/22/16 [History] Ferrous Sulfate 325 mg PO BID #60 tab 11/11/16 [Rx] Hydralazine HCl 50 mg PO Q8H #90 tablet 08/16/17 [Rx] Psyllium Husk [Fiber] 0.52 gm PO DAILY PRN 12/28/17 [History] Renal Vitamin [Renal Caps Softgel] 1 cap PO DAILY 12/28/17 [History] Sennosides/Docusate Sodium [Senna Plus] 2 each PO BID PRN #20 tablet 01/05/18 [Rx] Aspirin [Adult Aspirin] 81 mg PO DAILY 03/22/18 [History] Cyanocobalamin (B-12) [Vitamin B12] 1,000 mcg PO DAILY 03/22/18 [History] Sevelamer [Renvela] 800 mg PO TIDWM 03/22/18 [History] Sodium Bicarbonate 650 mg PO BID 03/22/18 [History] dilTIAZem HCl [Diltiazem 24Hr ER] 120 mg PO DAILY 03/22/18 [History] Albuterol Sulfate [Proventil Inhaler] 2 puff IH Q4HR PRN #1 hfa.aer.ad 09/06/18 [Rx] Carvedilol 12.5 mg PO BID 10/11/18 [History] Gabapentin [Neurontin] 100 mg PO DAILY 10/11/18 [History] Levothyroxine Sodium [Levo-T] 300 mcg PO DAILY 10/11/18 [History] Ondansetron [Zuplenz] 4 mg PO Q6H PRN 10/11/18 [History] predniSONE [PredniSONE] 5 mg PO DAILY 10/11/18 [History] Furosemide [Lasix] 20 mg PO DAILY #30 tablet 10/13/18 [Rx] Allergies/Adverse Reactions: Allergy/AdvReac Type Severity Reaction Status Date / Time mycophenolate mofetil AdvReac Nausea Verified 10/11/18 22:11 [From CellCept] Date of admission: 10/11/18 04:50 Primary care physician: Ismael Griffin MD Consults: 10/11/18 03:30 Consult to Respiratory Therapy [CONS] Stat Reason for Consult: bipap Time Notified: 03:30 Call Completed: Yes 10/11/18 07:22 Consult to Nutrition [CONS] Routine Comment: Consulting Provider: NUTRITION Reason for Dietary Consult: Other Other:: loss of 60lbs in 2 months 10/11/18 07:33 Consult to Nephrology [CONS] Routine Consulting Provider: Kidney Keiko/MAYI/RANDAL/REYNA Reason for Consult: HD patient, MWF Call Completed: No 10/12/18 07:45 Consult to Dialysis [CONS] ONCE - Constitutional Vitals: Temp Pulse Resp BP Pulse Ox 97.9 F 75 16 139/81 97 10/13/18 11:48 10/13/18 11:48 10/13/18 11:48 10/13/18 11:48 10/13/18 11:48 Exam: General: Ill-appearing and in no acute distress HEENT: No erythema of posterior pharynx. No exudates. Lymphatics: No mandibular or cervical lymphadenopathy Cardiovascular: RRR. No murmurs. No chest wall tenderness. Lungs: Clear to auscelltation bilaterally. Regular chest rise. Abdomen: Non-tender. No rebound or gaurding. Nl bowel sounds. Extremities: No edema. 2+ pulses radial and pedal pulses Skin: No rahses, abrasions, or contusions. Nl cap refill. Psych: Nl attention. A&Ox3 Neuro: traffic sign supervisor II-XII intact. 5/5 strength. Sensation to light touch and pinprick intact. - Patient Status Disposition: Home, Self-Care Condition: Good Functional capacity at discharge: independent ambulation Overall status at discharge: patient is back to baseline - Discharge Instructions Follow Up With: Froilan Vicente MD [Partnered Physician] - (Follow up within 1 week- web request sent, however if you do not hear from them by wednesday afternoon please call and schedule.) Ismael Griffin MD [Primary Care Provider] - (Follow up 7-10 days- web request sent. However if you do not hear from the office by Wednesday after noon please call and schedule. Thank you!) - Diet and Activity Activity: increase activity as tolerated Diet: low salt diet
[2018-10-13 12:31] LABS: Glucose,Pleural Fluid 150 mg/dL (No Ref Range); LDH,Pleural Fluid 45 Units/L (No Ref Range); Total Protein,Pleural Fluid < 3.0 g/dL
[2018-10-13 13:28] LABS: Basophils,Pleural Fluid 0 %; Eosinophils,Pleural Fluid 0 %
== END 2018-10-13 14:05 | disposition home or self-care (01) ==
LOC: EMEROOARM 01:30 → 2ANU 01:30 → SUATTDRO 04:50 → 2ANU 06:41
PROVIDERS: ADMIT Family Medicine; ATTEND Internal Medicine

== ENCOUNTER 2019-06-23 06:27 | Observation (INO) ==
[2019-06-23 07:15] LABS: Basophils # 0.1 K/mcL (0.0-0.2); Basophils % 0.6 %; Eosinophils # 0.2 K/mcL (0.0-0.6); Eosinophils % 1.9 %; Hematocrit 37.1 % (37.5-50.1); Hemoglobin 11.8 g/dL (12.9-16.9); Immature Granulocytes % 0.4 % (0-4); Lymphocytes # 0.9 K/mcL (0.6-4.6); Lymphocytes % 10.9 %; Mean Corpuscular HGB Conc 31.8 g/dL (31.6-35.5); Mean Corpuscular Hemoglobin 32.1 pg (28.0-33.3); Mean Corpuscular Volume 100.8 fL (83.0-100.0); Mean Platelet Volume 10.6 fL (9.4-12.4); Monocytes # 0.7 K/mcL (0.0-1.3); Monocytes % 8.2 %; Neutrophils # 6.7 K/mcL (1.6-8.9); Platelet Count 118 K/mcL (140-400); Red Blood Count 3.68 M/mcL (4.19-5.50); Red Cell Distribution Width 14.5 % (11.5-14.5); White Blood Count 8.6 K/mcL (4.3-11.1)
[2019-06-23] MEDS ORDERED: Ondansetron 4 MG/2 ML VIAL IVP ONE (07:24)
[2019-06-23] MEDS ORDERED: Acetaminophen 325 MG TABLET PO ONE (07:30)
[2019-06-23 07:33] LABS: INR 1.8; Prothrombin Time 20.7 Seconds (9.4-12.1)
[2019-06-23 07:36] LABS: Activated Partial Thrombo Time 34.3 Seconds (26.0-36.0)
[2019-06-23 07:41] LABS: Bilirubin,Urine Negative (Negative); Blood,Urine Negative (Negative); Clarity,Urine Clear (Clear); Color,Urine Yellow (Yellow); Glucose,Urine (UA) 100 mg/dL (Normal); Ketones,Urine Negative (Negative); Leukocyte Esterase,Urine Negative (Negative); Nitrite,Urine Negative (Negative); PH,Urine 7.5 pH Units (5.0-8.0); Protein,Urine >=300 mg/dL (Neg-Trace); Specific Gravity,Urine 1.017 (1.010-1.025); Urobilinogen,Urine Normal (Normal)
[2019-06-23 07:43] LABS: Albumin 4.1 g/dL (3.5-5.7); Albumin/Globulin Ratio 1.3 (1.1-2.2); Bilirubin,Direct 0.1 mg/dL (0.0-0.2); Bilirubin,Indirect 0.4 mg/dL (0.0-1.0); Bilirubin,Total 0.5 mg/dL (0.3-1.0); Calcium 10.2 mg/dL (8.6-10.3); Globulin 3.1 g/dL (2.4-3.5); Magnesium 1.9 mg/dL (1.6-2.6); Phosphorous 5.4 mg/dL (2.7-4.5); Potassium 4.3 mEq/L (3.5-5.1); Total Protein 7.2 g/dL (6.4-8.9); Troponin I 0.1 ng/mL (< 0.04)
[2019-06-23 07:43] LABS: Bacteria,Urine None Seen per hpf (None-Few); Hyaline Casts,Urine None Seen per lpf (None-Few); Squamous Epithelial Cell,Urine None Seen per lpf (None-Few); WBC,Urine 0-3 per hpf (0-3)
[2019-06-23] MEDS ORDERED: Aspirin 81 MG TAB.CHEW PO ONE (07:53)
[2019-06-23] MEDS ORDERED: Furosemide 40 MG/4 ML VIAL IVP ONE ×2 (08:01→09:55)
[2019-06-23 08:02] LABS: ABG Base Excess 4 mEq/L (-2 to 3); ABG HCO3 26 mEq/L (21-27); ABG Oxygen Saturation 87 % (95-98); ABG PCO2 32 mmHg (35-45); ABG PH 7.51 pH Units (7.32-7.45); ABG PO2 47 mmHg (85-104); ABG TCO2 27 mEq/L (20-26)
[2019-06-23 08:52] LABS: Adenovirus Not Detected (Not Detect); Bordetella Pertussis Not Detected (Not Detect); Chlamydophila pneumoniae Not Detected (Not Detect); Coronavirus 229E Not Detected (Not Detect); Coronavirus HKU1 Not Detected (Not Detect); Coronavirus NL63 Not Detected (Not Detect); Coronavirus OC43 Not Detected (Not Detect); Human Metapneumovirus Not Detected (Not Detect); Human Rhinovirus/Enterovirus Not Detected (Not Detect); Influenza A Subtype 2009 H1 DETECTED (Not Detect); Influenza B Not Detected (Not Detect); Mycoplasma pneumoniae Not Detected (Not Detect); Parainfluenza Virus 1 Not Detected (Not Detect); Parainfluenza Virus 2 Not Detected (Not Detect); Parainfluenza Virus 3 Not Detected (Not Detect); Parainfluenza Virus 4 Not Detected (Not Detect); Respiratory Syncytial Virus Not Detected (Not Detect)
[2019-06-23] MEDS ORDERED: levoFLOXacin 750 MG/150 ML 750 MG/150 ML BAG IVPB ONE (08:53)
[2019-06-23] MEDS ORDERED: Piperacillin/Tazobactam 3.375 GM in 0.9 % Sodium Chloride Mini Bag 100 ML IVPB ONE (08:53)
[2019-06-23] MEDS ORDERED: Ondansetron 4 MG/2 ML VIAL IVP PRN (09:53)
[2019-06-23] MEDS ORDERED: Naloxone 0.4 MG/ML INJ IVP PRN (09:53)
[2019-06-23] MEDS ORDERED: Ipratropium/Albuterol Neb 3 ML IH PRN (09:55)
[2019-06-23] MEDS ORDERED: Ibuprofen 400 MG TABLET PO ONE (09:56)
[2019-06-23] MEDS ORDERED: 0.9 % Sodium Chloride 250 ML IVC PRN (10:12)
[2019-06-23] MEDS ORDERED: 0.9 % Sodium Chloride 1,000 ML PRIME SCH (10:15)
[2019-06-23] MEDS ORDERED: Vancomycin 500 MG in 0.9 % Sodium Chloride Mini Bag 100 ML IVPB ONE (11:25)
[2019-06-23] MEDS: Acetaminophen 325 MG TABLET PO PRN (17:46)
[2019-06-23] MEDS: carvediloL 25 MG TABLET PO SCH (17:47)
[2019-06-23] MEDS: Piperacillin/Tazobactam 3.375 GM in 0.9 % Sodium Chloride Mini Bag 100 ML IVPB SCH (17:47)
[2019-06-23] MEDS ORDERED: Warfarin perPT PO PRN (18:00)
[2019-06-23] MEDS ORDERED: *HR* Warfarin 10 MG TABLET PO ONE (18:00)
[2019-06-23] MEDS: Furosemide 40 MG/4 ML VIAL IVP SCH (21:31)
[2019-06-24 05:29] LABS: Basophils % 0.5 %; Hemoglobin 11.4 g/dL (12.9-16.9); Immature Granulocytes % 0.2 % (0-4)
[2019-06-24 05:31] LABS: Eosinophils # 0.2 K/mcL (0.0-0.6); Eosinophils % 3.8 %; Hematocrit 36.3 % (37.5-50.1); Immature Platelets 2.3 % (1.1-6.1); Lymphocytes # 0.8 K/mcL (0.6-4.6); Lymphocytes % 13.6 %; Mean Corpuscular HGB Conc 31.4 g/dL (31.6-35.5); Mean Platelet Volume 10.4 fL (9.4-12.4); Monocytes # 0.5 K/mcL (0.0-1.3); Monocytes % 8.4 %; Neutrophils # 4.4 K/mcL (1.6-8.9); Red Blood Count 3.56 M/mcL (4.19-5.50); Red Cell Distribution Width 14.6 % (11.5-14.5); Segmented Neutrophils % 73.5 %
[2019-06-24 05:33] LABS: Platelet Count 95 K/mcL (140-400)
[2019-06-24 05:34] LABS: Platelet Estimate Decreased (Normal)
[2019-06-24 05:44] LABS: INR 2.8; Prothrombin Time 31.6 Seconds (9.4-12.1)
[2019-06-24 05:55] LABS: Calcium 9.3 mg/dL (8.6-10.3); Potassium 4.3 mEq/L (3.5-5.1)
[2019-06-24] MEDS: Piperacillin/Tazobactam 3.375 GM in 0.9 % Sodium Chloride Mini Bag 100 ML IVPB SCH ×2 (06:24→17:10)
[2019-06-24] MEDS: Acetaminophen 325 MG TABLET PO PRN (06:24)
[2019-06-24] MEDS ORDERED: 0.9 % Sodium Chloride 250 ML IVC PRN (07:19)
[2019-06-24] MEDS: carvediloL 25 MG TABLET PO SCH ×2 (16:07→17:09)
[2019-06-24] MEDS: Renal Vitamin 1 CAP CAPSULE PO SCH (16:07)
[2019-06-24] MEDS: Furosemide 40 MG/4 ML VIAL IVP SCH ×2 (16:07→22:18)
[2019-06-24] MEDS ORDERED: *HR* Warfarin 7.5 MG TABLET PO ONE (18:00)
[2019-06-25] MEDS: Acetaminophen 325 MG TABLET PO PRN (06:28)
[2019-06-25 07:23] LABS: Basophils % 0.8 %; Hemoglobin 11.6 g/dL (12.9-16.9); Immature Granulocytes % 0.2 % (0-4); Red Cell Distribution Width 14.4 % (11.5-14.5)
[2019-06-25 07:25] LABS: Eosinophils # 0.7 K/mcL (0.0-0.6); Eosinophils % 13.6 %; Hematocrit 36.6 % (37.5-50.1); Immature Platelets 3.1 % (1.1-6.1); Lymphocytes % 20.1 %; Mean Corpuscular HGB Conc 31.7 g/dL (31.6-35.5); Mean Corpuscular Volume 100.8 fL (83.0-100.0); Mean Platelet Volume 10.9 fL (9.4-12.4); Monocytes # 0.6 K/mcL (0.0-1.3); Monocytes % 11.5 %; Red Blood Count 3.63 M/mcL (4.19-5.50); Segmented Neutrophils % 53.8 %; White Blood Count 5.1 K/mcL (4.3-11.1)
[2019-06-25] MEDS ORDERED: allopurinoL 300 MG TABLET PO PRN (07:40)
[2019-06-25] MEDS ORDERED: Sennosides/Docusate Sodium TABLET PO PRN (07:40)
[2019-06-25 07:41] LABS: Calcium 9.5 mg/dL (8.6-10.3); Potassium 3.9 mEq/L (3.5-5.1)
[2019-06-25 07:42] LABS: % Iron Saturation 28 % (20-55); Iron 42 mcg/dL (65-175); Transferrin 106 mg/dL (203-362)
[2019-06-25 07:46] LABS: Neutrophils # 2.7 K/mcL (1.6-8.9); Platelet Count 97 K/mcL (140-400)
[2019-06-25 07:47] LABS: Thyroid Stimulating Hormone 6.206 mcIU/mL (0.340-5.600)
[2019-06-25 07:52] LABS: Ferritin 1427 ng/mL (20-250)
[2019-06-25] MEDS ORDERED: Sucroferric Oxyhydroxide [Velphoro] 500 MG PO SCH (08:00)
[2019-06-25 08:20] LABS: Folate > 22.3 ng/mL (3.0-16.0); Vitamin B12 1423 pg/mL (250-1100)
[2019-06-25] MEDS ORDERED: DilTIAZem CD (24hr) 120 MG CAP.ER.24H PO SCH (09:00)
[2019-06-25] MEDS ORDERED: Gabapentin 100 MG CAPSULE PO SCH (09:00)
[2019-06-25] MEDS ORDERED: Cyanocobalamin (B-12) 1,000 MCG TABLET PO SCH (09:00)
[2019-06-25] MEDS ORDERED: predniSONE 5 MG TABLET PO SCH (09:00)
[2019-06-25] MEDS ORDERED: carvediloL 6.25 MG TABLET PO SCH (09:00)
[2019-06-25] MEDS ORDERED: hydrALAZINE 25 MG TABLET PO SCH (09:00)
[2019-06-25 09:05] LABS: INR 2.5; Prothrombin Time 28.5 Seconds (9.4-12.1)
[2019-06-25] MEDS ORDERED: Budesonide Neb 0.25 MG/2 ML IH SCH (10:00)
[2019-06-25] MEDS: Renal Vitamin 1 CAP CAPSULE PO SCH (11:12)
[2019-06-25] MEDS: Furosemide 40 MG/4 ML VIAL IVP SCH (11:14)
[2019-06-25 11:27] VITALS: BP 149/86
[2019-06-25] MEDS ORDERED: Aminoglycoside Consult 1 EACH MC ONE (13:46)
[2019-06-25] MEDS ORDERED: *HR* Warfarin 7.5 MG TABLET PO ONE (18:00)
== END 2019-06-25 13:47 | disposition home or self-care (01) ==
LOC: 2ANU 06:27 → EMEROOARM 06:27 → SUATTDRO 09:53 → 2ANU 12:58
PROVIDERS: ADMIT Internal Medicine; ATTEND Pharmacist

== ENCOUNTER 2019-09-01 07:47 | Observation (INO) ==
[2019-09-01 08:24] LABS: Basophils # 0.1 K/mcL (0.0-0.2); Basophils % 0.5 %; Eosinophils # 0.7 K/mcL (0.0-0.6); Eosinophils % 7.1 %; Hematocrit 19.1 % (37.5-50.1); Hemoglobin 6.3 g/dL (12.9-16.9); Immature Granulocytes % 1.3 % (0-4); Lymphocytes # 1.1 K/mcL (0.6-4.6); Lymphocytes % 11.3 %; Mean Corpuscular Hemoglobin 35.4 pg (28.0-33.3); Mean Corpuscular Volume 107.3 fL (83.0-100.0); Mean Platelet Volume 12.6 fL (9.4-12.4); Monocytes # 0.6 K/mcL (0.0-1.3); Monocytes % 6.6 %; Neutrophils # 6.9 K/mcL (1.6-8.9); Red Blood Count 1.78 M/mcL (4.19-5.50); Segmented Neutrophils % 73.2 %; White Blood Count 9.4 K/mcL (4.3-11.1)
[2019-09-01 08:38] LABS: Platelet Count 15 K/mcL (140-400)
[2019-09-01 08:39] LABS: Albumin 3.3 g/dL (3.5-5.7); Albumin/Globulin Ratio 1.4 (1.1-2.2); Bilirubin,Direct 0.1 mg/dL (0.0-0.2); Bilirubin,Indirect 0.2 mg/dL (0.0-1.0); Bilirubin,Total 0.3 mg/dL (0.3-1.0); Calcium 8.7 mg/dL (8.6-10.3); Globulin 2.3 g/dL (2.4-3.5); Platelet Estimate Marked Decrease (Normal); Potassium 4.2 mEq/L (3.5-5.1); Total Protein 5.6 g/dL (6.4-8.9); Troponin I 0.05 ng/mL (< 0.04)
[2019-09-01 09:45] LABS: Bilirubin,Urine Negative (Negative); Blood,Urine Negative (Negative); Clarity,Urine Clear (Clear); Color,Urine Yellow (Yellow); Glucose,Urine (UA) Normal (Normal); Ketones,Urine Negative (Negative); Leukocyte Esterase,Urine Negative (Negative); Nitrite,Urine Negative (Negative); Protein,Urine 100 mg/dL (Neg-Trace); Specific Gravity,Urine 1.014 (1.010-1.025); Urobilinogen,Urine Normal (Normal)
[2019-09-01 09:47] LABS: Bacteria,Urine None Seen per hpf (None-Few); Hyaline Casts,Urine None Seen per lpf (None-Few); RBC,Urine 0-3 per hpf (0-3); Squamous Epithelial Cell,Urine Few per lpf (None-Few); WBC,Urine 0-3 per hpf (0-3)
[2019-09-01] MEDS ORDERED: 0.9 % Sodium Chloride 250 ML ONE ×2 (10:29→16:07)
[2019-09-01] MEDS ORDERED: Acetaminophen 325 MG TABLET PO PRN (12:06)
[2019-09-01] MEDS ORDERED: Naloxone 0.4 MG/ML INJ IVP PRN (12:06)
[2019-09-01] MEDS ORDERED: Ondansetron ODT 4 MG TAB.RAPDIS SL PRN (12:06)
[2019-09-01] MEDS ORDERED: Sennosides/Docusate Sodium TABLET PO PRN (12:11)
[2019-09-01] MEDS ORDERED: allopurinoL 300 MG TABLET PO PRN (12:11)
[2019-09-01] MEDS ORDERED: Vancomycin 1,500 MG/265 ML IV.SOLN IVPB ONE (19:30)
[2019-09-01 20:06] VITALS: BP 130/71
[2019-09-01 21:21] LABS: Hematocrit 20.3 % (37.5-50.1); Hemoglobin 6.6 g/dL (12.9-16.9); Immature Platelets 2.8 % (1.1-6.1); Mean Corpuscular HGB Conc 32.5 g/dL (31.6-35.5); Mean Corpuscular Hemoglobin 33.7 pg (28.0-33.3); Mean Corpuscular Volume 103.6 fL (83.0-100.0); Mean Platelet Volume 10.2 fL (9.4-12.4); Red Blood Count 1.96 M/mcL (4.19-5.50); Red Cell Distribution Width 19.2 % (11.5-14.5); White Blood Count 10.7 K/mcL (4.3-11.1)
[2019-09-01 21:24] LABS: Prothrombin Time 11.3 Seconds (9.4-12.1)
[2019-09-01 21:27] LABS: Activated Partial Thrombo Time 27.2 Seconds (26.0-36.0)
[2019-09-01 21:38] LABS: Uric Acid 3.1 mg/dL (2.3-7.6)
[2019-09-01] MEDS ORDERED: Budesonide/Formoterol 160/4.5 1 PUFF INH IH SCH (22:00)
[2019-09-02 00:39] LABS: Mean Corpuscular Volume 103.1 fL (83.0-100.0)
[2019-09-02 00:41] LABS: Hematocrit 19.8 % (37.5-50.1); Hemoglobin 6.4 g/dL (12.9-16.9); Immature Platelets 3.9 % (1.1-6.1); Mean Corpuscular HGB Conc 32.3 g/dL (31.6-35.5); Mean Corpuscular Hemoglobin 33.3 pg (28.0-33.3); Mean Platelet Volume 10.9 fL (9.4-12.4); Red Blood Count 1.92 M/mcL (4.19-5.50); Red Cell Distribution Width 19.2 % (11.5-14.5); White Blood Count 9.8 K/mcL (4.3-11.1)
[2019-09-02 00:59] LABS: Calcium 8.9 mg/dL (8.6-10.3); Potassium 4.6 mEq/L (3.5-5.1)
[2019-09-02] MEDS ORDERED: Renal Vitamin 1 CAP CAPSULE PO SCH (09:00)
[2019-09-02] MEDS ORDERED: predniSONE 5 MG TABLET PO SCH (09:00)
[2019-09-02] MEDS ORDERED: NON-FORMULARY MEDICATION 1 EACH EACH (Formoterol Fumarate [Perforomist] 20 MCG) IH SCH (09:00)
== END 2019-09-02 00:45 | disposition short-term general hospital (02) ==
LOC: 2ANU 07:47 → EMEROOARM 07:47 → 2ANU 12:44
PROVIDERS: ADMIT Internal Medicine; ATTEND Internal Medicine

== ENCOUNTER 2019-11-02 10:56 | Inpatient (IN) ==
[2019-11-02] MEDS ORDERED: Isovue-370 500 ML BOTTLE IVP ONE (11:18)
[2019-11-02 11:45] LABS: Basophils # 0.1 K/mcL (0.0-0.2); Basophils % 0.7 %; Eosinophils # 0.2 K/mcL (0.0-0.6); Hematocrit 30.9 % (37.5-50.1); Hemoglobin 9.6 g/dL (12.9-16.9); Immature Granulocytes % 0.3 % (0-4); Lymphocytes # 1.2 K/mcL (0.6-4.6); Lymphocytes % 12.1 %; Mean Corpuscular HGB Conc 31.1 g/dL (31.6-35.5); Mean Corpuscular Hemoglobin 33.6 pg (28.0-33.3); Mean Platelet Volume 10.5 fL (9.4-12.4); Monocytes # 0.8 K/mcL (0.0-1.3); Monocytes % 7.4 %; Neutrophils # 7.9 K/mcL (1.6-8.9); Nucleated Red Blood Cells 0.2 /100 WBC (0); Platelet Count 100 K/mcL (140-400); Red Blood Count 2.86 M/mcL (4.19-5.50); Red Cell Distribution Width 15.8 % (11.5-14.5); Segmented Neutrophils % 77.5 %; White Blood Count 10.1 K/mcL (4.3-11.1)
[2019-11-02 11:52] LABS: INR 1.1; Prothrombin Time 12.2 Seconds (9.4-12.1)
[2019-11-02 11:54] LABS: Activated Partial Thrombo Time 28.3 Seconds (26.0-36.0)
[2019-11-02 12:11] LABS: Troponin I 0.08 ng/mL (< 0.04)
[2019-11-02 12:17] LABS: Albumin 3.9 g/dL (3.5-5.7); Albumin/Globulin Ratio 1.3 (1.1-2.2); Bilirubin,Direct 0.1 mg/dL (0.0-0.2); Bilirubin,Indirect 0.3 mg/dL (0.0-1.0); Bilirubin,Total 0.4 mg/dL (0.3-1.0); Total Protein 6.9 g/dL (6.4-8.9)
[2019-11-02 12:21] LABS: Calcium 9.6 mg/dL (8.6-10.3); Potassium 3.8 mEq/L (3.5-5.1)
[2019-11-02] MEDS ORDERED: Naloxone 0.4 MG/ML INJ IVP PRN ×2 (13:02→20:54)
[2019-11-02] MEDS ORDERED: *HR* HYDROcodone/Acet 5/325 mg TABLET PO PRN (13:02)
[2019-11-02] MEDS ORDERED: Ipratropium/Albuterol Neb 3 ML IH PRN ×2 (13:04→20:54)
[2019-11-02] MEDS ORDERED: Sennosides/Docusate Sodium TABLET PO PRN (13:10)
[2019-11-02] MEDS ORDERED: hydrALAZINE 25 MG TABLET PO SCH (15:00)
[2019-11-02] MEDS ORDERED: carvediloL 25 MG TABLET PO SCH (17:00)
[2019-11-02] MEDS ORDERED: lisinopriL 20 MG TABLET PO SCH (21:00)
[2019-11-02] MEDS: lisinopriL 20 MG TABLET PO SCH (21:03)
[2019-11-02] MEDS: *HR* HYDROcodone/Acet 5/325 mg TABLET PO PRN (21:03)
[2019-11-02] MEDS: hydrALAZINE 25 MG TABLET PO SCH (21:03)
[2019-11-02] MEDS: carvediloL 25 MG TABLET PO SCH (21:05)
[2019-11-03 01:28] LABS: Immature Granulocytes % 0.3 % (0-4); Mean Corpuscular Volume 107.4 fL (83.0-100.0)
[2019-11-03 01:30] LABS: Basophils # 0.1 K/mcL (0.0-0.2); Basophils % 0.7 %; Eosinophils # 0.2 K/mcL (0.0-0.6); Eosinophils % 2.6 %; Hemoglobin 9.1 g/dL (12.9-16.9); Lymphocytes # 1.2 K/mcL (0.6-4.6); Lymphocytes % 13.2 %; Mean Corpuscular HGB Conc 31.4 g/dL (31.6-35.5); Mean Corpuscular Hemoglobin 33.7 pg (28.0-33.3); Mean Platelet Volume 11.1 fL (9.4-12.4); Monocytes # 0.7 K/mcL (0.0-1.3); Monocytes % 7.9 %; Neutrophils # 6.7 K/mcL (1.6-8.9); Nucleated Red Blood Cells 0.2 /100 WBC (0); Red Cell Distribution Width 15.7 % (11.5-14.5); Segmented Neutrophils % 75.3 %; White Blood Count 8.9 K/mcL (4.3-11.1)
[2019-11-03 01:31] LABS: Platelet Count 87 K/mcL (140-400)
[2019-11-03 01:42] LABS: Calcium 9.2 mg/dL (8.6-10.3); Magnesium 2.1 mg/dL (1.6-2.6); Phosphorous 6.8 mg/dL (2.7-4.5); Potassium 4.2 mEq/L (3.5-5.1)
[2019-11-03 02:41] LABS: Hypochromasia Present (Not Present); Platelet Estimate Decreased (Normal)
[2019-11-03] MEDS: *HR* HYDROcodone/Acet 5/325 mg TABLET PO PRN ×3 (04:02→21:28)
[2019-11-03] MEDS ORDERED: 0.9 % Sodium Chloride 250 ML IVC PRN (07:06)
[2019-11-03] MEDS ORDERED: 0.9 % Sodium Chloride 1,000 ML PRIME SCH (07:15)
[2019-11-03] MEDS ORDERED: allopurinoL 300 MG TABLET PO SCH (09:00)
[2019-11-03] MEDS ORDERED: predniSONE 5 MG TABLET PO SCH (09:00)
[2019-11-03] MEDS ORDERED: Gabapentin 100 MG CAPSULE PO SCH (09:00)
[2019-11-03] MEDS: Budesonide/Formoterol 80/4.5 1 PUFF INH IH SCH ×2 (11:14→21:04)
[2019-11-03] MEDS: carvediloL 25 MG TABLET PO SCH ×2 (13:08→17:10)
[2019-11-03] MEDS: hydrALAZINE 25 MG TABLET PO SCH ×3 (13:08→21:21)
[2019-11-03] MEDS: predniSONE 5 MG TABLET PO SCH (14:18)
[2019-11-03] MEDS: lisinopriL 20 MG TABLET PO SCH ×2 (14:19→21:21)
[2019-11-03] MEDS: allopurinoL 300 MG TABLET PO SCH (14:21)
[2019-11-03] MEDS: Gabapentin 100 MG CAPSULE PO SCH (14:21)
[2019-11-03] MEDS: Famotidine 20 MG TABLET PO SCH (14:22)
[2019-11-03] MEDS ORDERED: Furosemide 40 MG TABLET PO SCH (17:00)
[2019-11-03 21:21] LABS: RBC,Pleural Fluid 4000 RBC/mcL
[2019-11-03 21:24] LABS: Appearance of Pleural Fl Hazy (Clear)
[2019-11-03 21:46] LABS: Amylase,Pleural Fluid 18 Units/L (No Ref Range); Glucose,Pleural Fluid 103 mg/dL (No Ref Range); LDH,Pleural Fluid 158 Units/L (No Ref Range); Total Protein,Pleural Fluid < 3.0 g/dL
[2019-11-03 21:52] LABS: Basophils,Pleural Fluid 0 %; Eosinophils,Pleural Fluid 0 %; Monocytes,Pleural Fluid 0 %
[2019-11-04] MEDS: *HR* HYDROcodone/Acet 5/325 mg TABLET PO PRN (03:23)
[2019-11-04] MEDS: Budesonide/Formoterol 80/4.5 1 PUFF INH IH SCH (08:08)
[2019-11-04] MEDS: Famotidine 20 MG TABLET PO SCH (08:27)
[2019-11-04] MEDS: allopurinoL 300 MG TABLET PO SCH (08:28)
[2019-11-04] MEDS: Gabapentin 100 MG CAPSULE PO SCH (08:28)
[2019-11-04] MEDS: lisinopriL 20 MG TABLET PO SCH (08:28)
[2019-11-04] MEDS: hydrALAZINE 25 MG TABLET PO SCH (08:28)
[2019-11-04] MEDS: predniSONE 5 MG TABLET PO SCH (08:28)
[2019-11-04] MEDS: carvediloL 25 MG TABLET PO SCH (08:29)
[2019-11-04] MEDS ORDERED: Furosemide 40 MG TABLET PO SCH (09:00)
[2019-11-04] MEDS ORDERED: Aspirin Enteric Coated 81 MG Tablet PO SCH (09:00)
[2019-11-04] MEDS ORDERED: Budesonide Neb 0.5 MG/2 ML IH SCH (10:00)
[2019-11-04 12:11] VITALS: BP 147/73
== END 2019-11-04 13:13 | disposition home or self-care (01) | DRG 280 ==
LOC: 2ANU 10:56 → EMEROOARM 10:56 → SUATTDRO 13:02 → 2ANU 16:12
PROVIDERS: ADMIT Internal Medicine; ATTEND Internal Medicine

== ENCOUNTER 2020-02-05 10:57 | Inpatient (IN) ==
[2020-02-05 11:31] LABS: INR 1.3; Prothrombin Time 15.3 Seconds (9.4-12.1)
[2020-02-05 11:33] LABS: Basophils # 0.1 K/mcL (0.0-0.2); Basophils % 0.4 %; Hematocrit 35.1 % (37.5-50.1); Hemoglobin 11.2 g/dL (12.9-16.9); Immature Granulocytes % 2.8 % (0-4); Lymphocytes # 0.7 K/mcL (0.6-4.6); Lymphocytes % 5.4 %; Mean Corpuscular HGB Conc 31.9 g/dL (31.6-35.5); Mean Corpuscular Hemoglobin 32.6 pg (28.0-33.3); Mean Platelet Volume 10.5 fL (9.4-12.4); Monocytes # 0.8 K/mcL (0.0-1.3); Monocytes % 5.9 %; Neutrophils # 11.5 K/mcL (1.6-8.9); Nucleated Red Blood Cells 4.7 /100 WBC (0); Platelet Count 145 K/mcL (140-400); Red Blood Count 3.44 M/mcL (4.19-5.50); Red Cell Distribution Width 17.7 % (11.5-14.5); Segmented Neutrophils % 85.5 %; White Blood Count 13.5 K/mcL (4.3-11.1)
[2020-02-05 11:49] LABS: Albumin/Globulin Ratio 1.4 (1.1-2.2); Bilirubin,Total 0.8 mg/dL (0.3-1.0); Calcium 8.1 mg/dL (8.6-10.3); Globulin 2.8 g/dL (2.4-3.5); Magnesium 1.9 mg/dL (1.6-2.6); Phosphorous 4.7 mg/dL (2.7-4.5); Potassium 4.2 mEq/L (3.5-5.1); Total Protein 6.8 g/dL (6.4-8.9)
[2020-02-05 11:52] LABS: Troponin I 0.13 ng/mL (< 0.04)
[2020-02-05] MEDS ORDERED: Isovue-370 500 ML BOTTLE IVP ONE (12:56)
[2020-02-05] MEDS ORDERED: Piperacillin/Tazobactam 3.375 GM in 0.9 % Sodium Chloride Mini Bag 100 ML IVPB ONE (15:45)
[2020-02-05] MEDS ORDERED: Ondansetron ODT 4 MG TAB.RAPDIS SL PRN (16:02)
[2020-02-05] MEDS ORDERED: Aspirin 325 MG TABLET PO ONE (17:56)
[2020-02-05] MEDS: Azithromycin 500 MG in 0.9 % Sodium Chloride 250 ML IVPB SCH (18:30)
[2020-02-05] MEDS: cefTRIAXone 2,000 MG in Water for inj. (sterile) 20 ML IVP SCH (20:50)
[2020-02-05] MEDS: *HR* Heparin 5,000 UNIT/ML VIAL SQ SCH (20:50)
[2020-02-06] MEDS ORDERED: *HR* Metoprolol 5 MG/5 ML VIAL IVP ONE ×2 (00:02→06:21)
[2020-02-06] MEDS: Acetaminophen 325 MG TABLET PO PRN ×2 (04:47→15:09)
[2020-02-06 05:20] LABS: Hematocrit 33.3 % (37.5-50.1); Hemoglobin 10.6 g/dL (12.9-16.9); Mean Corpuscular HGB Conc 31.8 g/dL (31.6-35.5); Mean Corpuscular Hemoglobin 33.5 pg (28.0-33.3); Mean Corpuscular Volume 105.4 fL (83.0-100.0); Mean Platelet Volume 11.4 fL (9.4-12.4); Platelet Count 128 K/mcL (140-400); Red Blood Count 3.16 M/mcL (4.19-5.50); Red Cell Distribution Width 18.4 % (11.5-14.5); White Blood Count 10.8 K/mcL (4.3-11.1)
[2020-02-06 05:39] LABS: Calcium 8.1 mg/dL (8.6-10.3); Magnesium 2.1 mg/dL (1.6-2.6); Potassium 4.4 mEq/L (3.5-5.1)
[2020-02-06] MEDS: *HR* Heparin 5,000 UNIT/ML VIAL SQ SCH ×3 (06:56→23:44)
[2020-02-06] MEDS: Aspirin 81 MG TAB.CHEW PO SCH (10:46)
[2020-02-06 13:16] LABS: Albumin 3.8 g/dL (3.5-5.7); Albumin/Globulin Ratio 1.6 (1.1-2.2); Bilirubin,Direct 0.2 mg/dL (0.0-0.2); Bilirubin,Indirect 0.4 mg/dL (0.0-1.0); Bilirubin,Total 0.6 mg/dL (0.3-1.0); Globulin 2.4 g/dL (2.4-3.5); Total Protein 6.2 g/dL (6.4-8.9); Troponin I 0.2 ng/mL (< 0.04)
[2020-02-06 13:34] LABS: Hepatitis B Surface Antigen Nonreactive (Nonreactive)
[2020-02-06 14:03] LABS: Hepatitis A Antibody IgM Nonreactive (Nonreactive); Hepatitis B Core IgM Nonreactive (Nonreactive); Hepatitis C Virus Antibody Nonreactive (Nonreactive)
[2020-02-06] MEDS ORDERED: Perflutren Lipid Microsphere 1.3 ML in 0.9 % Sodium Chloride 8.7 ML IVP PRN (14:34)
[2020-02-06 16:06] LABS: Hepatitis B Surface Antibody 19.58 mIU/mL
[2020-02-06] MEDS: Azithromycin 500 MG in 0.9 % Sodium Chloride 250 ML IVPB SCH (18:56)
[2020-02-06] MEDS ORDERED: 0.9 % Sodium Chloride 500 ML IVC PRN (21:39)
[2020-02-06] MEDS: cefTRIAXone 2,000 MG in Water for inj. (sterile) 20 ML IVP SCH (23:44)
[2020-02-07] MEDS: Acetaminophen 325 MG TABLET PO PRN (04:37)
[2020-02-07 05:31] LABS: Hematocrit 36.1 % (37.5-50.1); Hemoglobin 11.1 g/dL (12.9-16.9); Mean Corpuscular HGB Conc 30.7 g/dL (31.6-35.5); Mean Corpuscular Hemoglobin 32.6 pg (28.0-33.3); Mean Corpuscular Volume 106.2 fL (83.0-100.0); Mean Platelet Volume 11.6 fL (9.4-12.4); Platelet Count 115 K/mcL (140-400); Red Cell Distribution Width 18.8 % (11.5-14.5); White Blood Count 13.7 K/mcL (4.3-11.1)
[2020-02-07 05:48] LABS: Calcium 8.5 mg/dL (8.6-10.3); Potassium 5.2 mEq/L (3.5-5.1)
[2020-02-07] MEDS: *HR* Heparin 5,000 UNIT/ML VIAL SQ SCH ×2 (06:44→20:08)
[2020-02-07] MEDS ORDERED: Albumin 25% 25gram/100mL 25 GM/100 ML IV.SOLN IVPB PRN (07:26)
[2020-02-07] MEDS ORDERED: 0.9 % Sodium Chloride 250 ML IVC PRN (07:26)
[2020-02-07] MEDS ORDERED: 0.9 % Sodium Chloride 1,000 ML PRIME SCH (07:30)
[2020-02-07] MEDS ORDERED: 0.9 % Sodium Chloride 1,000 ML ONE (07:54)
[2020-02-07] MEDS ORDERED: D5% in Water 1,000 ML IVC PRN (07:57)
[2020-02-07] MEDS ORDERED: Dextrose Gel 15 GM/37.5 ML TUBE PO PRN ×2 (07:57)
[2020-02-07] MEDS ORDERED: *HR* Dextrose 50 % in Water (Vial) 50 ML VIAL IVP PRN (07:57)
[2020-02-07] MEDS ORDERED: Ipratropium/Albuterol Neb 3 ML IH PRN (08:01)
[2020-02-07] MEDS: Aspirin 81 MG TAB.CHEW PO SCH (08:52)
[2020-02-07] MEDS: allopurinoL 100 MG TABLET PO SCH (08:52)
[2020-02-07] MEDS: Cyanocobalamin (B-12) 1,000 MCG TABLET PO SCH (08:53)
[2020-02-07] MEDS: Piperacillin/Tazobactam 3.375 GM in 0.9 % Sodium Chloride Mini Bag 100 ML IVPB SCH ×2 (08:53→20:09)
[2020-02-07] MEDS: FOLIC ACID PO SCH (08:54)
[2020-02-07] MEDS: VIT B COMPLEX AND C PO SCH (08:54)
[2020-02-07] MEDS: Insulin LISPRO 300 UNITS/3 ML VIAL SQ SCH ×3 (08:55→20:08)
[2020-02-07] MEDS ORDERED: Metoprolol XL (24 HR) Succ 25 MG TAB.ER.24H PO SCH (09:00)
[2020-02-07] MEDS ORDERED: predniSONE 20 MG TABLET PO SCH (09:30)
[2020-02-07] MEDS ORDERED: Insulin LISPRO 300 UNITS/3 ML VIAL SQ SCH (11:30)
[2020-02-07] MEDS ORDERED: Metoprolol XL (24 HR) Succ 25 MG TAB.ER.24H PO ONE (14:25)
[2020-02-07] MEDS ORDERED: Gabapentin 100 MG CAPSULE PO SCH (21:00)
[2020-02-08] MEDS: Insulin LISPRO 300 UNITS/3 ML VIAL SQ SCH ×3 (00:07→19:32)
[2020-02-08 04:21] LABS: Basophils % 0.3 %; Hemoglobin 10.7 g/dL (12.9-16.9); Immature Granulocytes % 1.9 % (0-4); Immature Platelets 5.2 % (1.1-6.1); Lymphocytes % 8.9 %; Mean Corpuscular HGB Conc 31.5 g/dL (31.6-35.5); Mean Corpuscular Hemoglobin 32.7 pg (28.0-33.3); Mean Platelet Volume 11.1 fL (9.4-12.4); Monocytes # 0.9 K/mcL (0.0-1.3); Monocytes % 7.6 %; Neutrophils # 9.2 K/mcL (1.6-8.9); Nucleated Red Blood Cells 12.3 /100 WBC (0); Red Blood Count 3.27 M/mcL (4.19-5.50); Red Cell Distribution Width 18.9 % (11.5-14.5); Segmented Neutrophils % 81.3 %; White Blood Count 11.3 K/mcL (4.3-11.1)
[2020-02-08 04:28] LABS: Platelet Count 96 K/mcL (140-400)
[2020-02-08 04:29] LABS: Calcium 8.8 mg/dL (8.6-10.3); Magnesium 2.2 mg/dL (1.6-2.6); Phosphorous 7.6 mg/dL (2.7-4.5); Potassium 4.9 mEq/L (3.5-5.1)
[2020-02-08] MEDS: *HR* Heparin 5,000 UNIT/ML VIAL SQ SCH ×3 (05:17→19:40)
[2020-02-08] MEDS ORDERED: 0.9 % Sodium Chloride 250 ML IVC PRN ×2 (07:09→14:12)
[2020-02-08] MEDS ORDERED: *HR* Phenylephrine 10 MG/ML VIAL ONE (08:18)
[2020-02-08] MEDS ORDERED: Lidocaine -MPF 4% 5 ML AMPUL ONE (08:18)
[2020-02-08] MEDS ORDERED: *HR* Rocuronium Bromide 50 MG/5 ML VIAL ONE ×2 (08:18→10:37)
[2020-02-08] MEDS ORDERED: Lidocaine -MPF 2% 2 ML VIAL ONE (08:18)
[2020-02-08] MEDS ORDERED: Ondansetron 4 MG/2 ML VIAL ONE (08:18)
[2020-02-08] MEDS ORDERED: *HR* Succinylcholine 200 MG/10 ML VIAL IVP ONE (08:18)
[2020-02-08] MEDS ORDERED: Heparin 1,000 UNITS/500 mL 500 ML ONE (08:19)
[2020-02-08] MEDS ORDERED: *HR* Propofol 200 MG/20 ML VIAL IVP ONE (08:21)
[2020-02-08] MEDS ORDERED: *HR* Etomidate 40 MG/20 ML VIAL IVP ONE (08:21)
[2020-02-08] MEDS: FOLIC ACID PO SCH (08:25)
[2020-02-08] MEDS: VIT B COMPLEX AND C PO SCH (08:25)
[2020-02-08] MEDS: Piperacillin/Tazobactam 3.375 GM in 0.9 % Sodium Chloride Mini Bag 100 ML IVPB SCH ×2 (08:26→19:40)
[2020-02-08] MEDS: Cyanocobalamin (B-12) 1,000 MCG TABLET PO SCH (08:26)
[2020-02-08] MEDS: allopurinoL 100 MG TABLET PO SCH (08:27)
[2020-02-08] MEDS ORDERED: *HR* FentaNYL (PF) 100 MCG/2 ML VIAL ONE ×2 (08:29→08:41)
[2020-02-08] MEDS ORDERED: EPINEPHrine 1 MG/ML VIAL ONE (08:31)
[2020-02-08] MEDS ORDERED: Acetaminophen IV 0 MG/0 ML INFUS..BTL ONE (08:38)
[2020-02-08] MEDS ORDERED: Metoprolol XL (24 HR) Succ 25 MG TAB.ER.24H PO SCH (09:00)
[2020-02-08] MEDS ORDERED: predniSONE 20 MG TABLET PO SCH (09:00)
[2020-02-08] MEDS ORDERED: D5% in Water 250 ML ONE (09:26)
[2020-02-08] MEDS ORDERED: *HR* Cisatracurium 10 MG/5 ML VIAL IV ONE (09:26)
[2020-02-08] MEDS ORDERED: Albumin Human 5% 0 GM/0 ML IV.SOLN ONE (09:26)
[2020-02-08] MEDS ORDERED: *HR* Norepinephrine 4 MG/4 ML VIAL IVC ONE (09:26)
[2020-02-08] MEDS ORDERED: *HR* Vasopressin 20 UNIT/ML VIAL ONE (09:26)
[2020-02-08] MEDS ORDERED: Isovue-300 50ML VIAL ONE (09:56)
[2020-02-08] MEDS ORDERED: *HR* FentaNYL (PF) 100 MCG/2 ML VIAL IVP PRN (10:34)
[2020-02-08] MEDS ORDERED: *HR* Meperidine 25 MG/ML SYRINGE IVP PRN (10:34)
[2020-02-08] MEDS ORDERED: Ondansetron 4 MG/2 ML VIAL IVP PRN (10:34)
[2020-02-08] MEDS ORDERED: Neostigmine Methylsulfate 3 MG/3 ML SYRINGE ONE (11:05)
[2020-02-08] MEDS ORDERED: Acetaminophen 325 MG TABLET PO PRN (14:12)
[2020-02-08] MEDS ORDERED: 0.9 % Sodium Chloride 1,000 ML PRIME SCH (14:12)
[2020-02-08] MEDS ORDERED: Albumin 25% 25gram/100mL 25 GM/100 ML IV.SOLN IVPB PRN (14:12)
[2020-02-08] MEDS ORDERED: *HR* Dextrose 50 % in Water (Vial) 50 ML VIAL IVP PRN (14:12)
[2020-02-08] MEDS ORDERED: Dextrose Gel 15 GM/37.5 ML TUBE PO PRN ×2 (14:12)
[2020-02-08] MEDS ORDERED: Ipratropium/Albuterol Neb 3 ML IH PRN (14:12)
[2020-02-08] MEDS ORDERED: D5% in Water 1,000 ML IVC PRN (14:12)
[2020-02-08] MEDS ORDERED: Metoprolol XL (24 HR) Succ 25 MG TAB.ER.24H PO ONE (14:12)
[2020-02-08] MEDS: Gabapentin 100 MG CAPSULE PO SCH (19:42)
[2020-02-09] MEDS: Insulin LISPRO 300 UNITS/3 ML VIAL SQ SCH ×4 (00:30→17:10)
[2020-02-09] MEDS: *HR* Heparin 5,000 UNIT/ML VIAL SQ SCH ×3 (05:28→19:52)
[2020-02-09 05:49] LABS: Hemoglobin 10.6 g/dL (12.9-16.9); Immature Granulocytes % 2.1 % (0-4)
[2020-02-09 05:51] LABS: Basophils # 0.1 K/mcL (0.0-0.2); Basophils % 0.7 %; Eosinophils % 0.2 %; Hematocrit 34.3 % (37.5-50.1); Immature Platelets 5.2 % (1.1-6.1); Lymphocytes # 1.1 K/mcL (0.6-4.6); Lymphocytes % 8.2 %; Mean Corpuscular HGB Conc 30.9 g/dL (31.6-35.5); Mean Corpuscular Hemoglobin 33.1 pg (28.0-33.3); Mean Corpuscular Volume 107.2 fL (83.0-100.0); Mean Platelet Volume 10.8 fL (9.4-12.4); Monocytes % 7.6 %; Nucleated Red Blood Cells 12.7 /100 WBC (0); Red Cell Distribution Width 19.1 % (11.5-14.5); Segmented Neutrophils % 81.2 %; White Blood Count 13.1 K/mcL (4.3-11.1)
[2020-02-09 06:02] LABS: Neutrophils # 10.6 K/mcL (1.6-8.9); Platelet Count 81 K/mcL (140-400)
[2020-02-09 06:11] LABS: Calcium 8.1 mg/dL (8.6-10.3); Magnesium 2.2 mg/dL (1.6-2.6); Phosphorous 8.3 mg/dL (2.7-4.5); Potassium 5.7 mEq/L (3.5-5.1)
[2020-02-09] MEDS ORDERED: 0.9 % Sodium Chloride 250 ML IVC PRN (06:38)
[2020-02-09] MEDS ORDERED: Albumin 25% 25gram/100mL 25 GM/100 ML IV.SOLN IVPB PRN (06:38)
[2020-02-09 07:24] LABS: Anisocytosis 1+ (Not Present); Macrocytosis Present (Not Present); Platelet Estimate Slight Decrease (Normal); Poikilocytosis 1+ (Not Present)
[2020-02-09] MEDS ORDERED: predniSONE 20 MG TABLET PO SCH (09:00)
[2020-02-09] MEDS: allopurinoL 100 MG TABLET PO SCH (09:12)
[2020-02-09] MEDS: Renal Vitamin 1 CAP CAPSULE PO SCH (09:12)
[2020-02-09] MEDS: Cyanocobalamin (B-12) 1,000 MCG TABLET PO SCH (09:15)
[2020-02-09] MEDS: Piperacillin/Tazobactam 3.375 GM in 0.9 % Sodium Chloride Mini Bag 100 ML IVPB SCH ×2 (17:04→19:53)
[2020-02-09] MEDS: Metoprolol XL (24 HR) Succ 25 MG TAB.ER.24H PO SCH (17:04)
[2020-02-09] MEDS ORDERED: *HR* Metoprolol 5 MG/5 ML VIAL IVP ONE ×2 (17:09→17:11)
[2020-02-09] MEDS: Ondansetron ODT 4 MG TAB.RAPDIS SL PRN (17:13)
[2020-02-09] MEDS: Gabapentin 100 MG CAPSULE PO SCH (19:54)
[2020-02-10] MEDS: *HR* Heparin 5,000 UNIT/ML VIAL SQ SCH ×2 (06:23→17:18)
[2020-02-10 08:45] LABS: Hematocrit 35.2 % (37.5-50.1); Hemoglobin 11.2 g/dL (12.9-16.9); Mean Corpuscular HGB Conc 31.8 g/dL (31.6-35.5); Mean Corpuscular Hemoglobin 33.5 pg (28.0-33.3); Mean Corpuscular Volume 105.4 fL (83.0-100.0); Mean Platelet Volume 11.5 fL (9.4-12.4); Platelet Count 95 K/mcL (140-400); Red Blood Count 3.34 M/mcL (4.19-5.50); Red Cell Distribution Width 19.8 % (11.5-14.5); White Blood Count 13.1 K/mcL (4.3-11.1)
[2020-02-10 09:05] LABS: Calcium 8.4 mg/dL (8.6-10.3); Magnesium 2.1 mg/dL (1.6-2.6); Potassium 5.2 mEq/L (3.5-5.1)
[2020-02-10] MEDS ORDERED: Insulin LISPRO 300 UNITS/3 ML VIAL SQ ONE (09:17)
[2020-02-10] MEDS: Insulin LISPRO 300 UNITS/3 ML VIAL SQ SCH ×4 (09:20→23:12)
[2020-02-10] MEDS: Cyanocobalamin (B-12) 1,000 MCG TABLET PO SCH (10:04)
[2020-02-10] MEDS: Renal Vitamin 1 CAP CAPSULE PO SCH (10:04)
[2020-02-10] MEDS: predniSONE 20 MG TABLET PO SCH (10:05)
[2020-02-10] MEDS: Metoprolol XL (24 HR) Succ 25 MG TAB.ER.24H PO SCH (10:05)
[2020-02-10] MEDS: allopurinoL 100 MG TABLET PO SCH (10:05)
[2020-02-10] MEDS: Piperacillin/Tazobactam 3.375 GM in 0.9 % Sodium Chloride Mini Bag 100 ML IVPB SCH ×2 (10:07→21:38)
[2020-02-10] MEDS: SODIUM ZIRCONIUM CYCLOSILICATE 5 GM POWD.PACK PO SCH (16:04)
[2020-02-10] MEDS: Gabapentin 100 MG CAPSULE PO SCH (21:35)
[2020-02-11] MEDS: *HR* Heparin 5,000 UNIT/ML VIAL SQ SCH ×2 (05:30→17:27)
[2020-02-11 07:54] LABS: Basophils % 0.1 %
[2020-02-11 07:56] LABS: Hematocrit 35.2 % (37.5-50.1); Hemoglobin 11.1 g/dL (12.9-16.9); Immature Granulocytes % 0.8 % (0-4); Immature Platelets 4.9 % (1.1-6.1); Lymphocytes # 0.8 K/mcL (0.6-4.6); Lymphocytes % 5.5 %; Mean Corpuscular HGB Conc 31.5 g/dL (31.6-35.5); Mean Corpuscular Hemoglobin 33.2 pg (28.0-33.3); Mean Corpuscular Volume 105.4 fL (83.0-100.0); Monocytes % 6.9 %; Neutrophils # 12.3 K/mcL (1.6-8.9); Nucleated Red Blood Cells 7.9 /100 WBC (0); Red Blood Count 3.34 M/mcL (4.19-5.50); Red Cell Distribution Width 19.9 % (11.5-14.5); Segmented Neutrophils % 86.7 %; White Blood Count 14.2 K/mcL (4.3-11.1)
[2020-02-11 07:57] LABS: Platelet Count 77 K/mcL (140-400)
[2020-02-11 08:15] LABS: Calcium 8.3 mg/dL (8.6-10.3); Magnesium 2.2 mg/dL (1.6-2.6); Phosphorous 8.4 mg/dL (2.7-4.5); Potassium 5.3 mEq/L (3.5-5.1)
[2020-02-11] MEDS: SODIUM ZIRCONIUM CYCLOSILICATE 5 GM POWD.PACK PO SCH (09:22)
[2020-02-11] MEDS: Piperacillin/Tazobactam 3.375 GM in 0.9 % Sodium Chloride Mini Bag 100 ML IVPB SCH (09:22)
[2020-02-11] MEDS: Renal Vitamin 1 CAP CAPSULE PO SCH (09:23)
[2020-02-11] MEDS: allopurinoL 100 MG TABLET PO SCH (09:23)
[2020-02-11] MEDS: predniSONE 20 MG TABLET PO SCH (09:23)
[2020-02-11] MEDS: Cyanocobalamin (B-12) 1,000 MCG TABLET PO SCH (09:23)
[2020-02-11] MEDS: Insulin LISPRO 300 UNITS/3 ML VIAL SQ SCH ×4 (09:24→21:19)
[2020-02-11] MEDS: Metoprolol XL (24 HR) Succ 25 MG TAB.ER.24H PO SCH (09:24)
[2020-02-11] MEDS: Gabapentin 100 MG CAPSULE PO SCH (21:19)
[2020-02-12] MEDS: Ondansetron ODT 4 MG TAB.RAPDIS SL PRN ×2 (01:54→20:32)
[2020-02-12 03:39] LABS: Hemoglobin 10.7 g/dL (12.9-16.9); Immature Granulocytes % 0.9 % (0-4); Mean Corpuscular Volume 105.2 fL (83.0-100.0)
[2020-02-12 03:41] LABS: Basophils % 0.2 %; Hematocrit 32.6 % (37.5-50.1); Immature Platelets 4.3 % (1.1-6.1); Lymphocytes # 0.5 K/mcL (0.6-4.6); Mean Corpuscular HGB Conc 32.8 g/dL (31.6-35.5); Mean Corpuscular Hemoglobin 34.5 pg (28.0-33.3); Mean Platelet Volume 11.8 fL (9.4-12.4); Monocytes # 0.8 K/mcL (0.0-1.3); Monocytes % 5.8 %; Neutrophils # 11.5 K/mcL (1.6-8.9); Segmented Neutrophils % 89.1 %; White Blood Count 12.9 K/mcL (4.3-11.1)
[2020-02-12 03:46] LABS: Platelet Count 86 K/mcL (140-400)
[2020-02-12 03:57] LABS: Calcium 8.1 mg/dL (8.6-10.3); Magnesium 2.2 mg/dL (1.6-2.6); Potassium 5.7 mEq/L (3.5-5.1)
[2020-02-12] MEDS: *HR* Heparin 5,000 UNIT/ML VIAL SQ SCH ×2 (05:04→17:50)
[2020-02-12] MEDS ORDERED: *HR* Heparin 10,000 UNIT/10 ML VIAL IV PRN (07:35)
[2020-02-12] MEDS ORDERED: 0.9 % Sodium Chloride 250 ML IVC PRN (07:35)
[2020-02-12] MEDS ORDERED: 0.9 % Sodium Chloride 1,000 ML PRIME SCH (07:45)
[2020-02-12] MEDS: Insulin LISPRO 300 UNITS/3 ML VIAL SQ SCH ×4 (07:53→19:54)
[2020-02-12] MEDS: Metoprolol XL (24 HR) Succ 25 MG TAB.ER.24H PO SCH (08:03)
[2020-02-12] MEDS: SODIUM ZIRCONIUM CYCLOSILICATE 5 GM POWD.PACK PO SCH (08:03)
[2020-02-12] MEDS: allopurinoL 100 MG TABLET PO SCH (08:03)
[2020-02-12] MEDS: Cyanocobalamin (B-12) 1,000 MCG TABLET PO SCH (08:04)
[2020-02-12] MEDS: Renal Vitamin 1 CAP CAPSULE PO SCH (08:04)
[2020-02-12] MEDS ORDERED: predniSONE 20 MG TABLET PO SCH (09:00)
[2020-02-12] MEDS: Amoxicillin/Clavulanate 250 MG TABLET PO SCH (15:57)
[2020-02-12] MEDS: Gabapentin 100 MG CAPSULE PO SCH (19:54)
[2020-02-13 05:46] LABS: Basophils % 0.1 %; Eosinophils % 0.2 %; Hematocrit 33.4 % (37.5-50.1); Hemoglobin 10.6 g/dL (12.9-16.9); Immature Granulocytes % 0.8 % (0-4); Immature Platelets 5.9 % (1.1-6.1); Lymphocytes # 1.1 K/mcL (0.6-4.6); Lymphocytes % 8.8 %; Mean Corpuscular HGB Conc 31.7 g/dL (31.6-35.5); Mean Corpuscular Hemoglobin 33.4 pg (28.0-33.3); Mean Corpuscular Volume 105.4 fL (83.0-100.0); Mean Platelet Volume 12.2 fL (9.4-12.4); Neutrophils # 10.1 K/mcL (1.6-8.9); Nucleated Red Blood Cells 6.1 /100 WBC (0); Red Blood Count 3.17 M/mcL (4.19-5.50); Red Cell Distribution Width 20.6 % (11.5-14.5); Segmented Neutrophils % 82.1 %; White Blood Count 12.3 K/mcL (4.3-11.1)
[2020-02-13] MEDS: *HR* Heparin 5,000 UNIT/ML VIAL SQ SCH ×2 (05:51→17:00)
[2020-02-13 05:52] LABS: Platelet Count 77 K/mcL (140-400)
[2020-02-13 06:05] LABS: Calcium 8.2 mg/dL (8.6-10.3); Magnesium 2.2 mg/dL (1.6-2.6); Phosphorous 7.9 mg/dL (2.7-4.5); Potassium 4.8 mEq/L (3.5-5.1)
[2020-02-13] MEDS: Insulin LISPRO 300 UNITS/3 ML VIAL SQ SCH ×4 (08:55→20:49)
[2020-02-13] MEDS: Metoprolol XL (24 HR) Succ 25 MG TAB.ER.24H PO SCH (08:57)
[2020-02-13] MEDS: Amoxicillin/Clavulanate 250 MG TABLET PO SCH (09:07)
[2020-02-13] MEDS: predniSONE 10 MG TABLET PO SCH (09:07)
[2020-02-13] MEDS: allopurinoL 100 MG TABLET PO SCH (09:07)
[2020-02-13] MEDS: Cyanocobalamin (B-12) 1,000 MCG TABLET PO SCH (09:08)
[2020-02-13] MEDS: SODIUM ZIRCONIUM CYCLOSILICATE 5 GM POWD.PACK PO SCH (09:08)
[2020-02-13] MEDS: Renal Vitamin 1 CAP CAPSULE PO SCH (09:08)
[2020-02-13] MEDS ORDERED: Melatonin 3 MG TABLET PO ONE (20:24)
[2020-02-13] MEDS: Gabapentin 100 MG CAPSULE PO SCH (20:49)
[2020-02-13] MEDS: Ondansetron ODT 4 MG TAB.RAPDIS SL PRN (21:22)
[2020-02-14] MEDS: *HR* Heparin 5,000 UNIT/ML VIAL SQ SCH ×2 (05:31→17:20)
[2020-02-14 07:28] LABS: Calcium 7.8 mg/dL (8.6-10.3); Potassium 5.4 mEq/L (3.5-5.1)
[2020-02-14] MEDS ORDERED: *HR* Heparin 10,000 UNIT/10 ML VIAL IV PRN (08:16)
[2020-02-14] MEDS ORDERED: 0.9 % Sodium Chloride 250 ML IVC PRN (08:16)
[2020-02-14] MEDS: Insulin LISPRO 300 UNITS/3 ML VIAL SQ SCH ×4 (08:33→21:18)
[2020-02-14] MEDS: SODIUM ZIRCONIUM CYCLOSILICATE 5 GM POWD.PACK PO SCH (08:50)
[2020-02-14] MEDS: Metoprolol XL (24 HR) Succ 25 MG TAB.ER.24H PO SCH (08:50)
[2020-02-14] MEDS: Cyanocobalamin (B-12) 1,000 MCG TABLET PO SCH (08:51)
[2020-02-14] MEDS: predniSONE 10 MG TABLET PO SCH (08:51)
[2020-02-14] MEDS: allopurinoL 100 MG TABLET PO SCH (08:51)
[2020-02-14] MEDS: Renal Vitamin 1 CAP CAPSULE PO SCH (08:51)
[2020-02-14] MEDS: Calcium Acetate 667 MG CAPSULE PO SCH ×2 (14:12→17:20)
[2020-02-14] MEDS: Gabapentin 100 MG CAPSULE PO SCH (21:17)
[2020-02-15] MEDS ORDERED: Melatonin 3 MG TABLET PO SCH (01:45)
[2020-02-15 05:10] LABS: Basophils % 0.2 %; Eosinophils # 0.1 K/mcL (0.0-0.6); Eosinophils % 0.6 %; Hematocrit 32.2 % (37.5-50.1); Hemoglobin 10.3 g/dL (12.9-16.9); Immature Granulocytes % 0.8 % (0-4); Immature Platelets 6.7 % (1.1-6.1); Lymphocytes # 0.8 K/mcL (0.6-4.6); Lymphocytes % 7.5 %; Mean Corpuscular Hemoglobin 33.3 pg (28.0-33.3); Mean Corpuscular Volume 104.2 fL (83.0-100.0); Monocytes # 0.9 K/mcL (0.0-1.3); Neutrophils # 8.4 K/mcL (1.6-8.9); Nucleated Red Blood Cells 6.9 /100 WBC (0); Red Blood Count 3.09 M/mcL (4.19-5.50); Red Cell Distribution Width 20.8 % (11.5-14.5); Segmented Neutrophils % 81.9 %; White Blood Count 10.3 K/mcL (4.3-11.1)
[2020-02-15 05:14] LABS: Platelet Count 77 K/mcL (140-400)
[2020-02-15 05:27] LABS: Calcium 7.7 mg/dL (8.6-10.3)
[2020-02-15] MEDS: *HR* Heparin 5,000 UNIT/ML VIAL SQ SCH ×2 (05:31→16:40)
[2020-02-15] MEDS: Cyanocobalamin (B-12) 1,000 MCG TABLET PO SCH (10:24)
[2020-02-15] MEDS: SODIUM ZIRCONIUM CYCLOSILICATE 5 GM POWD.PACK PO SCH (10:24)
[2020-02-15] MEDS: allopurinoL 100 MG TABLET PO SCH (10:24)
[2020-02-15] MEDS: Metoprolol XL (24 HR) Succ 25 MG TAB.ER.24H PO SCH (10:24)
[2020-02-15] MEDS: Renal Vitamin 1 CAP CAPSULE PO SCH (10:24)
[2020-02-15] MEDS: Insulin LISPRO 300 UNITS/3 ML VIAL SQ SCH ×3 (10:25→16:36)
[2020-02-15] MEDS: Calcium Acetate 667 MG CAPSULE PO SCH ×3 (10:28→16:40)
[2020-02-15 15:43] VITALS: BP 102/69
== END 2020-02-15 18:10 | disposition home health service (06) | DRG 853 ==
LOC: EMEROOARM 10:57 → 3ANU 10:57 → SUATTDRO 16:43 → 3ANU 18:10 → 2NNU 02-07 02:04 → SUATTDRO 02-07 16:59 → 2ANU 02-10 20:52
PROVIDERS: ADMIT Internal Medicine; ATTEND Family Medicine

== ENCOUNTER 2020-02-22 10:51 | Inpatient (IN) ==
[2020-02-22] MEDS ORDERED: 0.9 % Sodium Chloride 1,000 ML IVC ONE ×2 (11:08→14:12)
[2020-02-22] MEDS ORDERED: *HR* FentaNYL (PF) 100 MCG/2 ML VIAL IVP ONE (11:31)
[2020-02-22] MEDS ORDERED: Ondansetron 4 MG/2 ML VIAL IVP ONE (11:31)
[2020-02-22 11:33] LABS: INR 1.4; Prothrombin Time 16.1 Seconds (9.4-12.1)
[2020-02-22 11:34] LABS: Basophils % 0.1 %; Eosinophils # 0.1 K/mcL (0.0-0.6); Eosinophils % 0.6 %; Hematocrit 34.7 % (37.5-50.1); Hemoglobin 10.7 g/dL (12.9-16.9); Immature Granulocytes % 0.6 % (0-4); Lymphocytes # 0.3 K/mcL (0.6-4.6); Lymphocytes % 3.9 %; Mean Corpuscular HGB Conc 30.8 g/dL (31.6-35.5); Mean Corpuscular Hemoglobin 33.1 pg (28.0-33.3); Mean Corpuscular Volume 107.4 fL (83.0-100.0); Mean Platelet Volume 10.7 fL (9.4-12.4); Monocytes # 0.3 K/mcL (0.0-1.3); Monocytes % 3.3 %; Platelet Count 103 K/mcL (140-400); Red Blood Count 3.23 M/mcL (4.19-5.50); Red Cell Distribution Width 19.9 % (11.5-14.5); Segmented Neutrophils % 91.5 %; White Blood Count 8.7 K/mcL (4.3-11.1)
[2020-02-22 11:36] LABS: Activated Partial Thrombo Time 29.1 Seconds (26.0-36.0)
[2020-02-22 11:53] LABS: Albumin 3.5 g/dL (3.5-5.7); Albumin/Globulin Ratio 1.2 (1.1-2.2); Bilirubin,Direct 0.3 mg/dL (0.0-0.2); Bilirubin,Indirect 0.7 mg/dL (0.0-1.0); Calcium 9.3 mg/dL (8.6-10.3); Platelet Estimate Slight Decrease (Normal); Potassium 5.1 mEq/L (3.5-5.1); Total Protein 6.5 g/dL (6.4-8.9); Troponin I 0.49 ng/mL (< 0.04)
[2020-02-22 12:00] LABS: Bilirubin,Urine Negative (Negative); Blood,Urine Trace (Negative); Clarity,Urine Clear (Clear); Color,Urine Yellow (Yellow); Glucose,Urine (UA) 150 mg/dL (Normal); Ketones,Urine Negative (Negative); Leukocyte Esterase,Urine Negative (Negative); Mucus,Urine Few per lpf (None-Few); Nitrite,Urine Negative (Negative); PH,Urine 7.5 pH Units (5.0-8.0); Protein,Urine >=300 mg/dL (Neg-Trace); Specific Gravity,Urine 1.016 (1.010-1.025); Squamous Epithelial Cell,Urine Few per hpf (None-Few); Urobilinogen,Urine Normal (Normal); WBC,Urine 0-3 per hpf (0-3)
[2020-02-22 13:14] LABS: Adenovirus Not Detected (Not Detect); Bordetella Pertussis Not Detected (Not Detect); Chlamydophila pneumoniae Not Detected (Not Detect); Coronavirus 229E Not Detected (Not Detect); Coronavirus HKU1 Not Detected (Not Detect); Coronavirus NL63 Not Detected (Not Detect); Coronavirus OC43 Not Detected (Not Detect); Human Metapneumovirus Not Detected (Not Detect); Human Rhinovirus/Enterovirus Not Detected (Not Detect); Influenza A Subtype 2009 H1 Not Detected (Not Detect); Influenza B Not Detected (Not Detect); Mycoplasma pneumoniae Not Detected (Not Detect); Parainfluenza Virus 1 Not Detected (Not Detect); Parainfluenza Virus 2 Not Detected (Not Detect); Parainfluenza Virus 3 Not Detected (Not Detect); Parainfluenza Virus 4 Not Detected (Not Detect); Respiratory Syncytial Virus Not Detected (Not Detect); SARS-CoV-2 Not Detected (Not Detect)
[2020-02-22] MEDS ORDERED: Prochlorperazine 10 MG/2 ML VIAL IVP STA (14:12)
[2020-02-22] MEDS ORDERED: *HR* Promethazine 25 MG/ML VIAL IM PRN ×2 (14:32→21:07)
[2020-02-22] MEDS ORDERED: Naloxone 0.4 MG/ML INJ IVP PRN ×2 (14:32→21:07)
[2020-02-22] MEDS ORDERED: Ondansetron 4 MG/2 ML VIAL IVP PRN ×4 (14:32→21:07)
[2020-02-22] MEDS ORDERED: 0.9 % Sodium Chloride 1,000 ML IVC SCH ×2 (14:45→21:07)
[2020-02-22 14:59] LABS: Magnesium 2.1 mg/dL (1.6-2.6); Phosphorous 6.3 mg/dL (2.7-4.5)
[2020-02-22] MEDS ORDERED: Vancomycin 1,750 MG in 0.9 % Sodium Chloride 250 ML IVPB SCH (15:00)
[2020-02-22] MEDS ORDERED: Piperacillin/Tazobactam 3.375 GM in 0.9 % Sodium Chloride Mini Bag 100 ML IVPB SCH (16:00)
[2020-02-22] MEDS ORDERED: Heparin 1,000 UNITS/500 mL 500 ML ONE (17:55)
[2020-02-22] MEDS ORDERED: *HR* Heparin 5,000 UNIT/ML VIAL SQ SCH (18:00)
[2020-02-22] MEDS ORDERED: *HR* FentaNYL (PF) 100 MCG/2 ML VIAL IVP PRN ×2 (18:31→21:07)
[2020-02-22] MEDS ORDERED: Lidocaine HCL 4 ML Topical Solution (Laryng-O-Jet Kit Sterile Pak) TP ONE (18:45)
[2020-02-22] MEDS ORDERED: *HR* Rocuronium Bromide 50 MG/5 ML VIAL ONE (18:45)
[2020-02-22] MEDS ORDERED: *HR* FentaNYL (PF) 100 MCG/2 ML VIAL ONE (18:47)
[2020-02-22] MEDS ORDERED: *HR* Vasopressin 20 UNIT/ML VIAL ONE (18:50)
[2020-02-22] MEDS ORDERED: CefOXitin 2,000 MG VIAL ONE (18:58)
[2020-02-22] MEDS ORDERED: *HR* PHENYLEPHRINE 1,000 MCG/10 ML SYRINGE IVP ONE (19:11)
[2020-02-22] MEDS ORDERED: Ondansetron 4 MG/2 ML VIAL ONE (19:27)
[2020-02-22] MEDS ORDERED: *HR* Metoprolol 5 MG/5 ML VIAL IVP ONE (19:46)
[2020-02-23 00:57] LABS: Immature Granulocytes % 0.6 % (0-4)
[2020-02-23 00:59] LABS: Basophils % 0.1 %; Eosinophils # 0.1 K/mcL (0.0-0.6); Eosinophils % 1.2 %; Hematocrit 31.1 % (37.5-50.1); Hemoglobin 9.4 g/dL (12.9-16.9); Lymphocytes # 0.8 K/mcL (0.6-4.6); Lymphocytes % 10.8 %; Mean Corpuscular HGB Conc 30.2 g/dL (31.6-35.5); Mean Corpuscular Hemoglobin 33.8 pg (28.0-33.3); Mean Corpuscular Volume 111.9 fL (83.0-100.0); Monocytes # 0.4 K/mcL (0.0-1.3); Monocytes % 5.5 %; Red Blood Count 2.78 M/mcL (4.19-5.50); Red Cell Distribution Width 19.7 % (11.5-14.5); Segmented Neutrophils % 81.8 %; White Blood Count 6.9 K/mcL (4.3-11.1)
[2020-02-23 01:00] LABS: Neutrophils # 5.6 K/mcL (1.6-8.9); Platelet Count 89 K/mcL (140-400)
[2020-02-23 01:18] LABS: Albumin 2.9 g/dL (3.5-5.7); Albumin/Globulin Ratio 1.2 (1.1-2.2); Bilirubin,Total 0.7 mg/dL (0.3-1.0); Calcium 8.5 mg/dL (8.6-10.3); Globulin 2.5 g/dL (2.4-3.5); Potassium 5.2 mEq/L (3.5-5.1); Total Protein 5.4 g/dL (6.4-8.9)
[2020-02-23] MEDS: *HR* Heparin 5,000 UNIT/ML VIAL SQ SCH ×2 (05:28→17:37)
[2020-02-23] MEDS ORDERED: 0.9 % Sodium Chloride 250 ML IVC PRN (07:26)
[2020-02-23] MEDS ORDERED: Albumin 25% 25gram/100mL 25 GM/100 ML IV.SOLN IVPB PRN (07:26)
[2020-02-23] MEDS ORDERED: 0.9 % Sodium Chloride 1,000 ML PRIME SCH (07:30)
[2020-02-23] MEDS: Albuterol 2.5 MG/3 ML NEBULIZER IH SCH ×2 (16:09→22:36)
[2020-02-23] MEDS ORDERED: Famotidine 20 MG TABLET PO PRN (19:05)
[2020-02-23] MEDS: Nystatin SUSP 5 ML UD.LIQ PO SCH (19:53)
[2020-02-23] MEDS ORDERED: Gabapentin 100 MG CAPSULE PO SCH (21:00)
[2020-02-23] MEDS ORDERED: Aspirin Enteric Coated 81 MG Tablet PO SCH (21:00)
[2020-02-24] MEDS ORDERED: Melatonin 3 MG TABLET PO PRN
[2020-02-24 02:23] LABS: Basophils % 0.3 %; Eosinophils # 0.2 K/mcL (0.0-0.6); Eosinophils % 2.6 %; Hematocrit 30.5 % (37.5-50.1); Hemoglobin 9.6 g/dL (12.9-16.9); Immature Granulocytes % 0.6 % (0-4); Lymphocytes # 0.5 K/mcL (0.6-4.6); Lymphocytes % 7.6 %; Mean Corpuscular HGB Conc 31.5 g/dL (31.6-35.5); Mean Corpuscular Hemoglobin 34.3 pg (28.0-33.3); Mean Corpuscular Volume 108.9 fL (83.0-100.0); Mean Platelet Volume 10.4 fL (9.4-12.4); Monocytes # 0.5 K/mcL (0.0-1.3); Monocytes % 6.8 %; Neutrophils # 5.4 K/mcL (1.6-8.9); Platelet Count 104 K/mcL (140-400); Red Cell Distribution Width 19.1 % (11.5-14.5); Segmented Neutrophils % 82.1 %; White Blood Count 6.6 K/mcL (4.3-11.1)
[2020-02-24 02:38] LABS: Magnesium 1.9 mg/dL (1.6-2.6); Potassium 4.9 mEq/L (3.5-5.1)
[2020-02-24] MEDS: Albuterol 2.5 MG/3 ML NEBULIZER IH SCH ×4 (04:23→21:57)
[2020-02-24] MEDS: *HR* Heparin 5,000 UNIT/ML VIAL SQ SCH ×2 (05:43→18:29)
[2020-02-24] MEDS ORDERED: Acetaminophen 325 MG TABLET PO PRN ×2 (08:41→16:30)
[2020-02-24] MEDS ORDERED: Dextrose Gel 15 GM/37.5 ML TUBE PO PRN ×4 (08:50→16:30)
[2020-02-24] MEDS ORDERED: *HR* Dextrose 50 % in Water (Vial) 50 ML VIAL IVP PRN ×2 (08:50→16:30)
[2020-02-24] MEDS ORDERED: D5% in Water 1,000 ML IVC PRN ×2 (08:50→16:30)
[2020-02-24] MEDS ORDERED: Cyanocobalamin (B-12) 1,000 MCG TABLET PO SCH (09:00)
[2020-02-24] MEDS ORDERED: allopurinoL 100 MG TABLET PO SCH (09:00)
[2020-02-24] MEDS ORDERED: Budesonide Neb 0.5 MG/2 ML IH SCH (09:00)
[2020-02-24] MEDS ORDERED: Levothyroxine Sodium 100 MCG VIAL IVP SCH (09:00)
[2020-02-24] MEDS ORDERED: Metoprolol XL (24 HR) Succ 25 MG TAB.ER.24H PO SCH (09:00)
[2020-02-24] MEDS ORDERED: Albumin 25% 25gram/100mL 25 GM/100 ML IV.SOLN IVPB PRN ×2 (09:07→16:30)
[2020-02-24] MEDS ORDERED: 0.9 % Sodium Chloride 250 ML IVC PRN ×2 (09:07→16:30)
[2020-02-24] MEDS: Nystatin SUSP 5 ML UD.LIQ PO SCH ×4 (09:37→22:12)
[2020-02-24] MEDS: Metoclopramide 10 MG/2 ML VIAL IVP SCH ×4 (14:07→23:36)
[2020-02-24] MEDS ORDERED: Acetaminophen 325 MG TABLET PO ONE (14:55)
[2020-02-24] MEDS ORDERED: Piperacillin/Tazobactam 3.375 GM in 0.9 % Sodium Chloride Mini Bag 100 ML IVPB SCH (16:00)
[2020-02-24 16:30] LABS: ABG Base Excess 2 mEq/L (-2 to 3); ABG HCO3 24 mEq/L (21-27); ABG Oxygen Saturation 94 % (95-98); ABG PCO2 30 mmHg (35-45); ABG PH 7.52 pH Units (7.32-7.45); ABG PO2 60 mmHg (85-104); ABG TCO2 25 mEq/L (20-26)
[2020-02-24] MEDS ORDERED: Naloxone 0.4 MG/ML INJ IVP PRN (16:30)
[2020-02-24] MEDS ORDERED: 0.9 % Sodium Chloride 1,000 ML PRIME SCH (16:30)
[2020-02-24] MEDS ORDERED: Ondansetron 4 MG/2 ML VIAL IVP PRN (16:30)
[2020-02-24] MEDS ORDERED: Famotidine 20 MG TABLET PO PRN (16:30)
[2020-02-24] MEDS: Norepinephrine 4 MG/254 ML IV.SOLN IVC SCH (17:20)
[2020-02-24] MEDS ORDERED: Perflutren Lipid Microsphere 1.3 ML in 0.9 % Sodium Chloride 8.7 ML IVP PRN (17:41)
[2020-02-24] MEDS ORDERED: Vancomycin 1 EACH in 0.9 % Sodium Chloride 250 ML IVPB SCH (18:00)
[2020-02-24 18:03] LABS: Hematocrit 29.9 % (37.5-50.1); Hemoglobin 9.3 g/dL (12.9-16.9); Mean Corpuscular HGB Conc 31.1 g/dL (31.6-35.5); Mean Corpuscular Hemoglobin 33.5 pg (28.0-33.3); Mean Corpuscular Volume 107.6 fL (83.0-100.0); Mean Platelet Volume 10.4 fL (9.4-12.4); Platelet Count 109 K/mcL (140-400); Red Blood Count 2.78 M/mcL (4.19-5.50); Red Cell Distribution Width 18.5 % (11.5-14.5); White Blood Count 6.3 K/mcL (4.3-11.1)
[2020-02-24 18:26] LABS: Basophils # 0.3 K/mcL (0.0-0.2); Eosinophils # 0.4 K/mcL (0.0-0.6); Lymphocytes # 0.9 K/mcL (0.6-4.6); Neutrophils # 4.8 K/mcL (1.6-8.9)
[2020-02-24] MEDS: Doxycycline 100 MG in 0.9 % Sodium Chloride Mini Bag 100 ML IVPB SCH (18:29)
[2020-02-24 18:31] LABS: Albumin 2.9 g/dL (3.5-5.7); Albumin/Globulin Ratio 1.2 (1.1-2.2); Bilirubin,Direct 0.4 mg/dL (0.0-0.2); Bilirubin,Indirect 0.5 mg/dL (0.0-1.0); Bilirubin,Total 0.9 mg/dL (0.3-1.0); Calcium 8.4 mg/dL (8.6-10.3); Globulin 2.5 g/dL (2.4-3.5); Potassium 5.2 mEq/L (3.5-5.1); Total Protein 5.4 g/dL (6.4-8.9)
[2020-02-24] MEDS ORDERED: Vancomycin 1,500 MG/265 ML IV.SOLN IVPB ONE (19:00)
[2020-02-24] MEDS: Phenylephrine 10 MG in 0.9 % Sodium Chloride 250 ML IVC SCH (20:23)
[2020-02-24] MEDS: Aspirin Enteric Coated 81 MG Tablet PO SCH (20:25)
[2020-02-24] MEDS: Gabapentin 100 MG CAPSULE PO SCH (20:27)
[2020-02-24] MEDS: predniSONE 20 MG TABLET PO SCH (20:27)
[2020-02-24] MEDS ORDERED: predniSONE 20 MG TABLET PO SCH (21:00)
[2020-02-24] MEDS: Nystatin POWDER 30 GM BOTTLE TP SCH (22:12)
[2020-02-25] MEDS: Melatonin 3 MG TABLET PO PRN ×2 (00:46→20:31)
[2020-02-25] MEDS: Piperacillin/Tazobactam 3.375 GM in 0.9 % Sodium Chloride Mini Bag 100 ML IVPB SCH ×2 (02:38→17:19)
[2020-02-25 02:46] LABS: Basophils % 0.4 %; Eosinophils # 0.2 K/mcL (0.0-0.6); Eosinophils % 3.3 %; Hematocrit 27.7 % (37.5-50.1); Hemoglobin 8.8 g/dL (12.9-16.9); Lymphocytes # 0.5 K/mcL (0.6-4.6); Lymphocytes % 6.7 %; Mean Corpuscular HGB Conc 31.8 g/dL (31.6-35.5); Mean Corpuscular Hemoglobin 34.2 pg (28.0-33.3); Mean Corpuscular Volume 107.8 fL (83.0-100.0); Mean Platelet Volume 10.1 fL (9.4-12.4); Monocytes # 0.4 K/mcL (0.0-1.3); Monocytes % 5.1 %; Neutrophils # 6.1 K/mcL (1.6-8.9); Platelet Count 102 K/mcL (140-400); Red Blood Count 2.57 M/mcL (4.19-5.50); Red Cell Distribution Width 18.6 % (11.5-14.5); Segmented Neutrophils % 83.5 %; White Blood Count 7.3 K/mcL (4.3-11.1)
[2020-02-25 02:52] LABS: INR 1.5; Prothrombin Time 17.3 Seconds (9.4-12.1)
[2020-02-25 03:06] LABS: Albumin 2.7 g/dL (3.5-5.7); Albumin/Globulin Ratio 1.1 (1.1-2.2); Bilirubin,Total 0.8 mg/dL (0.3-1.0); Calcium 8.3 mg/dL (8.6-10.3); Globulin 2.5 g/dL (2.4-3.5); Potassium 5.3 mEq/L (3.5-5.1); Total Protein 5.2 g/dL (6.4-8.9)
[2020-02-25] MEDS: Albuterol 2.5 MG/3 ML NEBULIZER IH SCH ×4 (03:28→21:39)
[2020-02-25] MEDS: Doxycycline 100 MG in 0.9 % Sodium Chloride Mini Bag 100 ML IVPB SCH ×2 (06:06→17:21)
[2020-02-25] MEDS: Metoclopramide 10 MG/2 ML VIAL IVP SCH ×3 (06:07→17:22)
[2020-02-25] MEDS: *HR* Heparin 5,000 UNIT/ML VIAL SQ SCH ×2 (06:07→17:22)
[2020-02-25] MEDS: predniSONE 20 MG TABLET PO SCH ×2 (08:53→20:32)
[2020-02-25] MEDS: Cyanocobalamin (B-12) 1,000 MCG TABLET PO SCH (08:53)
[2020-02-25] MEDS: allopurinoL 100 MG TABLET PO SCH (08:53)
[2020-02-25] MEDS: Levothyroxine Sodium 100 MCG VIAL IVP SCH (08:54)
[2020-02-25] MEDS: Nystatin POWDER 30 GM BOTTLE TP SCH ×2 (08:54→20:34)
[2020-02-25] MEDS: Nystatin SUSP 5 ML UD.LIQ PO SCH ×4 (08:54→20:31)
[2020-02-25] MEDS: Metoprolol XL (24 HR) Succ 25 MG TAB.ER.24H PO SCH ×2 (09:03→17:33)
[2020-02-25] MEDS: Budesonide Neb 0.5 MG/2 ML IH SCH (09:42)
[2020-02-25] MEDS: Dexmedetomidine HCl 400 MCG/100 ML MLS IVC SCH (10:17)
[2020-02-25] MEDS ORDERED: 0.9 % Sodium Chloride 250 ML IVC PRN (11:47)
[2020-02-25] MEDS ORDERED: 0.9 % Sodium Chloride 1,000 ML PRIME SCH (12:00)
[2020-02-25] MEDS: Norepinephrine 4 MG/254 ML IV.SOLN IVC SCH (17:19)
[2020-02-25] MEDS: Phenylephrine 10 MG in 0.9 % Sodium Chloride 250 ML IVC SCH (17:21)
[2020-02-25] MEDS: Aspirin Enteric Coated 81 MG Tablet PO SCH (20:32)
[2020-02-25] MEDS: Gabapentin 100 MG CAPSULE PO SCH (20:32)
[2020-02-26] MEDS: Metoclopramide 10 MG/2 ML VIAL IVP SCH ×5 (00:52→23:10)
[2020-02-26] MEDS: Dexmedetomidine HCl 400 MCG/100 ML MLS IVC SCH ×2 (00:57→03:10)
[2020-02-26] MEDS: Albuterol 2.5 MG/3 ML NEBULIZER IH SCH ×4 (03:30→21:27)
[2020-02-26] MEDS: Piperacillin/Tazobactam 3.375 GM in 0.9 % Sodium Chloride Mini Bag 100 ML IVPB SCH ×2 (03:39→17:03)
[2020-02-26 04:18] LABS: Basophils % 0.4 %; Eosinophils % 0.5 %; Hematocrit 27.7 % (37.5-50.1); Hemoglobin 8.6 g/dL (12.9-16.9); Immature Granulocytes % 1.7 % (0-4); Lymphocytes # 0.4 K/mcL (0.6-4.6); Mean Corpuscular Hemoglobin 33.2 pg (28.0-33.3); Mean Corpuscular Volume 106.9 fL (83.0-100.0); Mean Platelet Volume 10.4 fL (9.4-12.4); Monocytes # 0.3 K/mcL (0.0-1.3); Monocytes % 3.8 %; Platelet Count 111 K/mcL (140-400); Red Blood Count 2.59 M/mcL (4.19-5.50); Red Cell Distribution Width 18.5 % (11.5-14.5); Segmented Neutrophils % 88.6 %; White Blood Count 7.8 K/mcL (4.3-11.1)
[2020-02-26 04:36] LABS: Potassium 5.5 mEq/L (3.5-5.1)
[2020-02-26] MEDS: Doxycycline 100 MG in 0.9 % Sodium Chloride Mini Bag 100 ML IVPB SCH ×2 (05:42→17:45)
[2020-02-26] MEDS: *HR* Heparin 5,000 UNIT/ML VIAL SQ SCH ×2 (05:42→17:44)
[2020-02-26] MEDS ORDERED: 0.9 % Sodium Chloride 250 ML IVC PRN ×2 (07:33→11:07)
[2020-02-26] MEDS ORDERED: 0.9 % Sodium Chloride 1,000 ML PRIME SCH ×2 (07:45→11:07)
[2020-02-26] MEDS: Cyanocobalamin (B-12) 1,000 MCG TABLET PO SCH (08:35)
[2020-02-26] MEDS: allopurinoL 100 MG TABLET PO SCH (08:35)
[2020-02-26] MEDS: predniSONE 20 MG TABLET PO SCH (08:35)
[2020-02-26] MEDS: Nystatin SUSP 5 ML UD.LIQ PO SCH ×4 (08:35→21:01)
[2020-02-26] MEDS: Nystatin POWDER 30 GM BOTTLE TP SCH ×2 (08:37→21:01)
[2020-02-26] MEDS: Levothyroxine Sodium 100 MCG VIAL IVP SCH (08:37)
[2020-02-26] MEDS: Budesonide Neb 0.5 MG/2 ML IH SCH (09:39)
[2020-02-26] MEDS ORDERED: Famotidine 20 MG TABLET PO PRN (11:07)
[2020-02-26] MEDS ORDERED: Naloxone 0.4 MG/ML INJ IVP PRN (11:07)
[2020-02-26] MEDS ORDERED: D5% in Water 1,000 ML IVC PRN (11:07)
[2020-02-26] MEDS ORDERED: Acetaminophen 325 MG TABLET PO PRN (11:07)
[2020-02-26] MEDS ORDERED: Ondansetron 4 MG/2 ML VIAL IVP PRN (11:07)
[2020-02-26] MEDS ORDERED: Melatonin 3 MG TABLET PO PRN (11:07)
[2020-02-26] MEDS ORDERED: Dextrose Gel 15 GM/37.5 ML TUBE PO PRN ×2 (11:07)
[2020-02-26] MEDS ORDERED: Albumin 25% 25gram/100mL 25 GM/100 ML IV.SOLN IVPB PRN (11:07)
[2020-02-26] MEDS ORDERED: Vancomycin 1 EACH in 0.9 % Sodium Chloride 250 ML IVPB SCH (11:07)
[2020-02-26] MEDS ORDERED: Vancomycin 1,250 MG/262.5 ML IV.SOLN IVPB ONE ×2 (16:00)
[2020-02-26] MEDS: SODIUM ZIRCONIUM CYCLOSILICATE 5 GM POWD.PACK PO SCH (16:57)
[2020-02-26] MEDS: Gabapentin 100 MG CAPSULE PO SCH (20:59)
[2020-02-26] MEDS: Aspirin Enteric Coated 81 MG Tablet PO SCH (21:00)
[2020-02-27] MEDS: Albuterol 2.5 MG/3 ML NEBULIZER IH SCH ×4 (03:28→21:36)
[2020-02-27] MEDS: Piperacillin/Tazobactam 3.375 GM in 0.9 % Sodium Chloride Mini Bag 100 ML IVPB SCH (03:31)
[2020-02-27] MEDS: *HR* Heparin 5,000 UNIT/ML VIAL SQ SCH ×2 (05:24→17:31)
[2020-02-27] MEDS: Metoclopramide 10 MG/2 ML VIAL IVP SCH ×3 (05:24→17:30)
[2020-02-27] MEDS: Doxycycline 100 MG in 0.9 % Sodium Chloride Mini Bag 100 ML IVPB SCH (05:25)
[2020-02-27 05:41] LABS: Basophils # 0.1 K/mcL (0.0-0.2); Basophils % 0.6 %; Eosinophils # 0.3 K/mcL (0.0-0.6); Hemoglobin 8.9 g/dL (12.9-16.9); Immature Granulocytes % 1.4 % (0-4); Lymphocytes # 0.6 K/mcL (0.6-4.6); Lymphocytes % 7.4 %; Mean Corpuscular HGB Conc 30.7 g/dL (31.6-35.5); Mean Corpuscular Hemoglobin 33.1 pg (28.0-33.3); Mean Corpuscular Volume 107.8 fL (83.0-100.0); Mean Platelet Volume 10.5 fL (9.4-12.4); Monocytes # 0.3 K/mcL (0.0-1.3); Monocytes % 3.6 %; Neutrophils # 7.3 K/mcL (1.6-8.9); Nucleated Red Blood Cells 0.2 /100 WBC (0); Platelet Count 141 K/mcL (140-400); Red Blood Count 2.69 M/mcL (4.19-5.50); Red Cell Distribution Width 18.6 % (11.5-14.5); White Blood Count 8.7 K/mcL (4.3-11.1)
[2020-02-27 06:04] LABS: Calcium 9.1 mg/dL (8.6-10.3); Potassium 4.3 mEq/L (3.5-5.1)
[2020-02-27] MEDS: allopurinoL 100 MG TABLET PO SCH (09:37)
[2020-02-27] MEDS: Nystatin SUSP 5 ML UD.LIQ PO SCH ×4 (09:38→20:48)
[2020-02-27] MEDS: Cyanocobalamin (B-12) 1,000 MCG TABLET PO SCH (09:38)
[2020-02-27] MEDS: Nystatin POWDER 30 GM BOTTLE TP SCH ×2 (09:39→20:48)
[2020-02-27] MEDS: SODIUM ZIRCONIUM CYCLOSILICATE 5 GM POWD.PACK PO SCH (09:39)
[2020-02-27] MEDS: Budesonide Neb 0.5 MG/2 ML IH SCH (11:02)
[2020-02-27] MEDS ORDERED: Cefepime HCl 1,000 MG in 0.9 % Sodium Chloride Mini Bag 100 ML IVPB ONE (20:00)
[2020-02-27] MEDS: Aspirin Enteric Coated 81 MG Tablet PO SCH (20:47)
[2020-02-27] MEDS: Doxycycline 100 MG CAPSULE PO SCH (20:47)
[2020-02-27] MEDS: Gabapentin 100 MG CAPSULE PO SCH (20:48)
[2020-02-28] MEDS: Metoclopramide 10 MG/2 ML VIAL IVP SCH ×5 (00:03→23:31)
[2020-02-28] MEDS ORDERED: Prochlorperazine 10 MG/2 ML VIAL IVP PRN (01:54)
[2020-02-28] MEDS: 0.9 % Sodium Chloride 1,000 ML IVC SCH ×3 (02:48→17:57)
[2020-02-28 03:00] LABS: Basophils % 0.5 %; Eosinophils # 0.3 K/mcL (0.0-0.6); Eosinophils % 4.8 %; Hematocrit 28.8 % (37.5-50.1); Hemoglobin 8.8 g/dL (12.9-16.9); Immature Granulocytes % 1.4 % (0-4); Lymphocytes # 0.4 K/mcL (0.6-4.6); Lymphocytes % 6.3 %; Mean Corpuscular HGB Conc 30.6 g/dL (31.6-35.5); Mean Corpuscular Volume 107.9 fL (83.0-100.0); Mean Platelet Volume 10.1 fL (9.4-12.4); Monocytes # 0.2 K/mcL (0.0-1.3); Monocytes % 2.6 %; Neutrophils # 5.5 K/mcL (1.6-8.9); Nucleated Red Blood Cells 0.3 /100 WBC (0); Platelet Count 117 K/mcL (140-400); Red Blood Count 2.67 M/mcL (4.19-5.50); Red Cell Distribution Width 18.5 % (11.5-14.5); Segmented Neutrophils % 84.4 %; White Blood Count 6.5 K/mcL (4.3-11.1)
[2020-02-28 03:20] LABS: Calcium 8.7 mg/dL (8.6-10.3); Potassium 3.9 mEq/L (3.5-5.1)
[2020-02-28] MEDS: Albuterol 2.5 MG/3 ML NEBULIZER IH SCH ×4 (03:25→22:00)
[2020-02-28] MEDS: *HR* Heparin 5,000 UNIT/ML VIAL SQ SCH ×2 (06:43→18:09)
[2020-02-28] MEDS ORDERED: 0.9 % Sodium Chloride 250 ML IVC PRN (07:03)
[2020-02-28] MEDS ORDERED: Isovue-370 500 ML BOTTLE IVP ONE (07:59)
[2020-02-28] MEDS: Nystatin POWDER 30 GM BOTTLE TP SCH ×2 (08:15→20:56)
[2020-02-28] MEDS: Cyanocobalamin (B-12) 1,000 MCG TABLET PO SCH (08:15)
[2020-02-28] MEDS: Doxycycline 100 MG CAPSULE PO SCH ×2 (08:15→20:56)
[2020-02-28] MEDS: SODIUM ZIRCONIUM CYCLOSILICATE 5 GM POWD.PACK PO SCH (08:15)
[2020-02-28] MEDS: Nystatin SUSP 5 ML UD.LIQ PO SCH ×4 (08:15→20:56)
[2020-02-28] MEDS: allopurinoL 100 MG TABLET PO SCH (08:15)
[2020-02-28] MEDS: Budesonide Neb 0.5 MG/2 ML IH SCH (11:50)
[2020-02-28] MEDS ORDERED: Lidocaine -MPF 2% 5 ML VIAL INFILT ONE (15:03)
[2020-02-28] MEDS: Norepinephrine 4 MG/254 ML IV.SOLN IVC SCH (15:57)
[2020-02-28] MEDS ORDERED: Cefepime HCl 2,000 MG in Water for inj. (sterile) 20 ML IVP SCH ×2 (18:00→21:00)
[2020-02-28] MEDS: Gabapentin 100 MG CAPSULE PO SCH (20:56)
[2020-02-28] MEDS: Aspirin Enteric Coated 81 MG Tablet PO SCH (20:56)
[2020-02-29] MEDS: Norepinephrine 4 MG/254 ML IV.SOLN IVC SCH (01:55)
[2020-02-29 03:21] LABS: Basophils % 0.3 %; Eosinophils # 0.4 K/mcL (0.0-0.6); Eosinophils % 3.5 %; Hematocrit 30.4 % (37.5-50.1); Hemoglobin 9.5 g/dL (12.9-16.9); Immature Granulocytes % 1.1 % (0-4); Lymphocytes # 0.5 K/mcL (0.6-4.6); Mean Corpuscular HGB Conc 31.3 g/dL (31.6-35.5); Mean Corpuscular Hemoglobin 33.8 pg (28.0-33.3); Mean Corpuscular Volume 108.2 fL (83.0-100.0); Mean Platelet Volume 9.9 fL (9.4-12.4); Monocytes # 0.3 K/mcL (0.0-1.3); Monocytes % 2.3 %; Neutrophils # 10.9 K/mcL (1.6-8.9); Nucleated Red Blood Cells 0.2 /100 WBC (0); Platelet Count 133 K/mcL (140-400); Red Blood Count 2.81 M/mcL (4.19-5.50); Red Cell Distribution Width 18.3 % (11.5-14.5); Segmented Neutrophils % 88.8 %
[2020-02-29] MEDS: Albuterol 2.5 MG/3 ML NEBULIZER IH SCH ×4 (03:26→22:31)
[2020-02-29 03:27] LABS: White Blood Count 12.3 K/mcL (4.3-11.1)
[2020-02-29 03:37] LABS: Calcium 9.1 mg/dL (8.6-10.3)
[2020-02-29] MEDS: *HR* Heparin 5,000 UNIT/ML VIAL SQ SCH ×2 (06:01→17:48)
[2020-02-29] MEDS: Metoclopramide 10 MG/2 ML VIAL IVP SCH ×4 (06:01→23:00)
[2020-02-29] MEDS ORDERED: 0.9 % Sodium Chloride 250 ML IVC PRN (07:13)
[2020-02-29] MEDS ORDERED: 0.9 % Sodium Chloride 1,000 ML PRIME SCH (07:15)
[2020-02-29] MEDS: *HR* Metoprolol 5 MG/5 ML VIAL IVP SCH ×4 (09:00→23:00)
[2020-02-29] MEDS: SODIUM ZIRCONIUM CYCLOSILICATE 5 GM POWD.PACK PO SCH (10:23)
[2020-02-29] MEDS: Nystatin POWDER 30 GM BOTTLE TP SCH ×2 (10:27→20:58)
[2020-02-29] MEDS: allopurinoL 100 MG TABLET PO SCH (10:27)
[2020-02-29] MEDS: Cyanocobalamin (B-12) 1,000 MCG TABLET PO SCH (10:27)
[2020-02-29] MEDS: Nystatin SUSP 5 ML UD.LIQ PO SCH ×4 (10:33→19:34)
[2020-02-29] MEDS: Budesonide Neb 0.5 MG/2 ML IH SCH (11:18)
[2020-02-29 11:39] LABS: Albumin 2.9 g/dL (3.5-5.7); Albumin/Globulin Ratio 1.2 (1.1-2.2); Globulin 2.4 g/dL (2.4-3.5); Total Protein 5.3 g/dL (6.4-8.9)
[2020-02-29] MEDS ORDERED: *HR* Dextrose 50 % in Water (Vial) 50 ML VIAL IVP ONE (15:45)
[2020-02-29] MEDS: Doxycycline 100 MG in 0.9 % Sodium Chloride Mini Bag 100 ML IVPB SCH (17:45)
[2020-02-29] MEDS: Aspirin Enteric Coated 81 MG Tablet PO SCH (19:33)
[2020-03-01 03:24] LABS: Basophils % 0.3 %; Eosinophils # 0.5 K/mcL (0.0-0.6); Eosinophils % 5.7 %; Hematocrit 28.1 % (37.5-50.1); Hemoglobin 8.9 g/dL (12.9-16.9); Immature Granulocytes % 1.7 % (0-4); Lymphocytes # 0.7 K/mcL (0.6-4.6); Lymphocytes % 7.5 %; Mean Corpuscular HGB Conc 31.7 g/dL (31.6-35.5); Mean Corpuscular Hemoglobin 34.4 pg (28.0-33.3); Mean Corpuscular Volume 108.5 fL (83.0-100.0); Mean Platelet Volume 10.2 fL (9.4-12.4); Monocytes # 0.2 K/mcL (0.0-1.3); Monocytes % 2.5 %; Neutrophils # 7.2 K/mcL (1.6-8.9); Platelet Count 119 K/mcL (140-400); Red Blood Count 2.59 M/mcL (4.19-5.50); Red Cell Distribution Width 18.1 % (11.5-14.5); Segmented Neutrophils % 82.3 %; White Blood Count 8.8 K/mcL (4.3-11.1)
[2020-03-01 03:43] LABS: Calcium 9.1 mg/dL (8.6-10.3)
[2020-03-01] MEDS: Albuterol 2.5 MG/3 ML NEBULIZER IH SCH ×6 (04:01→22:40)
[2020-03-01] MEDS: *HR* Metoprolol 5 MG/5 ML VIAL IVP SCH ×4 (05:13→23:47)
[2020-03-01] MEDS: Metoclopramide 10 MG/2 ML VIAL IVP SCH ×4 (05:13→23:47)
[2020-03-01] MEDS: *HR* Heparin 5,000 UNIT/ML VIAL SQ SCH ×2 (05:13→16:35)
[2020-03-01] MEDS: Doxycycline 100 MG in 0.9 % Sodium Chloride Mini Bag 100 ML IVPB SCH (05:14)
[2020-03-01] MEDS ORDERED: 0.9 % Sodium Chloride 250 ML IVC PRN ×2 (07:14→15:31)
[2020-03-01] MEDS ORDERED: 0.9 % Sodium Chloride 1,000 ML PRIME SCH ×2 (07:15→15:31)
[2020-03-01] MEDS: SODIUM ZIRCONIUM CYCLOSILICATE 5 GM POWD.PACK PO SCH (07:59)
[2020-03-01] MEDS: Nystatin SUSP 5 ML UD.LIQ PO SCH ×4 (08:50→20:21)
[2020-03-01] MEDS: Budesonide Neb 0.5 MG/2 ML IH SCH (10:13)
[2020-03-01 11:34] LABS: Phosphorous 5.2 mg/dL (2.7-4.5)
[2020-03-01] MEDS ORDERED: Dextrose Gel 15 GM/37.5 ML TUBE PO PRN ×4 (11:35→15:31)
[2020-03-01] MEDS ORDERED: *HR* Dextrose 50 % in Water (Vial) 50 ML VIAL IVP PRN ×2 (11:35→15:31)
[2020-03-01] MEDS ORDERED: D5% in Water 1,000 ML IVC PRN ×2 (11:35→15:31)
[2020-03-01] MEDS ORDERED: Insulin LISPRO 300 UNITS/3 ML VIAL SQ SCH (12:00)
[2020-03-01] MEDS ORDERED: D10% in Water 500 ML IVC PRN ×2 (12:13→15:31)
[2020-03-01] MEDS: Nystatin POWDER 30 GM BOTTLE TP SCH ×2 (12:21→20:23)
[2020-03-01] MEDS: Norepinephrine 4 MG/254 ML IV.SOLN IVC SCH (14:07)
[2020-03-01] MEDS ORDERED: Saliva Stimulant 100ml BOTTLE PO PRN ×2 (14:18→15:31)
[2020-03-01] MEDS ORDERED: Ondansetron 4 MG/2 ML VIAL IVP PRN (15:31)
[2020-03-01] MEDS ORDERED: Naloxone 0.4 MG/ML INJ IVP PRN (15:31)
[2020-03-01] MEDS ORDERED: Famotidine 20 MG TABLET PO PRN (15:31)
[2020-03-01] MEDS ORDERED: Prochlorperazine 10 MG/2 ML VIAL IVP PRN (15:31)
[2020-03-01] MEDS: Insulin LISPRO 300 UNITS/3 ML VIAL SQ SCH ×2 (16:50→20:22)
[2020-03-01] MEDS ORDERED: Clinimix 5%-20% SOLUTION 2,000 ML with MVI, adult with vitamin K 10 ML, Sodium Acetat... IVC SCH ×2 (17:00)
[2020-03-01] MEDS ORDERED: Doxycycline 100 MG in 0.9 % Sodium Chloride Mini Bag 100 ML IVPB SCH (18:00)
[2020-03-01] MEDS ORDERED: *HR* Metoprolol 5 MG/5 ML VIAL IVP SCH (18:00)
[2020-03-01] MEDS ORDERED: Cefepime HCl 2,000 MG in Water for inj. (sterile) 20 ML IVP SCH (21:00)
[2020-03-02] MEDS: Insulin LISPRO 300 UNITS/3 ML VIAL SQ SCH ×7 (00:04→23:42)
[2020-03-02] MEDS: Albumin 25% 25gram/100mL 25 GM/100 ML IV.SOLN IVPB PRN ×2 (00:29→19:42)
[2020-03-02] MEDS: *HR* Heparin 5,000 UNIT/ML VIAL SQ SCH ×2 (05:55→18:23)
[2020-03-02] MEDS: *HR* Metoprolol 5 MG/5 ML VIAL IVP SCH ×4 (05:55→23:41)
[2020-03-02] MEDS: Metoclopramide 10 MG/2 ML VIAL IVP SCH ×4 (05:56→23:41)
[2020-03-02] MEDS: Levalbuterol Neb 1.25 MG/3 ML IH SCH ×4 (06:18→22:24)
[2020-03-02] MEDS: Nystatin SUSP 5 ML UD.LIQ PO SCH ×4 (08:45→19:41)
[2020-03-02] MEDS: SODIUM ZIRCONIUM CYCLOSILICATE 5 GM POWD.PACK PO SCH (08:45)
[2020-03-02] MEDS: Nystatin POWDER 30 GM BOTTLE TP SCH ×2 (08:46→19:42)
[2020-03-02] MEDS: Budesonide Neb 0.5 MG/2 ML IH SCH (09:41)
[2020-03-02 11:49] LABS: Calcium 9.4 mg/dL (8.6-10.3); Magnesium 2.1 mg/dL (1.6-2.6); Potassium 3.7 mEq/L (3.5-5.1)
[2020-03-02] MEDS ORDERED: Clinimix 5%-20% SOLUTION 2,000 ML with MVI, adult with vitamin K 10 ML, Sodium Acetat... IVC SCH ×2 (17:00)
[2020-03-02] MEDS ORDERED: 0.9 % Sodium Chloride 250 ML IVC ONE (17:50)
[2020-03-02] MEDS ORDERED: Albumin 25% 25gram/100mL 25 GM/100 ML IV.SOLN ONE (19:40)
[2020-03-02] MEDS: Phenylephrine 10 MG in 0.9 % Sodium Chloride 250 ML IVC SCH (19:50)
[2020-03-03] MEDS: Levalbuterol Neb 1.25 MG/3 ML IH SCH ×4 (03:41→21:53)
[2020-03-03] MEDS: Insulin LISPRO 300 UNITS/3 ML VIAL SQ SCH ×5 (03:49→23:13)
[2020-03-03 04:03] LABS: Hematocrit 28.1 % (37.5-50.1); Hemoglobin 8.7 g/dL (12.9-16.9); Mean Corpuscular Hemoglobin 33.3 pg (28.0-33.3); Mean Corpuscular Volume 107.7 fL (83.0-100.0); Mean Platelet Volume 10.4 fL (9.4-12.4); Nucleated Red Blood Cells 0.4 /100 WBC (0); Platelet Count 115 K/mcL (140-400); Red Blood Count 2.61 M/mcL (4.19-5.50); Red Cell Distribution Width 17.9 % (11.5-14.5); White Blood Count 8.5 K/mcL (4.3-11.1)
[2020-03-03 04:23] LABS: Albumin 3.1 g/dL (3.5-5.7); Albumin/Globulin Ratio 1.1 (1.1-2.2); Bilirubin,Total 0.6 mg/dL (0.3-1.0); Calcium 9.5 mg/dL (8.6-10.3); Globulin 2.8 g/dL (2.4-3.5); Potassium 3.9 mEq/L (3.5-5.1); Total Protein 5.9 g/dL (6.4-8.9)
[2020-03-03 04:31] LABS: VBG Ionized Calcium < 0.26 mmol/L (1.15-1.35)
[2020-03-03 04:39] LABS: Eosinophils # 0.5 K/mcL (0.0-0.6); Lymphocytes # 1.9 K/mcL (0.6-4.6); Monocytes # 0.2 K/mcL (0.0-1.3); Neutrophils # 5.8 K/mcL (1.6-8.9)
[2020-03-03] MEDS: Metoclopramide 10 MG/2 ML VIAL IVP SCH ×4 (05:49→23:15)
[2020-03-03] MEDS: *HR* Heparin 5,000 UNIT/ML VIAL SQ SCH ×2 (05:49→18:42)
[2020-03-03] MEDS: *HR* Metoprolol 5 MG/5 ML VIAL IVP SCH ×4 (05:49→23:13)
[2020-03-03] MEDS ORDERED: Methylnaltrexone 12 MG/0.6 ML SYRINGE SQ ONE (07:23)
[2020-03-03] MEDS: Calcium Gluconate 1gm/50mL 1 GM/50 ML BAG IVPB SCH ×3 (09:22→14:33)
[2020-03-03] MEDS: Budesonide Neb 0.5 MG/2 ML IH SCH (09:38)
[2020-03-03] MEDS: SODIUM ZIRCONIUM CYCLOSILICATE 5 GM POWD.PACK PO SCH (09:39)
[2020-03-03] MEDS: Nystatin SUSP 5 ML UD.LIQ PO SCH ×4 (09:39→20:10)
[2020-03-03] MEDS: Nystatin POWDER 30 GM BOTTLE TP SCH ×2 (09:41→20:12)
[2020-03-03 14:19] LABS: VBG Ionized Calcium 1.19 mmol/L (1.15-1.35)
[2020-03-03] MEDS ORDERED: Clinimix 5%-20% SOLUTION 2,000 ML, Parenteral Amino Acid 10% 300 ML with MVI, adult wi... IVC SCH ×2 (17:00)
[2020-03-03] MEDS: D10% in Water 500 ML IVC SCH ×3 (18:36→23:14)
[2020-03-03] MEDS: Phenylephrine 10 MG in 0.9 % Sodium Chloride 250 ML IVC SCH (19:17)
[2020-03-03] MEDS ORDERED: Haloperidol Lactate 5 MG/ML VIAL IVP ONE (21:06)
[2020-03-03] MEDS ORDERED: *HR* LORazepam 2 MG/ML VIAL IVP ONE (21:19)
[2020-03-03 21:35] LABS: ABG HCO3 22 mEq/L (21-27); ABG PCO2 30 mmHg (35-45); ABG PH 7.48 pH Units (7.32-7.45); ABG PO2 50 mmHg (85-104)
[2020-03-03 21:36] LABS: ABG Base Excess -1 mEq/L (-2 to 3); ABG Oxygen Saturation 88 % (95-98); ABG TCO2 23 mEq/L (20-26)
[2020-03-04] MEDS: Insulin LISPRO 300 UNITS/3 ML VIAL SQ SCH ×4 (03:31→16:22)
[2020-03-04 03:57] LABS: Hematocrit 27.5 % (37.5-50.1); Hemoglobin 8.5 g/dL (12.9-16.9); Mean Corpuscular HGB Conc 30.9 g/dL (31.6-35.5); Mean Corpuscular Hemoglobin 32.6 pg (28.0-33.3); Mean Corpuscular Volume 105.4 fL (83.0-100.0); Mean Platelet Volume 10.6 fL (9.4-12.4); Nucleated Red Blood Cells 0.6 /100 WBC (0); Platelet Count 111 K/mcL (140-400); Red Blood Count 2.61 M/mcL (4.19-5.50); Red Cell Distribution Width 17.9 % (11.5-14.5); White Blood Count 8.6 K/mcL (4.3-11.1)
[2020-03-04] MEDS: Levalbuterol Neb 1.25 MG/3 ML IH SCH ×3 (04:03→16:08)
[2020-03-04 04:05] LABS: VBG Ionized Calcium 1.16 mmol/L (1.15-1.35)
[2020-03-04 04:15] LABS: Anisocytosis 1+ (Not Present); Eosinophils # 0.7 K/mcL (0.0-0.6); Lymphocytes # 1.7 K/mcL (0.6-4.6); Macrocytosis Present (Not Present); Platelet Estimate Slight Decrease (Normal); Polychromasia 1+ (Not Present)
[2020-03-04 04:17] LABS: Albumin/Globulin Ratio 1.1 (1.1-2.2); Bilirubin,Total 0.6 mg/dL (0.3-1.0); Calcium 9.6 mg/dL (8.6-10.3); Globulin 2.7 g/dL (2.4-3.5); Magnesium 2.2 mg/dL (1.6-2.6); Phosphorous 3.7 mg/dL (2.7-4.5); Potassium 4.1 mEq/L (3.5-5.1); Total Protein 5.7 g/dL (6.4-8.9)
[2020-03-04] MEDS: D10% in Water 500 ML IVC SCH ×2 (05:01→14:44)
[2020-03-04] MEDS: *HR* Metoprolol 5 MG/5 ML VIAL IVP SCH ×3 (05:01→17:11)
[2020-03-04] MEDS: *HR* Heparin 5,000 UNIT/ML VIAL SQ SCH ×2 (05:03→17:15)
[2020-03-04] MEDS: Metoclopramide 10 MG/2 ML VIAL IVP SCH ×3 (05:03→17:15)
[2020-03-04 05:07] LABS: ABG Base Excess 2 mEq/L (-2 to 3); ABG HCO3 26 mEq/L (21-27); ABG Oxygen Saturation 97 % (95-98); ABG PCO2 36 mmHg (35-45); ABG PH 7.46 pH Units (7.32-7.45); ABG PO2 87 mmHg (85-104); ABG TCO2 27 mEq/L (20-26)
[2020-03-04] MEDS ORDERED: DiphenhydraMINE CREAM 28.4 GM TUBE TP PRN (05:09)
[2020-03-04] MEDS ORDERED: 0.9 % Sodium Chloride 250 ML IVC PRN (07:26)
[2020-03-04] MEDS ORDERED: 0.9 % Sodium Chloride 1,000 ML PRIME SCH (07:30)
[2020-03-04] MEDS: Nystatin SUSP 5 ML UD.LIQ PO SCH ×3 (07:37→17:11)
[2020-03-04] MEDS: SODIUM ZIRCONIUM CYCLOSILICATE 5 GM POWD.PACK PO SCH (07:37)
[2020-03-04] MEDS: Nystatin POWDER 30 GM BOTTLE TP SCH (07:38)
[2020-03-04] MEDS ORDERED: Bisacodyl 10 MG RECTAL SUPPOSITORY RC SCH (09:00)
[2020-03-04] MEDS: Budesonide Neb 0.5 MG/2 ML IH SCH (09:45)
[2020-03-04 17:10] VITALS: BP 82/65
[2020-03-04] MEDS: Phenylephrine 10 MG in 0.9 % Sodium Chloride 250 ML IVC SCH (17:11)
== END 2020-03-04 19:36 | disposition hospice, home (50) | DRG 353 ==
LOC: EMEROOARM 10:51 → 3ANU 10:51 → SUATTDRO 15:13 → 3ANU 15:40 → ICNU 02-24 16:11 → 2ANU 02-27 22:51 → ICNU 02-28 14:18 → 2ANU 03-02 04:28 → ICNU 03-02 19:27
PROVIDERS: ADMIT Internal Medicine; ATTEND General Practice